=== PATIENT | male | born 1955 | race Hispanic/Latino ===

== ENCOUNTER 2017-12-21 13:10 | Inpatient (IN) | payer MEDICARE, MEDICAID ==
[2017-12-21 13:10] VITALS: BMI 28.1
--- NOTE | 2017-12-21 14:07 | ED PDOC ---
Arrival/HPI - General Chief Complaint: Cough, Cold, Congestion Time Seen by Provider: 12/21/17 13:28 Historian: Patient - History of Present Illness Narrative History of Present Illness (Text): 12/21/17 13:43 A 62 year old male, whose past medical history includes hypertension, PR, CHF and CVA, presents to the emergency department complaining of subjective fever, myalgias, and productive cough for 2 days. Patient reports also experiencing chest pain which only occurs when coughing. Patient has no other complaints. PMD: Dr. Hess 12/21/17 15:25 Time/Duration: < week (2 days) Symptom Onset: Sudden Symptom Course: Unchanged Past Medical History - Provider Review Nursing Documentation Reviewed: Yes - Infectious Disease Hx of Infectious Diseases: None - Cardiac Hx Cardiac Disorders: Yes Hx Congestive Heart Failure: Yes Hx Hypertension: Yes - Pulmonary Hx Respiratory Disorders: Yes (SMOKES CIGARETTES < PPD.STILL SNEAKS 1-2 .) Hx Pneumonia: Yes - Neurological HX Cerebrovascular Accident: Yes (2012) - HEENT Hx HEENT Disorder: No - Renal Hx Renal Disorder: No - Endocrine/Metabolic Hx Diabetes Mellitus Type 2: Yes - Hematological/Oncological Hx Blood Disorders: No - Integumentary Hx Dermatological Disorder: No (SCARRING TO RIGHT LEG.H/O OF BYPASS.) - Musculoskeletal/Rheumatological Hx Musculoskeletal Disorders: Yes Hx Falls: No Hx Unsteady Gait: Yes (CANE USED AT TIMES) Other/Comment: edema to lower extremIties - Gastrointestinal Hx Gastrointestinal Disorders: Yes (RECTAL BLEED) - Genitourinary/Gynecological Hx Genitourinary Disorders: No - Psychiatric Hx Psychophysiologic Disorder: No Hx Substance Use: No - Surgical History Other/Comment: DVT to right leg/BYpass surgery 2015 - Anesthesia Hx Anesthesia: Yes Hx Anesthesia Reactions: No Hx Malignant Hyperthermia: No Family/Social History - Physician Review Nursing Documentation Reviewed: Yes Family/Social History: No Known Family HX Smoking Status: Current Some Days Smoker Hx Alcohol Use: No Hx Substance Use: No Allergies/Home Meds Allergies/Adverse Reactions: Allergies benztropine mesylate [From Cogentin] Allergy (Verified 12/21/17 13:26) ANAPHYLAXIS esomeprazole magnesium [From Nexium] Allergy (Verified 12/21/17 13:26) RASH Penicillins Allergy (Verified 12/21/17 13:26) ANAPHYLAXIS Sulfa (Sulfonamide Antibiotics) Allergy (Verified 12/21/17 13:26) RASH Home Medications: Home Meds Medication Instructions Recorded Confirmed Atorvastatin [Lipitor] 10 mg PO DAILY 01/13/17 12/21/17 Amlodipine Besylate [Amlodipine 25 mg PO DAILY 12/21/17 12/21/17 Besilate] Furosemide [Lasix] 40 mg PO BID 12/21/17 12/21/17 Potassium Gluconate [Potassium] 0 mg PO DAILY 12/21/17 12/21/17 Review of Systems - Physician Review All systems were reviewed & negative as marked: Yes - Review of Systems Constitutional: Fevers (subjective) Respiratory: Cough (productive) Cardiovascular: Chest Pain (only occurs when coughing) Musculoskeletal: Myalgias Physical Exam Vital Signs Reviewed: Yes Vital Signs Temp Pulse Resp BP Pulse Ox 12/21/17 17:41 71 12 133/65 95 12/21/17 16:02 147/85 12/21/17 15:55 70 12 133/61 95 12/21/17 13:31 99.6 F 91 H 19 141/65 96 Temperature: Afebrile Blood Pressure: Normal Pulse: Regular Respiratory Rate: Normal Appearance: Positive for: Well-Appearing Pain Distress: None Mental Status: Positive for: Alert and Oriented X 3 - Systems Exam Head: Present: Atraumatic, Normocephalic Pupils: Present: PERRL Extroacular Muscles: Present: EOMI Conjunctiva: Present: Normal Mouth: Present: Moist Mucous Membranes Nose (Internal): Present: Rhinorrhea (clear) Neck: Present: Normal Range of Motion Respiratory/Chest: Present: Clear to Auscultation, Good Air Exchange. No: Respiratory Distress, Accessory Muscle Use Cardiovascular: Present: Regular Rate and Rhythm, Normal S1, S2. No: Murmurs Abdomen: Present: Normal Bowel Sounds. No: Tenderness, Distention, Peritoneal Signs Back: Present: Normal Inspection Upper Extremity: Present: Normal Inspection. No: Cyanosis, Edema Lower Extremity: Present: Normal Inspection. No: Edema Neurological: Present: GCS=15, CN II-XII Intact, Speech Normal Skin: Present: Warm, Dry, Normal Color. No: Rashes Psychiatric: Present: Alert, Oriented x 3, Normal Insight, Normal Concentration Medical Decision Making ED Course and Treatment: 12/21/17 13:45 Impression: 62 year old male with subjective fever, myalgias, productive cough associated with chest pain. Physical exam shows clear rhinorrhea and normal lung examination. Plan: -- Chest X-ray -- Labs -- Influenza A B test -- Aspirin -- Reassess and disposition Prior Visits: Notes and results from previous visits were reviewed. Patient was last seen in the emergency department on 01/13/2017 for chest pain. Patient was admitted. Progress Notes: 12/21/2017 14:28 Chest X-ray IMPRESSION: No active disease. Dictator: Sean Beasley MD 12/21/17 14:37 EKG showsx NSR at 91bpm with LBBB and LAD, unchanged from prior on 01/14/17. cxray negative for acute disease 12/21/17 14:57 Influenza b positive. Tamiflu started 12/21/17 15:25 Patient had normal echo last year. However, he reports shortness of breath when lying flat. When ambulating around the ED he reports persistent shortness of breath and is tachypneic to 22 and o2 sat to 94%. BNP elevated. lasix ordered. Will need tele observation for influenza with multiple co-morbidities incluiding chf, copd, and mental retardation, with tachypnea and shortness of breath - Lab Interpretations Lab Results: 12/21/17 14:20 12/21/17 14:20 Lab Results 12/21/17 14:20: Sodium 143, Potassium 3.5 L, Chloride 103, Carbon Dioxide 24, Anion Gap 19, BUN 24 H, Creatinine 1.5, Est GFR ( Amer) 58, Est GFR (Non- Af Amer) 48, Random Glucose 114 H, Calcium 9.5, Total Bilirubin 0.7, AST 30, ALT 28, Alkaline Phosphatase 47, Troponin I 0.12 D, NT-Pro-B Natriuret Pep 3070 H, Total Protein 7.7, Albumin 4.4, Globulin 3.3, Albumin/Globulin Ratio 1.4 12/21/17 14:20: WBC 3.9 L D, RBC 3.61, Hgb 10.7 L, Hct 33.6 L, MCV 93.1, MCH 29.6, MCHC 31.8, RDW 15.3 H, Plt Count 80 L, MPV 10.9, Gran % 69.8 H, Lymph % ( Auto) 17.5 L, Towner % (Auto) 12.7 H, Eos % (Auto) 0.0 L, Baso % (Auto) 0.0, Gran # 2.75, Lymph # (Auto) 0.7 L, Towner # (Auto) 0.5, Eos # (Auto) 0.0, Baso # (Auto ) 0.00 12/21/17 14:20: Influenza Typ A,B (EIA) Pos for influenza b H I have reviewed the lab results: Yes - RAD Interpretation Radiology Orders: 12/21/17 13:33 CHEST PORTABLE [RAD] Stat - Medication Orders Current Medication Orders: Aspirin (Ecotrin) 81 mg PO DAILY [place] Atorvastatin Calcium (Lipitor) 10 mg PO DIN [place] Enoxaparin Sodium (Lovenox) 90 mg SC Q24H [place] PRN Reason: Protocol Last Admin: 12/21/17 19:32 Dose: 90 mg Subcutaneous Administrations Document 12/21/17 19:32 JERICHO (Rec: 12/21/17 19:32 [email or web address]) Injection Site MAR Injection Site Left Abdomen Charges for Administration # of Subcutaneous Administrations 1 Furosemide (Lasix) 40 mg IV DAILY [place] Furosemide (Lasix) 40 mg IV ONCE ONE Stop: 12/21/17 21:01 Metoprolol Tartrate (Lopressor) 25 mg PO BID [place] Potassium Chloride (K-Dur 20 Meq Er Tab) 20 meq PO ONCE ONE Stop: 12/21/17 21:01 Potassium Chloride (K-Dur 20 Meq Er Tab) 20 meq PO DAILY [place] Discontinued Medications Aspirin (Aspirin Chewable) 324 mg PO STAT STA Stop: 12/21/17 13:47 Last Admin: 12/21/17 13:57 Dose: 324 mg Furosemide (Lasix) 40 mg IVP STAT STA Stop: 12/21/17 15:27 Last Admin: 12/21/17 16:02 Dose: 40 mg MAR Blood Pressure Document 12/21/17 16:02 RG (Rec: 12/21/17 16:14 [email or web address]) Blood Pressure Blood Pressure (100/60-150/90) 147/85 IVP Administration Document 12/21/17 16:02 RG (Rec: 12/21/17 16:14 [email or web address]) Charges for Administration # of IVP Administrations 1 Oseltamivir Phosphate (Tamiflu Cap) 75 mg PO STAT STA PRN Reason: Protocol Stop: 12/21/17 14:58 Last Admin: 12/21/17 15:14 Dose: 75 mg Potassium Chloride (K-Dur 20 Meq Er Tab) 40 meq PO STAT STA Stop: 12/21/17 18:08 Last Admin: 12/21/17 19:31 Dose: 40 meq - Scribe Statement The provider has reviewed the documentation as recorded by the Karen Garcia Provider Scribe Attestation: All medical record entries made by the Angeliqueibbaylee were at my direction and personally dictated by me. I have reviewed the chart and agree that the record accurately reflects my personal performance of the history, physical exam, medical decision making, and the department course for this patient. I have also personally directed, reviewed, and agree with the discharge instructions and disposition. Disposition/Present on Arrival - Present on Arrival Any Indicators Present on Arrival: No History of DVT/PE: No History of Uncontrolled Diabetes: No Urinary Catheter: No History of Decub. Ulcer: No History Surgical Site Infection Following: None - Disposition Have Diagnosis and Disposition been Completed?: Yes Diagnosis: Influenza B, Congestive heart failure (CHF) Disposition: HOSPITALIZED Disposition Time: 15:59 Patient Plan: Observation Patient Problems: Current Active Problems Problem Status Onset Influenza B Acute Condition: FAIR
--- NOTE | 2017-12-21 14:30 | RAD ---
HISTORY: cough COMPARISON: 01/16/2017 FINDINGS: LUNGS: No active pulmonary disease. PLEURA: No significant pleural effusion identified, no pneumothorax apparent. CARDIOVASCULAR: Normal. OSSEOUS STRUCTURES: No significant abnormalities. VISUALIZED UPPER ABDOMEN: Normal. OTHER FINDINGS: None. IMPRESSION: No active disease.
[2017-12-21 14:43] LABS: GRAN # 2.75 (1.4-6.5); GRAN % 69.8 % (50.0-68.0); HEMOGLOBIN 10.7 g/dL (14.0-18.0); LYMPH # 0.7 (1.2-3.4); LYMPH % 17.5 % (22.0-35.0); MEAN CELL VOLUME 93.1 fl (80.0-105.0); MEAN CORPUSCULAR HEMOGLOBIN 29.6 pg (25.0-35.0); MEAN CORPUSCULAR HGB CONC 31.8 g/dl (31.0-37.0); MEAN PLATELET VOLUME 10.9 fl (7.0-11.0); MONO # 0.5 (0.1-0.6); MONO % 12.7 % (1.0-6.0); RBC 3.61 10^6/uL (3.5-6.1); RED CELL DISTRIBUTION WIDTH 15.3 % (11.5-14.5); WHITE BLOOD COUNT 3.9 10^3/ul (4.5-11.0)
[2017-12-21 14:45] LABS: ALB/GLOB RATIO 1.4 (1.1-1.8); ALBUMIN 4.4 g/dL (3.0-4.8); CALCIUM 9.5 mg/dL (8.4-10.5)
[2017-12-21 14:56] LABS: TROPONIN I 0.12 ng/mL
--- NOTE | 2017-12-21 18:00 | CARD ---
APPROVED REPORT EKG Measurement Heart [id number] <Conclusion> Normal sinus rhythm, APCs Left axis deviation Left bundle branch block Abnormal ECG
[2017-12-21] MEDS ORDERED: Potassium Chloride 20 mEq ER Tab PO STA (18:07)
[2017-12-21] MEDS: Enoxaparin 100 mg Syringe SC SCH (19:32)
[2017-12-21] MEDS ORDERED: Potassium Chloride 20 mEq ER Tab PO ONE (21:00)
[2017-12-22 04:14] LABS: EOS % 0.7 % (1.5-5.0); GRAN # 1.14 (1.4-6.5); GRAN % 42.3 % (50.0-68.0); HEMOGLOBIN 11.3 g/dL (14.0-18.0); LYMPH # 1.1 (1.2-3.4); LYMPH % 39.6 % (22.0-35.0); MEAN CELL VOLUME 93.3 fl (80.0-105.0); MEAN CORPUSCULAR HGB CONC 31.1 g/dl (31.0-37.0); MEAN PLATELET VOLUME 10.7 fl (7.0-11.0); MONO # 0.5 (0.1-0.6); MONO % 17.4 % (1.0-6.0); RBC 3.89 10^6/uL (3.5-6.1); RED CELL DISTRIBUTION WIDTH 15.2 % (11.5-14.5)
[2017-12-22 04:35] LABS: WHITE BLOOD COUNT 2.7 10^3/ul (4.5-11.0)
[2017-12-22 05:06] LABS: ALB/GLOB RATIO 1.3 (1.1-1.8); ALBUMIN 4.4 g/dL (3.0-4.8); ALT/SGPT 25 U/L (7-56); AST/SGOT 30 U/L (17-59); BLOOD UREA NITROGEN 24 mg/dL (7-21); CALCIUM 9.8 mg/dL (8.4-10.5); GFR AFRICAN-AMERICAN > 60; GFR NON-AFRICAN AMERICAN 56; HDL CHOLESTEROL 34 mg/dL (29-60); MAGNESIUM 2.4 mg/dL (1.7-2.2)
--- NOTE | 2017-12-22 05:06 | CON ---
DATE: 12/21/2017 CONSULT SERVICE: Cardiology. CONSULTING PHYSICIAN: Ricardo Landrum MD REASON FOR CONSULTATION AND FOLLOWUP: Cardiac evaluation, admitted with cold congestion, cough, flu-like symptoms, and mild shortness of breath. BRIEF CLINICAL HISTORY: This is a 62-year-old male with past medical history significant for moderate aortic stenosis, moderate aortic regurgitation, [id number] tricuspid regurgitation, came in with complaint of cold, flu-like symptoms, congestion nasal, nasal tone of sounds, complaining of fever, myalgia, and productive cough for two days, and shortness of breath as well. Daughter called the primary care doctor, Dr. Hess, notified and then brought to the emergency room. The patient denies any chest pain, shortness of breath, any palpitations, but complaining of chest pain on coughing and mild shortness of breath on walking with nasal congestion, sneezing, and coughing. The patient's flu test for influenza type A and B is positive. PAST MEDICAL HISTORY: Past history is significant for peripheral arterial disease, history of cardiac catheterization in 2015, mild nonobstructive coronary artery disease, history of CVA with left-sided weakness, hypertension, hyperlipidemia, used to smoke. SOCIAL HISTORY: Used to smoke, but quit smoking. The patient is also somewhat mentally challenged. Previous cardiac workup as follows; the patient has most recent echocardiography done on 01/14/2017, that showed LVH, ejection fraction 50% to 55%, septal motion consistent with conduction abnormality, moderate aortic regurgitation, moderate supravalvular aortic stenosis, mild mitral regurgitation, [id number] tricuspid regurgitation, RV systolic pressure 39. The patient has bilateral carotid Duplex with 60% to 79% right ICA stenosis, 40% to 59% left ICA stenosis. History of cardiac catheterization done on 02/19/2016, that shows mild aortic stenosis, mild aortic insufficiency, mild left ventricular hypokinesis, ejection fraction 50%, noncritical coronary artery disease. CURRENT MEDICATIONS: The patient at home was taking Lasix 40, metoprolol 25, atorvastatin 10 mg, amlodipine mg. REVIEW OF SYSTEMS: As per HPI. PHYSICAL EXAMINATION: VITAL SIGNS: As follows; temperature is afebrile, heart rate 79, and blood pressure 133/65. HEENT: PERRLA. Extraocular muscles are intact. NECK: Supple. No carotid bruits or thyromegaly. CHEST: Clear to auscultation. HEART: S1 and S2 regular. ABDOMEN: Soft. EXTREMITIES: Clubbing and cyanosis negative. LABORATORY DATA: Blood workup as follows; WBC 3.9, hemoglobin 10.7, hematocrit 33.6, and platelet count 80. Chemistry shows sodium 143, potassium 3.5, chloride 103, carbon dioxide 24, anion gap of 19, BUN 24, creatinine 1.5. BNP 3070. Troponin 0.12. . EKG shows normal sinus, left bundle-branch block. Flu test positive. Chest x-ray showed mild congestion, and official reading of the chest x-ray had no active disease. Elevated BNP. Borderline troponin positive. ASSESSMENT: The patient has history of cardiac catheterization in 02/2016, nonobstructive coronary artery disease, hypertension, moderate aortic stenosis, moderate aortic regurgitation, tricuspid regurgitation, right ventricular systolic pressure of 30. RECOMMENDATIONS: We will start IV Lasix, continue aggressive treatment for flu as per ID, and we will continue Lasix with DVT prophylaxis. We will follow with you. Thank you, Dr. Causey for providing the opportunity in taking care of the patient, Roque Byers. We will follow with you. Ricardo Landrum MD
[2017-12-22 05:07] LABS: LDL CHOLESTEROL 65 mg/dL (0-129)
[2017-12-22 05:09] LABS: B-TYPE NATRIURETIC PEPTIDE 2120 pg/mL (0-450)
[2017-12-22] MEDS: Potassium Chloride 20 mEq ER Tab PO SCH (09:37)
[2017-12-22] MEDS: Enoxaparin 100 mg Syringe SC SCH (17:56)
--- NOTE | 2017-12-22 20:26 | PN ---
DATE: SUBJECTIVE: The patient denies any shortness of breath or any chest pain. He complains of cough. PHYSICAL EXAMINATION: VITAL SIGNS: Blood pressure 133/74, heart rate 93, temperature 98, respirations 17. HEENT: Normocephalic. CHEST: Bilateral rhonchi. HEART: S1 and S2, regular. ABDOMEN: Soft. EXTREMITIES: No edema. LABORATORY DATA: Today's hemoglobin and hematocrit 11.3 and 36.3, white count 2.7, platelet count 67,000. Today's SMA-7 is within normal limits except for BUN of 24, magnesium is 2.4, proBNP is 2120. EKG revealed sinus rhythm with left bundle-branch block, left axis deviation, heart rate is 91. Serology is positive for influenza B. ASSESSMENT: 1. Influenza B infection. 2. History of nonobstructive coronary artery disease. 3. Moderate aortic stenosis with moderate aortic insufficiency. 4. 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 RECOMMENDATIONS: Continue current aspirin 81 mg once a day, K-Dur 20 mEq once daily, Lasix 40 mg intravenously daily, Lipitor 10 mg once a day, Lopressor 25 mg twice a day, and Lovenox at 90 mg subcutaneously daily. The patient's most recent echocardiographic study was from January of last year which revealed low normal ejection fraction and mild pulmonary hypertension. The indication of either therapeutic or preventive subcutaneous Lovenox will be left out to the primary physician. Milton Salomon MD
--- NOTE | 2017-12-23 05:43 | HP ---
CHIEF COMPLAINT AND HISTORY OF PRESENT ILLNESS: This is a 62-year-old male who has come into the hospital with complaints of cough and congestion. He has a past medical history of hypertension. The patient says he has been having fevers. He has muscle aches. He has been having a cough for the past two days. He has been complaining of chest discomfort. He denies any nausea or vomiting. He has no headaches. No weakness in the arms or the legs. He is not able to give full history because of his underlying medical condition. ALLERGIES: COGENTIN, NEXIUM, PENICILLIN AND SULFA. SOCIAL HISTORY: He is mentally challenged. He lives with his sister. PAST MEDICAL HISTORY: CVA and dyslipidemia. PHYSICAL EXAMINATION: VITAL SIGNS: Temperature is 99, pulse of 76, blood pressure 123/57, respirations 18, O2 saturation 94%. GENERAL: The patient lying in bed, uncomfortable, and in no acute distress. HEENT: Atraumatic and normocephalic. Anicteric sclerae. Moist mucosa. [place] conjunctivae. No oral lesions. NECK: No JVD, anterior and posterior adenopathy, thyromegaly, or bruits. CARDIOVASCULAR: S1 and S2 regular. No murmur, rubs, or gallop. LUNGS: Clear to auscultation bilaterally. No wheezes, rales, or rhonchi. ABDOMEN: Bowel sounds are positive. Soft, nontender and nondistended. No hepatosplenomegaly. No rebound and no guarding EXTREMITIES: No cyanosis, clubbing, or edema. NEUROLOGIC: No facial asymmetry. Tongue is midline. No uvula deviation. Power is 5/5 upper extremity and lower extremity. Sensation intact in upper extremity and lower extremity. PSYCHIATRIC: He is awake, alert and oriented x2. No hallucinations. GENITOURINARY: No CVA tenderness. VASCULAR: 2+ pulses in the carotid pulses and pedal pulses. SKIN: No erythema or nodules SPINE: Shows normal curvature. LABORATORY DATA: White count of 3.9, hemoglobin 10.7, platelet count is 80. Chemistry shows a potassium of 3.5, troponin is 0.12, a repeat is 0.1. His serology shows influenza is positive for influenza B. Chest x-ray done shows no active disease. EKG shows sinus rhythm, left axis deviation. ASSESSMENT: 1. Viral syndrome secondary to flu. 2. Dyslipidemia. 3. Hypertension. 4. Aortic regurgitation. 5. Aortic stenosis. PLAN: The patient is feeling comfortable. He is going to be placed on Tamiflu. He is going to be admitted to the hospital. We will get Dr. Landrum to see the patient from Cardiology. The patient was given Lasix and placed on Lipitor for dyslipidemia . He is going to be on a heart-healthy diet. We will continue to follow closely. Jose Causey MD
[2017-12-23] MEDS: Potassium Chloride 20 mEq ER Tab PO SCH (10:11)
--- NOTE | 2017-12-23 13:55 | PN ---
DATE: 12/23/2017 SUBJECTIVE: The patient is not complaining of any chest pain or shortness of breath. He states he still has a cough and congestion. PHYSICAL EXAMINATION: VITAL SIGNS: Temperature is 98.2, pulse is 71, blood pressure 127/70, respirations 20. GENERAL: The patient is lying in bed, flat, comfortable. HEENT: No oral lesion. Anicteric sclerae. Moist mucosa. NECK: No JVD, adenopathy, or thyromegaly. CARDIOVASCULAR: S1 and S2, regular. No murmurs, rubs, or gallops. LUNGS: Clear to auscultation bilaterally. No wheeze, rales, or rhonchi. ABDOMEN: Bowel sounds are positive, soft, nontender and nondistended. EXTREMITIES: no cyanosis, clubbing or edema. LABORATORY DATA: White count of 2.7, hemoglobin of 7.3, creatinine is 1.3. ASSESSMENT: 1. Viral syndrome secondary to influenza. 2. Dyslipidemia. 3. Hypertension. 4. Aortic regurgitation. 5. Aortic stenosis. PLAN: The patient is on heart healthy diet. He is going to continue on Lovenox. The patient's troponin is 0.1. He is going to continue Lasix daily. He is on Lipitor for dyslipidemia. Patient is on aspirin and beta-blockers. He is on Tamiflu. I will discontinue his telemetry. Jose Causey MD
[2017-12-23] MEDS: Enoxaparin 100 mg Syringe SC SCH (17:22)
[2017-12-24] MEDS ORDERED: Influenza Vaccine 60 mcg/0.5 mL SYR (4YR UP) IM ONE (10:00)
[2017-12-24] MEDS ORDERED: Pneumococcal 23-Valent Vaccine IM ONE (10:00)
[2017-12-24] MEDS: Potassium Chloride 20 mEq ER Tab PO SCH (10:59)
--- NOTE | 2017-12-24 20:46 | PN ---
DATE: CONSULTING PHYSICIAN: Ricardo Landrum MD REASON FOR CONSULTATION AND FOLLOWUP: Cardiac evaluation, admitted with cold symptom, flu like, mild shortness of breath, moderate aortic stenosis. SUBJECTIVE: He denies any chest pain, shortness of breath, any palpitation. OBJECTIVE: GENERAL: Not in apparent distress. VITAL SIGNS: Temperature afebrile, heart rate , blood pressure 133/81. HEENT: PERRLA. Extraocular muscles intact. NECK: Supple. No carotid bruit or thyromegaly. CHEST: Clear to auscultation. HEART: S1, S2, regular. ABDOMEN: Soft. EXTREMITIES: Clubbing and cyanosis negative. LABORATORY DATA: Blood workup as follows, WBC 2.7, hemoglobin , hematocrit 36.3, platelet count 67. Chemistry shows sodium 140, potassium 3.0, chloride 104, carbon dioxide 25, anion gap of 18. BUN 24, creatinine 1.8. Troponin 0.01, negative. BNP elevated. IMPRESSION: No evidence of acute myocardial infarction. Positive for flu. On previous cardiac workup, patient had echo on 01/14/2017, 50% to 55% ejection fraction, moderate aortic regurgitation, moderate supravalvular aortic stenosis. Patient had cardiac catheterization on 02/19/2016, that shows mild aortic stenosis, mild aortic insufficiency with mild hypokinesis with ejection 50%, noncritical coronary artery disease. RECOMMENDATIONS: Continue low-dose beta-lopez. We will discontinue Lovenox because patient's . Continue beta-lopez. Continue gentle diuretics. We will follow with you. Possible discharge planning. Continue aspirin. Continue beta-lopez. We will repeat the blood workup in the morning. Thank you for providing us the opportunity in taking care of the patient, Roque Byers. Ricardo Landrum MD
--- NOTE | 2017-12-25 00:45 | PN ---
DATE: 12/24/2017 SUBJECTIVE: The patient has no complaints of any chest pain or shortness of breath. refusing heparin. PHYSICAL EXAMINATION: VITAL SIGNS: Temperature is 99, pulse of 80, blood pressure is 120/62, respirations 17. GENERAL: The patient is lying in bed, flat, comfortable. HEENT: No oral lesion. Anicteric sclerae. Moist mucosa. NECK: No JVD, adenopathy, or thyromegaly. CARDIOVASCULAR: S1 and S2, regular. No murmurs, rubs, or gallops. LUNGS: Clear to auscultation bilaterally. No wheeze, rales, or rhonchi. ABDOMEN: Bowel sounds are positive, soft, nontender and nondistended. EXTREMITIES: no cyanosis, clubbing or edema. LABORATORY DATA: White count of 2.7. ASSESSMENT: 1. Viral syndrome secondary to influenza. 2. Dyslipidemia. 3. Hypertension. 4. Aortic regurgitation. 5. Aortic stenosis. PLAN: The patient states he is feeling better. He has thrombocytopenia. He is on Tamiflu for his flu. He is on metoprolol. He will continue Lipitor for dyslipidemia. He is on Lasix. The patient is on aspirin daily. He has repeat blood work ordered for tomorrow. I spoke with Dr. Landrum regarding the case. The patient is currently comfortable. Jose Causey MD
[2017-12-25 07:57] LABS: BASO # 0.01 K/mm3 (0.0-2.0); BASO % 0.2 % (0.0-3.0); EOS # 0.1 (0.0-0.7); EOS % 2.1 % (1.5-5.0); GRAN # 1.71 (1.4-6.5); GRAN % 40.4 % (50.0-68.0); HEMOGLOBIN 10.9 g/dL (14.0-18.0); LYMPH # 2.2 (1.2-3.4); LYMPH % 51.2 % (22.0-35.0); MEAN CELL VOLUME 91.8 fl (80.0-105.0); MEAN CORPUSCULAR HEMOGLOBIN 28.8 pg (25.0-35.0); MEAN CORPUSCULAR HGB CONC 31.3 g/dl (31.0-37.0); MEAN PLATELET VOLUME 11.5 fl (7.0-11.0); MONO # 0.3 (0.1-0.6); MONO % 6.1 % (1.0-6.0); RBC 3.79 10^6/uL (3.5-6.1); RED CELL DISTRIBUTION WIDTH 14.8 % (11.5-14.5); WHITE BLOOD COUNT 4.2 10^3/ul (4.5-11.0)
[2017-12-25 08:10] LABS: ALB/GLOB RATIO 1.4 (1.1-1.8); ALBUMIN 4.4 g/dL (3.0-4.8); ALT/SGPT 29 U/L (7-56); AST/SGOT 28 U/L (17-59); BLOOD UREA NITROGEN 28 mg/dL (7-21); CALCIUM 9.7 mg/dL (8.4-10.5); GFR AFRICAN-AMERICAN > 60; GFR NON-AFRICAN AMERICAN 56; MAGNESIUM 2.3 mg/dL (1.7-2.2)
[2017-12-25 08:17] VITALS: BP 122/59; PULSE 61; RESP 18; TEMP 98.4; O2SAT 95
[2017-12-25] MEDS: Potassium Chloride 20 mEq ER Tab PO SCH (09:04)
[2017-12-25] MEDS ORDERED: Pneumococcal 23-Valent Vaccine IM ONE (09:47)
[2017-12-25] MEDS ORDERED: Influenza Vaccine 60 mcg/0.5 mL SYR (4YR UP) IM ONE (09:48)
--- NOTE | 2017-12-25 09:56 | PN ---
DATE: 12/23/2017 SUBJECTIVE: The patient denies any chest pain. No productive cough. PHYSICAL EXAMINATION: VITAL SIGNS: Blood pressure 133/69, heart rate is 75, temperature 98.2, respirations 20. HEENT: Normocephalic. CHEST: Clear. HEART: S1 and S2, regular. ABDOMEN: Soft. EXTREMITIES: No edema. NEUROLOGICAL: Left hemiparesis. ASSESSMENT: 1. Influenza B infection. 2. Moderate aortic stenosis and moderate aortic insufficiency. 3. History of cerebrovascular accident with hemiparesis. 4. Hypertension. RECOMMENDATIONS: Continue aspirin 81 mg once a day, K-Dur 20 mEq once a day, Lasix 20 mg intravenously once a day, Lipitor 10 mg once a day, Lopressor 25 mg twice a day, and Tamiflu 75 mg twice a day, may change Lovenox to prophylactic dose if there is no contraindication. Milton Salomon MD
--- NOTE | 2017-12-25 12:44 | PN ---
DATE: 12/25/2017 REASON FOR CONSULTATION AND FOLLOWUP: Cardiac evaluation, admitted with cold symptom like flu, shortness of breath, moderate aortic stenosis. SUBJECTIVE: Denies any chest pain, shortness of breath, or any palpitation. OBJECTIVE: GENERAL: Not in apparent distress. VITAL SIGNS: Temperature afebrile, heart rate 61, blood pressure 122/51. HEENT: PERRLA. Extraocular muscles intact. NECK: Supple. No carotid bruit or thyromegaly. CHEST: Clear to auscultation. HEART: S1 and S2, regular. ABDOMEN: Soft. EXTREMITIES: Clubbing and cyanosis negative. LABORATORY DATA: Blood workup as follows: WBC 4.2, hemoglobin 10.9, hematocrit 34.8, platelet count 83. Chemistry shows sodium 140, potassium 4, chloride 103, carbon dioxide 27, anion gap of 18, BUN 28, creatinine 1.3, calcium 9.7, phosphorous 3.3, magnesium 2.3. IMPRESSION: No evidence of acute myocardial infarction. Positive flu. On previous cardiac workup, patient had echocardiogram on 01/14/2017, ejection fraction 55%, moderate aortic regurgitation, moderate supravalvular aortic stenosis. Had a cardiac catheterization on 02/19/2016 that showed mild aortic stenosis, mild aortic insufficiency, mild hypokinesis with ejection fraction 50%, no critical disease. RECOMMENDATION: Continue low-dose beta-lopez, DVT prophylaxis. Continue gentle diuretics. Possible discharge home today. CVS status is stable. Thank you, Dr. Causey, for providing the opportunity in taking care of Roque Byers. Ricardo Landrum MD
--- NOTE | 2017-12-26 05:30 | DS ---
HISTORY OF PRESENT ILLNESS: This is a 62-year-old male, who was admitted to the hospital because of a viral syndrome secondary to influenza. He has improvement of his symptoms. He states his coughing has improved. He has no complaints of any chest pain or shortness of breath. No headache. No dizziness. PHYSICAL EXAMINATION: VITAL SIGNS: Temperature is 98.1, pulse is 72, blood pressure is 147/53, and respirations 20. GENERAL: The patient is lying in bed, flat, comfortable. HEENT: No oral lesion. Anicteric sclerae. Moist mucosa. NECK: No JVD, adenopathy, or thyromegaly. CARDIOVASCULAR: S1 and S2, regular. No murmurs, rubs, or gallops. LUNGS: Clear to auscultation bilaterally. No wheeze, rales, or rhonchi. ABDOMEN: Bowel sounds are positive, soft, nontender and nondistended. EXTREMITIES: no cyanosis, clubbing or edema. ASSESSMENT: 1. Viral syndrome secondary to influenza. 2. Dyslipidemia. 3. Hypertension. 4. Aortic regurgitation. 5. Aortic stenosis. PLAN: The patient is on aspirin daily. He is going to continue with his Tamiflu. He is on metoprolol. He is going to continue Lipitor for dyslipidemia. The patient was seen by Dr. Landrum. No further cardiac intervention is going to be needed. I will discharge the patient to home to follow with me in the office. CONDITION: Stable. ACTIVITY: Increase as tolerated. Jose Causey MD
== END 2017-12-25 11:37 | disposition home or self-care (01) | DRG 194 ==
LOC: ED 13:10 → ERH 16:00 → OBSVTOIN 12-22 10:00 → ERH 12-22 18:08 → 2RSO 12-22 18:45 → 5RNO 12-23 12:45
PROVIDERS: ADMIT Internal Medicine Nephrology; ATTEND Internal Medicine Nephrology
DX: J10.1 Influenza due to other identified influenza virus with other respiratory manifestations (principal); I69.354 Hemiplegia and hemiparesis following cerebral infarction affecting left non-dominant side; I27.20 Pulmonary hypertension, unspecified; D69.6 Thrombocytopenia, unspecified; I11.0 Hypertensive heart disease with heart failure; I50.9 Heart failure, unspecified; I08.3 Combined rheumatic disorders of mitral, aortic and tricuspid valves; I25.10 Atherosclerotic heart disease of native coronary artery without angina pectoris; I44.7 Left bundle-branch block, unspecified; E78.5 Hyperlipidemia, unspecified; Z88.0 Allergy status to penicillin; Z88.2 Allergy status to sulfonamides

== ENCOUNTER 2018-02-09 10:36 | Inpatient (IN) | payer MEDICARE, MEDICAID ==
[2018-02-09 10:51] VITALS: BMI 27.1
--- NOTE | 2018-02-09 10:53 | ED PDOC ---
Arrival/HPI - General Time Seen by Provider: 02/09/18 10:40 Historian: Patient, Family - History of Present Illness Narrative History of Present Illness (Text): 02/09/18 10:51 62 y/o male, pmh including htn/NE/CHF/CVA/DVT and PE (taking eliquis)/COPD (as per sister), allergic to PPI/penicillin, bib sister, c/o acute onset of shortness of breath started this morning. Pt. has difficulty breathing and limited HPI can be obtained. Pt. came to the ER with hypoxic around 70s with tachypnea, limited verbal communication. As per sister, the patient started to have acute onset of the shortness of breath this morning which he has difficulty breathing, asymptomatic yesterday, no night sweat, no dizziness, no chest pain, no palpitation, no recent traveling, no other medical complaints. Past Medical History - Provider Review Nursing Documentation Reviewed: Yes - Infectious Disease Hx of Infectious Diseases: None - Cardiac Hx Cardiac Disorders: Yes Hx Congestive Heart Failure: Yes Hx Hypertension: Yes - Pulmonary Hx Respiratory Disorders: Yes (SMOKES CIGARETTES < PPD.STILL SNEAKS 1-2 .) Hx Pneumonia: Yes - Neurological HX Cerebrovascular Accident: Yes (2012) - HEENT Hx HEENT Disorder: No - Renal Hx Renal Disorder: No - Endocrine/Metabolic Hx Diabetes Mellitus Type 2: Yes - Hematological/Oncological Hx Blood Disorders: No - Integumentary Hx Dermatological Disorder: No (SCARRING TO RIGHT LEG.H/O OF BYPASS.) - Musculoskeletal/Rheumatological Hx Musculoskeletal Disorders: Yes Hx Falls: No Hx Unsteady Gait: Yes (CANE USED AT TIMES) Other/Comment: edema to lower extremIties - Gastrointestinal Hx Gastrointestinal Disorders: Yes (RECTAL BLEED) - Genitourinary/Gynecological Hx Genitourinary Disorders: No - Psychiatric Hx Psychophysiologic Disorder: No Hx Substance Use: No - Surgical History Other/Comment: DVT to right leg/BYpass surgery 2014 - Anesthesia Hx Anesthesia: Yes Hx Anesthesia Reactions: No Hx Malignant Hyperthermia: No Family/Social History - Physician Review Nursing Documentation Reviewed: Yes Family/Social History: Unknown Family HX Smoking Status: Former Smoker Hx Alcohol Use: No Hx Substance Use: No Allergies/Home Meds Allergies/Adverse Reactions: Allergies benztropine mesylate [From Cogentin] Allergy (Verified 02/09/18 10:46) ANAPHYLAXIS esomeprazole magnesium [From Nexium] Allergy (Verified 02/09/18 10:46) RASH Penicillins Allergy (Verified 02/09/18 10:46) ANAPHYLAXIS Sulfa (Sulfonamide Antibiotics) Allergy (Verified 02/09/18 10:46) RASH Home Medications: Home Meds Medication Instructions Recorded Confirmed Atorvastatin [Lipitor] 10 mg PO DAILY 01/13/17 02/09/18 Furosemide [Lasix] 40 mg PO BID 12/21/17 02/09/18 Potassium Gluconate [Potassium] 0 mg PO DAILY 12/21/17 02/09/18 Review of Systems - Review of Systems Constitutional: absent: Fatigue, Fevers Eyes: absent: Vision Changes ENT: absent: Hearing Changes Respiratory: SOB. absent: Cough, Sputum, Wheezing Cardiovascular: absent: Chest Pain Gastrointestinal: absent: Abdominal Pain, Diarrhea, Nausea, Vomiting Musculoskeletal: absent: Arthralgias, Back Pain Skin: absent: Rash, Pruritis Neurological: absent: Headache, Speech Changes Hemo/Lymphatic: absent: Adenopathy Psychiatric: absent: Anxiety, Depression Physical Exam Vital Signs Reviewed: Yes Vital Signs Temp Pulse Resp BP Pulse Ox 02/09/18 15:20 73 14 158/83 H 100 02/09/18 14:01 80 02/09/18 12:18 94 H 02/09/18 12:16 94 H 02/09/18 12:10 86 14 145/76 100 02/09/18 11:29 97.7 F 107 H 14 139/94 H 100 02/09/18 11:16 155/88 H 02/09/18 10:45 35 H 79 L 02/09/18 10:43 97.7 F 107 H 35 H 155/88 H 79 L Temperature: Afebrile Blood Pressure: Hypertensive Pulse: Tachycardic Respiratory Rate: Tachypneic Appearance: Positive for: Ill-Appearing, Uncomfortable Pain Distress: None Mental Status: Positive for: Alert and Oriented X 3 - Systems Exam Head: Present: Atraumatic, Normocephalic Pupils: Present: PERRL Extroacular Muscles: Present: EOMI Conjunctiva: Present: Normal Mouth: Present: Moist Mucous Membranes Neck: Present: Normal Range of Motion Respiratory/Chest: Present: Respiratory Distress, Accessory Muscle Use, Decreased Breath Sounds, Rhonchi, Tachypneic. No: Rales, Retracting, Tender to Palpation Cardiovascular: Present: Regular Rate and Rhythm, Normal S1, S2, Other (+ bilateral lower extremities pedal edema). No: Murmurs Abdomen: Present: Normal Bowel Sounds. No: Tenderness, Distention, Peritoneal Signs Back: Present: Normal Inspection. No: CVA Tenderness, Midline Tenderness, Paraspinal Tenderness Upper Extremity: Present: Normal Inspection. No: Cyanosis, Edema Lower Extremity: Present: Normal Inspection. No: Edema Neurological: Present: GCS=15, CN II-XII Intact, Speech Normal, Motor Func Grossly Intact, Memory Normal Skin: Present: Warm, Dry, Normal Color. No: Rashes Psychiatric: Present: Alert, Oriented x 3, Normal Insight, Normal Concentration Medical Decision Making ED Course and Treatment: 02/09/18 10:58 -labs/cardiac enzyme/vbg/dimer -CXR -Bilateral lower extremities venuous doppler -CTA -bipap (RT Paged) -IV Lasix 80mg/aspirin 325mg/nitro SL/duoneb -environmental monitoring specialist -Oxygen 4L -MOTORIZED SQUAD LIEUTENANTNURIA Watkins immediately notified about these ordered -Pt. examined with Dr. Fallon on the bed side and agreed on the order/admission 02/09/18 11:17 -Chest xray noted to have consolidation, IV levaquin/blood culture ordered. -BIPAP 28/04/50 started with the duoneb, oxygen goes up to the 93% 02/09/18 11:35 -Pt. desaturated to 88% on the BIPAP, ICU and PMD Dr. Durham paged. 02/09/18 11:49 -Oxygen return back up to the 94% under bipap -I spoke to the ICU Dr. Ozuna, discussed about the case/vital signs/labs radiology studies, will come to evaluate the patient to see if ICU bed is needed. -I spoke to Dr. Thomas, discussed case/vital signs/labs radiology studies, agreed to admit with Dr. Landrum on the routine consult 02/09/18 12:13 -EKG: Sinus Tachycardia @ 105 BPM, LBBB noted, non specific ST and T wave changes noted on the V2-V5 -Chest xray: +cardiomegally with infiltrate noted -Labs show no significant acute findings other than mg 2.3, -Cardiac enzyme 0.05, needs trending -Lactic acid within normal limit -Blood gas: 7.46/HCO3 17.5, CO2 25 -UA show -IV Levaquin/solumedrol/blood cultures added -Potassium 40meq po ordered as the ICU Dr. Ozuna consult as the additional treatment due to the IV lasix given and relief the symptoms. -Dr. Ozuna, ICU attending, came to evaluate the patient, stated that no ICU admission and telemetry will be sufficient. -I discussed the case with Dr. Fallon, including/labs/radiology result/consults and admission, he agreed and will put in the admission order. 02/09/18 12:16 -Pt. urinated approx. 1000cc of urine in the ER with symptoms improved. . -Wheezing and crackles decreased bilaterally and significantly. Reassessment Condition: Improved, Improving,but remains with symptoms - Critical Care Critical Care Minutes: 45 minutes Critical Care Time: Unstable Narrative Critical Care (Text): 02/09/18 12:16 hypoxic/tachycardia with unstable vital signs, respiratory therapist/continuous nebulizer treatment with IV steroid, BIPAP, ICU consult, shortness of breath with wheezing noted all over the chest. - Lab Interpretations Microbiology Results: Microbiology Results 02/09/18 11:38 Blood-Venous Blood Culture - Preliminary NO GROWTH AFTER 24 HOURS 02/09/18 11:08 Blood-Venous Blood Culture - Preliminary NO GROWTH AFTER 24 HOURS Lab Results: 02/09/18 11:08 02/09/18 11:08 Lab Results 02/09/18 12:03: pCO2 25 L, pO2 200.0 H, HCO3 17.8 L, ABG pH 7.46 H, ABG Total CO2 18.6 L, ABG O2 Saturation 100.0 H, ABG Base Excess -4.3 L, ABG Potassium 2.4 L*, Sodium 144.0, Chloride 117.0 H, Glucose 113 H, Lactate 0.8, FiO2 50.0, Inspiratory BiPAP 16, Arterial Blood Potassium 2.4 L* 02/09/18 11:50: Influenza Typ A,B (EIA) Negative for flu a/b 02/09/18 11:08: pO2 57 H, VBG pH 7.40, VBG pCO2 40.0, VBG HCO3 24.8, VBG Total CO2 26.0, VBG O2 Sat (Calc) 92.4 H, VBG Base Excess 0.0, VBG Potassium 4.0, Sodium 137.0, Chloride 105.0, Glucose 136 H, Lactate 1.3, FiO2 21.0, Venous Blood Potassium 4.0 02/09/18 11:08: WBC 7.9 D, RBC 4.13, Hgb 12.3 L, Hct 37.4 L, MCV 90.6, MCH 29.8 , MCHC 32.9, RDW 15.5 H, Plt Count 123, MPV 11.4 H, Gran % 72.0 H, Lymph % (Auto ) 21.1 L, Rains % (Auto) 5.2, Eos % (Auto) 1.4 L, Baso % (Auto) 0.3, Gran # 5.72 , Lymph # (Auto) 1.7, Rains # (Auto) 0.4, Eos # (Auto) 0.1, Baso # (Auto) 0.02 02/09/18 11:08: Sodium 140, Chloride 103, Potassium 4.0, Carbon Dioxide 24, Anion Gap 18, BUN 24 H, Creatinine 1.1, Est GFR ( Amer) > 60, Est GFR ( Non-Af Amer) > 60, Random Glucose 135 H, Calcium 10.0, Magnesium 2.3 H, Total Bilirubin 0.8, AST 23, ALT 25, Alkaline Phosphatase 72, Lactate Dehydrogenase 956 H, Total Creatine Kinase 148, Troponin I 0.05 D, NT-Pro-B Natriuret Pep 1000 H, Total Protein 7.9, Albumin 4.8, Globulin 3.2, Albumin/Globulin Ratio 1.5 02/09/18 11:08: PT 13.3 H, INR 1.15 H, APTT 32.9 - RAD Interpretation Radiology Orders: 02/09/18 DUPLEX LOWER EXTRM VEIN BILAT [US] Stat 02/09/18 10:46 CHEST PORTABLE [RAD] Stat Chest xray: HISTORY: shortness of breath COMPARISON: 12/21/2017 FINDINGS: LUNGS: Diffuse interstitial and alveolar infiltrates consistent with CHF PLEURA: No significant pleural effusion identified, no pneumothorax apparent. CARDIOVASCULAR: Normal. OSSEOUS STRUCTURES: No significant abnormalities. VISUALIZED UPPER ABDOMEN: Normal. OTHER FINDINGS: None. IMPRESSION: Pulmonary edema Bilateral lower extremities venuous doppler: as per preliminary report, no acute DVT Agricultural Economics Teacher: Radiologist - EKG Interpretation EKG Interpretation (Text): 02/09/18 11:00 -EKG: Sinus Tachycardia @ 105 BPM, LBBB noted, non specific ST and T wave changes noted on the V2-V5 Interpreted by ED Physician: Yes Type: 12 lead EKG Comparison: Com.w/previous EKG - Medication Orders Current Medication Orders: Albuterol/Ipratropium (Duoneb 3 Mg/0.5 Mg (3 Ml) Ud) 3 ml IH [id number] PRN PRN Reason: Shortness of Breath Atorvastatin Calcium (Lipitor) 10 mg PO DIN [facility] Last Admin: 02/09/18 17:16 Dose: 10 mg Furosemide (Lasix) 40 mg IV BID [facility] Last Admin: 02/10/18 10:55 Dose: 40 mg eMAR Start Stop Document 02/10/18 10:55 CD (Rec: 02/10/18 10:55 [place] [id number]) Intravenous Solution Start Date 02/10/18 Start Time 10:55 MAR Blood Pressure Document 02/10/18 10:55 CD (Rec: 02/10/18 10:55 CD [place] [id number]) Blood Pressure Blood Pressure (100/60-150/90) 137/73 Lisinopril (Zestril) 2.5 mg PO DAILY [facility] Last Admin: 02/10/18 10:56 Dose: 2.5 mg MAR Pulse and Blood Pressure Document 02/10/18 10:56 CD (Rec: 02/10/18 10:56 CD [place] [id number]) Pulse Pulse Rate (60-90) 80 Blood Pressure Blood Pressure (100/60-150/90) 137/73 Metoprolol Tartrate (Lopressor) 25 mg PO BID [facility] Last Admin: 02/10/18 10:55 Dose: 25 mg MAR Pulse and Blood Pressure Document 02/10/18 10:55 CD (Rec: 02/10/18 10:55 CD [id number]) Pulse Pulse Rate (60-90) 80 Blood Pressure Blood Pressure (100/60-150/90) 137/73 Potassium Chloride (K-Dur 20 Meq Er Tab) 20 meq PO BRK [facility] Last Admin: 02/10/18 08:30 Dose: 20 meq Discontinued Medications Albuterol/Ipratropium (Duoneb 3 Mg/0.5 Mg (3 Ml) Ud) 3 ml IH Q15M [place] Stop: 02/09/18 11:31 Last Admin: 02/09/18 11:30 Dose: 3 ml Aspirin (Aspirin) 325 mg PO STAT STA Stop: 02/09/18 10:47 Last Admin: 02/09/18 11:04 Dose: 325 mg Furosemide (Lasix) 80 mg IVP STAT STA Stop: 02/09/18 11:04 Last Admin: 02/09/18 11:16 Dose: 80 mg MAR Blood Pressure Document 02/09/18 11:16 OCS (Rec: 02/09/18 11:16 OCS [id number]) Blood Pressure Blood Pressure (100/60-150/90) 155/88 IVP Administration Document 02/09/18 11:16 OCS (Rec: 02/09/18 11:16 OCS [id number]) Charges for Administration # of IVP Administrations 1 Furosemide (Lasix) 40 mg PO BID [facility] Last Admin: 02/09/18 17:16 Dose: 40 mg MAR Blood Pressure Document 02/09/18 17:16 RV (Rec: 02/09/18 17:16 RV [id number]) Blood Pressure Blood Pressure (100/60-150/90) 135/96 Levofloxacin/Dextrose (Levaquin 750mg) 750 mg IVPB STAT STA PRN Reason: Protocol Stop: 02/09/18 11:14 Last Admin: 02/09/18 12:01 Dose: 750 mg eMAR Start Stop Document 02/09/18 12:01 OCS (Rec: 02/09/18 12:02 OCS [id number]) Intravenous Solution Start Date 02/09/18 Start Time 12:01 Methylprednisolone (Solu-Medrol) 125 mg IVP STAT STA Stop: 02/09/18 11:52 Last Admin: 02/09/18 12:02 Dose: 125 mg IVP Administration Document 02/09/18 12:02 OCS (Rec: 02/09/18 12:02 OCS [id number]) Charges for Administration # of IVP Administrations 1 Nitroglycerin (Nitrostat Sl Tab) 0.3 mg SL STAT STA Stop: 02/09/18 10:47 Last Admin: 02/09/18 11:05 Dose: 0.3 mg Potassium Chloride (K-Dur 20 Meq Er Tab) 40 meq PO STAT STA Stop: 02/09/18 12:11 Last Admin: 02/09/18 12:34 Dose: 40 meq - PA / HEAT AND FROST INSULATOR HELPER / Resident Statement /DO has reviewed & agrees with the documentation as recorded. / has examined the patient and agrees with the treatment plan. Disposition/Present on Arrival - Present on Arrival Any Indicators Present on Arrival: No History of DVT/PE: Yes History of Uncontrolled Diabetes: No Urinary Catheter: No History of Decub. Ulcer: No History Surgical Site Infection Following: None - Disposition Have Diagnosis and Disposition been Completed?: Yes Diagnosis: Pneumonia, Hypoxic, Congestive heart failure (CHF) Disposition: HOSPITALIZED Disposition Time: 11:00 Patient Plan: Admission, Telemetry Patient Problems: Current Active Problems Problem Status Onset Congestive heart failure (CHF) Acute Pneumonia Acute Hypoxic Acute Condition: STABLE
[2018-02-09] MEDS: Albuterol-Ipratrop 3 mg / 0.5 (3 ml) UD IH SCH ×3 (11:05→11:30)
[2018-02-09] MEDS ORDERED: Azithromycin 500MG/NS 250ml 500 MG/250 ML BAG IVPB STA (11:10)
[2018-02-09] MEDS ORDERED: cefTRIAXone 1 gm 1 GM/100 ML BAG IVPB STA (11:10)
[2018-02-09] MEDS ORDERED: levoFLOXacin 750 mg in D5W 150 ML BAG IVPB STA (11:13)
[2018-02-09 11:20] LABS: BASO # 0.02 K/mm3 (0.0-2.0); BASO % 0.3 % (0.0-3.0); EOS # 0.1 (0.0-0.7); EOS % 1.4 % (1.5-5.0); GRAN # 5.72 (1.4-6.5); HEMOGLOBIN 12.3 g/dL (14.0-18.0); LYMPH # 1.7 (1.2-3.4); LYMPH % 21.1 % (22.0-35.0); MEAN CELL VOLUME 90.6 fl (80.0-105.0); MEAN CORPUSCULAR HEMOGLOBIN 29.8 pg (25.0-35.0); MEAN CORPUSCULAR HGB CONC 32.9 g/dl (31.0-37.0); MEAN PLATELET VOLUME 11.4 fl (7.0-11.0); MONO # 0.4 (0.1-0.6); MONO % 5.2 % (1.0-6.0); RBC 4.13 10^6/uL (3.5-6.1); RED CELL DISTRIBUTION WIDTH 15.5 % (11.5-14.5); WHITE BLOOD COUNT 7.9 10^3/ul (4.5-11.0)
[2018-02-09 11:21] LABS: VENOUS BLOOD GAS PO2 57 mm/Hg (30-55)
--- NOTE | 2018-02-09 11:26 | RAD ---
HISTORY: shortness of breath COMPARISON: 12/21/2017 FINDINGS: LUNGS: Diffuse interstitial and alveolar infiltrates consistent with CHF PLEURA: No significant pleural effusion identified, no pneumothorax apparent. CARDIOVASCULAR: Normal. OSSEOUS STRUCTURES: No significant abnormalities. VISUALIZED UPPER ABDOMEN: Normal. OTHER FINDINGS: None. IMPRESSION: Pulmonary edema
[2018-02-09 11:30] LABS: ALB/GLOB RATIO 1.5 (1.1-1.8); ALBUMIN 4.8 g/dL (3.0-4.8); ALT/SGPT 25 U/L (7-56); AST/SGOT 23 U/L (17-59); GFR AFRICAN-AMERICAN > 60; GFR NON-AFRICAN AMERICAN > 60
[2018-02-09 11:34] LABS: INR 1.15 (0.93-1.08); PARTIAL THROMBOPLASTIN TIME 32.9 Seconds (25.1-36.5); PROTHROMBIN TIME 13.3 SECONDS (9.4-12.5)
[2018-02-09 11:41] LABS: BLOOD UREA NITROGEN 24 mg/dL (7-21)
[2018-02-09 11:42] LABS: B-TYPE NATRIURETIC PEPTIDE 1000 pg/mL (0-450); TROPONIN I 0.05 ng/mL
[2018-02-09 12:06] LABS: ARTERIAL BLOOD GAS HCO3 17.8 mmol/L (21-28); ARTERIAL BLOOD GAS PCO2 25 mm/Hg (35-45); ARTERIAL BLOOD GAS PH 7.46 (7.35-7.45); ARTERIAL BLOOD GAS TCO2 18.6 mmol.L (22-28)
[2018-02-09] MEDS ORDERED: Potassium Chloride 20 mEq ER Tab PO STA (12:10)
--- NOTE | 2018-02-09 12:49 | CP.PCM.CON ---
History of Present Illness - History of Present Illness History of Present Illness: Critical Care Consult HPI Patient is 62yo male with PMHx of MR, Diastolic CHF, HTN, CA, CVA, DVT and PE, COPD presents with acute onset of SOB that began this morning. Pt's sister who provided most of the history, reports SOB began this morning, without any recent illness, fever, chills, cough, chest pain, palpitations, JUARES, dizziness. Upon arrival to the ER patient ntoed to be saturating 70% on room air, placed on BIPAP, CXR with bilateral alveolar infiltrates/opacities likely ocnsistent with volume overload. Given Lasix IV x 1, with UOP ~700cc, with improvement in SOB. PMhx as above PSHx as above Meds as per EMR Allergies PCN, PPI ROS as above FHx NC Review of Systems - Review of Systems Review of Systems: as per HPI Past Patient History - Infectious Disease Hx of Infectious Diseases: None - Past Social History Smoking Status: Former Smoker - CARDIAC Hx Cardiac Disorders: Yes Hx Congestive Heart Failure: Yes Hx Hypertension: Yes - PULMONARY Hx Respiratory Disorders: Yes (SMOKES CIGARETTES < PPD.STILL SNEAKS 1-2 .) Hx Pneumonia: Yes - NEUROLOGICAL HX Cerebrovascular Accident: Yes (2012) - HEENT Hx HEENT Problems: No - RENAL Hx Chronic Kidney Disease: No - ENDOCRINE/METABOLIC Hx Diabetes Mellitus Type 2: Yes - HEMATOLOGICAL/ONCOLOGICAL Hx Blood Disorders: No - INTEGUMENTARY Hx Dermatological Problems: No (SCARRING TO RIGHT LEG.H/O OF BYPASS.) - MUSCULOSKELETAL/RHEUMATOLOGICAL Hx Musculoskeletal Disorders: Yes Hx Falls: No Hx Unsteady Gait: Yes (CANE USED AT TIMES) Other/Comment: edema to lower extremIties - GASTROINTESTINAL Hx Gastrointestinal Disorders: Yes (RECTAL BLEED) - GENITOURINARY/GYNECOLOGICAL Hx Genitourinary Disorders: No - PSYCHIATRIC Hx Psychophysiologic Disorder: No Hx Substance Use: No - SURGICAL HISTORY Other/Comment: DVT to right leg/BYpass surgery 2014 - ANESTHESIA Hx Anesthesia: Yes Hx Anesthesia Reactions: No Hx Malignant Hyperthermia: No Meds Allergies/Adverse Reactions: Allergies Allergy/AdvReac Type Severity Reaction Status Date / Time benztropine mesylate Allergy ANAPHYLAXIS Verified 02/09/18 10:46 [From Cogentin] esomeprazole magnesium Allergy RASH Verified 02/09/18 10:46 [From Nexium] Penicillins Allergy ANAPHYLAXIS Verified 02/09/18 10:46 Sulfa (Sulfonamide Allergy RASH Verified 02/09/18 10:46 Antibiotics) Physical Exam - Constitutional Appears: Non-toxic, No Acute Distress - Eye Exam Eye Exam: Normal appearance - ENT Exam ENT Exam: Mucous Membranes Moist - Respiratory Exam Respiratory Exam: Rales, NORMAL BREATHING PATTERN - Cardiovascular Exam Cardiovascular Exam: REGULAR RHYTHM, +S1, +S2 - GI/Abdominal Exam GI & Abdominal Exam: Normal Bowel Sounds, Soft - Extremities Exam Additional comments: 2+ edema - Neurological Exam Neurological exam: Alert, Oriented x3 Results - Vital Signs Recent Vital Signs: Last Vital Signs Temp 97.7 F 02/09/18 11:29 Pulse 94 H 02/09/18 12:18 Resp 14 02/09/18 11:29 BP 139/94 H 02/09/18 11:29 Pulse Ox 100 02/09/18 11:29 - Labs Result Diagrams: 02/09/18 11:08 02/09/18 11:08 Labs: Laboratory Results - last 24 hr 02/09/18 02/09/18 02/09/18 11:08 11:08 11:08 WBC 7.9 D RBC 4.13 Hgb 12.3 L Hct 37.4 L MCV 90.6 MCH 29.8 MCHC 32.9 RDW 15.5 H Plt Count 123 MPV 11.4 H Gran % 72.0 H Lymph % (Auto) 21.1 L [place] % (Auto) 5.2 Eos % (Auto) 1.4 L Baso % (Auto) 0.3 Gran # 5.72 Lymph # (Auto) 1.7 [place] # (Auto) 0.4 Eos # (Auto) 0.1 Baso # (Auto) 0.02 PT 13.3 H INR 1.15 H APTT 32.9 pCO2 pO2 HCO3 ABG pH ABG Total CO2 ABG O2 Saturation ABG Base Excess ABG Potassium Glucose Lactate FiO2 Inspiratory BiPAP Sodium 140 Potassium 4.0 Chloride 103 Carbon Dioxide 24 Anion Gap 18 BUN 24 H Creatinine 1.1 Est GFR ( Amer) > 60 Est GFR (Non-Af Amer) > 60 Random Glucose 135 H Calcium 10.0 Magnesium 2.3 H Total Bilirubin 0.8 AST 23 ALT 25 Alkaline Phosphatase 72 Lactate Dehydrogenase 956 H Total Creatine Kinase 148 Troponin I 0.05 D NT-Pro-B Natriuret Pep 1000 H Total Protein 7.9 Albumin 4.8 Globulin 3.2 Albumin/Globulin Ratio 1.5 Arterial Blood Potassium 02/09/18 12:03 WBC RBC Hgb Hct MCV MCH MCHC RDW Plt Count MPV Gran % Lymph % (Auto) [place] % (Auto) Eos % (Auto) Baso % (Auto) Gran # Lymph # (Auto) [place] # (Auto) Eos # (Auto) Baso # (Auto) PT INR APTT pCO2 25 L pO2 200.0 H HCO3 17.8 L ABG pH 7.46 H ABG Total CO2 18.6 L ABG O2 Saturation 100.0 H ABG Base Excess -4.3 L ABG Potassium 2.4 L* Glucose 113 H Lactate 0.8 FiO2 50.0 Inspiratory BiPAP 16 Sodium 144.0 Potassium Chloride 117.0 H Carbon Dioxide Anion Gap BUN Creatinine Est GFR ( Amer) Est GFR (Non-Af Amer) Random Glucose Calcium Magnesium Total Bilirubin AST ALT Alkaline Phosphatase Lactate Dehydrogenase Total Creatine Kinase Troponin I NT-Pro-B Natriuret Pep Total Protein Albumin Globulin Albumin/Globulin Ratio Arterial Blood Potassium 2.4 L* - Imaging and Cardiology Chest x-ray Status: Image reviewed by me, Report reviewed by me Assessment & Plan - Assessment and Plan (Free Text) Assessment: 62yo male a.w SOB SOB Acute Diastolic CHF exacerbation HTN Hx of PE/DVT Hx of MR - currently afebrile, HD stable, comfortable, in NAD, on BIPAP 12/5/50%, sat 100 % - ABG done with chronic resp alkalosis, good oxygenation PaO2 200 on 50% BIPAP - CXR with bilateral opacities consistent likely with volume overload - given Lasix IV x 1 with adequate UOP Recommend: - cont with BIPAP, wean off as tolerated, , oxygenation acceptable - Lasix IV diuresis - I/Os, daily weight - Nebulizers PRN - panculture, UCx, BCx, Procal - BP control - Cont with Eliquis (hx of PE/DVT) - monitor electrolytes - GI ppx - DVT ppx - Monitor on telemetry
[2018-02-09] MEDS ORDERED: Albuterol-Ipratrop 3 mg / 0.5 (3 ml) UD IH PRN (16:36)
--- NOTE | 2018-02-09 20:21 | CARD ---
APPROVED REPORT EKG Measurement Heart [id number] <Conclusion> Sinus tachycardia with fusion complexes Left axis deviation Left bundle branch block Abnormal ECG
--- NOTE | 2018-02-10 02:08 | CON ---
DATE: 02/09/2018 LOCATION: The patient is in room 372, bed 2. REASON FOR CONSULTATION: Shortness of breath, congestive heart failure, hypertension, mild aortic stenosis, mild aortic regurgitation, ejection fraction of 50%, nonobstructive CAD. HISTORY OF PRESENT ILLNESS: Patient is a 62-year-old male admitted with a history that he has shortness of breath of one day duration. Denies chest pain or palpitation, shortness of breath is present at rest. Patient is a known case of hypertension, hyperlipidemia, CVA old with left-sided weakness, history of DVT and pulmonary embolism, right leg bypass. PREVIOUS CARDIAC WORKUP: Patient has had an echocardiogram on 01/14/2017, which showed normal size LV, ejection fraction of 50% to 55%, mild left ventricular hypertrophy, moderate aortic regurgitation, moderate supravalvular aortic stenosis, mild mitral regurgitation, mild pulmonic regurgitation, [id number] tricuspid regurgitation, RVSP 39 mmHg, suggestive of minimal pulmonary hypertension. Patient had cardiac catheterization on 02/19/2016, showed mild aortic stenosis, mild aortic regurgitation, LV ejection fraction of 50%, nonobstructive coronary artery disease. PERSONAL HISTORY: He used to smoke 1 pack a day, denies smoking . No history of drinking. ALLERGIES: PATIENT DENIES ANY ALLERGY. FAMILY HISTORY: Father had high blood pressure, mother COPD. MEDICATIONS: List of medications at home. Patient was supposed to be taking Lasix 40 b.i.d., Lipitor 10 daily, metoprolol tartarate 25 b.i.d., potassium dose not known. REVIEW OF SYSTEMS: All the systems reviewed. Positives mentioned in the history, others are negative. PHYSICAL EXAMINATION: VITAL SIGNS: Blood pressure 135/96, respirations 20, pulse of 95, temperature 98.2. HEENT: Head is normocephalic. Eyes: Pupils normal. Conjunctivae normal. Nose and throat normal. NECK: JVP low. Carotids equal. THORAX: AP diameter normal. LUNGS: Bilateral basilar rales. CARDIOVASCULAR: S1, S2. Systolic murmur. No rub. ABDOMEN: Protuberant. No organomegaly. EXTREMITIES: Patient has 1 to 2+ edema bilaterally. LABORATORY DATA: WBC 7.9, hemoglobin 12.3, hematocrit 37.4, platelets 123. Sodium 140, potassium 4.0, BUN 24, creatinine 1.1. NT-proB natriuretic peptide 1000. Troponin 0.05. AST and ALT normal. Magnesium 2.3, calcium 10. Random glucose 135. Chest x-ray consistent with pulmonary edema. EKG shows sinus tachycardia with fusion complexes, left axis deviation, left bundle-branch block. DIAGNOSES: 1. Acute pulmonary edema. 2. Moderate aortic regurgitation. 3. Mild left ventricular hypertrophy. 4. Mild mitral regurgitation. 5. Cmghj-mz-hwem tricuspid regurgitation. 6. Moderate supravalvular aortic stenosis. 7. Congestive heart failure probably related to his underlying hypertension and moderate valvular disease. 8. Cerebrovascular disease. 9. Peripheral arterial disease. 10. History of right leg bypass surgery. 11. 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 12. History of deep venous thrombosis and pulmonary embolism. 13. Hypertension. 14. Hyperlipidemia. 15..Obesity. 16. Ex-smoker. PLAN: We will give Lasix 40 IV b.i.d., patient on 40 p.o. b.i.d., we will change it to 40 IV b.i.d. Patient received Lasix 80 IV in the emergency room, DuoNeb and nebulizer therapy, atorvastatin 10 mg daily, metoprolol 25 b.i.d., methylprednisolone 125 mg stat was given. We will also add lisinopril 2.5 mg daily. We will monitor intake and output, electrolytes and BUN and we will follow. Ricardo Martinez MD : 02/09/2018 21:53:56
[2018-02-10] MEDS: Potassium Chloride 20 mEq ER Tab PO SCH (08:30)
--- NOTE | 2018-02-10 14:52 | PN ---
DATE: 02/10/2018 LOCATION: The patient is in room 372, bed 2. REASON FOR CONSULTATION AND FOLLOWUP: Shortness of breath, congestive heart failure, hypertension, mild aortic stenosis, mild aortic regurgitation, ejection fraction of 50%, nonobstructive CAD. SUBJECTIVE: The patient is lying comfortably in bed without chest pain. He states his shortness of breath has improved. The patient denies any palpitation. PHYSICAL EXAMINATION: VITAL SIGNS: Blood pressure 137/73, respirations 20, pulse 80, temperature 98.3. HEENT: Head is normocephalic. Eyes: Pupils normal. Conjunctivae normal. NECK: JVP low. Carotids equal. THORAX: AP diameter normal. LUNGS: Few basilar rales. CARDIOVASCULAR: S1 and S2. Systolic murmur. No rub. ABDOMEN: Protuberant. No organomegaly. EXTREMITIES: No clubbing. No cyanosis. LABORATORY DATA: WBC 7.9, hemoglobin 12.3, hematocrit 37.4, platelets 123. Sodium 140, potassium 4, BUN 24, creatinine 1.1. Calcium 10, magnesium 2.3. AST, ALT normal. LDH 956. Troponin 0.05. DIAGNOSES: 1. Acute pulmonary edema. 2. Moderate aortic regurgitation. 3. Mild left ventricular hypertrophy. 4. Mild mitral regurgitation. 5. Bwpmt-wy-seet tricuspid regurgitation. 6. Moderate supravalvular aortic stenosis. 7. Congestive heart failure, probably related to underlying hypertension and moderate valvular disease. 8. Old cerebrovascular accident with left-sided weakness. 9. Peripheral arterial disease. 10. History of bypass surgery on right leg. 11. History of deep venous thrombosis and pulmonary embolism. 12. Hypertension. 13. Hyperlipidemia. 14. Obesity. 15. Ex-smoker. MEDICATIONS: The patient is on Lasix 40 IV b.i.d., DuoNeb hand nebulizer therapy, atorvastatin 10 mg daily, metoprolol 25 b.i.d., methylprednisolone stat 1 dose 125 mg was given, and lisinopril 2.5 mg daily. PREVIOUS CARDIAC WORKUP: The patient had an echo on 01/14/2017, showed normal LV ejection fraction 50% to 55%, mild left ventricular hypokinesis, moderate aortic regurgitation, moderate supravalvular aortic stenosis, mild mitral regurgitation, mild pulmonic regurgitation, ceela-pz-qvfehczy tricuspid regurgitation, RVSP 39 mmHg suggestive of minimal pulmonary hypertension. The patient had cardiac catheterization on 02/19/2016, showed mild aortic stenosis, mild aortic regurgitation, LV ejection fraction of 50%, nonobstructive coronary artery disease. Ricardo Martinez MD [facility] # [id number]
--- NOTE | 2018-02-10 23:35 | US ---
HISTORY: Leg pain and swelling. Evaluate for DVT PHYSICIAN(S): Suleman Hess MD. TECHNIQUE: Duplex sonography and color-flow Doppler with graded compression were used to evaluate the deep venous systems of both lower extremities. FINDINGS: The visualized deep venous systems of both lower extremities are sonographically normal and compressible. Normal wave forms and augmentation are seen. There is no sonographic evidence for deep venous thrombosis in the visualized segments of both lower extremities. IMPRESSION: No sonographic evidence for deep venous thrombosis in the visualized segments of both lower extremities.
--- NOTE | 2018-02-11 05:18 | HP ---
DATE OF EXAM: CHIEF COMPLAINT AND HISTORY OF PRESENT ILLNESS: This is a 62-year-old male who has come into the hospital complaining of a shortness of breath. He has a past medical history of coronary artery disease, PE on Eliquis, COPD, hypertension. The patient states that he started having worsening shortness of breath, started yesterday morning. He came in for further evaluation. In the ER, the patient was hypoxic in the 70s. He is tachypneic. He does have difficulty with communicating at times. This morning he states he is feeling better. He has no complaints of any fevers or chills. No chest pain. No nausea. No vomiting. No dysuria or frequency. No weakness in the arms or the legs. REVIEW OF SYSTEMS: All other review of symptoms are within normal limits except what is mentioned. ALLERGIES: COGENTIN, NEXIUM, PENICILLIN AND SULFA. HOME MEDICATIONS: Lipitor, Lasix, potassium. PAST MEDICAL HISTORY: As above. 1. Flu. 2. Dyslipidemia. 3. Hypertension. 4. Aortic regurgitation. 5. Aortic stenosis. 6. He was a former smoker, smoke one pack per day. FAMILY HISTORY: Patient's father had high blood pressure. Patient's mother had COPD. SOCIAL HISTORY: He lives with his sister. PHYSICAL EXAMINATION: VITAL SIGNS: Temperature is 98, pulse of 82, blood pressure 140/69, respirations 18 and O2 saturation 98%. Height is 5 feet 11 inches. Weight is 203 pounds. BMI is 28.4. GENERAL: The patient lying in bed, uncomfortable, and in no acute distress. HEENT: Atraumatic and normocephalic. Anicteric sclerae. Moist mucosa. [place] conjunctivae. No oral lesions. NECK: No JVD, anterior and posterior adenopathy, thyromegaly, or bruits. CARDIOVASCULAR: S1 and S2 regular. No murmur, rubs, or gallop. LUNGS: Clear to auscultation bilaterally. No wheezes, rales, or rhonchi. ABDOMEN: Bowel sounds are positive. Soft, nontender and nondistended. No hepatosplenomegaly. No rebound and no guarding EXTREMITIES: No cyanosis, clubbing, or edema. NEUROLOGIC: No facial asymmetry. Tongue is midline. No uvula deviation. Power is 5/5 upper extremity and lower extremity. Sensation intact in upper extremity and lower extremity. PSYCHIATRIC: He is awake, alert and oriented x3. No anxiety or depression. He has normal affect. GENITOURINARY: No CVA tenderness. VASCULAR: 2+ pulses in the carotid pulses and pedal pulses. SKIN: No erythema or nodules SPINE: Shows normal curvature. LABORATORY DATA: Labs have been reviewed. White count is 7.9, hemoglobin 12.3. He has INR 1.1. Troponin is 0.05. Serology shows influenza is negative. DIAGNOSTIC DATA: EKG shows sinus tachycardia with fusion complexes, left axis deviation. Chest x-ray done shows pulmonary edema. ASSESSMENT: 1. Acute congestive heart failure secondary to systolic dysfunction. 2. Moderate aortic regurgitation. 3. Peripheral arterial disease with bypass. 4. Cerebrovascular accident history. 5. Hypertension. 6. Dyslipidemia. PLAN: The patient is admitted to the hospital with acute CHF. He has elevated BNP. He has a chest x-ray that shows pulmonary edema. He was short of breath. Patient is feeling better. He is on nebulizer treatments. He is receiving Lasix twice a day. The patient is on Lipitor for dyslipidemia. He is on metoprolol. He is on Zestril for . He had lower extremity Dopplers that were done. The patient is on a heart healthy diet. I did call the patient's sister to give an update. Patient refusing blood work. Jose Causey MD
[2018-02-11] MEDS: Potassium Chloride 20 mEq ER Tab PO SCH (08:33)
--- NOTE | 2018-02-11 16:20 | PN ---
DATE: 02/11/2018 LOCATION: Room 372, bed 2. REASON FOR CONSULTATION AND FOLLOWUP: Shortness of breath, congestive heart failure, hypertension, mild aortic stenosis, mild aortic regurgitation, ejection fraction of 50%, nonobstructive CAD. SUBJECTIVE: The patient was admitted with shortness of breath, now shortness of breath improving. Denies chest pain, shortness of breath or palpitations. PHYSICAL EXAMINATION: VITAL SIGNS: Blood pressure is 135/69, respirations 20, pulse 62, temperature 97.6. HEENT: Head is normocephalic. Eyes: Pupils normal. Conjunctivae normal. NECK: JVP low. Carotids equal. THORAX: AP diameter normal. LUNGS: The patient's rales have decreased. CARDIOVASCULAR: S1 and S2. Ejection systolic murmur, grade 3/6. No rub. ABDOMEN: Soft. No tenderness. No organomegaly. EXTREMITIES: No clubbing. No cyanosis. LABORATORY DATA: WBC 7.9, hemoglobin 12.3, hematocrit 37.4, platelets 123. Sodium 140, potassium 4, BUN 24, creatinine 1.1. BX-vde-B-type natriuretic peptide 1000. DIAGNOSES: Acute pulmonary edema, moderate aortic regurgitation, mild left ventricular hypertrophy, mild mitral regurgitation, pbwbs-jd-tvfe tricuspid regurgitation, moderate supravalvular aortic stenosis, congestive heart failure, probably related to underlying hypertension and moderate valvular disease, old cerebrovascular accident with left-sided weakness, peripheral arterial disease, history of bypass surgery on the right leg, history of deep venous thrombosis and pulmonary embolism, hypertension, hyperlipidemia, obesity, ex-smoker. PLAN: The patient is getting diuresis with Lasix 40 IV b.i.d., metoprolol 25 b.i.d., atorvastatin 10 daily, DuoNeb hand nebulizer therapy, methylprednisolone 1 dose was given at 125 mg. Patient is now on lisinopril 2.5 mg daily. We will increase his lisinopril to 5 mg daily and will repeat chest x-ray in the morning to see improvement of pulmonary edema. Patient had echo on 01/14/2017 showed ejection fraction 50% to 55%, moderate supravalvular aortic stenosis, mild mitral regurgitation, mild pulmonary regurgitation, moderate aortic regurgitation, RVSP 39 mmHg. Cardiac cath 02/19/2016 showed mild aortic stenosis, mild aortic regurgitation, LV ejection fraction 50%, nonobstructive coronary artery disease. We will repeat chest x-ray tomorrow morning. Ricardo Martinez MD
--- NOTE | 2018-02-11 20:07 | PN ---
DATE: SUBJECTIVE: The patient has no complaints of any chest pain. No shortness of breath. No headaches. OBJECTIVE: VITAL SIGNS: Temperature is 97.6, pulse of 58, blood pressure is 147/80, respirations 18. GENERAL: The patient is lying in bed, flat, comfortable. HEENT: No oral lesion. Anicteric sclerae. Moist mucosa. NECK: No JVD, adenopathy, or thyromegaly. CARDIOVASCULAR: S1 and S2, regular. No murmurs, rubs, or gallops. LUNGS: Clear to auscultation bilaterally. No wheeze, rales, or rhonchi. ABDOMEN: Bowel sounds are positive, soft, nontender and nondistended. EXTREMITIES: No cyanosis, clubbing, or edema. LABS: White count of 7.9, hemoglobin of 12.3. Creatinine is 1.1. ASSESSMENT: 1. Acute congestive heart failure secondary to systolic dysfunction. 2. Moderate aortic regurgitation. 3. Peripheral arterial disease with bypass. 4. Cerebrovascular accident history. 5. Hypertension. 6. Dyslipidemia. PLAN: The patient is on potassium replacement. He is going to be on Lasix daily. He is on Lipitor for dyslipidemia. He is on lisinopril. The patient has a chest x-ray that is going to be ordered tomorrow. He is currently feeling better. He has been refusing blood work. Jose Causey MD
[2018-02-12 05:59] VITALS: O2SAT 100
[2018-02-12] MEDS: Potassium Chloride 20 mEq ER Tab PO SCH (07:37)
[2018-02-12 10:56] LABS: BASO # 0.01 K/mm3 (0.0-2.0); BASO % 0.1 % (0.0-3.0); EOS # 0.2 (0.0-0.7); GRAN # 4.76 (1.4-6.5); GRAN % 63.9 % (50.0-68.0); HEMOGLOBIN 11.8 g/dL (14.0-18.0); LYMPH # 2.1 (1.2-3.4); LYMPH % 27.7 % (22.0-35.0); MEAN CELL VOLUME 92.4 fl (80.0-105.0); MEAN CORPUSCULAR HEMOGLOBIN 30.8 pg (25.0-35.0); MEAN CORPUSCULAR HGB CONC 33.3 g/dl (31.0-37.0); MEAN PLATELET VOLUME 10.5 fl (7.0-11.0); MONO # 0.5 (0.1-0.6); MONO % 6.3 % (1.0-6.0); RBC 3.83 10^6/uL (3.5-6.1); RED CELL DISTRIBUTION WIDTH 15.4 % (11.5-14.5); WHITE BLOOD COUNT 7.5 10^3/ul (4.5-11.0)
[2018-02-12 11:10] LABS: ALB/GLOB RATIO 1.3 (1.1-1.8); ALBUMIN 4.1 g/dL (3.0-4.8); ALT/SGPT 27 U/L (7-56); AST/SGOT 18 U/L (17-59); BLOOD UREA NITROGEN 34 mg/dL (7-21); CALCIUM 10.1 mg/dL (8.4-10.5); GFR AFRICAN-AMERICAN > 60; GFR NON-AFRICAN AMERICAN 52
[2018-02-12 11:21] LABS: B-TYPE NATRIURETIC PEPTIDE 376 pg/mL (0-450); TROPONIN I 0.03 ng/mL
--- NOTE | 2018-02-12 12:11 | RAD ---
HISTORY: CHF. Compare to see improvement of ZCHF. COMPARISON: 02/09/2018 TECHNIQUE: Chest PA and lateral FINDINGS: LUNGS: There is complete resolution of the previously seen CHF PLEURA: No significant pleural effusion identified. No pneumothorax apparent. CARDIOVASCULAR: Normal. OSSEOUS STRUCTURES: No significant abnormalities. VISUALIZED UPPER ABDOMEN: Normal. OTHER FINDINGS: None. IMPRESSION: Resolved CHF
[2018-02-12 12:23] VITALS: BP 145/71; RESP 20; TEMP 97.1
--- NOTE | 2018-02-12 14:18 | PN ---
DATE: 02/12/2018 LOCATION: The patient is in room 372, bed 2. REASON FOR CONSULTATION AND FOLLOWUP: Shortness of breath, congestive heart failure, hypertension, mild aortic stenosis, mild aortic regurgitation, ejection fraction of 50%, nonobstructive CAD. SUBJECTIVE: The patient admitted with shortness of breath, now shortness of breath has been improving. He denies any chest pain or palpitations. The patient is lying comfortably in bed. PHYSICAL EXAMINATION: VITAL SIGNS: Blood pressure 134/71, respirations 18, pulse 87, temperature 98.7. HEENT: Head is normocephalic. Eyes: Pupils normal. Conjunctivae normal. Nose and throat normal. NECK: JVP low. Carotids equal. THORAX: AP diameter normal. LUNGS: Rales have improved. CARDIOVASCULAR: S1 and S2. Ejection systolic murmur, grade 3/6. No rub. ABDOMEN: Soft. No organomegaly. Bowel sounds normal. EXTREMITIES: No clubbing, no cyanosis. LABORATORY DATA: Sodium 140, potassium 4, BUN 24, creatinine 1.1. AST and ALT normal. Magnesium 2.3. Random glucose 135. WBC 7.9, hemoglobin 12.3, hematocrit 37.4, platelets 123. DIAGNOSES: 1. Acute pulmonary edema. 2. Moderate aortic regurgitation. 3. Mild left ventricular hypertrophy. 4. Mild mitral regurgitation. 5. Ksvqf-zu-tfat tricuspid regurgitation. 6. Moderate supravalvular aortic stenosis. 7. Congestive heart failure, probably related to underlying hypertension and moderate valvular disease. 8. Old cerebrovascular accident with left-sided weakness. 9. Peripheral arterial disease. 10. History of bypass surgery on the right leg. 11. History of deep venous thrombosis and pulmonary embolism. 12 Hypertension. 13 Hyperlipidemia. 14 Obesity. 15 Ex-smoker. PLAN: Continue diuresis. The patient is going to have a chest x-ray today to follow up improvement. The patient is on metoprolol 25 b.i.d., Lasix 40 IV b.i.d., atorvastatin 10 daily, DuoNeb hand nebulizer therapy, lisinopril increased to 5 mg daily. The patient's echocardiogram on 01/14/2017 showed ejection fraction 50% to 55%,moderate supravalvular aortic stenosis, mild mitral regurgitation, mild pulmonary regurgitation, moderate aortic regurgitation, RVSP 39 mmHg. Cardiac catheterization on 02/19/2016 showed mild aortic stenosis, mild aortic regurgitation, LV ejection fraction of 50%, nonobstructive coronary artery disease. Chest x-ray will be repeated today to see the improvement of pulmonary edema. We will follow with you. Ricardo Martinez MD
[2018-02-12 14:52] VITALS: PULSE 56
--- NOTE | 2018-02-13 05:36 | DS ---
HISTORY OF PRESENT ILLNESS: This is a 62-year-old male who is coming into the hospital because of a shortness of breath. He was found to have acute heart failure secondary to systolic dysfunction. Patient was started on IV diuretic therapy, had improvement of his symptoms. He is feeling well. His rales have improved. He has a repeat chest x-ray that is going to be done, that was ordered by Dr. Martinez. Patient has no complaints of any headaches or dizziness. No nausea, no vomiting. PHYSICAL EXAMINATION: VITAL SIGNS: Temperature is 98.7, pulse of 87, blood pressure 134/71, respirations 18. GENERAL: The patient is lying in bed, flat, comfortable. HEENT: No oral lesion. Anicteric sclerae. Moist mucosa. NECK: No JVD, adenopathy, or thyromegaly. CARDIOVASCULAR: S1 and S2, regular. No murmurs, rubs, or gallops. LUNGS: Clear to auscultation bilaterally. No wheeze, rales, or rhonchi. ABDOMEN: Bowel sounds are positive, soft, nontender, and nondistended. EXTREMITIES: No cyanosis, clubbing, or edema. ASSESSMENT: 1. Acute congestive heart failure secondary to systolic dysfunction. 2. Moderate aortic regurgitation. 3. Peripheral arterial disease with bypass. 4. Cerebrovascular accident history. 5. Hypertension. 6. Dyslipidemia. PLAN: The patient is currently comfortable. Patient's last EF was 50%. Patient had a cardiac cath in 02/2016 that showed non-obstructive coronary disease. Patient on Lasix daily. He is on Lipitor for dyslipidemia. He is on Zestril for hypertension. Patient was seen by Dr. Landrum and Dr. Martinez. CONDITION: Stable. ACTIVITIES: Increase as tolerated. Jose Causey MD
== END 2018-02-12 14:55 | disposition home or self-care (01) | DRG 292 ==
LOC: ED 10:36 → ERH 12:11 → 3RSO 16:04
PROVIDERS: ADMIT Internal Medicine Nephrology; ATTEND Internal Medicine Nephrology
PROC: 5A09357 Assistance with Respiratory Ventilation, Less than 24 Consecutive Hours, Continuous Positive Airway Pressure (ICD-10-PCS; principal; 2018-02-09)
DX: I11.0 Hypertensive heart disease with heart failure (principal); I69.354 Hemiplegia and hemiparesis following cerebral infarction affecting left non-dominant side; E87.3 Alkalosis; I50.21 Acute systolic (congestive) heart failure; E78.5 Hyperlipidemia, unspecified; I25.10 Atherosclerotic heart disease of native coronary artery without angina pectoris; I08.3 Combined rheumatic disorders of mitral, aortic and tricuspid valves; R09.02 Hypoxemia; I73.9 Peripheral vascular disease, unspecified; E66.9 Obesity, unspecified; J44.9 Chronic obstructive pulmonary disease, unspecified; Z86.711 Personal history of pulmonary embolism; Z86.718 Personal history of other venous thrombosis and embolism; Z88.0 Allergy status to penicillin

== ENCOUNTER 2018-05-26 10:31 | Inpatient (IN) | payer MEDICARE, MEDICAID ==
[2018-05-26 10:33] VITALS: BMI 30.7
[2018-05-26 10:56] LABS: BASO # 0.01 K/mm3 (0.0-2.0); BASO % 0.2 % (0.0-3.0); EOS # 0.1 (0.0-0.7); EOS % 1.8 % (1.5-5.0); GRAN # 3.12 (1.4-6.5); GRAN % 72.1 % (50.0-68.0); HEMOGLOBIN 9.8 g/dL (14.0-18.0); LYMPH # 0.8 (1.2-3.4); LYMPH % 18.5 % (22.0-35.0); MEAN CELL VOLUME 93.9 fl (80.0-105.0); MEAN CORPUSCULAR HEMOGLOBIN 29.8 pg (25.0-35.0); MEAN CORPUSCULAR HGB CONC 31.7 g/dl (31.0-37.0); MEAN PLATELET VOLUME 10.8 fl (7.0-11.0); MONO # 0.3 (0.1-0.6); MONO % 7.4 % (1.0-6.0); RBC 3.29 10^6/uL (3.5-6.1); RED CELL DISTRIBUTION WIDTH 15.8 % (11.5-14.5); WHITE BLOOD COUNT 4.3 10^3/ul (4.5-11.0)
--- NOTE | 2018-05-26 11:01 | ED PDOC ---
Arrival/HPI - General Chief Complaint: Shortness Of Breath Time Seen by Provider: 05/26/18 10:44 Historian: Patient - History of Present Illness Narrative History of Present Illness (Text): 05/26/18 10:57 Patient is a 62 year old male with a past medical history of CHF, pneumonia, and DVT on eliquis, presents to the Emergency department complaining of productive cough and shortness of breath since last night. Patients states he is "running a fever" since last night and reports bilateral leg swelling since 2 days. Patient denies chest pain, hemoptysis, pleuritic discomfort or any other complaints. Time/Duration: Other (last night) Symptom Onset: Gradual Symptom Course: Unchanged Past Medical History - Provider Review Nursing Documentation Reviewed: Yes - Infectious Disease Hx of Infectious Diseases: None - Cardiac Hx Congestive Heart Failure: Yes Hx Hypertension: Yes Hx Peripheral Vascular Disease: Yes - Pulmonary Hx Chronic Obstructive Pulmonary Disease (COPD): Yes - Neurological HX Cerebrovascular Accident: Yes (2012) - HEENT Hx HEENT Disorder: No - Renal Hx Renal Disorder: No - Endocrine/Metabolic Hx Diabetes Mellitus Type 2: Yes - Hematological/Oncological Hx Blood Disorders: No - Integumentary Hx Dermatological Disorder: No (SCARRING TO RIGHT LEG.H/O OF BYPASS.) - Musculoskeletal/Rheumatological Hx Musculoskeletal Disorders: Yes Hx Falls: No Hx Unsteady Gait: Yes (CANE USED AT TIMES) Other/Comment: edema to lower extremIties - Gastrointestinal Hx Gastrointestinal Disorders: Yes (RECTAL BLEED) - Genitourinary/Gynecological Hx Genitourinary Disorders: No - Psychiatric Hx Psychophysiologic Disorder: No Hx Substance Use: No - Surgical History Other/Comment: DVT to right leg/BYpass surgery 2014 - Anesthesia Hx Anesthesia: Yes Hx Anesthesia Reactions: No Hx Malignant Hyperthermia: No Family/Social History - Physician Review Nursing Documentation Reviewed: Yes Family/Social History: No Known Family HX Smoking Status: Former Smoker Hx Alcohol Use: No Hx Substance Use: No Allergies/Home Meds Allergies/Adverse Reactions: Allergies benztropine mesylate [From Cogentin] Allergy (Verified 02/09/18 10:46) ANAPHYLAXIS esomeprazole magnesium [From Nexium] Allergy (Verified 02/09/18 10:46) RASH Penicillins Allergy (Verified 02/09/18 10:46) ANAPHYLAXIS Sulfa (Sulfonamide Antibiotics) Allergy (Verified 02/09/18 10:46) RASH Home Medications: Home Meds Medication Instructions Recorded Confirmed Atorvastatin [Lipitor] 10 mg PO DAILY 01/13/17 05/27/18 Furosemide [Lasix] 40 mg PO BID 12/21/17 05/27/18 Potassium Gluconate [Potassium] 0 mg PO DAILY 12/21/17 05/26/18 Apixaban [Eliquis] 2.5 mg PO DAILY 03/16/18 05/27/18 Lisinopril [Zestril] 5 mg PO DAILY 03/16/18 05/27/18 Review of Systems - Review of Systems Constitutional: Fatigue. absent: Fevers Eyes: absent: Vision Changes ENT: absent: Hearing Changes Respiratory: SOB. absent: Cough, Sputum Cardiovascular: Edema, LOPEZ, Orthopnea. absent: Chest Pain, Calf Pain Gastrointestinal: absent: Abdominal Pain Genitourinary Male: absent: Dysuria Musculoskeletal: absent: Back Pain Skin: absent: Rash Neurological: absent: Headache, Speech Changes Endocrine: absent: Polyuria Psychiatric: absent: Depression Physical Exam - Physical Exam Narrative Physical Exam (Text): 05/26/18 11:02 Head: Atraumatic. Normocephalic. Eyes: PERRL. EOMI. Conjunctivae are not pale. ENT: Mucous membranes are moist and intact. Oropharynx is clear and symmetric. Neck: Supple. Full ROM. No JVD. Cardiovascular: Regular rate. Regular rhythm. Systolic murmur. Pulmonary/Chest: No respiratory distress. Mild rales at bases. No accessory muscle usage. Abdominal: Soft and non-distended. There is no tenderness. No rebound, guarding, or rigidity. Back: Nontender, Extremities: Bilateral lower extremity edema. No cyanosis. No clubbing. Full range of motion in all extremities. No calf tenderness. Skin: Skin is warm and dry. Neurological: Alert, awake. Motor and sensory exam intact. Rectal: no gross bleeding. Psychiatric: Good eye contact. Normal interaction, affect, and behavior. 05/28/18 09:11 Vital Signs Reviewed: Yes Vital Signs Temp Pulse Resp BP Pulse Ox 05/26/18 14:25 91 H 18 149/61 98 05/26/18 12:44 78 18 150/73 100 05/26/18 11:35 145/64 05/26/18 10:47 22 95 05/26/18 10:32 98.4 F 75 22 153/71 H 93 L Temperature: Afebrile Pain Distress: Mild Mental Status: Positive for: Alert and Oriented X 3 Medical Decision Making ED Course and Treatment: Patient with prior hx of dvt on anticoagulation, pnuemonia, presents to ED with dyspnea. BNP elevated. Mild rales noted. NO respiratory distress noted although patient symptomatic with exertion. Exam consistent with component of chf. There has been leg edema noted bilaterally over past few days. 05/26/18 11:50 Chest X-Ray reviewed by radiologist, shows no active disease. Patient treated with lasix. At this time, afebrile, no obvious pneumonia noted. Will admit for CHF, cardiology consultation. Family updated with treatment plan. - Lab Interpretations Lab Results: 05/26/18 10:50 05/26/18 10:50 Lab Results 05/26/18 12:34: Urine Color Light yellow, Urine Appearance Clear, Urine pH 6.5, Ur Specific [place] 1.010, Urine Protein Negative, Urine Glucose (UA) Negative, Urine Ketones Negative, Urine Blood Negative, Urine Nitrate Negative, Urine Bilirubin Negative, Urine Urobilinogen 0.2, Ur Leukocyte Esterase Negative 05/26/18 11:21: POC Glucose (mg/dL) 95 05/26/18 11:10: pO2 44, VBG pH 7.27 L, VBG pCO2 51.0, VBG HCO3 23.4, VBG Total CO2 25.0, VBG O2 Sat (Calc) 81.5 H, VBG Base Excess -4.0 L, VBG Potassium 4.7, Glucose 109, Lactate 0.9, FiO2 21.0, Sodium 140.0, Chloride 112.0 H, Venous Blood Potassium 4.7 05/26/18 11:00: Influenza Typ A,B (EIA) Negative for flu a/b 05/26/18 10:50: Sodium 144, Potassium 4.7, Chloride 109 H, Carbon Dioxide 22, Anion Gap 17, BUN 15, Creatinine 1.2, Est GFR ( Amer) > 60, Est GFR (Non- Af Amer) > 60, Random Glucose 108, Calcium 9.0, Total Bilirubin 0.7, AST 15 L, ALT 29, Alkaline Phosphatase 47, Lactate Dehydrogenase 723 H, Total Creatine Kinase 78, Troponin I 0.06 D, NT-Pro-B Natriuret Pep 2200 H, Total Protein 7.3 , Albumin 4.4, Globulin 2.9, Albumin/Globulin Ratio 1.5 05/26/18 10:50: PT 13.4 H, INR 1.16 H, APTT 30.2 05/26/18 10:50: WBC 4.3 L D, RBC 3.29 L, Hgb 9.8 L D, Hct 30.9 L, MCV 93.9, MCH 29.8, MCHC 31.7, RDW 15.8 H, Plt Count 86 L, MPV 10.8, Gran % 72.1 H, Lymph % ( Auto) 18.5 L, [place] % (Auto) 7.4 H, Eos % (Auto) 1.8, Baso % (Auto) 0.2, Gran # 3.12, Lymph # (Auto) 0.8 L, [place] # (Auto) 0.3, Eos # (Auto) 0.1, Baso # (Auto) 0.01 - RAD Interpretation Radiology Orders: 05/26/18 10:47 CHEST PORTABLE [RAD] Stat - Medication Orders Current Medication Orders: Albuterol/Ipratropium (Duoneb 3 Mg/0.5 Mg (3 Ml) Ud) 3 ml IH Q2H PRN PRN Reason: Shortness of Breath Albuterol/Ipratropium (Duoneb 3 Mg/0.5 Mg (3 Ml) Ud) 3 ml IH [id number] [facility] Last Admin: 05/28/18 07:53 Dose: Not Given Non-Admin Reason: Patient Refused Apixaban (Eliquis) 2.5 mg PO DAILY [facility] PRN Reason: Protocol Last Admin: 05/27/18 10:49 Dose: 2.5 mg Atorvastatin Calcium (Lipitor) 10 mg PO DAILY [facility] Last Admin: 05/27/18 10:49 Dose: 10 mg Furosemide (Lasix) 40 mg PO DAILY [facility] Last Admin: 05/27/18 17:11 Dose: Metoprolol Tartrate (Lopressor) 25 mg PO BID [facility] Last Admin: 05/27/18 17:10 Dose: 25 mg MAR Pulse and Blood Pressure Document 05/27/18 17:10 PHANT (Rec: 05/27/18 17:10 PHANT [id number]) Pulse Pulse Rate (60-90) 72 Blood Pressure Blood Pressure (100/60-150/90) 130/76 Oxycodone/Acetaminophen (Percocet 5/325 Mg Tab) 1 tab PO Q6H PRN PRN Reason: Pain, moderate (4-7) Stop: 05/29/18 17:12 Potassium Chloride (K-Dur 20 Meq Er Tab) 20 meq PO DAILY [facility] Last Admin: 05/27/18 10:49 Dose: 20 meq Discontinued Medications Atorvastatin Calcium (Lipitor) 10 mg PO DAILY [facility] Furosemide (Lasix) 80 mg IVP ONCE ONE Stop: 05/26/18 11:20 Last Admin: 05/26/18 11:35 Dose: 80 mg MAR Blood Pressure Document 05/26/18 11:35 GMD (Rec: 05/26/18 11:36 GMD [id number]) Blood Pressure Blood Pressure (100/60-150/90) 145/64 IVP Administration Document 05/26/18 11:35 GMD (Rec: 05/26/18 11:36 GMD [id number]) Charges for Administration # of IVP Administrations 1 Furosemide (Lasix) 40 mg IVP BID [facility] Last Admin: 05/27/18 10:48 Dose: 40 mg MAR Blood Pressure Document 05/27/18 10:48 PHANT (Rec: 05/27/18 10:49 PHANT [id number]) Blood Pressure Blood Pressure (100/60-150/90) 99/56 IVP Administration Document 05/27/18 10:48 PHANT (Rec: 05/27/18 10:49 PHANT [id number]) Charges for Administration # of IVP Administrations 1 Pneumococcal Polyvalent Vaccine (Pneumovax 23 Vaccine) 0.5 ml IM .ONCE ONE Stop: 05/26/18 21:17 - Scribe Statement The provider has reviewed the documentation as recorded by the Karen Chan training under [facility] All medical record entries made by the Angeliqueibbaylee were at my direction and personally dictated by me. I have reviewed the chart and agree that the record accurately reflects my personal performance of the history, physical exam, medical decision making, and the department course for this patient. I have also personally directed, reviewed, and agree with the discharge instructions and disposition. Disposition/Present on Arrival - Present on Arrival Any Indicators Present on Arrival: Yes History of DVT/PE: Yes History of Uncontrolled Diabetes: No Urinary Catheter: No History of Decub. Ulcer: No History Surgical Site Infection Following: None - Disposition Have Diagnosis and Disposition been Completed?: Yes Diagnosis: Congestive heart failure (CHF), Dyspnea, Anemia Disposition: HOSPITALIZED Disposition Time: 12:45 Patient Plan: Admission, Telemetry Patient Problems: Current Active Problems Problem Status Onset Anemia Acute Congestive heart failure (CHF) Acute Dyspnea Acute Condition: FAIR
[2018-05-26 11:05] LABS: ALB/GLOB RATIO 1.5 (1.1-1.8); ALBUMIN 4.4 g/dL (3.0-4.8); ALT/SGPT 29 U/L (7-56); AST/SGOT 15 U/L (17-59); BLOOD UREA NITROGEN 15 mg/dL (7-21); GFR AFRICAN-AMERICAN > 60; GFR NON-AFRICAN AMERICAN > 60
[2018-05-26 11:07] LABS: INR 1.16 (0.93-1.08); PARTIAL THROMBOPLASTIN TIME 30.2 Seconds (25.1-36.5); PROTHROMBIN TIME 13.4 SECONDS (9.4-12.5)
[2018-05-26 11:17] LABS: B-TYPE NATRIURETIC PEPTIDE 2200 pg/mL (0-450); TROPONIN I 0.06 ng/mL
[2018-05-26 11:20] LABS: VENOUS BLOOD GAS PO2 44 mm/Hg (30-55); VENOUS BLOOD PH 7.27 (7.32-7.43)
--- NOTE | 2018-05-26 11:22 | RAD ---
Date of service: 05/26/2018 HISTORY: sob COMPARISON: No prior. FINDINGS: LUNGS: No active pulmonary disease. PLEURA: No significant pleural effusion identified, no pneumothorax apparent. CARDIOVASCULAR: Normal. OSSEOUS STRUCTURES: No significant abnormalities. VISUALIZED UPPER ABDOMEN: Normal. OTHER FINDINGS: None. IMPRESSION: No active disease.
[2018-05-26 12:37] LABS: PH,URINE 6.5 (4.7-8.0); URINE BILIRUBIN NEGATIVE (NEGATIVE); URINE BLOOD NEGATIVE (NEGATIVE); URINE GLUCOSE (UA) NEGATIVE (NEGATIVE); URINE LEUKOCYTE ESTERASE NEGATIVE Leu/uL (NEGATIVE); URINE PROTEIN NEGATIVE mg/dL (<30 mg/dL); URINE UROBILINOGEN 0.2 E.U./dL (<1 E.U./dL)
[2018-05-26 12:49] LABS: URINE APPEARANCE CLEAR (CLEAR); URINE COLOR LIGHT YELLOW (YELLOW)
[2018-05-26] MEDS ORDERED: Albuterol-Ipratrop 3 mg / 0.5 (3 ml) UD IH PRN (15:06)
[2018-05-26] MEDS ORDERED: POTASSIUM GLUCONATE PO SCH (15:15)
[2018-05-26] MEDS ORDERED: Oxycodone/Acetaminophen 5/325 mg Tab PO PRN (17:11)
[2018-05-26] MEDS: Albuterol-Ipratrop 3 mg / 0.5 (3 ml) UD IH SCH (19:46)
--- NOTE | 2018-05-26 20:53 | CARD ---
APPROVED REPORT Date of service: 05/26/2018 EKG Measurement Heart [id number] <Conclusion> Sinus rhythm with fusion complexes Left bundle branch block Abnormal ECG
[2018-05-26] MEDS ORDERED: Pneumococcal 23-Valent Vaccine IM ONE (21:16)
[2018-05-27] MEDS: Albuterol-Ipratrop 3 mg / 0.5 (3 ml) UD IH SCH ×4 (01:32→19:40)
--- NOTE | 2018-05-27 02:18 | HP ---
HISTORY OF PRESENT ILLNESS: The patient is 62 years old, patient of Dr. Causey, came to emergency room because of increasing shortness of breath, cough, congestion. Denies any fever or chills. No history of nausea or vomiting. No diarrhea. No hemoptysis. No hematemesis. No abdominal pain. No weakness. No dizziness. PAST MEDICAL HISTORY: He has past medical history significant for; 1. Coronary artery disease. 2. History of pulmonary embolism on Eliquis. 3. COPD. 4. Hypertension. 5. Hyperlipidemia. 6. History of aortic regurgitation. 7. Aortic stenosis. ALLERGIES: ALLERGIC TO; 1. COGENTIN. 2. NEXIUM. 3. PENICILLIN. 4. SULFA. MEDICATIONS: At home, he is on; 1. Potassium 10 mEq daily. 2. Metoprolol 25 twice a day. 3. Lisinopril 5 mg daily. 4. Lasix 40 mg twice a day. 5. Lipitor 10 mg daily. 6. Eliquis 2.5 daily. REVIEW OF SYSTEMS: Significant for cough, congestion and shortness of breath. SOCIAL HISTORY: He does lives with his family. He denies smoking or drinking. He used to be a heavy smoker in the past. PHYSICAL EXAMINATION: GENERAL: He is awake, alert, oriented, communicative. VITAL SIGNS: He is afebrile, pulse 75, respirations 22, blood pressure 149/61. LUNGS: Bilateral diffusely decreased breath sounds few expiratory rhonchi. HEART: S1 and S2 audible. ABDOMEN: Soft, nontender. No rebound. No guarding. NEUROLOGIC: The patient is awake, alert, oriented, communicative. LABORATORY EXAM: WBC is 4.3, hemoglobin 9.8, hematocrit 30.9, platelets of 86. PT 13.4, INR 1.16. Chemistry: Sodium 144, potassium 4.7, chloride 109, CO2 of 22, BUN 15, creatinine 1.2. Blood sugar of 98. LDH is 723. BNP is 2200. ASSESSMENT: 1. Chronic obstructive pulmonary disease exacerbation. 2. Congestive heart failure exacerbation. 3. Hypertension. 4. Hyperlipidemia. 5. History of pulmonary embolism. PLAN: Patient will be admitted in telemetry. We will start IV diuretics. Continue him on nebulizer treatment. Resume his medication. Follow up his electrolytes. Follow up patient in a.m. Jorge Reveles MD
[2018-05-27 07:25] LABS: BASO # 0.01 K/mm3 (0.0-2.0); BASO % 0.2 % (0.0-3.0); EOS # 0.1 (0.0-0.7); EOS % 2.1 % (1.5-5.0); GRAN # 2.88 (1.4-6.5); HEMOGLOBIN 11.1 g/dL (14.0-18.0); LYMPH # 1.4 (1.2-3.4); LYMPH % 28.1 % (22.0-35.0); MEAN CELL VOLUME 92.6 fl (80.0-105.0); MEAN CORPUSCULAR HEMOGLOBIN 29.4 pg (25.0-35.0); MEAN CORPUSCULAR HGB CONC 31.8 g/dl (31.0-37.0); MEAN PLATELET VOLUME 10.7 fl (7.0-11.0); MONO # 0.5 (0.1-0.6); MONO % 9.6 % (1.0-6.0); RBC 3.77 10^6/uL (3.5-6.1); RED CELL DISTRIBUTION WIDTH 15.8 % (11.5-14.5); WHITE BLOOD COUNT 4.8 10^3/ul (4.5-11.0)
[2018-05-27 08:03] LABS: ALB/GLOB RATIO 1.4 (1.1-1.8); ALBUMIN 4.5 g/dL (3.0-4.8); CALCIUM 9.2 mg/dL (8.4-10.5)
[2018-05-27] MEDS: Potassium Chloride 20 mEq ER Tab PO SCH (10:49)
--- NOTE | 2018-05-27 13:15 | CON ---
DATE: 05/27/2018 CARDIOLOGY CONSULTATION Cardiology consultation (to Dr. Landrum). HISTORY: The patient is a 62-year-old male, who presents with dyspnea. The patient's past medical history is notable for a stress test that was performed in March of 2018, which revealed no ischemic changes with an ejection fraction of 60%. The patient's past medical history includes DVTs in which he has been treated with anticoagulation. He presented with cough, questionable fever as well as shortness of breath, which is all resolved. His lower extremities show swelling in the past 2 days. SOCIAL HISTORY: The patient does not smoke. REVIEW OF SYSTEMS: Fourteen-point review of systems was reviewed this morning. No cardiac symptoms are noted. PHYSICAL EXAMINATION: VITAL SIGNS: Blood pressure is 99/56, heart rate is in the 90s. NECK: Negative JVD. LUNGS: Without rales. HEART: Reveals S1, S2. EXTREMITIES: Resolution of edema. LABORATORY DATA: Hemoglobin is 11.1. Troponins are 0.06. BUN and creatinine are unremarkable. Hemoglobin is 11.1. IMPRESSION: 1. Acute diastolic congestive heart failure. 2. Dietary indiscretion. 3. History of deep venous thromboses. 4. Anemia. PLAN: Given these findings, we will change Lasix to p.o. Lasix. We will continue the Eliquis. Suleman Jeong MD
--- NOTE | 2018-05-27 19:45 | PN ---
DATE: 05/27/2018 HISTORY OF PRESENT ILLNESS: Mr. Byers is a 62-year-old male admitted to the hospital because of shortness of breath, found to be in CHF. He has history of DVT and pulmonary embolism, on Eliquis. On admission, he had anemia, hemoglobin of 9 g/dL, history of aortic regurgitation. Shortness of breath has improved during hospitalization. No chest pain. He is still short of breath during ambulation. On walking few steps, he is short of breath. Denies any chest pain. Evaluated by Dr. Jeong, medical management suggested. REVIEW OF SYSTEMS: As per HPI. Rest of 12-point review of systems reviewed negative. PAST MEDICAL HISTORY: Coronary artery disease, history of pulmonary embolism, hypertension, hyperlipidemia, aortic regurgitation, and aortic stenosis. ALLERGIES: COGENTIN, NEXIUM, PENICILLIN, AND SULFA MEDICATIONS. HOME MEDICATIONS: Potassium 10 mEq daily, metoprolol 25 daily, lisinopril 5 mg daily, Lasix 40 mg twice daily, Lipitor 10 daily, and Eliquis 2.5 mg daily. PERSONAL HISTORY: Nonsmoker. No history of alcohol abuse. heavy smoker. SOCIAL HISTORY: Lives at home with his son. FAMILY HISTORY: Noncontributory. PHYSICAL EXAMINATION: GENERAL: Alert, oriented x3. No focal sensory motor deficit. VITAL SIGNS: Respiratory rate 20 per minute, heart rate is 70 per minute, blood pressure 140/60. HEENT: No pallor. NECK: No lymphadenopathy. CHEST: Air entry present and equal bilaterally. No added sound. CARDIOVASCULAR: S1, S2 normal. No murmur. No gallop. ABDOMEN: Soft and nontender. No hepatosplenomegaly. EXTREMITIES: No edema. LABORATORY DATA: White count 4.3, hemoglobin 9.8, hematocrit 30.9, platelet 86,000. INR 1.1. Sodium 144, potassium 4.7, creatinine 1.2. LDH 723. BNP 2200. ASSESSMENT: 1. Chronic obstructive pulmonary disease exacerbation. 2. Congestive heart failure. 3. Hypertension. 4. History of pulmonary embolism. 5. Anemia, leukopenia. PLAN: He was evaluated by Cardiology. Discussed with Dr. Jeong, medical management suggested, aggressive diuresis. He is still short of breath on walking few steps. We will continue to manage aggressively congestive cardiac failure. Anticoagulation with Eliquis 2.5 mg p.o. daily for history of pulmonary embolism and DVT. Lipitor 10 mg daily, Lasix 40 mg daily, beta-lopez 25 mg b.i.d., potassium 20 mEq daily, DuoNeb every 6 hours p.r.n. Labs ordered for tomorrow. Hemoglobin improved to 11 g/dL, might be related to diuresis. He had leukopenia during admission. Urine culture showed gram-positive cocci. ID consultation of Dr. Francis requested. Daiana Lindquist MD
[2018-05-28] MEDS: Albuterol-Ipratrop 3 mg / 0.5 (3 ml) UD IH SCH ×6 (01:14→19:44)
[2018-05-28] MEDS: Potassium Chloride 20 mEq ER Tab PO SCH (09:12)
--- NOTE | 2018-05-28 10:13 | CP.PCM.PN ---
<Garret Salas - Last Filed: 05/28/18 10:23> Subjective - Date & Time of Evaluation Date of Evaluation: 05/28/18 Time of Evaluation: 10:08 - Subjective Subjective: Medicine progress note for Dr. Causey's service - Christi Salas PGY3 Patient seen and examined at bedside this morning. No acute overnight events or new complaints reported. Reports sleeping and eating well without issue. Denies chest pain, palpitations, SOB. Pending physical therapy repeat evaluation due to prior desaturation on ambulation. Objective - Vital Signs/Intake and Output Vital Signs (last 24 hours): Temp Pulse Resp BP Pulse Ox 98.2 F 76 20 140/72 96 05/28/18 06:00 05/28/18 09:13 05/28/18 06:00 05/28/18 09:13 05/28/18 06:00 Intake and Output: 05/28/18 05/28/18 06:59 18:59 Intake Total 240 Output Total 550 Balance -310 - Medications Medications: Current Medications Albuterol/Ipratropium (Duoneb 3 Mg/0.5 Mg (3 Ml) Ud) 3 ml IH Q2H PRN PRN Reason: Shortness of Breath Albuterol/Ipratropium (Duoneb 3 Mg/0.5 Mg (3 Ml) Ud) 3 ml IH [id number] [facility] Last Admin: 05/28/18 09:34 Dose: 3 ml Apixaban (Eliquis) 2.5 mg PO DAILY [facility] PRN Reason: Protocol Last Admin: 05/28/18 09:11 Dose: 2.5 mg Atorvastatin Calcium (Lipitor) 10 mg PO DAILY [facility] Last Admin: 05/28/18 09:12 Dose: 10 mg Furosemide (Lasix) 40 mg PO DAILY [facility] Last Admin: 05/28/18 09:12 Dose: 40 mg Metoprolol Tartrate (Lopressor) 25 mg PO BID [facility] Last Admin: 05/28/18 09:13 Dose: 25 mg Oxycodone/Acetaminophen (Percocet 5/325 Mg Tab) 1 tab PO Q6H PRN PRN Reason: Pain, moderate (4-7) Stop: 05/29/18 17:12 Potassium Chloride (K-Dur 20 Meq Er Tab) 20 meq PO DAILY [facility] Last Admin: 05/28/18 09:12 Dose: 20 meq - Labs Labs: 05/27/18 06:30 05/27/18 06:45 PT 13.4 SECONDS (9.4-12.5) H 05/26/18 10:50 INR 1.16 (0.93-1.08) H 05/26/18 10:50 APTT 30.2 Seconds (25.1-36.5) 05/26/18 10:50 - Constitutional Appears: No Acute Distress - Head Exam Head Exam: ATRAUMATIC, NORMAL INSPECTION, NORMOCEPHALIC - Eye Exam Eye Exam: EOMI Pupil Exam: PERRL - ENT Exam ENT Exam: Mucous Membranes Moist - Neck Exam Neck Exam: Normal Inspection - Respiratory Exam Respiratory Exam: Clear to Ausculation Bilateral. absent: Rales, Rhonchi, Wheezes - Cardiovascular Exam Cardiovascular Exam: RRR, +S1, +S2. absent: Gallop, Rubs - GI/Abdominal Exam GI & Abdominal Exam: Soft. absent: Distended, Firm, Guarding, Rigid, Tenderness , Rebound - Extremities Exam Extremities Exam: Normal Inspection - Neurological Exam Neurological Exam: Alert, Awake, Oriented x3 - Psychiatric Exam Psychiatric exam: Normal Affect, Normal Mood - Skin Skin Exam: Dry, Intact, Normal Color, Warm Assessment and Plan - Assessment and Plan (Free Text) Plan: 62yo male with history of CAD, DVT, HTN, HLD, aortic regurgitation, diastolic CHF presents with c/o shortness of breath associated with cough/congestion. 1. Acute diastolic congestive heart failure exacerbation, resolving 2. Hypertension 3. Hyperlipidemia 4. Hx of DVT on eliquis 5. Aortic regurgitation 6. Aortic stenosis 7. Hx of CAD -Patient was given [place] [facility] [place] since been transitioned to oral lasix 40mg PO daily -He was seen and evaluated by cardiology - recommendations appreciated -He is on lipitor for hyperlipidemia, metoprolol for CAD/CHF, lasix for CHF, eliquis for hx of DVT and lisinopril for hypertension -He is pending repeat physical therapy evaluation -Urine culture growing gram positive cocci however prior urinalysis was negative ; repeat urine culture pending; ID is following Patient seen and case discussed/reviewed with attending, Dr. Causey <Jose Causey - Last Filed: 07/16/18 20:02> Objective - Vital Signs/Intake and Output Vital Signs (last 24 hours): Temp Pulse Resp BP Pulse Ox 98 F 76 20 122/65 96 05/28/18 17:09 05/28/18 17:53 05/28/18 17:09 05/28/18 17:53 05/28/18 17:09 Intake and Output: 05/28/18 05/28/18 06:59 18:59 Intake Total 1140 Output Total 1300 Balance -160 - Medications Medications: Current Medications Albuterol/Ipratropium (Duoneb 3 Mg/0.5 Mg (3 Ml) Ud) 3 ml IH Q2H PRN PRN Reason: Shortness of Breath Albuterol/Ipratropium (Duoneb 3 Mg/0.5 Mg (3 Ml) Ud) 3 ml IH [id number] [facility] Last Admin: 05/28/18 14:11 Dose: 3 ml Apixaban (Eliquis) 2.5 mg PO DAILY [facility] PRN Reason: Protocol Last Admin: 05/28/18 09:11 Dose: 2.5 mg Atorvastatin Calcium (Lipitor) 10 mg PO DAILY [facility] Last Admin: 05/28/18 09:12 Dose: 10 mg Furosemide (Lasix) 40 mg PO DAILY [facility] Last Admin: 05/28/18 09:12 Dose: 40 mg Lisinopril (Zestril) 5 mg PO DAILY [facility] Metoprolol Tartrate (Lopressor) 25 mg PO BID [facility] Last Admin: 05/28/18 17:53 Dose: 25 mg Oxycodone/Acetaminophen (Percocet 5/325 Mg Tab) 1 tab PO Q6H PRN PRN Reason: Pain, moderate (4-7) Stop: 05/29/18 17:12 Potassium Chloride (K-Dur 20 Meq Er Tab) 20 meq PO DAILY [facility] Last Admin: 05/28/18 09:12 Dose: 20 meq - Labs Labs: 05/27/18 06:30 05/27/18 06:45 PT 13.4 SECONDS (9.4-12.5) H 05/26/18 10:50 INR 1.16 (0.93-1.08) H 05/26/18 10:50 APTT 30.2 Seconds (25.1-36.5) 05/26/18 10:50 Assessment and Plan - Assessment and Plan (Free Text) Plan: Pt seen and examined. I have reviewed the note of the medical education coordinator and agree with it. I have discussed the assessment and plan with the resident. I have reviewed the patient's labs and medications. Pt with acute CHF. Will get PT evaluation. He is on Lasix for the CHF. SOB has improved. Spoke about PT. UCx is positive.
--- NOTE | 2018-05-28 14:45 | CP.PCM.CON ---
History of Present Illness - History of Present Illness History of Present Illness: 60 year old male with PMH of learning disability, chronic CHF, history of pneumonia, CVA with left sided residual weakness, history of DVT, chronic foot ulcers, history of lower extremity bypass surgery came in to [facility] complaining of productive cough associated with some shortness of breath and bilateral lower extremity swelling. The patient felt he had a fever but did not measure his temperature - he did not have chills. He denies headache or dizziness, no chest pain, no sore throat, no rhinorrhea, no abdominal pain, no diarrhea, no dysuria , no increased urinary frequency, no urinary hesitancy. He is currently being treated for acute CHF exacerbation and is feeling better. Urine cx were done in the ED, and it is showing gram positive cocci. Infectious diseases consult is requested to further evaluate and manage. 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" - RENAL Hx Chronic Kidney Disease: No - ENDOCRINE/METABOLIC Hx Diabetes Mellitus Type 2: Yes - HEMATOLOGICAL/ONCOLOGICAL Hx Blood Disorders: No - INTEGUMENTARY Hx Dermatological Problems: No (SCARRING TO RIGHT LEG.H/O OF BYPASS.) Other/Comment: multiple healed wound scars r ankle and foot left ankle and foot , small wound to top of left foot red and dry, dry toenails both feet, ble light brown skin discolorations, old fading bruises b/l knees from falls, left great toe has 12 toenail surrounded by dry red skin, r great toe has 1/2 nail small dry brown wound, dry skin to toes - MUSCULOSKELETAL/RHEUMATOLOGICAL Hx Musculoskeletal Disorders: Yes Hx Back Pain: Yes Hx Falls: Yes Hx Unsteady Gait: Yes (CANE USED AT TIMES) Other/Comment: edema to lower extremIties, ble weakness "no feeling" both legs, right hip pain chronic - GASTROINTESTINAL Hx Gastrointestinal Disorders: Yes (RECTAL BLEED, obese) - GENITOURINARY/GYNECOLOGICAL Hx Genitourinary Disorders: No - PSYCHIATRIC Hx Psychophysiologic Disorder: No Hx Substance Use: No - SURGICAL HISTORY Hx Surgeries: Yes Other/Comment: DVT to right leg/BYpass surgery 2015 - ANESTHESIA Hx Anesthesia: Yes Hx Anesthesia Reactions: No Hx Malignant Hyperthermia: No Meds Home Medications: Home Medication List Medication Instructions Recorded Confirmed Type Furosemide [Lasix] 40 mg PO BID 14 Days tablet 05/27/18 Rx Potassium Chloride [K-Dur 20] 20 meq PO BID 14 Days tab 05/27/18 Rx Allergies/Adverse Reactions: Allergies Allergy/AdvReac Type Severity Reaction Status Date / Time benztropine mesylate Allergy ANAPHYLAXIS Verified 02/09/18 10:46 [From Cogentin] esomeprazole magnesium Allergy RASH Verified 02/09/18 10:46 [From Nexium] Penicillins Allergy ANAPHYLAXIS Verified 02/09/18 10:46 Sulfa (Sulfonamide Allergy RASH Verified 02/09/18 10:46 Antibiotics) - Medications Medications: Current Medications Albuterol/Ipratropium (Duoneb 3 Mg/0.5 Mg (3 Ml) Ud) 3 ml IH Q2H PRN PRN Reason: Shortness of Breath Albuterol/Ipratropium (Duoneb 3 Mg/0.5 Mg (3 Ml) Ud) 3 ml IH [id number] [facility] Last Admin: 05/28/18 01:14 Dose: Not Given Apixaban (Eliquis) 2.5 mg PO DAILY [facility] PRN Reason: Protocol Last Admin: 05/27/18 10:49 Dose: 2.5 mg Atorvastatin Calcium (Lipitor) 10 mg PO DAILY [facility] Last Admin: 05/27/18 10:49 Dose: 10 mg Furosemide (Lasix) 40 mg PO DAILY [facility] Last Admin: 05/27/18 17:11 Dose: Not Given Metoprolol Tartrate (Lopressor) 25 mg PO BID [facility] Last Admin: 05/27/18 17:10 Dose: 25 mg Oxycodone/Acetaminophen (Percocet 5/325 Mg Tab) 1 tab PO Q6H PRN PRN Reason: Pain, moderate (4-7) Stop: 05/29/18 17:12 Potassium Chloride (K-Dur 20 Meq Er Tab) 20 meq PO DAILY [facility] Last Admin: 05/27/18 10:49 Dose: 20 meq Physical Exam - Constitutional Appears: Non-toxic, Chronically Ill - Head Exam Head Exam: NORMAL INSPECTION - Neck Exam Neck exam: Negative for: Meningismus - Respiratory Exam Respiratory Exam: Decreased Breath Sounds - Cardiovascular Exam Cardiovascular Exam: +S1, +S2 - GI/Abdominal Exam GI & Abdominal Exam: Soft. absent: Tenderness - Back Exam Back exam: absent: CVA tenderness (L), CVA tenderness (R) Results - Vital Signs Recent Vital Signs: Last Vital Signs Temp 98.1 F 05/28/18 00:01 Pulse 73 05/28/18 05:36 Resp 18 05/28/18 00:01 BP 116/56 L 05/28/18 00:01 Pulse Ox 97 05/28/18 00:01 - Labs Result Diagrams: 05/27/18 06:30 05/27/18 06:45 Labs: Laboratory Results - last 24 hr 05/27/18 05/27/18 06:30 06:45 WBC 4.8 RBC 3.77 Hgb 11.1 L Hct 34.9 L MCV 92.6 MCH 29.4 MCHC 31.8 RDW 15.8 H Plt Count 94 L MPV 10.7 Gran % 60.0 Lymph % (Auto) 28.1 [place] % (Auto) 9.6 H Eos % (Auto) 2.1 Baso % (Auto) 0.2 Gran # 2.88 Lymph # (Auto) 1.4 [place] # (Auto) 0.5 Eos # (Auto) 0.1 Baso # (Auto) 0.01 Sodium 146 Potassium 4.1 Chloride 106 Carbon Dioxide 26 Anion Gap 19 BUN 19 Creatinine 1.5 Est GFR ( Amer) 58 Est GFR (Non-Af Amer) 48 Random Glucose 112 H Calcium 9.2 Total Bilirubin 1.1 AST 22 ALT 26 Alkaline Phosphatase 51 Total Protein 7.7 Albumin 4.5 Globulin 3.2 Albumin/Globulin Ratio 1.4 Assessment & Plan - Assessment and Plan (Free Text) Plan: Assessment consider asymptomatic bacteriuria acute on chronic CHF causing dyspnea earning disability chronic CHF history of pneumonia CVA with left sided residual weakness history of DVT chronic foot ulcers history of lower extremity bypass surgery Plan Patient has no urinary symptoms, urinalysis does not show pyuria, examination is benign - will monitor the patient off antibiotics, repeat urine cx Cardiology managing acute CHF no note of fevers on this admission and CXR is negative will monitor clinically
[2018-05-29] MEDS: Albuterol-Ipratrop 3 mg / 0.5 (3 ml) UD IH SCH ×2 (01:39→08:12)
[2018-05-29 02:54] VITALS: RESP 18; O2SAT 94
--- NOTE | 2018-05-29 05:49 | PN ---
DATE: 05/28/2018 REASON FOR THE CONSULTATION AND FOLLOWUP: Cardiac evaluation and admitted with shortness of breath, rule out CHF. Patient denies any chest pain, denies any shortness of breath, denies any palpitations now. Lying flat in bed not in apparent distress. PHYSICAL EXAMINATION: VITAL SIGNS: Temperature afebrile, heart rate 73, blood pressure 133/63. HEENT: PERRLA. Extraocular muscles intact. NECK: Supple. No carotid bruit or thyromegaly. CHEST: Clear to auscultation. HEART: S1 and S2 regular. ABDOMEN: Soft. EXTREMITIES: Clubbing and cyanosis negative. LABORATORY DATA: Blood workup as follows: WBC 4.3, hemoglobin , hematocrit 34.9, platelet count 94. Chemistry shows sodium 140, potassium 4, chloride 106, carbon dioxide 26, anion gap of 90, BUN 19, creatinine 1.5. IMPRESSION: A 62-year-old male with a past medical history significant for moderate aortic stenosis, moderate aortic regurgitation, mild mitral regurgitation, came with complain of shortness of breath, elevated BNP was secondary to diastolic dysfunction. Past history showed echo 01/14/2017, LV ejection fraction 50%. Moderate supravalvular aortic stenosis, moderate aortic regurgitation, mild mitral regurgitation, mild tricuspid regurgitation. RV systolic pressure 39. Bilateral carotid, patient shows right ICA 69%, left ICA 49% stenosis, history of cardiac catheterization 02/19/2016 that shows mild aortic stenosis and mild aortic insufficiency, mild left ventricular hypokinesis, ejection fraction of 50%, noncritical coronary artery disease. The patient's repeated stress test 03/15/2018 that showed ejection fraction of 60%, no ischemia. The patient did echo admission 01/14/2017, moderate valvular aortic stenosis, mild mitral regurgitation and moderate aortic regurgitation. RECOMMENDATION: Continue gentle diet as moderate renal function, discontinue telemetry, no evidence of acute NC, history of cardiac catheterization and recently , normal. Creatinine clearance, decreased acute kidney injury, repeat the blood workup in the morning. Lasix changed to p.o. to prevent deterioration, history of DVT, PE, continue Eliquis. Repeat the lab in the morning. Thank you Dr. Causey, for providing us the opportunity in taking care of the patient, Roque. Ricardo Landrum MD [facility] # [id number]
[2018-05-29 06:16] VITALS: TEMP 98.7
[2018-05-29 06:58] LABS: BASO # 0.01 K/mm3 (0.0-2.0); BASO % 0.2 % (0.0-3.0); EOS # 0.1 (0.0-0.7); EOS % 2.7 % (1.5-5.0); GRAN # 2.49 (1.4-6.5); GRAN % 51.3 % (50.0-68.0); LYMPH # 1.8 (1.2-3.4); LYMPH % 37.4 % (22.0-35.0); MEAN CELL VOLUME 90.2 fl (80.0-105.0); MEAN CORPUSCULAR HGB CONC 32.2 g/dl (31.0-37.0); MEAN PLATELET VOLUME 10.8 fl (7.0-11.0); MONO # 0.4 (0.1-0.6); MONO % 8.4 % (1.0-6.0); RBC 3.79 10^6/uL (3.5-6.1); RED CELL DISTRIBUTION WIDTH 15.3 % (11.5-14.5); WHITE BLOOD COUNT 4.9 10^3/ul (4.5-11.0)
[2018-05-29 07:27] LABS: ALB/GLOB RATIO 1.5 (1.1-1.8); ALT/SGPT 18 U/L (7-56); AST/SGOT 20 U/L (17-59); BLOOD UREA NITROGEN 28 mg/dL (7-21); CALCIUM 9.4 mg/dL (8.4-10.5); GFR AFRICAN-AMERICAN > 60; GFR NON-AFRICAN AMERICAN 56
[2018-05-29] MEDS: Potassium Chloride 20 mEq ER Tab PO SCH (09:17)
--- NOTE | 2018-05-29 09:18 | CP.PCM.DIS ---
<Garret Salas - Last Filed: 05/29/18 18:21> Provider - Provider Date of Admission: 05/26/18 13:01 Attending physician: Jose Causey MD Consults: ID - Mar[facility] Cardiology - [place] Time Spent in preparation of Discharge (in minutes): 35 Hospital Course - Lab Results Lab Results: Micro Results 05/26/18 13:13 Urine Urine Culture - Final Gram Positive Cocci Most Recent Lab Values WBC 4.9 10^3/ul (4.5-11.0) 05/29/18 06:30 RBC 3.79 10^6/uL (3.5-6.1) 05/29/18 06:30 Hgb 11.0 g/dL (14.0-18.0) L 05/29/18 06:30 Hct 34.2 % (42.0-52.0) L 05/29/18 06:30 MCV 90.2 fl (80.0-105.0) 05/29/18 06:30 MCH 29.0 pg (25.0-35.0) 05/29/18 06:30 MCHC 32.2 g/dl (31.0-37.0) 05/29/18 06:30 RDW 15.3 % (11.5-14.5) H 05/29/18 06:30 Plt Count 105 10^3/uL (120.0-450.0) L 05/29/18 06:30 MPV 10.8 fl (7.0-11.0) 05/29/18 06:30 Gran % 51.3 % (50.0-68.0) 05/29/18 06:30 Lymph % (Auto) 37.4 % (22.0-35.0) H 05/29/18 06:30 [place] % (Auto) 8.4 % (1.0-6.0) H 05/29/18 06:30 Eos % (Auto) 2.7 % (1.5-5.0) 05/29/18 06:30 Baso % (Auto) 0.2 % (0.0-3.0) 05/29/18 06:30 Gran # 2.49 (1.4-6.5) 05/29/18 06:30 Lymph # (Auto) 1.8 (1.2-3.4) 05/29/18 06:30 [place] # (Auto) 0.4 (0.1-0.6) 05/29/18 06:30 Eos # (Auto) 0.1 (0.0-0.7) 05/29/18 06:30 Baso # (Auto) 0.01 K/mm3 (0.0-2.0) 05/29/18 06:30 PT 13.4 SECONDS (9.4-12.5) H 05/26/18 10:50 INR 1.16 (0.93-1.08) H 05/26/18 10:50 APTT 30.2 Seconds (25.1-36.5) 05/26/18 10:50 pO2 44 mm/Hg (30-55) 05/26/18 11:10 VBG pH 7.27 (7.32-7.43) L 05/26/18 11:10 VBG pCO2 51.0 (40-60) 05/26/18 11:10 VBG HCO3 23.4 mmol/l (21-28) 05/26/18 11:10 VBG Total CO2 25.0 mmol.L (22-28) 05/26/18 11:10 VBG O2 Sat (Calc) 81.5 % (40-65) H 05/26/18 11:10 VBG Base Excess -4.0 mmol/L (0.0-2.0) L 05/26/18 11:10 VBG Potassium 4.7 mmol/L (3.6-5.2) 05/26/18 11:10 Sodium 140.0 mmol/L (132-148) 05/26/18 11:10 Chloride 112.0 mmol/L (98-107) H 05/26/18 11:10 Glucose 109 mg/dl (75-110) 05/26/18 11:10 Lactate 0.9 mmol/L (0.7-2.1) 05/26/18 11:10 FiO2 21.0 % 05/26/18 11:10 Sodium 141 mmol/L (132-148) 05/29/18 06:30 Potassium 4.3 mmol/L (3.6-5.0) 05/29/18 06:30 Chloride 104 mmol/L (98-107) 05/29/18 06:30 Carbon Dioxide 24 mmol/L (21-33) 05/29/18 06:30 Anion Gap 18 (10-20) 05/29/18 06:30 BUN 28 mg/dL (7-21) H 05/29/18 06:30 Creatinine 1.3 mg/dl (0.8-1.5) 05/29/18 06:30 Est GFR ( Amer) > 60 05/29/18 06:30 Est GFR (Non-Af Amer) 56 05/29/18 06:30 POC Glucose (mg/dL) 95 mg/dL (65-110) 05/26/18 11:21 Random Glucose 102 mg/dL (70-110) 05/29/18 06:30 Calcium 9.4 mg/dL (8.4-10.5) 05/29/18 06:30 Phosphorus 4.2 mg/dL (2.5-4.5) 05/29/18 06:30 Magnesium 2.2 mg/dL (1.7-2.2) 05/29/18 06:30 Total Bilirubin 0.6 mg/dL (0.2-1.3) 05/29/18 06:30 AST 20 U/L (17-59) 05/29/18 06:30 ALT 18 U/L (7-56) 05/29/18 06:30 Alkaline Phosphatase 46 U/L (38-126) 05/29/18 06:30 Lactate Dehydrogenase 723 U/L (333-699) H 05/26/18 10:50 Total Creatine Kinase 78 U/L (35-230) 05/26/18 10:50 Troponin I 0.06 ng/mL D 05/26/18 10:50 NT-Pro-B Natriuret Pep 2200 pg/mL (0-450) H 05/26/18 10:50 Total Protein 6.6 g/dL (5.8-8.3) 05/29/18 06:30 Albumin 4.0 g/dL (3.0-4.8) 05/29/18 06:30 Globulin 2.6 gm/dL 05/29/18 06:30 Albumin/Globulin Ratio 1.5 (1.1-1.8) 05/29/18 06:30 Venous Blood Potassium 4.7 mmol/L (3.6-5.2) 05/26/18 11:10 Urine Color Light yellow (YELLOW) 05/26/18 12:34 Urine Appearance Clear (CLEAR) 05/26/18 12:34 Urine pH 6.5 (4.7-8.0) 05/26/18 12:34 Ur Specific [place] 1.010 (1.005-1.035) 05/26/18 12:34 Urine Protein Negative mg/dL (<30 mg/dL) 05/26/18 12:34 Urine Glucose (UA) Negative mg/dL (NEGATIVE) 05/26/18 12:34 Urine Ketones Negative mg/dL (NEGATIVE) 05/26/18 12:34 Urine Blood Negative (NEGATIVE) 05/26/18 12:34 Urine Nitrate Negative (NEGATIVE) 05/26/18 12:34 Urine Bilirubin Negative (NEGATIVE) 05/26/18 12:34 Urine Urobilinogen 0.2 E.U./dL (<1 E.U./dL) 05/26/18 12:34 Ur Leukocyte Esterase Negative Millie/uL (NEGATIVE) 05/26/18 12:34 Influenza Typ A,B (EIA) Negative for flu a/b (NEGATIVE) 05/26/18 11:00 Blood Type A POSITIVE 05/26/18 13:10 Blood Type Confirm A POSITIVE 05/26/18 15:00 Antibody Screen Negative 05/26/18 13:10 BBK History Checked No verified bt 05/26/18 13:10 - Hospital Course Hospital Course: Patient is a 62year old male with a past medical history of diastolic congestive heart failure, DVT on eliquis that [facility] to [facility] with complaints of shortness of breath, cough and subjective fever. He also complained of bilateral leg swelling. A CXR revealed no active disease. EKG showed sinus rhythm with fusion complexes and left bundle branch block that was unchanged from prior EKG's. Blood cultures were negative and urinalysis was negative. Rapid flu was negative. He was seen by cardiology and started on IV lasix for acute exacerbation of diastolic congestive heart failure. He was reported improvement of his symptoms over the course of his admission and was transitioned to PO lasix. 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 Discharge Exam - Head Exam Head Exam: ATRAUMATIC, NORMAL INSPECTION, NORMOCEPHALIC - Eye Exam Eye Exam: EOMI Pupil Exam: PERRL - Respiratory Exam Respiratory Exam: Clear to PA & Lateral. absent: Rales, Rhonchi, Wheezes - Cardiovascular Exam Cardiovascular Exam: RRR, +S1, +S2. absent: Gallop, JVD, Rubs - GI/Abdominal Exam GI & Abdominal Exam: Normal Bowel Sounds, Soft. absent: Distended, Guarding, Rebound, Rigid, Tenderness - Neurological Exam Neurological exam: Alert, CN II-XII Intact, Oriented x3 - Psychiatric Exam Psychiatric exam: Normal Affect, Normal Mood - Skin Skin Exam: Dry, Intact, Normal Color, Warm Discharge Plan - Discharge Medications Prescriptions: Furosemide [Lasix] 40 mg PO BID 14 Days tablet Potassium Chloride [K-Dur 20] 20 meq PO BID 14 Days tab - Follow Up Plan Condition: FAIR Disposition: HOME/ ROUTINE Instructions: Heart Healthy Diet, Diabetes Diet , Low Salt Diet, Heart Failure (DC) Additional Instructions: 1. Follow up with your primary doctor within 1 week of discharge. 2. Follow up with your turntable operator within 1 week of discharge. 3. Continue to take your medications as directed. 4. Refrain from a high sodium/salt diet. 5. Return to the emergency room should your condition worsen. <Jose Causey - Last Filed: 05/29/18 21:48> Provider - Provider Date of Admission: 05/26/18 13:01 Attending physician: Jose Causey MD Hospital Course - Lab Results Lab Results: Micro Results 05/28/18 12:23 Urine,Clean Catch Urine Culture - Final >100,000 CFU/ML. MULTIPLE SPECIES. SUGGEST REPEAT SPECIMEN. 05/26/18 13:13 Urine Urine Culture - Final Gram Positive Cocci Most Recent Lab Values WBC 4.9 10^3/ul (4.5-11.0) 05/29/18 06:30 RBC 3.79 10^6/uL (3.5-6.1) 05/29/18 06:30 Hgb 11.0 g/dL (14.0-18.0) L 05/29/18 06:30 Hct 34.2 % (42.0-52.0) L 05/29/18 06:30 MCV 90.2 fl (80.0-105.0) 05/29/18 06:30 MCH 29.0 pg (25.0-35.0) 05/29/18 06:30 MCHC 32.2 g/dl (31.0-37.0) 05/29/18 06:30 RDW 15.3 % (11.5-14.5) H 05/29/18 06:30 Plt Count 105 10^3/uL (120.0-450.0) L 05/29/18 06:30 MPV 10.8 fl (7.0-11.0) 05/29/18 06:30 Gran % 51.3 % (50.0-68.0) 05/29/18 06:30 Lymph % (Auto) 37.4 % (22.0-35.0) H 05/29/18 06:30 [place] % (Auto) 8.4 % (1.0-6.0) H 05/29/18 06:30 Eos % (Auto) 2.7 % (1.5-5.0) 05/29/18 06:30 Baso % (Auto) 0.2 % (0.0-3.0) 05/29/18 06:30 Gran # 2.49 (1.4-6.5) 05/29/18 06:30 Lymph # (Auto) 1.8 (1.2-3.4) 05/29/18 06:30 [place] # (Auto) 0.4 (0.1-0.6) 05/29/18 06:30 Eos # (Auto) 0.1 (0.0-0.7) 05/29/18 06:30 Baso # (Auto) 0.01 K/mm3 (0.0-2.0) 05/29/18 06:30 PT 13.4 SECONDS (9.4-12.5) H 05/26/18 10:50 INR 1.16 (0.93-1.08) H 05/26/18 10:50 APTT 30.2 Seconds (25.1-36.5) 05/26/18 10:50 pO2 44 mm/Hg (30-55) 05/26/18 11:10 VBG pH 7.27 (7.32-7.43) L 05/26/18 11:10 VBG pCO2 51.0 (40-60) 05/26/18 11:10 VBG HCO3 23.4 mmol/l (21-28) 05/26/18 11:10 VBG Total CO2 25.0 mmol.L (22-28) 05/26/18 11:10 VBG O2 Sat (Calc) 81.5 % (40-65) H 05/26/18 11:10 VBG Base Excess -4.0 mmol/L (0.0-2.0) L 05/26/18 11:10 VBG Potassium 4.7 mmol/L (3.6-5.2) 05/26/18 11:10 Sodium 140.0 mmol/L (132-148) 05/26/18 11:10 Chloride 112.0 mmol/L (98-107) H 05/26/18 11:10 Glucose 109 mg/dl (75-110) 05/26/18 11:10 Lactate 0.9 mmol/L (0.7-2.1) 05/26/18 11:10 FiO2 21.0 % 05/26/18 11:10 Sodium 141 mmol/L (132-148) 05/29/18 06:30 Potassium 4.3 mmol/L (3.6-5.0) 05/29/18 06:30 Chloride 104 mmol/L (98-107) 05/29/18 06:30 Carbon Dioxide 24 mmol/L (21-33) 05/29/18 06:30 Anion Gap 18 (10-20) 05/29/18 06:30 BUN 28 mg/dL (7-21) H 05/29/18 06:30 Creatinine 1.3 mg/dl (0.8-1.5) 05/29/18 06:30 Est GFR ( Amer) > 60 05/29/18 06:30 Est GFR (Non-Af Amer) 56 05/29/18 06:30 POC Glucose (mg/dL) 95 mg/dL (65-110) 05/26/18 11:21 Random Glucose 102 mg/dL (70-110) 05/29/18 06:30 Calcium 9.4 mg/dL (8.4-10.5) 05/29/18 06:30 Phosphorus 4.2 mg/dL (2.5-4.5) 05/29/18 06:30 Magnesium 2.2 mg/dL (1.7-2.2) 05/29/18 06:30 Total Bilirubin 0.6 mg/dL (0.2-1.3) 05/29/18 06:30 AST 20 U/L (17-59) 05/29/18 06:30 ALT 18 U/L (7-56) 05/29/18 06:30 Alkaline Phosphatase 46 U/L (38-126) 05/29/18 06:30 Lactate Dehydrogenase 723 U/L (333-699) H 05/26/18 10:50 Total Creatine Kinase 78 U/L (35-230) 05/26/18 10:50 Troponin I 0.06 ng/mL D 05/26/18 10:50 NT-Pro-B Natriuret Pep 2200 pg/mL (0-450) H 05/26/18 10:50 Total Protein 6.6 g/dL (5.8-8.3) 05/29/18 06:30 Albumin 4.0 g/dL (3.0-4.8) 05/29/18 06:30 Globulin 2.6 gm/dL 05/29/18 06:30 Albumin/Globulin Ratio 1.5 (1.1-1.8) 05/29/18 06:30 Venous Blood Potassium 4.7 mmol/L (3.6-5.2) 05/26/18 11:10 Urine Color Light yellow (YELLOW) 05/26/18 12:34 Urine Appearance Clear (CLEAR) 05/26/18 12:34 Urine pH 6.5 (4.7-8.0) 05/26/18 12:34 Ur Specific [place] 1.010 (1.005-1.035) 05/26/18 12:34 Urine Protein Negative mg/dL (<30 mg/dL) 05/26/18 12:34 Urine Glucose (UA) Negative mg/dL (NEGATIVE) 05/26/18 12:34 Urine Ketones Negative mg/dL (NEGATIVE) 05/26/18 12:34 Urine Blood Negative (NEGATIVE) 05/26/18 12:34 Urine Nitrate Negative (NEGATIVE) 05/26/18 12:34 Urine Bilirubin Negative (NEGATIVE) 05/26/18 12:34 Urine Urobilinogen 0.2 E.U./dL (<1 E.U./dL) 05/26/18 12:34 Ur Leukocyte Esterase Negative Millie/uL (NEGATIVE) 05/26/18 12:34 Influenza Typ A,B (EIA) Negative for flu a/b (NEGATIVE) 05/26/18 11:00 Blood Type A POSITIVE 05/26/18 13:10 Blood Type Confirm A POSITIVE 05/26/18 15:00 Antibody Screen Negative 05/26/18 13:10 BBK History Checked No verified bt 05/26/18 13:10 - Hospital Course Hospital Course: Pt seen and examined. I have reviewed the note of the medical care administrator and agree with it. I have discussed the assessment and plan with the resident. I have reviewed the patient's labs and medications. Pt is breathing better. I spoke to Stephanie, the pt's sister. He has lasix and will continue. Low Na diet was enforced. CXR shows no active disease.
[2018-05-29 09:20] VITALS: BP 116/57; PULSE 81
--- NOTE | 2018-05-29 14:07 | PN ---
DATE: 05/29/2018 REASON FOR THE CONSULTATION AND FOLLOWUP: Cardiac evaluation. Admitted with shortness of breath. Rule out CHF. SUBJECTIVE: The patient denies any chest pain, shortness of breath, or any palpitation. OBJECTIVE: GENERAL: Not in any apparent distress. VITAL SIGNS: Temperature afebrile, heart rate 81, and blood pressure 116/57. HEENT: PERRLA. Extraocular muscles intact. NECK: Supple. No carotid bruit. No thyromegaly. CHEST: Clear to auscultation. HEART: S1 and S2 regular. ABDOMEN: Soft. EXTREMITIES: Clubbing and cyanosis negative. LABORATORY DATA: Blood workup as follows: WBC 4.9, hemoglobin 11, hematocrit 34.2, and platelet count 105. Chemistry shows sodium 141, potassium 4, chloride 104, carbon dioxide 24, anion gap of 18. BUN 28, creatinine 1.3. IMPRESSION: A 62-year-old male with a past medical history significant for moderate aortic stenosis, moderate mitral regurgitation, mild mitral regurgitation. Came with the complaint of shortness of breath, elevated BNP secondary to diastolic dysfunction. The patient had history of moderate aortic stenosis by echo dated 01/14/2017. Bilateral carotid shows right internal carotid artery 69%, left internal carotid artery 49% stenosis. History of cardiac catheterization on 02/19/2016, that shows mild aortic stenosis and mild insufficiency. Left ventricular hypokinesis with ejection fraction 50%. No critical coronary artery disease. The patient's repeat stress test on 03/15/2018, ejection fraction 60%. No ischemia dated 03/15/2018. The patient had echo, last one on 01/14/2017, moderate valvular stenosis, mild mitral regurgitation, moderate aortic regurgitation. RECOMMENDATIONS: Continue gentle diuretics. Monitor renal function closely. Creatinine clearance 50 mL. Avoid nephrotoxic medication. Continue atorvastatin. Continue Eliquis at renally adjusted dose. History of DVT/PE, on Eliquis. Monitor renal function. We will discontinue telemetry. Thank you, Dr. Reveles/Dr. Causey for providing us the opportunity in taking care of the patient, Roque Byers. Ricardo Landrum MD
--- NOTE | 2018-05-30 08:31 | PN ---
DATE: 05/29/2018 SUBJECTIVE: The patient was seen in bed . PHYSICAL EXAMINATION: VITAL SIGNS: Temperature is 98, blood pressure is 130/70, respiratory rate of 18. HEENT: Unremarkable. NECK: Supple. LUNGS: Have decreased breath sounds. HEART: Normal S1 and S2. ABDOMEN: Soft. LABORATORY DATA: Reveals a white count of 4.9, hemoglobin 11. Chemistries reveal a BUN of 28, creatinine of 1.3. Urinalysis is noted. is negative. Microbiology reveals urine has Gram positive cocci. ASSESSMENT AND PLAN: A 62-year-old male who was seen earlier today in [facility], bed 2, with asymptomatic bacteriuria. Patient chronic congestive heat failure, cerebrovascular accident. Currently, off of antibiotics. The patient is at risk for developing nosocomial infections. Paras Francis MD
== END 2018-05-29 11:12 | disposition home or self-care (01) | DRG 292 ==
LOC: ED 10:31 → ERH 13:01 → 2RSO 16:15
PROVIDERS: ADMIT Internal Medicine Nephrology; ATTEND Internal Medicine Nephrology
PROC: 3E0F7GC Introduction of Other Therapeutic Substance into Respiratory Tract, Via Natural or Artificial Opening (ICD-10-PCS; principal; 2018-05-26)
DX: I11.0 Hypertensive heart disease with heart failure (principal); J44.1 Chronic obstructive pulmonary disease with (acute) exacerbation; I69.354 Hemiplegia and hemiparesis following cerebral infarction affecting left non-dominant side; I50.33 Acute on chronic diastolic (congestive) heart failure; I44.7 Left bundle-branch block, unspecified; I25.10 Atherosclerotic heart disease of native coronary artery without angina pectoris; E78.5 Hyperlipidemia, unspecified; D64.9 Anemia, unspecified; E11.621 Type 2 diabetes mellitus with foot ulcer; L97.509 Non-pressure chronic ulcer of other part of unspecified foot with unspecified severity; I08.3 Combined rheumatic disorders of mitral, aortic and tricuspid valves; F17.200 Nicotine dependence, unspecified, uncomplicated; F81.9 Developmental disorder of scholastic skills, unspecified; Z86.711 Personal history of pulmonary embolism; Z87.01 Personal history of pneumonia (recurrent); Z86.718 Personal history of other venous thrombosis and embolism

== ENCOUNTER 2018-06-21 09:41 | Day surgery (SDC) | payer MEDICARE, MEDICAID ==
[2018-06-21] MEDS ORDERED: Naloxone 0.4 mg/ml Inj (Adult) ONE (11:42)
[2018-06-21] MEDS ORDERED: Midazolam 2 MG/2 ML VIAL ONE (11:42)
[2018-06-21] MEDS ORDERED: Flumazenil 0.1 mg/ml Inj (5ml) IVP ONE (11:42)
[2018-06-21] MEDS ORDERED: Midazolam 2 MG/2 ML VIAL IV ONE ×2 (11:59→12:02)
[2018-06-21] MEDS ORDERED: Sodium Chloride 0.9% 1,000 ML IV SCH (12:30)
[2018-06-21 12:53] VITALS: O2SAT 98
[2018-06-21 13:26] VITALS: BMI 30.7
[2018-06-21 13:29] VITALS: TEMP 97.6
[2018-06-21 13:45] VITALS: BP 141/74; PULSE 61; RESP 18
--- NOTE | 2018-06-21 19:16 | CARD ---
APPROVED REPORT Date of service: 06/21/2018 EXAM: Transesophageal echocardiogram with color flow Doppler. INDICATION Aortic Valve Disease 2D DIMENSIONS LVOT Diameter1.9 (1.8-2.4cm) Aortic Valve AoV Peak Spnqgfzg339.0cm/sAoV VTI93.7cmAO Peak GR.45mmHg LVOT Peak Vcwpxbft792.0cm/sLVOT VTI28.60cmAO Mean GR.28mmHg ISH (VMAX)0.81ar7QOF (VTI)0.87cm2 Mitral Valve E/A ratio0.0 TDI E/Lateral E'0.0E/Medial E'0.0 Reason For Test : To assess PROCEDURE After obtaining informed consent, patient underwent transesophageal echo in the Echo Lab. Type of Sedation : Conscious Sedation Sedation was administered by Dr. rogers. Sedation was achieved with Versed and , Fentanyl 2 mg and 50 mcg intravenously. Echo enhancement indication: R/O Septal defect. Echo enhancement agent administered: Agitated Saline The EDMUNDO was performed without complications. Throughout the procedure, the blood pressure, pulse oximetry, cardiac rhythm, and rate were monitored. The patient tolerated the procedure without adverse effects. Recovery from conscious sedation was uneventful and vital signs were stable. LEFT VENTRICLE The left ventricle is normal size. There is mild to moderate concentric left ventricular hypertrophy. The left ventricular function is normal.EF-65% There is normal LV segmental wall motion. The left ventricular diastolic function is normal. No left ventricle thrombus noted on this study. There is no ventricular septal defect visualized. There is no left ventricular aneurysm. There is no mass noted in the left ventricle. RIGHT VENTRICLE The right ventricle is normal size. There is normal right ventricular wall thickness. The right ventricular systolic function is normal. ATRIA The left atrium is mildly dilated. The right atrium is mildly dilated. The interatrial septum is intact with no evidence for an atrial septal defect. AORTIC VALVE The aortic valve is severely calcified with Decreased excursion. Possibly Bicuspid aortic Valve There is mild to moderate aortic regurgitation. There is moderate valvular aortic stenosis. ISH 0.9 cm2 with a peak gradient 44 mm of Hg. There is no aortic valvular vegetation. MITRAL VALVE The mitral valve leaflets are thickened. There is no evidence of mitral valve prolapse. There is no mitral valve stenosis. Mitral regurgitation is moderate, Multiple jets. TRICUSPID VALVE The tricuspid valve leaflets display thickening. There is mild tricuspid regurgitation. There is no tricuspid valve prolapse or vegetation. There is no tricuspid valve stenosis. PULMONIC VALVE The pulmonary valve is normal in structure. There is trace to mild pulmonic valvular regurgitation. There is no pulmonic valvular stenosis. GREAT VESSELS The aortic root is normal in size. The ascending aorta is normal in size. The pulmonary artery is normal. The IVC is normal in size and collapses >50% with inspiration. PERICARDIAL EFFUSION Trivial Pericardial effusion. There is no pleural effusion. <Conclusion> The left ventricular function is normal.EF-65%, Normal RV. The aortic valve is severely calcified with Decreased excursion. Possibly Bicuspid aortic Valve There is moderate valvular aortic stenosis. ISH 0.9 cm2 with a peak gradient 44 mm of Hg. There is no evidence of mitral valve prolapse. There is mild tricuspid regurgitation. There is no pleural effusion. Intact intra atrial septum by color flow and bubble study. Velocity in MINERVA <0.4 m/s.
== END 2018-06-21 14:14 | disposition home or self-care (01) ==
LOC: SDSVAS 09:41
PROVIDERS: ATTEND Internal Medicine Cardiovascular Disease
DX: I08.2 Rheumatic disorders of both aortic and tricuspid valves (principal); I10 Essential (primary) hypertension; I25.10 Atherosclerotic heart disease of native coronary artery without angina pectoris
CPT/HCPCS: 93312; J2250; J3010; J7030

== ENCOUNTER 2018-09-06 11:15 | Emergency (ER) | payer MEDICARE, MEDICAID ==
[2018-09-06 11:16] VITALS: BMI 30.7
[2018-09-06 11:30] VITALS: RESP 18; O2SAT 98
[2018-09-06] MEDS ORDERED: Sodium Chloride 0.9% 1,000 ML IV STA (11:40)
--- NOTE | 2018-09-06 11:52 | ED PDOC ---
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 Per the patient's family, patient visited a friend in the hospital 3 days ago who was recently diagnosed with C-diff colitis. He admits to a change in soap and was given Benadryl yesterday with minimal alleviation in symptoms. He denies any medication changes, but was taking antibiotics 6 days ago. The patient was unable to see his PCP today and was brought by his sister to the ED for further evaluation. Patient denies any fever, chills, itchy throat, chest pain, shortness of breath, nausea, vomiting, diarrhea, urinary symptoms, back pain, neck pain, headache, dizziness, or any other complaints. PMD: Dr. 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" - Renal Hx Renal Disorder: No - Endocrine/Metabolic Hx Diabetes Mellitus Type 2: Yes - Hematological/Oncological Hx Blood Transfusions: No - Integumentary Other/Comment: multiple healed wound scars r ankle and foot left ankle and foot, small wound to top of left foot red and dry, dry toenails both feet, ble light brown skin discolorations, old fading bruises b/l knees from falls, left great toe has 12 toenail surrounded by dry red skin, r great toe has 1/2 nail small dry brown wound, dry skin to toes - Musculoskeletal/Rheumatological Hx Musculoskeletal Disorders: Yes - Gastrointestinal Hx Gastrointestinal Disorders: Yes (RECTAL BLEED, obese) - Genitourinary/Gynecological Hx Genitourinary Disorders: No - Psychiatric Hx Emotional Abuse: No Hx Physical Abuse: No Hx Substance Use: No - Surgical History Other/Comment: DVT to right leg/BYpass surgery 2015 - Anesthesia Hx Anesthesia Reactions: No Hx Malignant Hyperthermia: No - Suicidal Assessment Feels Threatened In Home Enviroment: No Family/Social History - Physician Review Nursing Documentation Reviewed: Yes Family/Social History: No Known Family HX Smoking Status: Former Smoker Hx Alcohol Use: No Hx Substance Use: No Allergies/Home Meds Allergies/Adverse Reactions: Allergies benztropine mesylate [From Cogentin] Allergy (Severe, Verified 09/06/18 11:24) ANAPHYLAXIS esomeprazole magnesium [From Nexium] Allergy (Severe, Verified 09/06/18 11:24) RASH Penicillins Allergy (Severe, Verified 09/06/18 11:24) ANAPHYLAXIS Sulfa (Sulfonamide Antibiotics) Allergy (Severe, Verified 09/06/18 11:24) RASH Home Medications: Home Meds Medication Instructions Recorded Confirmed RX: Atorvastatin [Lipitor] 10 mg PO DAILY 01/13/17 06/21/18 RX: Apixaban [Eliquis] 2.5 mg PO DAILY 03/16/18 06/21/18 RX: Lisinopril [Zestril] 5 mg PO DAILY 03/16/18 06/21/18 Review of Systems - Physician Review All systems were reviewed & negative as marked: Yes - Review of Systems Constitutional: absent: Fevers, Other (Chills) Respiratory: absent: SOB Cardiovascular: absent: Chest Pain Gastrointestinal: absent: Diarrhea, Nausea, Vomiting Genitourinary Male: absent: Dysuria, Frequency, Hematuria Musculoskeletal: absent: Back Pain, Neck Pain Skin: Rash Neurological: absent: Headache, Dizziness Physical Exam Vital Signs Reviewed: Yes Vital Signs Temp Pulse Resp BP Pulse Ox 09/06/18 11:16 98.3 F 68 18 126/60 98 Temperature: Afebrile Blood Pressure: Normal Pulse: Regular Respiratory Rate: Normal Appearance: Positive for: Well-Appearing, Non-Toxic, Comfortable Pain Distress: None Mental Status: Positive for: Alert and Oriented X 3 - Systems Exam Head: Present: Atraumatic, Normocephalic Pupils: Present: PERRL Extroacular Muscles: Present: EOMI Conjunctiva: Present: Normal Mouth: Present: Moist Mucous Membranes Neck: Present: Normal Range of Motion Respiratory/Chest: Present: Clear to Auscultation, Good Air Exchange. No: Respiratory Distress, Accessory Muscle Use, Wheezes, Decreased Breath Sounds, Re tracting Cardiovascular: Present: Regular Rate and Rhythm, Normal S1, S2. No: Murmurs Abdomen: No: Tenderness, Distention, Peritoneal Signs Back: Present: Normal Inspection Upper Extremity: Present: Normal Inspection. No: Cyanosis, Edema Lower Extremity: Present: Normal Inspection. No: Edema Neurological: Present: GCS=15, CN II-XII Intact, Speech Normal Skin: Present: Warm, Dry, Rashes (blanching urticarial rash noted to the upper and lowerr extremities) Psychiatric: Present: Alert, Oriented x 3, Normal Insight, Normal Concentration Medical Decision Making ED Course and Treatment: 09/06/18 11:42 Impression: 63 year old male presents complaining of sudden body rash that began 2 days ago. Differential Diagnosis included but are not limited to: Contact dermatitis Allergic reaction drug hypersensitive reaction Plan: --Benadryl --Pepcid --Solu-medrol --IV Fluids --Reassess and disposition Prior Visits: Notes and results from previous visits were reviewed. Progress Notes: 09/06/18 13:50 Patient reevaluated with improvement in the quality of his rash and symptoms. He is encouraged to monitor his symptoms and continue supportive therapy at home. Scripts provided as well as return protocol given. Patient is stable for discharge. - Medication Orders Current Medication Orders: Sodium Chloride (Sodium Chloride 0.9%) 1,000 mls @ 999 mls/hr IV .Q1H1M STA Stop: 09/06/18 12:40 Discontinued Medications Diphenhydramine HCl (Benadryl) 50 mg PO STAT STA Stop: 09/06/18 11:41 Famotidine (Pepcid) 20 mg IVP STAT STA Stop: 09/06/18 11:41 Methylprednisolone (Solu-Medrol) 125 mg IVP STAT STA Stop: 09/06/18 11:41 - Scribe Statement The provider has reviewed the documentation as recorded by the Angeliqueibbaylee Hernandez Provider Scribe Attestation: All medical record entries made by the Scribe were at my direction and personally dictated by me. I have reviewed the chart and agree that the record accurately reflects my personal performance of the history, physical exam, medical decision making, and the department course for this patient. I have also personally directed, reviewed, and agree with the discharge instructions and disposition. Disposition/Present on Arrival - Present on Arrival Any Indicators Present on Arrival: Yes History of DVT/PE: Yes History of Uncontrolled Diabetes: No Urinary Catheter: No History of Decub. Ulcer: No History Surgical Site Infection Following: None - Disposition Have Diagnosis and Disposition been Completed?: Yes Diagnosis: Allergic reaction Disposition: HOME/ ROUTINE Disposition Time: 13:50 Patient Plan: Discharge Condition: IMPROVED Discharge Instructions (ExitCare): Drug Allergy Additional Instructions: All medical record entries made by the Scribe were at my direction and personally dictated by me. I have reviewed the chart and agree that the record accurately reflects my personal performance of the history, physical exam, medical decision making, and the department course for this patient. I have also personally directed, reviewed, and agree with the discharge instructions and disposition. Please follow up with your PCP Take Benadryl, Pepcid and Medrol Dose pack as prescribed Please STOP any current antibiotics you may be taking until after you have been cleared by your PCP. Prescriptions: DiphenhydrAMINE [Benadryl] 50 mg PO Q6H 2 Days #12 cap Famotidine [Pepcid] 40 mg PO Q6H #12 tablet Methylprednisolone [Medrol Dose Pack (21 tabs)] 4 mg PO DAILY #21 mg Referrals: Bel Maldonado MD [Medical Doctor] - Follow up with primary [facility] at [facility] [place] [Outside] - Follow up with primary Brijesh Mooney DO [Doctor Osteopathy] - Follow up with primary Forms: [employer] (Azerbaijani)
[2018-09-06 17:01] VITALS: BP 126/71; PULSE 87; TEMP 98.2
== END 2018-09-06 14:21 | disposition home or self-care (01) ==
LOC: ED 11:15
DX: T78.49XA Other allergy, initial encounter (principal); X58.XXXA Exposure to other specified factors, initial encounter
CPT/HCPCS: 96374; 96375; 99284; J2930; J7030

== ENCOUNTER 2018-10-16 10:50 | Inpatient (IN) | payer MEDICARE, MEDICAID ==
[2018-10-16 11:15] VITALS: BMI 29.2
--- NOTE | 2018-10-16 11:31 | ED PDOC ---
Arrival/HPI - General Chief Complaint: Shortness Of Breath Time Seen by Provider: 10/16/18 11:14 Historian: Patient, Family (sister) - History of Present Illness Narrative History of Present Illness (Text): 10/16/18 11:28 63 year old male, whose past medical history pneumonia, MR, diastolic CHF, hypertension, COPD, [place], CVA, DVT/PE, presents to the emergency department accompanied by his sister, complaining of shortness of breath for the past 24 hrs. Sister reports associated chills and sore throat for the past few days. Sister brought him in for further evaluation due to his history of CHF and pneumonia. She denies fevers, headache, dizziness, chest pain, trauma or falls, dark or bloody stool, abdominal pain, nausea, vomiting, diarrhea, back pain, neck pain, or any other complaint. PMD: Dr. 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" - Renal Hx Renal Disorder: No - Endocrine/Metabolic Hx Diabetes Mellitus Type 2: Yes - Hematological/Oncological Hx Blood Transfusions: No - Integumentary Other/Comment: multiple healed wound scars r ankle and foot left ankle and foot, small wound to top of left foot red and dry, dry toenails both feet, ble light brown skin discolorations, old fading bruises b/l knees from falls, left great toe has 12 toenail surrounded by dry red skin, r great toe has 1/2 nail small dry brown wound, dry skin to toes - Musculoskeletal/Rheumatological Hx Musculoskeletal Disorders: Yes - Gastrointestinal Hx Gastrointestinal Disorders: Yes (RECTAL BLEED, obese) - Genitourinary/Gynecological Hx Genitourinary Disorders: No - Psychiatric Hx Emotional Abuse: No Hx Physical Abuse: No Hx Substance Use: No - Surgical History Other/Comment: DVT to right leg/BYpass surgery 2015 - Anesthesia Hx Anesthesia Reactions: No Hx Malignant Hyperthermia: No - Suicidal Assessment Feels Threatened In Home Enviroment: No Family/Social History - Physician Review Nursing Documentation Reviewed: Yes Family/Social History: No Known Family HX Smoking Status: Former Smoker Hx Alcohol Use: No Hx Substance Use: No Allergies/Home Meds Allergies/Adverse Reactions: Allergies benztropine mesylate [From Cogentin] Allergy (Severe, Verified 10/16/18 11:24) ANAPHYLAXIS esomeprazole magnesium [From Nexium] Allergy (Severe, Verified 10/16/18 11:24) RASH Penicillins Allergy (Severe, Verified 10/16/18 11:24) ANAPHYLAXIS Sulfa (Sulfonamide Antibiotics) Allergy (Severe, Verified 10/16/18 11:24) RASH Home Medications: Home Meds Medication Instructions Recorded Confirmed Atorvastatin [Lipitor] 10 mg PO DAILY 01/13/17 06/21/18 Apixaban [Eliquis] 2.5 mg PO DAILY 03/16/18 06/21/18 Lisinopril [Zestril] 5 mg PO DAILY 03/16/18 06/21/18 Review of Systems - Physician Review All systems were reviewed & negative as marked: Yes - Review of Systems Constitutional: Other (chills). absent: Fevers ENT: Sore Throat Respiratory: SOB Cardiovascular: absent: Chest Pain Gastrointestinal: absent: Diarrhea, Nausea, Vomiting Genitourinary Male: absent: Dysuria, Frequency, Hematuria Musculoskeletal: absent: Back Pain, Neck Pain Skin: absent: Rash Neurological: absent: Headache, Dizziness Endocrine: absent: Diaphoresis Psychiatric: absent: Anxiety, Depression Physical Exam Vital Signs Reviewed: Yes Vital Signs Temp Pulse Resp BP Pulse Ox 10/16/18 11:15 97.9 F 75 17 137/70 98 Temperature: Afebrile Blood Pressure: Normal Pulse: Regular Respiratory Rate: Normal Appearance: Positive for: Well-Appearing, Non-Toxic, Comfortable Pain Distress: None Mental Status: Positive for: Alert and Oriented X 3 - Systems Exam Head: Present: Atraumatic, Normocephalic Pupils: Present: PERRL Extroacular Muscles: Present: EOMI Conjunctiva: Present: Normal. No: Injected Ears: Present: Normal, NORMAL TM Mouth: Present: Moist Mucous Membranes Pharnyx: Present: Normal. No: ERYTHEMA, EXUDATE Nose (External): Present: Atraumatic Nose (Internal): Present: Rhinorrhea. No: Purulent Mucous, Septal Hematoma Neck: Present: Normal Range of Motion. No: Meningeal Signs Respiratory/Chest: Present: Clear to Auscultation, Good Air Exchange. No: Respiratory Distress, Accessory Muscle Use Cardiovascular: Present: Regular Rate and Rhythm, Normal S1, S2. No: Murmurs Abdomen: No: Tenderness, Distention, Peritoneal Signs Back: Present: Normal Inspection. No: CVA Tenderness Upper Extremity: Present: Normal Inspection. No: Cyanosis, Edema Lower Extremity: Present: Normal Inspection. No: Edema Neurological: Present: GCS=15, CN II-XII Intact, Speech Normal Skin: Present: Warm, Dry, Normal Color. No: Rashes Psychiatric: Present: Alert, Oriented x 3, Normal Insight, Normal Concentration Medical Decision Making ED Course and Treatment: 10/16/18 11:29 Impression: 63 year old male who presents to the emergency department complaining of shortness of breath. No orthopnea or PND, however pt notes dry cough as well as nasal congestion and desat this AM. No pleuritic chest pain. No recent surgery. No hx of DVT or PE. Likely PNA vs CHF. Plan: -- EKG -- Labs -- Chest X-ray -- Blood Culture -- Rapid Flu A/B -- Rapid Strep -- Reassess and disposition Prior Visits: Notes and results from previous visits were reviewed. Progress Notes: EKG reviewed, shows: NSR at 71 bpm LBBB (was present previously) no significant change from previous EKG. 10/16/18 14:[address] Villalobos who request patient to be admitted into Dr. Lindquist's service. Chest X-ray reviewed, shows: Impression: No active diseases 10/16/18 14:[address] Lindquist 10/16/18 15:[address] Lindquist 10/16/18 15:22 RITCHIE pending trop, BNP 3rd page to Dr. Lindquist 10/16/18 16:12 appreciate consult w/ Dr. Lindquist: to admit to her service for follow on trops, RITCHIE. to place basic bridge orders. Pt in NAD and agreeable to plan. - Lab Interpretations I have reviewed the lab results: Yes - EKG Interpretation Interpreted by ED Physician: Yes Type: 12 lead EKG - Scribe Statement The provider has reviewed the documentation as recorded by the Scribe Janeth Flores Provider Scribe Attestation: All medical record entries made by the Scribe were at my direction and personally dictated by me. I have reviewed the chart and agree that the record accurately reflects my personal performance of the history, physical exam, medical decision making, and the department course for this patient. I have also personally directed, reviewed, and agree with the discharge instructions and disposition. Disposition/Present on Arrival - Present on Arrival Any Indicators Present on Arrival: No History of DVT/PE: Yes History of Uncontrolled Diabetes: No Urinary Catheter: No History of Decub. Ulcer: No History Surgical Site Infection Following: None - Disposition Have Diagnosis and Disposition been Completed?: Yes Diagnosis: RITCHIE (acute kidney injury), Shortness of breath Disposition Time: 16:25 Patient Problems: Current Active Problems Problem Status Onset RITCHIE (acute kidney injury) Acute Shortness of breath Acute Condition: GOOD Referrals: Jose Causey MD [Primary Care Provider] - Follow up with primary Forms: [employer] (Slovak)
[2018-10-16 12:34] LABS: RBC 3.07 10^6/uL (3.5-6.1); WHITE BLOOD COUNT 6.5 10^3/uL (4.5-11.0)
[2018-10-16 12:35] LABS: GRAN % 69.8 % (50.0-68.0); HEMOGLOBIN 9.3 g/dL (14.0-18.0); LYMPH % 16.8 % (22.0-35.0); MEAN CELL VOLUME 99.3 fl (80.0-105.0); MEAN CORPUSCULAR HEMOGLOBIN 30.3 pg (25.0-35.0); MEAN CORPUSCULAR HGB CONC 30.5 g/dl (31.0-37.0); MEAN PLATELET VOLUME 11.2 fl (7.0-11.0); RED CELL DISTRIBUTION WIDTH 14.9 % (11.5-14.5)
[2018-10-16 12:36] LABS: BASO # 0.01 K/mm3 (0.0-2.0); BASO % 0.2 % (0.0-3.0); EOS # 0.2 (0.0-0.7); EOS % 3.2 % (1.5-5.0); GRAN # 4.56 (1.4-6.5); LYMPH # 1.1 (1.2-3.4); MONO # 0.7 (0.1-0.6)
[2018-10-16 13:11] LABS: INFLUENZA A B NEGATIVE FOR FLU A/B (NEGATIVE)
--- NOTE | 2018-10-16 13:11 | RAD ---
Date of service: 10/16/2018 HISTORY: sob COMPARISON: 05/26/2018 TECHNIQUE: Chest PA and lateral FINDINGS: LUNGS: No active pulmonary disease. PLEURA: No significant pleural effusion identified. No pneumothorax apparent. CARDIOVASCULAR: Mild aortic calcification and tortuosity Normal cardiac size. No pulmonary vascular congestion. OSSEOUS STRUCTURES: No significant abnormalities. VISUALIZED UPPER ABDOMEN: Normal. OTHER FINDINGS: None. IMPRESSION: No active disease.
[2018-10-16 14:53] LABS: ALB/GLOB RATIO 1.5 (1.1-1.8); ALBUMIN 4.5 g/dL (3.0-4.8); CALCIUM 9.5 mg/dL (8.4-10.5)
[2018-10-16 16:03] LABS: TROPONIN I 0.01 ng/mL
--- NOTE | 2018-10-16 18:45 | CARD ---
APPROVED REPORT Date of service: 10/16/2018 EKG Measurement Heart [id number] <Conclusion> Poor data quality, interpretation may be adversely affected Sinus rhythm with 1st degree AV block Left axis deviation Left bundle branch block Abnormal ECG
[2018-10-16 20:54] LABS: URINE APPEARANCE CLEAR (CLEAR); URINE BILIRUBIN NEGATIVE (NEGATIVE); URINE BLOOD TRACE-INTACT (NEGATIVE); URINE COLOR LIGHT YELLOW (YELLOW); URINE GLUCOSE (UA) NEGATIVE (NEGATIVE); URINE LEUKOCYTE ESTERASE NEGATIVE Leu/uL (NEGATIVE); URINE PROTEIN NEGATIVE mg/dL (<30 mg/dL); URINE UROBILINOGEN 0.2 E.U./dL (<1 E.U./dL)
[2018-10-16 21:04] LABS: URINE BACTERIA NEG (NEG); URINE RBC 0 - 2 /hpf (0-2); URINE WBC NEGATIVE /hpf (0-6)
--- NOTE | 2018-10-16 23:23 | CP.PCM.HP ---
History of Present Illness - History of Present Illness History of Present Illness: 63 year old admitted with increase shortness of breath , chills for past 2 days. No h/o fever. 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 H/O CHF. Chronic leg cellulitis. C/O increase pain and leg swelling bilaterally. H/O CA, COPD. Present on Admission - Present on Admission Any Indicators Present on Admission: Yes History of DVT/PE: Yes Review of Systems - Constitutional Constitutional: As Per HPI - EENT Eyes: As Per HPI Ears: absent: As Per HPI, Decreased Hearing, Ear Discharge, Ear Pain, Tinnitus, Abnormal Hearing, Disequilibrium, Dizziness, Other Nose/Mouth/Throat: absent: As Per HPI, Epistaxis, Nasal Congestion, Nasal Discharge, Nasal Obstruction, Nasal Trauma, Nose Pain, Post Nasal Drip, Sinus Pain, Sinus Pressure, Bleeding Gums, Change in Voice, Dental Pain, Dry Mouth, Dysphagia, Halitosis, Hoarsness, Lip Swelling, Mouth Lesions, Mouth Pain, Odynophagia, Sore Throat, Throat Swelling, Tongue Swelling, Facial Pain, Neck Pain, Neck Mass, Other - Cardiovascular Cardiovascular: As Per HPI - Respiratory Respiratory: As Per HPI - Gastrointestinal Gastrointestinal: absent: As Per HPI, Abdominal Pain, Belching, Bloating, Change in Bowel Habits, Change in Stool Character, Coffee Ground Emesis, Constipation, Cramping, Diarrhea, Dyspepsia, Dysphagia, Early Satiety, Excessive Flatus, Fecal Incontinence, Heartburn, Hematemesis, Hematochezia, Loose Stools, Melena, Nausea, Odynophagia, Temesmus, Vomiting, Other - Genitourinary Genitourinary: absent: As Per HPI, Change in Urinary Stream, Difficulty Urinating, Dysuria, Flank Pain, Hematuria, Pyuria, Nocturia, Urinary Incontinence, Urinary Frequency, Urinary Hesitance, Urinary Urgency, Voiding Freq/Small Amts, Freq UTI, Hx Renal/Bladder Calculi, Hx /Renal Surgery, Bladder Distension, Other - Musculoskeletal Musculoskeletal: As Per HPI - Integumentary Integumentary: absent: As Per HPI, Acne, Alopecia, Bleeding Lesions, Change in Hair, Change in Nails, Change in Pigmentation, Changing Lesions, Dry Skin, Erythema, Furuncle, Hirsutism, Lesions, New Lesions, Non-Healing Lesions, Photosensitivity, Pruritus, Rash, Skin Pain, Skin Ulcer, Sores, Striae, Swelling, Unusual Bruising, Wounds, Jaundice, Other - Neurological Neurological: absent: As Per HPI, Abnormal Gait, Abnormal Hearing, Abnormal Movements, Abnormal Speech, Behavioral Changes, Burning Sensations, Confusion, Convulsions, Disequilibrium, Dizziness, Numbness, Focal Weakness, Frequent Falls, Headaches, Lack of Coordination, Loss of Vision, Memory Loss, Paresthesias, Radicular Pain, Restless Legs, Sensory Deficit, Syncope, Tingling, Tremor, Vertigo, Weakness, Other Visual Disturbances, Other - Endocrine Endocrine: absent: As Per HPI, Change in Body Appearance, Change in Libido, Cold Intolorance, Deepening of Voice, Excessive Sweating, Fatigue, Flushing, Heat Intolorance, Increase in Ring/Shoe/Hat Size, Palpitations, Polydipsia, Polyphagia, Polyuria, Other - Hematologic/Lymphatic Hematologic: As Per HPI Past Patient History - Infectious Disease Hx of Infectious Diseases: None - Past Social History Smoking Status: Former Smoker - CARDIAC Hx Congestive Heart Failure: Yes Hx Pacemaker: No - PULMONARY Hx Chronic Obstructive Pulmonary Disease (COPD): Yes Hx Pneumonia: Yes (4x's) - NEUROLOGICAL Hx Paralysis: No - HEENT Hx HEENT Problems: Yes Other/Comment: speech impediment, 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" - RENAL Hx Chronic Kidney Disease: No - ENDOCRINE/METABOLIC Hx Diabetes Mellitus Type 2: Yes - HEMATOLOGICAL/ONCOLOGICAL Hx Blood Transfusions: No - INTEGUMENTARY Other/Comment: multiple healed wound scars r ankle and foot left ankle and foot, small wound to top of left foot red and dry, dry toenails both feet, ble light brown skin discolorations, old fading bruises b/l knees from falls, left great toe has 12 toenail surrounded by dry red skin, r great toe has 1/2 nail small dry brown wound, dry skin to toes - MUSCULOSKELETAL/RHEUMATOLOGICAL Hx Musculoskeletal Disorders: Yes - GASTROINTESTINAL Hx Gastrointestinal Disorders: Yes (RECTAL BLEED, obese) - GENITOURINARY/GYNECOLOGICAL Hx Genitourinary Disorders: No - PSYCHIATRIC Hx Emotional Abuse: No Hx Physical Abuse: No Hx Substance Use: No - SURGICAL HISTORY Other/Comment: DVT to right leg/BYpass surgery 2015 - ANESTHESIA Hx Anesthesia Reactions: No Hx Malignant Hyperthermia: No Meds Allergies/Adverse Reactions: Allergies Allergy/AdvReac Type Severity Reaction Status Date / Time benztropine mesylate Allergy Severe ANAPHYLAXIS Verified 10/16/18 11:24 [From Cogentin] esomeprazole magnesium Allergy Severe RASH Verified 10/16/18 11:24 [From Nexium] Penicillins Allergy Severe ANAPHYLAXIS Verified 10/16/18 11:24 Sulfa (Sulfonamide Allergy Severe RASH Verified 10/16/18 11:24 Antibiotics) Physical Exam - Constitutional Appears: Non-toxic - Head Exam Head Exam: ATRAUMATIC, NORMAL INSPECTION, NORMOCEPHALIC - Eye Exam Eye Exam: Normal appearance - ENT Exam ENT Exam: Mucous Membranes Moist, Normal Exam - Neck Exam Neck exam: Positive for: Normal Inspection - Respiratory Exam Respiratory Exam: Clear to Auscultation Bilateral, NORMAL BREATHING PATTERN - Cardiovascular Exam Cardiovascular Exam: REGULAR RHYTHM, +S1, +S2 - GI/Abdominal Exam GI & Abdominal Exam: Normal Bowel Sounds, Soft - Extremities Exam Extremities exam: Positive for: pedal edema - Back Exam Back exam: NORMAL INSPECTION - Neurological Exam Neurological exam: Alert, CN II-XII Intact, Oriented x3 - Skin Skin Exam: Normal Color, Pallor Results - Vital Signs Recent Vital Signs: Last Vital Signs Temp 98 F 10/16/18 20:28 Pulse 70 10/16/18 20:28 Resp 18 10/16/18 20:28 BP 108/61 10/16/18 20:28 Pulse Ox 96 10/16/18 20:28 - Labs Result Diagrams: 10/16/18 12:00 10/16/18 12:00 Labs: Laboratory Results - last 24 hr 10/16/18 10/16/18 10/16/18 12:00 12:00 12:00 WBC 6.5 RBC 3.07 L Hgb 9.3 L Hct 30.5 L MCV 99.3 D MCH 30.3 MCHC 30.5 L RDW 14.9 H Plt Count 79 L MPV 11.2 H Gran % 69.8 H Lymph % (Auto) 16.8 L [place] % (Auto) 10.0 H Eos % (Auto) 3.2 Baso % (Auto) 0.2 Gran # 4.56 Lymph # (Auto) 1.1 L [place] # (Auto) 0.7 H Eos # (Auto) 0.2 Baso # (Auto) 0.01 Sodium 142 Potassium 4.2 Chloride 107 Carbon Dioxide 24 Anion Gap 15 BUN 42 H Creatinine 2.0 H Est GFR ( Amer) 41 Est GFR (Non-Af Amer) 34 Random Glucose 114 H Calcium 9.5 Magnesium 2.5 H Total Bilirubin 0.5 AST 17 ALT 27 Alkaline Phosphatase 53 Troponin I 0.01 D NT-Pro-B Natriuret Pep 866 H Total Protein 7.6 Albumin 4.5 Globulin 3.1 Albumin/Globulin Ratio 1.5 TSH 3rd Generation 2.94 Urine Color Urine Appearance Urine pH Ur Specific [place] Urine Protein Urine Glucose (UA) Urine Ketones Urine Blood Urine Nitrate Urine Bilirubin Urine Urobilinogen Ur Leukocyte Esterase Urine RBC Urine WBC Ur Epithelial Cells Urine Bacteria Influenza Typ A,B (EIA) Grp A Beta Strep Ag 10/16/18 10/16/18 12:15 20:37 WBC RBC Hgb Hct MCV MCH MCHC RDW Plt Count MPV Gran % Lymph % (Auto) [place] % (Auto) Eos % (Auto) Baso % (Auto) Gran # Lymph # (Auto) [place] # (Auto) Eos # (Auto) Baso # (Auto) Sodium Potassium Chloride Carbon Dioxide Anion Gap BUN Creatinine Est GFR ( Amer) Est GFR (Non-Af Amer) Random Glucose Calcium Magnesium Total Bilirubin AST ALT Alkaline Phosphatase Troponin I NT-Pro-B Natriuret Pep Total Protein Albumin Globulin Albumin/Globulin Ratio TSH 3rd Generation Urine Color Light yellow Urine Appearance Clear Urine pH 6.0 Ur Specific [place] 1.010 Urine Protein Negative Urine Glucose (UA) Negative Urine Ketones Negative Urine Blood Trace-intact H Urine Nitrate Negative Urine Bilirubin Negative Urine Urobilinogen 0.2 Ur Leukocyte Esterase Negative Urine RBC 0 - 2 Urine WBC Negative Ur Epithelial Cells None Urine Bacteria Neg Influenza Typ A,B (EIA) Negative for flu a/b Grp A Beta Strep Ag Negative Assessment & Plan - Assessment and Plan (Free Text) Assessment: 1. Chills 2. COPD exacerbation 3. h/o DVT/PE 4. CHF 5. B/L leg cellulitis 6. Anemia 7. Thrombocytopenia 8. CKD III Plan : admit tele monitoring. Chills, no fever. ID consult Dr. Vazquez requested. H/O DVT/PE. eliquis 2.5 mg PO BID to continue. B/L leg cellulitis , IV antibiotics as per ID anemia- work up with am labs. iron, B12, folate, might be related to CKD. Thrombocytopenia - will monitor plt count. IV lasix 40 mg BID, will monitor electrolytes. Sukumar guadalupe QID. - Date & Time Date: 10/16/18 Time: 18:00
[2018-10-16] MEDS: Aztreonam 1 Gm in NS 100mL 100 ML IVPB SCH (23:28)
[2018-10-16] MEDS: Linezolid 600 mg in D5W 300 ml 600 MG/300 ML BAG IVPB SCH (23:30)
[2018-10-17] MEDS: Aztreonam 1 Gm in NS 100mL 100 ML IVPB SCH ×3 (08:13→22:00)
[2018-10-17] MEDS ORDERED: Levalbuterol 0.63 MG/3 ML Inhal Soln UD IH PRN (08:46)
[2018-10-17] MEDS: Linezolid 600 mg in D5W 300 ml 600 MG/300 ML BAG IVPB SCH ×2 (09:36→21:51)
[2018-10-17] MEDS: Potassium Chloride 20 mEq ER Tab PO SCH ×2 (09:36→18:34)
[2018-10-17] MEDS ORDERED: Azithromycin 250 MG in Sodium Chloride 0.9% 250 ML IVPB SCH (10:00)
--- NOTE | 2018-10-17 15:28 | CP.PCM.CON ---
History of Present Illness - History of Present Illness History of Present Illness: 63 year old male with PMH of learning disability, chronic CHF, history of pneumonia, CVA with left sided residual weakness, history of DVT, chronic foot ulcers, history of lower extremity bypass surgery came in to [facility] because of shortness of breath as well as reported chills and sore throat for the past 2-3 days. The patient is not complaining of chest pain, no headache or dizziness, no abdominal pain, no diarrhea, no dysuria. Infectious Diseases consult is requested to further evaluate and manage. 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" - RENAL Hx Chronic Kidney Disease: No - ENDOCRINE/METABOLIC Hx Diabetes Mellitus Type 2: Yes - HEMATOLOGICAL/ONCOLOGICAL Hx Blood Transfusions: No - INTEGUMENTARY Other/Comment: multiple healed wound scars r ankle and foot left ankle and foot, small wound to top of left foot red and dry, dry toenails both feet, ble light brown skin discolorations, old fading bruises b/l knees from falls, left great toe has 12 toenail surrounded by dry red skin, r great toe has 1/2 nail small dry brown wound, dry skin to toes - MUSCULOSKELETAL/RHEUMATOLOGICAL Hx Musculoskeletal Disorders: Yes - GASTROINTESTINAL Hx Gastrointestinal Disorders: Yes (RECTAL BLEED, obese) - GENITOURINARY/GYNECOLOGICAL Hx Genitourinary Disorders: No - PSYCHIATRIC Hx Emotional Abuse: No Hx Physical Abuse: No Hx Substance Use: No - SURGICAL HISTORY Other/Comment: DVT to right leg/BYpass surgery 2015 - ANESTHESIA Hx Anesthesia Reactions: No Hx Malignant Hyperthermia: No Meds Allergies/Adverse Reactions: Allergies Allergy/AdvReac Type Severity Reaction Status Date / Time benztropine mesylate Allergy Severe ANAPHYLAXIS Verified 10/16/18 11:24 [From Cogentin] esomeprazole magnesium Allergy Severe RASH Verified 10/16/18 11:24 [From Nexium] Penicillins Allergy Severe ANAPHYLAXIS Verified 10/16/18 11:24 Sulfa (Sulfonamide Allergy Severe RASH Verified 10/16/18 11:24 Antibiotics) - Medications Medications: Current Medications Apixaban (Eliquis) 2.5 mg PO DAILY [facility]; Protocol Atorvastatin Calcium (Lipitor) 10 mg PO DAILY [facility] Doxycycline Hyclate (Doryx) 100 mg PO Q12 [place]; Protocol Stop: 10/25/18 22:01 Last Admin: 10/16/18 23:27 Dose: 100 mg Furosemide (Lasix) 40 mg PO BID [place] Aztreonam (Azactam 1 Gm) 100 mls @ 100 mls/hr IVPB Q8 [place]; Protocol Stop: 10/24/18 22:01 Last Admin: 10/17/18 08:13 Dose: 100 mls/hr Linezolid (Zyvox 600mg/300ml D5w) 600 mg in 300 mls @ 200 mls/hr IVPB Q12 [place]; Protocol Stop: 10/25/18 22:01 Last Admin: 10/16/18 23:30 Dose: 200 mls/hr Lisinopril (Zestril) 5 mg PO DAILY [facility] Metoprolol Tartrate (Lopressor) 25 mg PO BID [facility] Potassium Chloride (K-Dur 20 Meq Er Tab) 20 meq PO BID [facility] Physical Exam - Constitutional Appears: Chronically Ill - Head Exam Head Exam: NORMAL INSPECTION - ENT Exam ENT Exam: Mucous Membranes Moist - Neck Exam Neck exam: Negative for: Meningismus - Respiratory Exam Respiratory Exam: Decreased Breath Sounds - Cardiovascular Exam Cardiovascular Exam: +S1, +S2 - GI/Abdominal Exam GI & Abdominal Exam: Soft. absent: Tenderness Results - Vital Signs Recent Vital Signs: Last Vital Signs Temp 98.2 F 10/17/18 06:00 Pulse 71 10/17/18 06:00 Resp 18 10/17/18 06:00 BP 118/63 10/17/18 06:00 Pulse Ox 95 10/17/18 06:00 - Labs Result Diagrams: 10/16/18 12:00 10/16/18 12:00 Labs: Laboratory Results - last 24 hr 10/16/18 10/16/18 10/16/18 12:00 12:00 12:00 WBC 6.5 RBC 3.07 L Hgb 9.3 L Hct 30.5 L MCV 99.3 D MCH 30.3 MCHC 30.5 L RDW 14.9 H Plt Count 79 L MPV 11.2 H Gran % 69.8 H Lymph % (Auto) 16.8 L [place] % (Auto) 10.0 H Eos % (Auto) 3.2 Baso % (Auto) 0.2 Gran # 4.56 Lymph # (Auto) 1.1 L [place] # (Auto) 0.7 H Eos # (Auto) 0.2 Baso # (Auto) 0.01 Sodium 142 Potassium 4.2 Chloride 107 Carbon Dioxide 24 Anion Gap 15 BUN 42 H Creatinine 2.0 H Est GFR ( Amer) 41 Est GFR (Non-Af Amer) 34 Random Glucose 114 H Calcium 9.5 Magnesium 2.5 H Total Bilirubin 0.5 AST 17 ALT 27 Alkaline Phosphatase 53 Troponin I 0.01 D NT-Pro-B Natriuret Pep 866 H Total Protein 7.6 Albumin 4.5 Globulin 3.1 Albumin/Globulin Ratio 1.5 TSH 3rd Generation 2.94 Urine Color Urine Appearance Urine pH Ur Specific [place] Urine Protein Urine Glucose (UA) Urine Ketones Urine Blood Urine Nitrate Urine Bilirubin Urine Urobilinogen Ur Leukocyte Esterase Urine RBC Urine WBC Ur Epithelial Cells Urine Bacteria Influenza Typ A,B (EIA) Grp A Beta Strep Ag 10/16/18 10/16/18 12:15 20:37 WBC RBC Hgb Hct MCV MCH MCHC RDW Plt Count MPV Gran % Lymph % (Auto) [place] % (Auto) Eos % (Auto) Baso % (Auto) Gran # Lymph # (Auto) [place] # (Auto) Eos # (Auto) Baso # (Auto) Sodium Potassium Chloride Carbon Dioxide Anion Gap BUN Creatinine Est GFR ( Amer) Est GFR (Non-Af Amer) Random Glucose Calcium Magnesium Total Bilirubin AST ALT Alkaline Phosphatase Troponin I NT-Pro-B Natriuret Pep Total Protein Albumin Globulin Albumin/Globulin Ratio TSH 3rd Generation Urine Color Light yellow Urine Appearance Clear Urine pH 6.0 Ur Specific [place] 1.010 Urine Protein Negative Urine Glucose (UA) Negative Urine Ketones Negative Urine Blood Trace-intact H Urine Nitrate Negative Urine Bilirubin Negative Urine Urobilinogen 0.2 Ur Leukocyte Esterase Negative Urine RBC 0 - 2 Urine WBC Negative Ur Epithelial Cells None Urine Bacteria Neg Influenza Typ A,B (EIA) Negative for flu a/b Grp A Beta Strep Ag Negative Assessment & Plan - Assessment and Plan (Free Text) Plan: Assessment consider lower respiratory tract infection / bronchitis R/O pneumonia R/O Influenza history of asymptomatic bacteriuria acute on chronic CHF causing dyspnea earning disability chronic CHF history of pneumonia CVA with left sided residual weakness history of DVT chronic foot ulcers history of lower extremity bypass surgery Plan started Zyvox, Azactam and Doxycycline pending blood cx, urine Legionella Ag, PCT; reviewed CXR - will need to repeat CXR tomorrow will also start Tamiflu even though rapid flu test is negative will monitor clinically
--- NOTE | 2018-10-17 15:32 | CP.PCM.CON ---
<SmitaVic malik - Last Filed: 10/17/18 15:11> History of Present Illness - History of Present Illness History of Present Illness: Podiatry consult notes for attending Dr. Lopez; 63 y/o male patient with PMH of HTN, dyslipidemia, CHF, PVD with history of bypass surgery, CVA with residual left-sided weakness, and cognitive impairment was seen and evaluated at bedside with attending, Dr. Lopez for bilateral stable foot wounds at dorsal aspect. Patient is poor historian and most of his i nformations got through his medical chart. Patient states that he is admitted to the hospital because he has lung infection. He states that his feet has this wounds covered with scab since long time. He states that his feet has been improved. Patient denies any pain in his feet. He denies any other pedal complaint at this time. He denies any recent N/V or D. PMH: HTN, dyslipidemia, CHF, PVD with history of bypass surgery, CVA with residual left-sided weakness, and cognitive impairment PSH: Peripheral vascular Bypass surgery Allergies: Benztropine mesylate, Esomeprazole magnesium, Penicillins, Sulpha. Social Hx: Former smoker, No EtOH or illicit drug use. 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" - RENAL Hx Chronic Kidney Disease: No - ENDOCRINE/METABOLIC Hx Diabetes Mellitus Type 2: Yes - HEMATOLOGICAL/ONCOLOGICAL Hx Blood Transfusions: No - INTEGUMENTARY Other/Comment: multiple healed wound scars r ankle and foot left ankle and foot, small wound to top of left foot red and dry, dry toenails both feet, ble light brown skin discolorations, old fading bruises b/l knees from falls, left great toe has 12 toenail surrounded by dry red skin, r great toe has 1/2 nail small dry brown wound, dry skin to toes - MUSCULOSKELETAL/RHEUMATOLOGICAL Hx Musculoskeletal Disorders: Yes - GASTROINTESTINAL Hx Gastrointestinal Disorders: Yes (RECTAL BLEED, obese) - GENITOURINARY/GYNECOLOGICAL Hx Genitourinary Disorders: No - PSYCHIATRIC Hx Emotional Abuse: No Hx Physical Abuse: No Hx Substance Use: No - SURGICAL HISTORY Other/Comment: DVT to right leg/BYpass surgery 2015 - ANESTHESIA Hx Anesthesia Reactions: No Hx Malignant Hyperthermia: No Meds Allergies/Adverse Reactions: Allergies Allergy/AdvReac Type Severity Reaction Status Date / Time benztropine mesylate Allergy Severe ANAPHYLAXIS Verified 10/16/18 11:24 [From Cogentin] esomeprazole magnesium Allergy Severe RASH Verified 10/16/18 11:24 [From Nexium] Penicillins Allergy Severe ANAPHYLAXIS Verified 10/16/18 11:24 Sulfa (Sulfonamide Allergy Severe RASH Verified 10/16/18 11:24 Antibiotics) - Medications Medications: Current Medications Acetaminophen (Tylenol 325mg Tab) 650 mg PO Q4H PRN PRN Reason: Headache Last Admin: 10/17/18 14:53 Dose: 650 mg Apixaban (Eliquis) 2.5 mg PO DAILY [facility]; Protocol Last Admin: 10/17/18 09:36 Dose: 2.5 mg Atorvastatin Calcium (Lipitor) 10 mg PO DAILY [facility] Last Admin: 10/17/18 09:36 Dose: 10 mg Doxycycline Hyclate (Doryx) 100 mg PO Q12 [facility]; Protocol Stop: 10/25/18 22:01 Last Admin: 10/17/18 09:36 Dose: 100 mg Furosemide (Lasix) 40 mg PO BID [facility] Last Admin: 10/17/18 09:36 Dose: 40 mg Aztreonam (Azactam 1 Gm) 100 mls @ 100 mls/hr IVPB Q8 [facility]; Protocol Stop: 10/24/18 22:01 Last Admin: 10/17/18 14:54 Dose: 100 mls/hr Linezolid (Zyvox 600mg/300ml D5w) 600 mg in 300 mls @ 200 mls/hr IVPB Q12 [facility]; Protocol Stop: 10/25/18 22:01 Last Admin: 10/17/18 09:36 Dose: 200 mls/hr Levalbuterol HCl (Xopenex) 0.63 mg IH [id number] PRN PRN Reason: Shortness of Breath Lisinopril (Zestril) 5 mg PO DAILY [facility] Last Admin: 10/17/18 09:35 Dose: 5 mg Metoprolol Tartrate (Lopressor) 25 mg PO BID [facility] Last Admin: 10/17/18 09:36 Dose: 25 mg Potassium Chloride (K-Dur 20 Meq Er Tab) 20 meq PO BID [facility] Last Admin: 10/17/18 09:36 Dose: 20 meq Physical Exam - Constitutional Appears: Well, Non-toxic, No Acute Distress - Head Exam Head Exam: ATRAUMATIC, NORMOCEPHALIC - Extremities Exam Additional comments: Bilateral lower extremity examination: Vascular: DP/PT pulses are non-palpable to the Right; DP pulse is faintly palpable to the Left with normal PT pulse; capillary refill is almost 4 secs to all digits; Temp gradient warm to cool b/l from proximal to distal. Neurological: Gross and protective sensations are intact Dermatological:B/L scab covered small wounds noted at the dorsal aspect of the foot; No malodor, no erythema, no clinicals signs of infection noted at this time MSK: restricted ankle ROM noted bilaterally. Mild pain on palpating the periwound area on the right side. - Neurological Exam Neurological exam: Alert, Oriented x3 Results - Vital Signs Recent Vital Signs: Last Vital Signs Temp 99.4 F 10/17/18 11:59 Pulse 75 10/17/18 11:59 Resp 18 10/17/18 11:59 BP 127/59 L 10/17/18 11:59 Pulse Ox 95 10/17/18 06:00 - Labs Result Diagrams: 10/16/18 12:00 10/16/18 12:00 Labs: Laboratory Results - last 24 hr 10/16/18 10/16/18 10/16/18 12:00 15:00 20:25 Potassium 4.2 Troponin I 0.01 D NT-Pro-B Natriuret Pep 866 H Procalcitonin 0.17 L Urine Color Urine Appearance Urine pH Ur Specific [place] Urine Protein Urine Glucose (UA) Urine Ketones Urine Blood Urine Nitrate Urine Bilirubin Urine Urobilinogen Ur Leukocyte Esterase Urine RBC Urine WBC Ur Epithelial Cells Urine Bacteria Ur L.pneumophila Ag Negative 10/16/18 20:37 Potassium Troponin I NT-Pro-B Natriuret Pep Procalcitonin Urine Color Light yellow Urine Appearance Clear Urine pH 6.0 Ur Specific [place] 1.010 Urine Protein Negative Urine Glucose (UA) Negative Urine Ketones Negative Urine Blood Trace-intact H Urine Nitrate Negative Urine Bilirubin Negative Urine Urobilinogen 0.2 Ur Leukocyte Esterase Negative Urine RBC 0 - 2 Urine WBC Negative Ur Epithelial Cells None Urine Bacteria Neg Ur L.pneumophila Ag Assessment & Plan - Assessment and Plan (Free Text) Assessment: 63 y/o male patient seen and evaluated at the bedside for bilateral stable foot wounds Plan: Patient was seen and evaluated at bedside with attending, Dr. Lopez Plan discussed in details with attending Dr. Lopez Medipore and maxorb applied to the dorsum of the foot b/l. MRA of the LE (09/27/2018): Occluded distal 1/3 of the R SFA. Patient has poor vascular condition of his LE B/L R>L. No plan for surgical intervention at this time. We will continue to follow up the patient while in house - Date & Time Date: 10/17/18 Time: 15:33 <Keena Lopez - Last Filed: 10/19/18 15:02> Meds - Medications Medications: Current Medications Acetaminophen (Tylenol 325mg Tab) 650 mg PO Q4H PRN PRN Reason: Headache Last Admin: 10/17/18 14:53 Dose: 650 mg Apixaban (Eliquis) 2.5 mg PO DAILY [facility]; Protocol Last Admin: 10/19/18 11:00 Dose: 2.5 mg Atorvastatin Calcium (Lipitor) 10 mg PO DAILY [facility] Last Admin: 10/19/18 11:00 Dose: 10 mg Doxycycline Hyclate (Doryx) 100 mg PO Q12 [facility]; Protocol Stop: 10/25/18 22:01 Last Admin: 10/19/18 11:00 Dose: 100 mg Furosemide (Lasix) 40 mg PO BID [facility] Last Admin: 10/19/18 11:00 Dose: 40 mg Aztreonam (Azactam 1 Gm) 100 mls @ 100 mls/hr IVPB Q8 [facility]; Protocol Stop: 10/24/18 22:01 Last Admin: 10/19/18 05:52 Dose: 100 mls/hr Linezolid (Zyvox 600mg/300ml D5w) 600 mg in 300 mls @ 200 mls/hr IVPB Q12 [facility]; Protocol Stop: 10/25/18 22:01 Last Admin: 10/19/18 11:00 Dose: 200 mls/hr Levalbuterol HCl (Xopenex) 0.63 mg IH [id number] PRN PRN Reason: Shortness of Breath Lisinopril (Zestril) 5 mg PO DAILY [facility] Last Admin: 10/19/18 11:00 Dose: 5 mg Metoprolol Tartrate (Lopressor) 25 mg PO BID [facility] Last Admin: 10/19/18 11:00 Dose: 25 mg Oseltamivir Phosphate (Tamiflu Susp) 30 mg PO BID [facility]; Protocol Last Admin: 10/19/18 11:00 Dose: Not Given Potassium Chloride (K-Dur 20 Meq Er Tab) 20 meq PO BID [facility] Last Admin: 10/19/18 11:00 Dose: 20 meq Results - Vital Signs Recent Vital Signs: Last Vital Signs Temp 97.7 F 10/19/18 14:00 Pulse 70 10/19/18 14:00 Resp 20 10/19/18 14:00 BP 105/50 L 10/19/18 14:00 Pulse Ox 100 10/19/18 14:00 - Labs Result Diagrams: 10/18/18 08:35 10/18/18 08:35 Attending/Attestation - Attestation I have personally seen and examined this patient.: Yes I have fully participated in the care of the patient.: Yes I have reviewed all pertinent clinical information: Yes Notes (Text): 10/19/18 15:02 pt with occluded by-ass RLE; wounds on feet bilateral; LLE with adequate circulation; no plans to revise the by-pass at this time; will continue local care
[2018-10-17 15:48] LABS: BASO # 0.01 K/mm3 (0.0-2.0); BASO % 0.2 % (0.0-3.0); EOS # 0.2 (0.0-0.7); EOS % 3.4 % (1.5-5.0); GRAN # 3.14 (1.4-6.5); GRAN % 63.2 % (50.0-68.0); HEMOGLOBIN 8.9 g/dL (14.0-18.0); LYMPH # 1.2 (1.2-3.4); LYMPH % 24.5 % (22.0-35.0); MEAN CORPUSCULAR HEMOGLOBIN 29.6 pg (25.0-35.0); MEAN CORPUSCULAR HGB CONC 30.8 g/dl (31.0-37.0); MEAN PLATELET VOLUME 10.4 fl (7.0-11.0); MONO # 0.4 (0.1-0.6); MONO % 8.7 % (1.0-6.0); RBC 3.01 10^6/uL (3.5-6.1); RED CELL DISTRIBUTION WIDTH 14.5 % (11.5-14.5)
[2018-10-17 16:01] LABS: IRON 68 ug/dL (45-180)
[2018-10-17 16:06] LABS: CALCIUM 9.4 mg/dL (8.4-10.5)
[2018-10-17 16:10] LABS: % IRON SATURATION 24 % (20-55); TOTAL IRON BINDING CAPACITY 284 ug/dL (261-462)
[2018-10-17] MEDS: Oseltamivir 6 MG/ML PO SCH (18:35)
[2018-10-17 22:21] LABS: FOLATE 7.9 ng/mL
[2018-10-18] MEDS: Aztreonam 1 Gm in NS 100mL 100 ML IVPB SCH ×3 (06:43→21:55)
[2018-10-18 09:03] LABS: HEMOGLOBIN 9.8 g/dL (14.0-18.0); MEAN CELL VOLUME 94.6 fl (80.0-105.0); MEAN CORPUSCULAR HEMOGLOBIN 29.6 pg (25.0-35.0); MEAN CORPUSCULAR HGB CONC 31.3 g/dl (31.0-37.0); MEAN PLATELET VOLUME 10.5 fl (7.0-11.0); RBC 3.31 10^6/uL (3.5-6.1); RED CELL DISTRIBUTION WIDTH 14.2 % (11.5-14.5); WHITE BLOOD COUNT 4.4 10^3/uL (4.5-11.0)
[2018-10-18 09:17] LABS: ALB/GLOB RATIO 1.3 (1.1-1.8); ALBUMIN 4.4 g/dL (3.0-4.8); CALCIUM 9.8 mg/dL (8.4-10.5)
[2018-10-18] MEDS: Potassium Chloride 20 mEq ER Tab PO SCH ×2 (09:29→17:54)
[2018-10-18] MEDS: Linezolid 600 mg in D5W 300 ml 600 MG/300 ML BAG IVPB SCH ×2 (09:34→21:56)
[2018-10-18] MEDS: Oseltamivir 6 MG/ML PO SCH ×2 (09:37→17:56)
--- NOTE | 2018-10-18 11:51 | RAD ---
Date of service: 10/18/2018 HISTORY: assess infiltrates COMPARISON: 10/16/2018 TECHNIQUE: Chest PA and lateral FINDINGS: LUNGS: Prominent interstitial markings left greater than right. This could represent an interstitial pneumonia or interstitial edema PLEURA: No significant pleural effusion identified. No pneumothorax apparent. CARDIOVASCULAR: No aortic atherosclerotic calcification present. Normal cardiac size. No pulmonary vascular congestion. OSSEOUS STRUCTURES: No significant abnormalities. VISUALIZED UPPER ABDOMEN: Normal. OTHER FINDINGS: None. IMPRESSION: Prominent interstitial markings left greater than right. This could represent an interstitial pneumonia or interstitial edema
--- NOTE | 2018-10-18 15:39 | CP.PCM.PN ---
<Vic Ordoñez - Last Filed: 10/18/18 15:37> Subjective - Date & Time of Evaluation Date of Evaluation: 10/18/18 Time of Evaluation: 15:37 - Subjective Subjective: Podiatry consult notes for attending Dr. Lopez; 63 y/o male patientwas seen and evaluated at bedside for bilateral stable foot wounds at dorsal aspect. Patient is poor historian and most of his informations got through his medical chart. Patient denies any pain in his feet. He denies any other pedal complaint at this time. He denies any recent N/V or D. Objective - Vital Signs/Intake and Output Vital Signs (last 24 hours): Temp Pulse Resp BP Pulse Ox 98.1 F 69 20 109/62 96 10/18/18 14:00 10/18/18 14:00 10/18/18 14:00 10/18/18 14:00 10/18/18 14:00 Intake and Output: 10/18/18 10/18/18 06:59 18:59 Intake Total 900 Output Total 1800 Balance -900 - Medications Medications: Current Medications Acetaminophen (Tylenol 325mg Tab) 650 mg PO Q4H PRN PRN Reason: Headache Last Admin: 10/17/18 14:53 Dose: 650 mg Apixaban (Eliquis) 2.5 mg PO DAILY [facility]; Protocol Last Admin: 10/18/18 09:30 Dose: 2.5 mg Atorvastatin Calcium (Lipitor) 10 mg PO DAILY [facility] Last Admin: 10/18/18 09:30 Dose: 10 mg Doxycycline Hyclate (Doryx) 100 mg PO Q12 [facility]; Protocol Stop: 10/25/18 22:01 Last Admin: 10/18/18 09:31 Dose: 100 mg Furosemide (Lasix) 40 mg PO BID [facility] Last Admin: 10/18/18 09:29 Dose: 40 mg Aztreonam (Azactam 1 Gm) 100 mls @ 100 mls/hr IVPB Q8 [facility]; Protocol Stop: 10/24/18 22:01 Last Admin: 10/18/18 14:46 Dose: 100 mls/hr Linezolid (Zyvox 600mg/300ml D5w) 600 mg in 300 mls @ 200 mls/hr IVPB Q12 [facility]; Protocol Stop: 10/25/18 22:01 Last Admin: 10/18/18 09:34 Dose: 200 mls/hr Levalbuterol HCl (Xopenex) 0.63 mg IH [id number] PRN PRN Reason: Shortness of Breath Lisinopril (Zestril) 5 mg PO DAILY [facility] Last Admin: 10/18/18 09:29 Dose: 5 mg Metoprolol Tartrate (Lopressor) 25 mg PO BID [facility] Last Admin: 10/18/18 09:31 Dose: 25 mg Oseltamivir Phosphate (Tamiflu Susp) 30 mg PO BID [facility]; Protocol Last Admin: 10/18/18 09:37 Dose: 30 mg Potassium Chloride (K-Dur 20 Meq Er Tab) 20 meq PO BID [facility] Last Admin: 10/18/18 09:29 Dose: 20 meq - Labs Labs: 10/18/18 08:35 10/18/18 08:35 - Constitutional Appears: Well, Non-toxic, No Acute Distress - Head Exam Head Exam: ATRAUMATIC, NORMOCEPHALIC - Extremities Exam Additional comments: Bilateral lower extremity examination: Vascular: DP/PT pulses are non-palpable to the Right; DP pulse is faintly palpable to the Left with normal PT pulse; capillary refill is almost 4 secs to all digits; Temp gradient warm to cool b/l from proximal to distal. Neurological: Gross and protective sensations are intact Dermatological:B/L scab covered small wounds noted at the dorsal aspect of the foot; No malodor, no erythema, no clinicals signs of infection noted at this time MSK: restricted ankle ROM noted bilaterally. Mild pain on palpating the periwound area on the right side. - Neurological Exam Neurological Exam: Alert, Awake Assessment and Plan - Assessment and Plan (Free Text) Assessment: 63 y/o male patient seen and evaluated at the bedside for bilateral stable foot wounds Plan: Patient was seen and evaluated at bedside with attending, Dr. Lopez Plan discussed in details with attending Dr. Jessica Valdovinos and maxorb applied to the dorsum of the foot b/l. MRA of the LE (09/27/2018): Occluded distal 1/3 of the R SFA. Patient has poor vascular condition of his LE B/L R>L. No plan for surgical intervention at this time. We will continue to follow up the patient while in house <Keena Lopez - Last Filed: 10/19/18 14:35> Objective - Vital Signs/Intake and Output Vital Signs (last 24 hours): Temp Pulse Resp BP Pulse Ox 98 F 64 20 118/73 97 10/19/18 06:00 10/19/18 06:00 10/19/18 06:00 10/19/18 11:00 10/19/18 06:00 - Medications Medications: Current Medications Acetaminophen (Tylenol 325mg Tab) 650 mg PO Q4H PRN PRN Reason: Headache Last Admin: 10/17/18 14:53 Dose: 650 mg Apixaban (Eliquis) 2.5 mg PO DAILY [facility]; Protocol Last Admin: 10/19/18 11:00 Dose: 2.5 mg Atorvastatin Calcium (Lipitor) 10 mg PO DAILY [facility] Last Admin: 10/19/18 11:00 Dose: 10 mg Doxycycline Hyclate (Doryx) 100 mg PO Q12 [facility]; Protocol Stop: 10/25/18 22:01 Last Admin: 10/19/18 11:00 Dose: 100 mg Furosemide (Lasix) 40 mg PO BID [facility] Last Admin: 10/19/18 11:00 Dose: 40 mg Aztreonam (Azactam 1 Gm) 100 mls @ 100 mls/hr IVPB Q8 [facility]; Protocol Stop: 10/24/18 22:01 Last Admin: 10/19/18 05:52 Dose: 100 mls/hr Linezolid (Zyvox 600mg/300ml D5w) 600 mg in 300 mls @ 200 mls/hr IVPB Q12 [facility]; Protocol Stop: 10/25/18 22:01 Last Admin: 10/19/18 11:00 Dose: 200 mls/hr Levalbuterol HCl (Xopenex) 0.63 mg IH [id number] PRN PRN Reason: Shortness of Breath Lisinopril (Zestril) 5 mg PO DAILY [facility] Last Admin: 10/19/18 11:00 Dose: 5 mg Metoprolol Tartrate (Lopressor) 25 mg PO BID [facility] Last Admin: 10/19/18 11:00 Dose: 25 mg Oseltamivir Phosphate (Tamiflu Susp) 30 mg PO BID [facility]; Protocol Last Admin: 10/19/18 11:00 Dose: Not Given Potassium Chloride (K-Dur 20 Meq Er Tab) 20 meq PO BID [facility] Last Admin: 10/19/18 11:00 Dose: 20 meq - Labs Labs: 10/18/18 08:35 10/18/18 08:35 Attending/Attestation - Attestation I have personally seen and examined this patient.: Yes I have fully participated in the care of the patient.: Yes I have reviewed all pertinent clinical information, including history, physical exam and plan: Yes Notes (Text): 10/19/18 14:32 pt has an occluded by-pass on the RLE; he has previously had a revision of the original by-pass over [address] Frank; this revision has no closed and pt with severe PVD and after discussion with Dr Hess he asked if we could try and heal the wounds otherwise he would try and find a vascular surgeon who would consider redoing a by-pass for the 3rd time on the RLE; thus we have been doing local care
--- NOTE | 2018-10-18 19:42 | PN ---
DATE: 10/18/2018 SUBJECTIVE: The patient is in bed, in no acute distress and nontoxic. The patient was seen earlier today. PHYSICAL EXAMINATION VITAL SIGNS: Temperature is 98, blood pressure is 109/60, respiratory rate of 20 and heart rate of 80. HEENT: Unremarkable. NECK: Supple. LUNGS: Decreased breath sounds. HEART: Normal S1, S2. ABDOMEN: Soft, nontender. LABORATORY DATA: Reveals a white count of 4.4, hemoglobin of 9. Chemistries reveal a BUN of 29, creatinine of 1.8. Procalcitonin is 0.17. Urinalysis is noted. Blood cultures, no growth. MRSA is negative. ASSESSMENT AND PLAN: This is a 63-year-old male, who was seen earlier today with chronic congestive heat failure, history of pneumonia, cerebrovascular accident, left-sided weakness, deep venous thrombosis, chronic foot ulcers, history of lower extremity bypass surgery, the patient with lower respiratory tract infection, and bronchitis. The patient did not have any fevers, did have a heart rate of 91 yesterday on the , and respiratory rate 20. Methicillin-resistant Staphylococcus aureus screen negative. Blood cultures negative. Throat cultures, no isolation. Currently on aztreonam, doxycycline, and linezolid. We will check on a final culture results and the patient did have a chest x-ray today and it did show markings left greater than right. Paras Francis MD
--- NOTE | 2018-10-19 01:20 | CP.PCM.PN ---
Subjective - Date & Time of Evaluation Date of Evaluation: 10/18/18 Time of Evaluation: 18:00 - Subjective Subjective: No fever, chills. Blood cultures negative. FLU negative. CXR showed increased interstitial markings. Objective - Vital Signs/Intake and Output Vital Signs (last 24 hours): Temp Pulse Resp BP Pulse Ox 97.8 F 60 18 111/57 L 96 10/18/18 22:14 10/18/18 22:14 10/18/18 22:14 10/18/18 22:14 10/18/18 22:14 - Medications Medications: Current Medications Acetaminophen (Tylenol 325mg Tab) 650 mg PO Q4H PRN PRN Reason: Headache Last Admin: 10/17/18 14:53 Dose: 650 mg Apixaban (Eliquis) 2.5 mg PO DAILY [facility]; Protocol Last Admin: 10/18/18 09:30 Dose: 2.5 mg Atorvastatin Calcium (Lipitor) 10 mg PO DAILY [facility] Last Admin: 10/18/18 09:30 Dose: 10 mg Doxycycline Hyclate (Doryx) 100 mg PO Q12 [facility]; Protocol Stop: 10/25/18 22:01 Last Admin: 10/18/18 21:56 Dose: 100 mg Furosemide (Lasix) 40 mg PO BID [facility] Last Admin: 10/18/18 17:54 Dose: 40 mg Aztreonam (Azactam 1 Gm) 100 mls @ 100 mls/hr IVPB Q8 [facility]; Protocol Stop: 10/24/18 22:01 Last Admin: 10/18/18 21:55 Dose: 100 mls/hr Linezolid (Zyvox 600mg/300ml D5w) 600 mg in 300 mls @ 200 mls/hr IVPB Q12 [facility]; Protocol Stop: 10/25/18 22:01 Last Admin: 10/18/18 21:56 Dose: 200 mls/hr Levalbuterol HCl (Xopenex) 0.63 mg IH [id number] PRN PRN Reason: Shortness of Breath Lisinopril (Zestril) 5 mg PO DAILY [facility] Last Admin: 10/18/18 09:29 Dose: 5 mg Metoprolol Tartrate (Lopressor) 25 mg PO BID [facility] Last Admin: 10/18/18 17:54 Dose: 25 mg Oseltamivir Phosphate (Tamiflu Susp) 30 mg PO BID [facility]; Protocol Last Admin: 10/18/18 17:56 Dose: Not Given Potassium Chloride (K-Dur 20 Meq Er Tab) 20 meq PO BID [facility] Last Admin: 10/18/18 17:54 Dose: 20 meq - Labs Labs: 10/18/18 08:35 10/18/18 08:35 - Constitutional Appears: Well, Non-toxic - Head Exam Head Exam: ATRAUMATIC, NORMAL INSPECTION, NORMOCEPHALIC - Eye Exam Eye Exam: Normal appearance - ENT Exam ENT Exam: Mucous Membranes Moist, Normal Exam - Neck Exam Neck Exam: Full ROM, Normal Inspection - Respiratory Exam Respiratory Exam: Clear to Ausculation Bilateral, NORMAL BREATHING PATTERN - Cardiovascular Exam Cardiovascular Exam: REGULAR RHYTHM, +S1, +S2 - GI/Abdominal Exam GI & Abdominal Exam: Soft, Normal Bowel Sounds - Extremities Exam Extremities Exam: Normal Inspection - Back Exam Back Exam: NORMAL INSPECTION - Neurological Exam Neurological Exam: Alert, Awake, Normal Gait, Oriented x3 - Psychiatric Exam Psychiatric exam: Normal Affect - Skin Skin Exam: Normal Color, Warm Assessment and Plan - Assessment and Plan (Free Text) Assessment: Assessment: 1. Chills 2. COPD exacerbation 3. h/o DVT/PE 4. CHF 5. B/L leg cellulitis 6. Anemia 7. Thrombocytopenia 8. CKD III Plan : CXR left increased interstitial markings. On aztreonam, Zyvox. Flu negative. final blood cultures pending. H/O DVT/PE. eliquis 2.5 mg PO BID to continue. B/L leg cellulitis , improved. anemia- normal iron studies. related to CKD III. He will CELIA to maintain normal hemoglobin. Thrombocytopenia - will monitor plt count. . Discussed the status with the sister telephonically.
[2018-10-19] MEDS: Aztreonam 1 Gm in NS 100mL 100 ML IVPB SCH ×2 (05:52→15:36)
[2018-10-19 07:46] VITALS: RESP 20
[2018-10-19] MEDS: Potassium Chloride 20 mEq ER Tab PO SCH ×2 (11:00→18:06)
[2018-10-19] MEDS: Oseltamivir 6 MG/ML PO SCH ×2 (11:00→18:08)
[2018-10-19] MEDS: Linezolid 600 mg in D5W 300 ml 600 MG/300 ML BAG IVPB SCH (11:00)
--- NOTE | 2018-10-19 14:17 | CP.PCM.PN ---
Subjective - Date & Time of Evaluation Date of Evaluation: 10/19/18 Time of Evaluation: 09:35 - Subjective Subjective: Comfortable, breathing better, cough is better, no fevers. Objective - Vital Signs/Intake and Output Vital Signs (last 24 hours): Temp Pulse Resp BP Pulse Ox 98 F 64 20 118/73 97 10/19/18 06:00 10/19/18 06:00 10/19/18 06:00 10/19/18 11:00 10/19/18 06:00 - Medications Medications: Current Medications Acetaminophen (Tylenol 325mg Tab) 650 mg PO Q4H PRN PRN Reason: Headache Last Admin: 10/17/18 14:53 Dose: 650 mg Apixaban (Eliquis) 2.5 mg PO DAILY [facility]; Protocol Last Admin: 10/19/18 11:00 Dose: 2.5 mg Atorvastatin Calcium (Lipitor) 10 mg PO DAILY [facility] Last Admin: 10/19/18 11:00 Dose: 10 mg Doxycycline Hyclate (Doryx) 100 mg PO Q12 [facility]; Protocol Stop: 10/25/18 22:01 Last Admin: 10/19/18 11:00 Dose: 100 mg Furosemide (Lasix) 40 mg PO BID [facility] Last Admin: 10/19/18 11:00 Dose: 40 mg Aztreonam (Azactam 1 Gm) 100 mls @ 100 mls/hr IVPB Q8 [facility]; Protocol Stop: 10/24/18 22:01 Last Admin: 10/19/18 05:52 Dose: 100 mls/hr Linezolid (Zyvox 600mg/300ml D5w) 600 mg in 300 mls @ 200 mls/hr IVPB Q12 [facility]; Protocol Stop: 10/25/18 22:01 Last Admin: 10/19/18 11:00 Dose: 200 mls/hr Levalbuterol HCl (Xopenex) 0.63 mg IH [id number] PRN PRN Reason: Shortness of Breath Lisinopril (Zestril) 5 mg PO DAILY [facility] Last Admin: 10/19/18 11:00 Dose: 5 mg Metoprolol Tartrate (Lopressor) 25 mg PO BID [facility] Last Admin: 10/19/18 11:00 Dose: 25 mg Oseltamivir Phosphate (Tamiflu Susp) 30 mg PO BID [facility]; Protocol Last Admin: 10/19/18 11:00 Dose: Not Given Potassium Chloride (K-Dur 20 Meq Er Tab) 20 meq PO BID [facility] Last Admin: 10/19/18 11:00 Dose: 20 meq - Labs Labs: 10/18/18 08:35 10/18/18 08:35 - Constitutional Appears: Non-toxic, No Acute Distress, Chronically Ill - Head Exam Head Exam: NORMAL INSPECTION - Respiratory Exam Respiratory Exam: Decreased Breath Sounds - Cardiovascular Exam Cardiovascular Exam: +S1, +S2 - GI/Abdominal Exam GI & Abdominal Exam: Soft. absent: Tenderness Assessment and Plan - Assessment and Plan (Free Text) Plan: Assessment consider lower respiratory tract infection / bronchitis R/O pneumonia R/O Influenza history of asymptomatic bacteriuria acute on chronic CHF causing dyspnea earning disability chronic CHF history of pneumonia CVA with left sided residual weakness history of DVT chronic foot ulcers history of lower extremity bypass surgery Plan started Zyvox, Azactam and Doxycycline day 3 for 4-7 days - cultures have been n egative; complete 5 days of Tamiflu even though rapid flu test is negative (day 3 today) discussed with Dr. Lindquist
[2018-10-19 14:51] VITALS: BP 105/50; PULSE 70; TEMP 97.7; O2SAT 100
--- NOTE | 2018-10-20 00:23 | DS ---
DISCHARGE DIAGNOSES: 1. Fever. 2. Left-sided interstitial pneumonia. 3. Bilateral leg cellulitis. 4. Anemia of chronic kidney disease. 5. Thrombocytopenia. 6. Chronic kidney disease. HOSPITAL COURSE: The patient was admitted with shortness of breath, found to have interstitial pneumonia on the left side. Flu serology is negative. Blood cultures were negative. He was treated with IV antibiotic, aztreonam, Zyvox, and Tamiflu. General condition improved. He is being transferred to Transitional Care Unit for gait improvement and completion of IV antibiotics. PHYSICAL EXAMINATION ON DISCHARGE: GENERAL: Comfortable in bed in no acute distress. VITAL SIGNS: Temperature is 98.7 and heart rate 80 per minute. NECK: No lymphadenopathy. CHEST: Air entry present and equal bilaterally. No added sounds. CARDIOVASCULAR: S1 and S2 normal. No murmur. No gallop. ABDOMEN: Soft and nontender. No hepatosplenomegaly. EXTREMITIES: Bilateral cellulitis improved. CONDITION ON DISCHARGE: Stable. DISPOSITION: Discharge to Transitional Care Unit. Discussed with the staff nurse on Transitional Care Unit. Discussed with the patient's daughter. Time spent in preparing discharge, coordinating care 60 minutes. Daiana Lindquist MD
[2018-10-20] MEDS ORDERED: Oseltamivir 6 MG/ML PO SCH (10:00)
--- NOTE | 2018-10-20 14:43 | HP ---
DATE OF EXAM: 10/20/2018 HISTORY OF PRESENT ILLNESS: Mr. Byers was admitted to the hospital with chills and fevers. Flu was ruled out. He has interstitial pneumonia on the left side treated with IV antibiotics, Azactam, Zyvox, and Tamiflu. Flu serologies were negative. Tamiflu was discontinued. REVIEW OF SYSTEMS: As per HPI. Rest of 12-point review of systems reviewed negative. Participating in physical therapy. PHYSICAL EXAMINATION GENERAL: Comfortable in bed, in no acute distress. VITAL SIGNS: Temperature 98.7, heart rate 80 per minute, blood pressure 120/90. HEENT: Pallor positive. NECK: No lymphadenopathy. CHEST: Air entry present and equal bilaterally. No added sound. CARDIOVASCULAR: S1 and S2 normal. No murmur. No gallop. ABDOMEN: Soft and nontender. No hepatosplenomegaly. EXTREMITIES: No edema. Bilateral lower extremity cellulitis improved. CENTRAL NERVOUS SYSTEM: Alert and oriented x3. No focal sensory or motor deficit. SPINE: Nontender. ALLERGIES: NEXIUM, PENICILLIN, SULFA AND COGENTIN. ASSESSMENT: 1. Interstitial pneumonia left side. 2. Chronic anemia related to chronic renal insufficiency. 3. Chronic renal insufficiency. 4. Chronic cellulitis bilateral lower extremities, improved. PLAN: Admit to TCU. Continue Tylenol 650 every 4 hours as needed, Eliquis 2.5 mg orally daily, Lipitor 10 mg daily, Azactam IV, to continue doxycycline 100 mg p.o. every 12 hours, Lasix 40 mg p.o. b.i.d., Xopenex as needed, Zyvox IV, lisinopril 5 mg daily, metoprolol 25 mg p.o. b.i.d., Tamiflu to discontinue and potassium supplement 20 mEq p.o. b.i.d. Daiana Lindquist MD MTDD
== END 2018-10-19 20:04 | DRG 197 ==
LOC: ED 10:50 → ERH 16:13 → 2RSO 22:15 → 5RSO 10-18 10:10
PROVIDERS: ADMIT Internal Medicine Medical Oncology; ATTEND Internal Medicine Medical Oncology
DX: J84.9 Interstitial pulmonary disease, unspecified (principal); I13.0 Hypertensive heart and chronic kidney disease with heart failure and stage 1 through stage 4 chronic kidney disease, or unspecified chronic kidney disease; I50.32 Chronic diastolic (congestive) heart failure; J44.1 Chronic obstructive pulmonary disease with (acute) exacerbation; N17.9 Acute kidney failure, unspecified; L03.115 Cellulitis of right lower limb; L03.116 Cellulitis of left lower limb; I69.354 Hemiplegia and hemiparesis following cerebral infarction affecting left non-dominant side; E11.22 Type 2 diabetes mellitus with diabetic chronic kidney disease; N18.3 Chronic kidney disease, stage 3 (moderate); E11.621 Type 2 diabetes mellitus with foot ulcer; L97.509 Non-pressure chronic ulcer of other part of unspecified foot with unspecified severity; D63.1 Anemia in chronic kidney disease; D69.6 Thrombocytopenia, unspecified; E11.51 Type 2 diabetes mellitus with diabetic peripheral angiopathy without gangrene; E78.5 Hyperlipidemia, unspecified; I25.2 Old myocardial infarction; Z86.718 Personal history of other venous thrombosis and embolism; Z86.711 Personal history of pulmonary embolism; Z87.01 Personal history of pneumonia (recurrent); Z87.891 Personal history of nicotine dependence; Z79.01 Long term (current) use of anticoagulants; Z88.0 Allergy status to penicillin; Z88.2 Allergy status to sulfonamides

== ENCOUNTER 2018-10-19 20:07 | Inpatient (IN) | payer OTHER, MEDICAID ==
[2018-10-19] MEDS ORDERED: Levalbuterol 0.63 MG/3 ML Inhal Soln UD IH PRN (21:36)
[2018-10-19] MEDS ORDERED: Linezolid 600 mg in D5W 300 ml 600 MG/300 ML BAG IVPB SCH (22:00)
[2018-10-19] MEDS: Aztreonam 1 Gm in NS 100mL 100 ML IVPB SCH (22:30)
[2018-10-20 03:35] VITALS: BMI 25.9
[2018-10-20] MEDS: Aztreonam 1 Gm in NS 100mL 100 ML IVPB SCH ×3 (05:46→21:46)
[2018-10-20] MEDS ORDERED: Potassium Chloride 20 mEq ER Tab PO SCH (10:00)
[2018-10-20 10:19] VITALS: RESP 18; O2SAT 98
--- NOTE | 2018-10-20 10:23 | CP.PCM.CON ---
<Radha Newman - Last Filed: 10/20/18 10:21> History of Present Illness - History of Present Illness History of Present Illness: Podiatry consult notes for attending Dr. Lopez/Dr. Verde 63 y/o male patient was seen and evaluated at bedside for bilateral stable foot wounds at dorsal aspect. Patient is poor historian Patient denies any pain in his feet. He denies any other pedal complaint at this time. He denies any recent N/V or D. 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" - RENAL Hx Chronic Kidney Disease: No - ENDOCRINE/METABOLIC Hx Diabetes Mellitus Type 2: Yes - HEMATOLOGICAL/ONCOLOGICAL Hx Blood Transfusions: No - INTEGUMENTARY Other/Comment: multiple healed wound scars r ankle and foot left ankle and foot, small wound to top of left foot red and dry, dry toenails both feet, ble light brown skin discolorations, old fading bruises b/l knees from falls, left great toe has 12 toenail surrounded by dry red skin, r great toe has 1/2 nail small dry brown wound, dry skin to toes - MUSCULOSKELETAL/RHEUMATOLOGICAL Hx Falls: Yes - GASTROINTESTINAL Hx Gastrointestinal Disorders: Yes (rectal bleed) - GENITOURINARY/GYNECOLOGICAL Hx Genitourinary Disorders: No Hx Reproductive Disorders: No - PSYCHIATRIC Hx Emotional Abuse: No Hx Physical Abuse: No Hx Substance Use: No - SURGICAL HISTORY Other/Comment: DVT to right leg/BYpass surgery 2015 - ANESTHESIA Hx Anesthesia Reactions: No Hx Malignant Hyperthermia: No Meds Allergies/Adverse Reactions: Allergies Allergy/AdvReac Type Severity Reaction Status Date / Time benztropine mesylate Allergy Severe ANAPHYLAXIS Verified 10/16/18 11:24 [From Cogentin] esomeprazole magnesium Allergy Severe RASH Verified 10/16/18 11:24 [From Nexium] Penicillins Allergy Severe ANAPHYLAXIS Verified 10/16/18 11:24 Sulfa (Sulfonamide Allergy Severe RASH Verified 10/16/18 11:24 Antibiotics) - Medications Medications: Current Medications Acetaminophen (Tylenol 325mg Tab) 650 mg PO Q4H PRN; Protocol PRN Reason: Headache Apixaban (Eliquis) 2.5 mg PO DAILY [place]; Protocol Atorvastatin Calcium (Lipitor) 10 mg PO DAILY [place]; Protocol Doxycycline Hyclate (Doryx) 100 mg PO Q12 [place]; Protocol Stop: 10/25/18 22:01 Last Admin: 10/19/18 22:31 Dose: 100 mg Furosemide (Lasix) 40 mg PO BID [place]; Protocol Aztreonam (Azactam 1 Gm) 100 mls @ 100 mls/hr IVPB Q8 [place]; Protocol Stop: 10/24/18 22:01 Last Admin: 10/20/18 05:46 Dose: 100 mls/hr Linezolid (Zyvox 600mg/300ml D5w) 600 mg in 300 mls @ 200 mls/hr IVPB 0600,1800 [place]; Protocol Stop: 10/26/18 18:01 Levalbuterol HCl (Xopenex) 0.63 mg IH [id number] PRN; Protocol PRN Reason: Shortness of Breath Lisinopril (Zestril) 5 mg PO DAILY [place]; Protocol Metoprolol Tartrate (Lopressor) 25 mg PO BID [place]; Protocol Oseltamivir Phosphate (Tamiflu Susp) 30 mg PO BID [place]; Protocol Stop: 10/21/18 18:01 Potassium Chloride (K-Dur 20 Meq Er Tab) 20 meq PO BID [place]; Protocol Physical Exam - Constitutional Appears: Well, Non-toxic, No Acute Distress - Extremities Exam Additional comments: Bilateral lower extremity examination: Vascular: DP/PT pulses are non-palpable to the Right; DP pulse is faintly palpable to the Left with normal PT pulse; capillary refill is almost 4 secs to all digits; Temp gradient warm to cool b/l from proximal to distal. Neurological: Gross and protective sensations are intact Dermatological:B/L scab covered small wounds noted at the dorsal aspect of the foot; No malodor, no erythema, no clinicals signs of infection noted at this time MSK: restricted ankle ROM noted bilaterally. Mild pain on palpating the periwound area on the right side. - Neurological Exam Neurological exam: Alert, Oriented x3 Results - Vital Signs Recent Vital Signs: Last Vital Signs Temp 97.6 F 10/20/18 10:00 Pulse 76 10/20/18 10:00 Resp 18 10/20/18 10:00 BP 124/61 10/20/18 10:00 Pulse Ox 98 10/20/18 10:00 Assessment & Plan - Assessment and Plan (Free Text) Assessment: 63 y/o male patient seen and evaluated at the bedside for bilateral stable foot wounds Plan: Patient was seen and evaluated with attending, Dr. Mehreen Valdovinos and maxorb applied to the dorsum of the foot b/l. MRA of the LE (09/27/2018): Occluded distal 1/3 of the R SFA. Patient has poor vascular condition of his LE B/L R>L. No plan for surgical intervention at this time. We will continue to follow up the patient while in house - Date & Time Date: 10/20/18 Time: 10:23 <Sudeep Verde - Last Filed: 10/22/18 10:21> Results - Vital Signs Recent Vital Signs: Last Vital Signs Temp 97.8 F 10/21/18 10:00 Pulse 82 10/21/18 10:00 Resp 18 10/21/18 10:00 BP 125/64 10/21/18 10:06 Pulse Ox 98 10/20/18 10:00 Attending/Attestation - Attestation I have personally seen and examined this patient.: Yes I have fully participated in the care of the patient.: Yes I have reviewed all pertinent clinical information: Yes
[2018-10-20] MEDS: Oseltamivir 6 MG/ML PO SCH ×2 (11:12→18:08)
--- NOTE | 2018-10-20 16:55 | CON ---
DATE OF CONSULTATION: 10/20/2018 CHIEF COMPLAINT: Weakness for several days. HISTORY OF PRESENT ILLNESS: This is a 63-year-old male seen earlier today in Room 327, Bed 2, who has learning disability, history of pneumonia, cerebrovascular accident with left-sided weakness, history of DVT, congestive heart failure, chronic foot ulcer, and lower extremity bypass, was admitted because of shortness of breath to the acute care, but did not have any chest pain. Shortness breath was 2-3 day's of duration. No chest pain. He did have chills. No fevers and no nausea or vomiting. PAST MEDICAL HISTORY: Significant for cerebrovascular accident, left-sided weakness, chronic obstructive lung disease, congestive heart failure, DVT, chronic foot ulcer, and learning disability. PAST SURGICAL HISTORY: Reveals the right leg bypass surgery in 2014. ALLERGIES: THE PATIENT HAS ALLERGY TO BENZTROPINE AND PENICILLIN AND SULFA. REVIEW OF SYSTEMS: A 14-point review of systems is performed. No headaches or blurred vision. No neck pain. No dysuria or frequency. PHYSICAL EXAMINATION: GENERAL: The patient is in bed in no acute distress, answering questions, comfortable. VITAL SIGNS: Temperature of 97, blood pressure is 120/60, respiratory rate of 18, heart rate of 76. HEENT: Unremarkable. NECK: Supple. LUNGS: Have decreased breath sounds. HEART: Normal S1, S2. ABDOMEN: Soft, nontender. No organomegaly. No rebound or guarding. LABORATORY EXAMINATION: Reveals a white count of 4.4, hemoglobin of 9, platelets of 110. Chemistries are noted. Creatinine is 1.8. Procalcitonin is 0.17. Urinalysis is noted. The patient had a negative influenza. Negative urine for Legionella antigen. Group A strep antigen is negative. Microbiology reveals the urine culture is negative, blood cultures are negative, nasal MRSA is negative, and throat culture is negative. X-ray reveals the patient had a chest x-ray on the 10/18/2018, interstitial markings, left greater than the right. ASSESSMENT AND PLAN: A 63-year-old male with cerebrovascular accident with left-sided weakness, history of pneumonia, chronic obstructive lung disease, congestive heart failure, deep vein thrombosis, chronic foot ulcer, and hearing disability. The patient was admitted with a lower respiratory tract infection and bronchitis and transferred to Transitional Care with lower respiratory tract infection and bronchitis with a history of bacteriuria, [id number] congestive heart failure, learning disability, history of pneumonia, cerebrovascular accident, who has allergy to penicillin and sulfa. He was treated with Zyvox, Azactam and doxycycline day #4 today and complete 5 days of Tamiflu, today is day #4 of that. Since the microbiology reveals the MRSA screen is negative and blood cultures are negative, we will discontinue the Zyvox since there are negative blood cultures and on doxycycline and aztreonam day #4 would complete 4-7 days. We will follow with you. Paras Francis MD
[2018-10-20] MEDS: Potassium Chloride 20 mEq ER Tab PO SCH (17:51)
[2018-10-20] MEDS ORDERED: Linezolid 600 mg in D5W 300 ml 600 MG/300 ML BAG IVPB SCH (18:00)
[2018-10-21] MEDS: Aztreonam 1 Gm in NS 100mL 100 ML IVPB SCH (05:48)
[2018-10-21] MEDS: Potassium Chloride 20 mEq ER Tab PO SCH (08:10)
[2018-10-21 10:09] VITALS: BP 125/64
[2018-10-21 10:35] VITALS: PULSE 82; TEMP 97.8
--- NOTE | 2018-10-21 11:16 | CP.PCM.PN ---
<[facility] - Last Filed: 10/21/18 11:15> Subjective - Date & Time of Evaluation Date of Evaluation: 10/21/18 Time of Evaluation: 11:15 - Subjective Subjective: Podiatry consult notes for attending Dr. Lopez/Dr. Verde 63 y/o male patient was seen and evaluated at bedside for bilateral stable foot wounds at dorsal aspect.He denies any other pedal complaint at this time. He denies any recent N/V or D. Objective - Vital Signs/Intake and Output Vital Signs (last 24 hours): Temp Pulse Resp BP Pulse Ox 97.8 F 82 18 125/64 98 10/21/18 10:00 10/21/18 10:00 10/21/18 10:00 10/21/18 10:06 10/20/18 10:00 - Medications Medications: Current Medications Acetaminophen (Tylenol 325mg Tab) 650 mg PO Q4H PRN; Protocol PRN Reason: Headache Last Admin: 10/20/18 21:51 Dose: 650 mg Apixaban (Eliquis) 2.5 mg PO DAILY [place]; Protocol Last Admin: 10/21/18 10:05 Dose: 2.5 mg Atorvastatin Calcium (Lipitor) 10 mg PO DAILY [place]; Protocol Last Admin: 10/21/18 10:05 Dose: 10 mg Doxycycline Hyclate (Doryx) 100 mg PO Q12 [place]; Protocol Stop: 10/25/18 22:01 Last Admin: 10/21/18 10:05 Dose: 100 mg Furosemide (Lasix) 40 mg PO BID [place]; Protocol Last Admin: 10/21/18 10:05 Dose: 40 mg Aztreonam (Azactam 1 Gm) 100 mls @ 100 mls/hr IVPB Q8 [place]; Protocol Stop: 10/24/18 22:01 Last Admin: 10/21/18 05:48 Dose: 100 mls/hr Levalbuterol HCl (Xopenex) 0.63 mg IH [id number] PRN; Protocol PRN Reason: Shortness of Breath Lisinopril (Zestril) 5 mg PO DAILY [place]; Protocol Last Admin: 10/21/18 10:06 Dose: 5 mg Metoprolol Tartrate (Lopressor) 25 mg PO BID [place]; Protocol Last Admin: 10/21/18 10:05 Dose: 25 mg Potassium Chloride (K-Dur 20 Meq Er Tab) 20 meq PO 0800,1800 [place]; Protocol Last Admin: 10/21/18 08:10 Dose: 20 meq - Constitutional Appears: Well, Non-toxic, No Acute Distress - Extremities Exam Additional comments: Dressing is clean, dry and intact, no strike through - Neurological Exam Neurological Exam: Alert, Awake, Oriented x3 - Psychiatric Exam Psychiatric exam: Normal Affect, Normal Mood Assessment and Plan - Assessment and Plan (Free Text) Assessment: 63 y/o male patient seen and evaluated at the bedside for bilateral stable foot wounds Plan: Patient was seen and evaluated Discussed plan with attending, Dr. Verde Dressing is clean, dry and intact. MRA of the LE (09/27/2018): Occluded distal 1/3 of the R SFA. Patient has poor vascular condition of his LE B/L R>L. No plan for surgical intervention at this time. We will continue to follow up the patient while in house <Sudeep Verde - Last Filed: 10/22/18 10:18> Objective - Vital Signs/Intake and Output Vital Signs (last 24 hours): Temp Pulse Resp BP Pulse Ox 97.8 F 82 18 125/64 98 10/21/18 10:00 10/21/18 10:00 10/21/18 10:00 10/21/18 10:06 10/20/18 10:00 Attending/Attestation - Attestation I have personally seen and examined this patient.: Yes I have fully participated in the care of the patient.: Yes I have reviewed all pertinent clinical information, including history, physical exam and plan: Yes
--- NOTE | 2018-10-21 11:35 | CP.PCM.PN ---
Subjective - Date & Time of Evaluation Date of Evaluation: 10/21/18 Time of Evaluation: 11:30 - Subjective Subjective: HISTORY OF PRESENT ILLNESS: Mr. Byers was admitted to the hospital with chills and fevers. Flu was ruled out. He has interstitial pneumonia on the left side treated with IV antibiotics, Azactam, Zyvox, and Tamiflu. Flu serologies were negative. Tamiflu was discontinued. REVIEW OF SYSTEMS: As per HPI. Rest of 12-point review of systems reviewed negative. Participating in physical therapy. PHYSICAL EXAMINATION GENERAL: Comfortable in bed, in no acute distress. VITAL SIGNS: reviewed. HEENT: Pallor positive. NECK: No lymphadenopathy. CHEST: Air entry present and equal bilaterally. No added sound. CARDIOVASCULAR: S1 and S2 normal. No murmur. No gallop. ABDOMEN: Soft and nontender. No hepatosplenomegaly. EXTREMITIES: No edema. Bilateral lower extremity cellulitis improved. CENTRAL NERVOUS SYSTEM: Alert and oriented x3. No focal sensory or motor deficit. SPINE: Nontender. ALLERGIES: NEXIUM, PENICILLIN, SULFA AND COGENTIN. ASSESSMENT: 1. Interstitial pneumonia left side. 2. Chronic anemia related to chronic renal insufficiency. 3. Chronic renal insufficiency. 4. Chronic cellulitis bilateral lower extremities, improved. PLAN: Continue Tylenol 650 every 4 hours as needed, Eliquis 2.5 mg orally daily, Lipitor 10 mg daily, Azactam IV, to continue doxycycline 100 mg p.o. every 12 hours, Lasix 40 mg p.o. b.i.d., Xopenex as needed, Zyvox IV, lisinopril 5 mg daily, metoprolol 25 mg p.o. b.i.d., Tamiflu to discontinue and potassium supplement 20 mEq p.o. b.i.d. Continue PT. Daiana Lindquist MD Objective - Vital Signs/Intake and Output Vital Signs (last 24 hours): Temp Pulse Resp BP Pulse Ox 97.8 F 82 18 125/64 98 10/21/18 10:00 10/21/18 10:00 10/21/18 10:00 10/21/18 10:06 10/20/18 10:00 - Medications Medications: Current Medications Acetaminophen (Tylenol 325mg Tab) 650 mg PO Q4H PRN; Protocol PRN Reason: Headache Last Admin: 10/20/18 21:51 Dose: 650 mg Apixaban (Eliquis) 2.5 mg PO DAILY [place]; Protocol Last Admin: 10/21/18 10:05 Dose: 2.5 mg Atorvastatin Calcium (Lipitor) 10 mg PO DAILY [place]; Protocol Last Admin: 10/21/18 10:05 Dose: 10 mg Doxycycline Hyclate (Doryx) 100 mg PO Q12 [place]; Protocol Stop: 10/25/18 22:01 Last Admin: 10/21/18 10:05 Dose: 100 mg Furosemide (Lasix) 40 mg PO BID [place]; Protocol Last Admin: 10/21/18 10:05 Dose: 40 mg Aztreonam (Azactam 1 Gm) 100 mls @ 100 mls/hr IVPB Q8 [place]; Protocol Stop: 10/24/18 22:01 Last Admin: 10/21/18 05:48 Dose: 100 mls/hr Levalbuterol HCl (Xopenex) 0.63 mg IH [id number] PRN; Protocol PRN Reason: Shortness of Breath Lisinopril (Zestril) 5 mg PO DAILY [place]; Protocol Last Admin: 10/21/18 10:06 Dose: 5 mg Metoprolol Tartrate (Lopressor) 25 mg PO BID [place]; Protocol Last Admin: 10/21/18 10:05 Dose: 25 mg Potassium Chloride (K-Dur 20 Meq Er Tab) 20 meq PO 0800,1800 [place]; Protocol Last Admin: 10/21/18 08:10 Dose: 20 meq
[2018-10-21] MEDS: Oseltamivir 6 MG/ML PO SCH (11:36)
--- NOTE | 2018-10-21 13:39 | PN ---
DATE: 10/21/2018 SUBJECTIVE: The patient is in bed in no acute distress, nontoxic, seen earlier today in [facility]. PHYSICAL EXAMINATION: VITAL SIGNS: Temperature is 98, blood pressure is 120/70, respiratory rate is 16. HEENT: Unremarkable. NECK: Supple. LUNGS: Have decreased breath sounds. HEART: Normal S1, S2. ABDOMEN: Soft, nontender. LABORATORY EXAMINATION: Noted and review of orders reveals the patient to be on p.o. doxycycline and IV aztreonam. ASSESSMENT AND PLAN: This is a 63-year-old male who was seen earlier in [facility] and with a learning disability, history of pneumonia, cerebrovascular accident, left-sided weakness, history of deep venous thrombosis, congestive heart failure, chronic foot ulcer, lower extremity bypass who was admitted to the acute care and who with a history of pneumonia, cerebrovascular accident. ALLERGIC TO PENICILLIN AND SULFA, was treated with Zyvox, aztreonam and now with aztreonam and doxycycline day #5. The patient had completed 5 days of Tamiflu and today is day #5 of antibiotics, would complete 4 to 7 days of antibiotics. Review of orders reveals the patient to be on aztreonam and doxycycline. Paras Francis MD
== END 2018-10-21 13:34 | disposition home or self-care (01) | DRG 197 ==
LOC: TRCU 20:07
PROVIDERS: ADMIT Internal Medicine Medical Oncology; ATTEND Internal Medicine Medical Oncology
PROC: F07Z9ZZ Gait Training/Functional Ambulation Treatment (ICD-10-PCS; principal; 2018-10-20)
PROC: F08Z4ZZ Home Management Treatment (ICD-10-PCS; 2018-10-20)
DX: J84.9 Interstitial pulmonary disease, unspecified (principal); L03.116 Cellulitis of left lower limb; L03.115 Cellulitis of right lower limb; I69.354 Hemiplegia and hemiparesis following cerebral infarction affecting left non-dominant side; I13.0 Hypertensive heart and chronic kidney disease with heart failure and stage 1 through stage 4 chronic kidney disease, or unspecified chronic kidney disease; J44.9 Chronic obstructive pulmonary disease, unspecified; D63.1 Anemia in chronic kidney disease; E11.22 Type 2 diabetes mellitus with diabetic chronic kidney disease; N18.9 Chronic kidney disease, unspecified; I50.9 Heart failure, unspecified; F81.9 Developmental disorder of scholastic skills, unspecified; Z86.718 Personal history of other venous thrombosis and embolism; Z87.891 Personal history of nicotine dependence; Z88.2 Allergy status to sulfonamides; Z88.0 Allergy status to penicillin

== ENCOUNTER 2018-12-20 15:19 | Inpatient (IN) | payer MEDICARE, MEDICAID ==
--- NOTE | 2018-12-20 17:04 | ED PDOC ---
Arrival/HPI - General Chief Complaint: Abnormal Skin Integrity Time Seen by Provider: 12/20/18 15:59 Historian: Patient - History of Present Illness Narrative History of Present Illness (Text): 12/20/18 17:01 63 year old male, whose past medical history pneumonia, MR, diastolic CHF, hypertension, COPD, AR, CVA, DVT/PE, presents to the emergency department for evaluation of non-healing ulcer of the dorsum of the left foot. Patient was seen by net wpf developer today and was sent to the ED to be admitted for non-healing wound unresponsive to oral antibiotics. Patient denies any cardiopulmonary symptoms. Patient reports pain to the left lateral foot underlying the ulcer. He denies fevers, chills, headache, dizziness, chest pain, shortness of breath, dyspnea on exertion, cough, abdominal pain, nausea, vomiting, diarrhea, back pain, neck pain, or any other complaint. PMD: Dr. 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" - Renal Hx Renal Disorder: No - Endocrine/Metabolic Hx Diabetes Mellitus Type 2: Yes - Hematological/Oncological Hx Blood Transfusions: No - Integumentary Other/Comment: multiple healed wound scars r ankle and foot left ankle and foot, small wound to top of left foot red and dry, dry toenails both feet, ble light brown skin discolorations, old fading bruises b/l knees from falls, left great toe has 12 toenail surrounded by dry red skin, r great toe has 1/2 nail small dry brown wound, dry skin to toes - Musculoskeletal/Rheumatological Hx Falls: Yes - Gastrointestinal Hx Gastrointestinal Disorders: Yes (rectal bleed) - Genitourinary/Gynecological Hx Genitourinary Disorders: No Hx Reproductive Disorders: No - Psychiatric Hx Emotional Abuse: No Hx Physical Abuse: No Hx Substance Use: No - Surgical History Other/Comment: DVT to right leg/BYpass surgery 2015 - Anesthesia Hx Anesthesia: Yes Hx Anesthesia Reactions: No Hx Malignant Hyperthermia: No - Suicidal Assessment Feels Threatened In Home Enviroment: No Family/Social History - Physician Review Nursing Documentation Reviewed: Yes Family/Social History: No Known Family HX Smoking Status: Former Smoker Hx Alcohol Use: No Hx Substance Use: No Allergies/Home Meds Allergies/Adverse Reactions: Allergies benztropine mesylate [From Cogentin] Allergy (Severe, Verified 10/16/18 11:24) ANAPHYLAXIS esomeprazole magnesium [From Nexium] Allergy (Severe, Verified 10/16/18 11:24) RASH Penicillins Allergy (Severe, Verified 10/16/18 11:24) ANAPHYLAXIS Sulfa (Sulfonamide Antibiotics) Allergy (Severe, Verified 10/16/18 11:24) RASH Home Medications: Home Meds Medication Instructions Recorded Confirmed Atorvastatin [Lipitor] 10 mg PO DAILY 01/13/17 10/16/18 Apixaban [Eliquis] 2.5 mg PO DAILY 03/16/18 10/16/18 Lisinopril [Zestril] 5 mg PO DAILY 03/16/18 10/16/18 Review of Systems - Physician Review All systems were reviewed & negative as marked: Yes - Review of Systems Constitutional: absent: Fevers Respiratory: absent: SOB, Cough Cardiovascular: absent: Chest Pain Gastrointestinal: absent: Abdominal Pain, Diarrhea, Nausea, Vomiting Musculoskeletal: absent: Back Pain, Neck Pain Skin: Ulcer (to the left foot ). absent: Rash Neurological: absent: Headache, Dizziness Endocrine: absent: Diaphoresis Physical Exam - Physical Exam Narrative Physical Exam (Text): 12/20/18 17:08 Gen: VS reviewed, alert, well developed, well nourished, nontoxic, mild distress. ENT: normal pharynx. Eye: EOMI, PERRL. Neck: no JVD, supple, no adenopathy. CV: regular rate, regular rhythm, no rubs, no murmur, no gallops, S1, S2, pulses equal and strong. Pulm: no distress, clear to auscultation, no wheeze, no rhonchi, breath sounds equal, no rales. Abd: soft, nontender, no guarding, no rebound, no rigidity, normal bowel sounds. Ext: no edema. Approximately 2cm ulcer on the left lateral foot with surrounding cellulitic skin changes, mild tenderness to palpation, positive warmth to touch, neurovascularly intact. Skin: good color, no rash, no cyanosis. Psych: responds appropriately to questions, normal affect. Neuro: oriented x 3, CN2-12 intact grossly, motor intact, sensation intact. Vital Signs Reviewed: Yes Vital Signs Temp Pulse Resp BP Pulse Ox 12/20/18 15:20 98.1 F 60 18 131/55 L 100 Temperature: Afebrile Blood Pressure: Hypotensive Pulse: Regular Respiratory Rate: Normal Appearance: Positive for: Well-Appearing, Non-Toxic, Comfortable Pain Distress: None Mental Status: Positive for: Alert and Oriented X 3 Medical Decision Making ED Course and Treatment: 12/20/18 17:03 Impression: 63 year old male who presents to the emergency department complaining of ulcer to the left foot. Plan: -- VBG -- EKG -- Labs -- Vancomycin inj -- Blood Culture -- Left foot X-ray -- left Tibia Fibula X-ray -- Left lower extremity ultra sound -- Reassess and disposition Prior Visits: Notes and results from previous visits were reviewed. Progress Notes: 12/20/18 17:03 Patient seen for non-healing ulcer to the lateral foot. There is warmth to touch and tenderness to palpation. Will get duplex Us to rule out DVt left leg, xray of the left foot to rule out sub q air, admit for IV abx. 12/20/18 18:[address] reynoso, patient to be admitted for iv abx for failed outpt tx cellulitis of the foot. - Lab Interpretations I have reviewed the lab results: Yes - RAD Interpretation Narrative RAD Interpretations (Text): 12/20/18 18:15 US left lower ext venous duplex: prelim US report negative for DVT as per US tech 12/20/18 18:39 XR foot and tib/fib: no overt sub q air 12/20/18 19:16 Ultrasound of left lower extremity reviewed by radiologist, shows: IMPRESSION: 1. No sonographic evidence for deep venous thrombosis in the visualized segments of the left lower extremity. Manager Strategy & Account: Radiologist - EKG Interpretation Interpreted by ED Physician: Yes Type: 12 lead EKG - Scribe Statement The provider has reviewed the documentation as recorded by the Karen Flores Provider Scribe Attestation: All medical record entries made by the Scribe were at my direction and personally dictated by me. I have reviewed the chart and agree that the record accurately reflects my personal performance of the history, physical exam, [facility] decision making, and the department course for this patient. I have also personally directed, reviewed, and agree with the discharge instructions and disposition. Disposition/Present on Arrival - Present on Arrival Any Indicators Present on Arrival: No History of DVT/PE: No History of Uncontrolled Diabetes: No Urinary Catheter: No History of Decub. Ulcer: No History Surgical Site Infection Following: None - Disposition Have Diagnosis and Disposition been Completed?: Yes Diagnosis: Cellulitis of foot Disposition: HOSPITALIZED Disposition Time: 18:39 Patient Plan: Admission Patient Problems: Current Active Problems Problem Status Onset Cellulitis of foot Acute Condition: STABLE
[2018-12-20] MEDS ORDERED: Vancomycin 500 mg Inj IVPB STA (17:06)
[2018-12-20] MEDS ORDERED: Vancomycin 1.5 GM in Sodium Chloride 0.9% 500 ML IVPB ONE (17:15)
--- NOTE | 2018-12-20 17:28 | CP.PCM.CON ---
<Kimberley Wang - Last Filed: 12/21/18 07:42> History of Present Illness - History of Present Illness History of Present Illness: Podiatry consult note for Dr. Vedre 63 y/o male patient with PMHx of HTN, dyslipidemia, CHF, PVD with history of bypass surgery, CVA with residual left-sided weakness, and cognitive impairment was seen and evaluated at bedside with attending, Dr. Verde for left foot wound. Patient was sent to the ER for IV Abx as patient has failed outpatient treatment at this time. Patient is poor historian, accompanied by his sister. He denies any other pedal complaint at this time. He denies any recent N/V or D. 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" - RENAL Hx Chronic Kidney Disease: No - ENDOCRINE/METABOLIC Hx Diabetes Mellitus Type 2: Yes - HEMATOLOGICAL/ONCOLOGICAL Hx Blood Transfusions: No - INTEGUMENTARY Other/Comment: multiple healed wound scars r ankle and foot left ankle and foot, small wound to top of left foot red and dry, dry toenails both feet, ble light brown skin discolorations, old fading bruises b/l knees from falls, left great toe has 12 toenail surrounded by dry red skin, r great toe has 1/2 nail small dry brown wound, dry skin to toes - MUSCULOSKELETAL/RHEUMATOLOGICAL Hx Falls: Yes - GASTROINTESTINAL Hx Gastrointestinal Disorders: Yes (rectal bleed) - GENITOURINARY/GYNECOLOGICAL Hx Genitourinary Disorders: No Hx Reproductive Disorders: No - PSYCHIATRIC Hx Emotional Abuse: No Hx Physical Abuse: No Hx Substance Use: No - SURGICAL HISTORY Other/Comment: DVT to right leg/BYpass surgery 2015 - ANESTHESIA Hx Anesthesia: Yes Hx Anesthesia Reactions: No Hx Malignant Hyperthermia: No Meds Allergies/Adverse Reactions: Allergies Allergy/AdvReac Type Severity Reaction Status Date / Time benztropine mesylate Allergy Severe ANAPHYLAXIS Verified 12/04/18 11:24 [From Cogentin] esomeprazole magnesium Allergy Severe RASH Verified 10/16/18 11:24 [From Nexium] Penicillins Allergy Severe ANAPHYLAXIS Verified 10/16/18 11:24 Sulfa (Sulfonamide Allergy Severe RASH Verified 10/16/18 11:24 Antibiotics) - Medications Medications: Current Medications Vancomycin HCl 1.5 gm/ Sodium (Chloride) 500 mls @ 167 mls/hr IVPB ONCE ONE Stop: 12/20/18 20:14 Physical Exam - Constitutional Appears: Well, Non-toxic, No Acute Distress - Head Exam Head Exam: ATRAUMATIC, NORMOCEPHALIC - Extremities Exam Additional comments: Bilateral lower extremity examination: VASC: DP/PT pulses non-palpable bilaterally; capillary refill is almost 4 secs to all digits; Temp gradient warm to cool b/l from proximal to distal. NEURO: Gross and protective sensations are intact DERM: superficial wound noted to the dorso-lateral aspect of the left foot, 100% granular, no malodor, minimal zachary-erythema, minimal drainage, no probe to bone, no tunneling, no tracking MSK: restricted ankle ROM noted bilaterally. Mild pain on palpating the periwound area - Neurological Exam Neurological exam: Alert, Oriented x3 - Psychiatric Exam Psychiatric exam: Normal Affect, Normal Mood Results - Vital Signs Recent Vital Signs: Last Vital Signs Temp 98.1 F 12/20/18 15:20 Pulse 60 12/20/18 15:20 Resp 18 12/20/18 15:20 BP 131/55 L 12/20/18 15:20 Pulse Ox 100 12/20/18 15:20 - Labs Result Diagrams: 12/20/18 18:11 12/20/18 18:11 Assessment & Plan - Assessment and Plan (Free Text) Assessment: 63 y/o male patient seen and evaluated at the bedside in the ED for left foot wound, admitted for IV Abx Plan: Patient was seen and evaluated at bedside with attending, Dr. Verde Plan discussed in details with attending Chart, labs and vitals reviewed Wound cleansed with saline, and dressed with betadine, DSD Bactroban ordered for application to the wound Wound culture obtained Infectious disease consult placed, recommendations appreciated No plan for surgical intervention at this time. Will continue to follow patient while in house - Date & Time Date: 12/21/18 Time: 07:54 <Sudeep Verde - Last Filed: 12/21/18 14:38> Meds - Medications Medications: Current Medications Acetaminophen (Tylenol 325mg Tab) 650 mg PO Q4H PRN PRN Reason: Headache Apixaban (Eliquis) 2.5 mg PO BID COUNTS INCLUDE 234 BEDS AT THE [facility]; Protocol Last Admin: 12/21/18 10:05 Dose: 2.5 mg Atorvastatin Calcium (Lipitor) 10 mg PO HS COUNTS INCLUDE 234 BEDS AT THE [facility] Last Admin: 12/20/18 22:06 Dose: 10 mg Furosemide (Lasix) 40 mg PO BID COUNTS INCLUDE 234 BEDS AT THE [facility] Last Admin: 12/21/18 10:06 Dose: Not Given Vancomycin HCl (Vancomycin 1gm) 1 gm in 250 mls @ 167 mls/hr IVPB DAILY COUNTS INCLUDE 234 BEDS AT THE [facility]; Protocol Lisinopril (Zestril) 5 mg PO DAILY COUNTS INCLUDE 234 BEDS AT THE [facility] Metoprolol Tartrate (Lopressor) 25 mg PO BID COUNTS INCLUDE 234 BEDS AT THE [facility] Last Admin: 12/21/18 11:03 Dose: Not Given Mupirocin (Bactroban Ointment) 0 gm TOP BID COUNTS INCLUDE 234 BEDS AT THE [facility] Last Admin: 12/20/18 18:22 Dose: Not Given Results - Vital Signs Recent Vital Signs: Last Vital Signs Temp 97.8 F 12/21/18 06:00 Pulse 61 12/21/18 06:00 Resp 18 12/21/18 06:00 BP 107/48 L 12/21/18 11:03 Pulse Ox 96 12/21/18 06:00 - Labs Result Diagrams: 12/20/18 18:11 12/20/18 18:11 Labs: Laboratory Results - last 24 hr 12/20/18 12/20/18 12/20/18 17:40 18:11 18:11 WBC 5.1 RBC 3.55 Hgb 10.3 L Hct 33.1 L MCV 93.2 MCH 29.0 MCHC 31.1 RDW 14.8 H Plt Count 100 L MPV 11.2 H Neut % (Auto) 67.5 Lymph % (Auto) 24.0 [place] % (Auto) 6.3 H Eos % (Auto) 2.0 Baso % (Auto) 0.2 Lymph # (Auto) 1.2 [place] # (Auto) 0.3 Eos # (Auto) 0.1 Baso # (Auto) 0.01 Absolute Neuts (auto) 3.44 pO2 33 VBG pH 7.35 VBG pCO2 40.0 VBG HCO3 22.1 VBG Total CO2 23.3 VBG O2 Sat (Calc) 73.0 H VBG Base Excess -3.3 L VBG Potassium 4.7 Sodium 139.0 141 Chloride 111.0 H 108 H Glucose 107 Lactate 0.5 L FiO2 21.0 Potassium 4.6 Carbon Dioxide 22 Anion Gap 16 BUN 52 H Creatinine 1.9 H Est GFR ( Amer) 44 Est GFR (Non-Af Amer) 36 POC Glucose (mg/dL) Random Glucose 104 Calcium 9.7 Total Bilirubin 0.6 AST 20 ALT 7 Alkaline Phosphatase 58 Total Protein 7.8 Albumin 4.6 Globulin 3.1 Albumin/Globulin Ratio 1.5 Venous Blood Potassium 4.7 12/21/18 11:10 WBC RBC Hgb Hct MCV MCH MCHC RDW Plt Count MPV Neut % (Auto) Lymph % (Auto) [place] % (Auto) Eos % (Auto) Baso % (Auto) Lymph # (Auto) [place] # (Auto) Eos # (Auto) Baso # (Auto) Absolute Neuts (auto) pO2 VBG pH VBG pCO2 VBG HCO3 VBG Total CO2 VBG O2 Sat (Calc) VBG Base Excess VBG Potassium Sodium Chloride Glucose Lactate FiO2 Potassium Carbon Dioxide Anion Gap BUN Creatinine Est GFR ( Amer) Est GFR (Non-Af Amer) POC Glucose (mg/dL) 100 Random Glucose Calcium Total Bilirubin AST ALT Alkaline Phosphatase Total Protein Albumin Globulin Albumin/Globulin Ratio Venous Blood Potassium Attending/Attestation - Attestation I have personally seen and examined this patient.: Yes I have fully participated in the care of the patient.: Yes I have reviewed all pertinent clinical information: Yes
[2018-12-20 17:45] LABS: VENOUS BLOOD GAS BASE EXCESS -3.3 mmol/L (0.0-2.0); VENOUS BLOOD GAS PO2 33 mm/Hg (30-55); VENOUS BLOOD PH 7.35 (7.32-7.43)
[2018-12-20 18:20] LABS: BASO # 0.01 K/mm3 (0.0-2.0); BASO % 0.2 % (0.0-3.0); EOS # 0.1 (0.0-0.7); HEMOGLOBIN 10.3 g/dL (14.0-18.0); LYMPH # 1.2 (1.2-3.4); MEAN CELL VOLUME 93.2 fl (80.0-105.0); MEAN CORPUSCULAR HGB CONC 31.1 g/dl (31.0-37.0); MEAN PLATELET VOLUME 11.2 fl (7.0-11.0); MONO # 0.3 (0.1-0.6); MONO % 6.3 % (1.0-6.0); RBC 3.55 10^6/uL (3.5-6.1); RED CELL DISTRIBUTION WIDTH 14.8 % (11.5-14.5); WHITE BLOOD COUNT 5.1 10^3/uL (4.5-11.0)
[2018-12-20] MEDS: Mupirocin 2% Ointment 15 GM TUBE TOP SCH (18:22)
[2018-12-20 18:31] LABS: ALB/GLOB RATIO 1.5 (1.1-1.8); ALBUMIN 4.6 g/dL (3.0-4.8); CALCIUM 9.7 mg/dL (8.4-10.5)
--- NOTE | 2018-12-20 19:12 | US ---
PROCEDURE: Left lower extremity venous US HISTORY: Leg pain and swelling. Evaluate for DVT. PHYSICIAN(S): Suleman Hess MD. TECHNIQUE: Duplex sonography and color-flow Doppler with graded compression were used to evaluate the deep venous system of the left lower extremity. FINDINGS: The visualized deep venous system of the left lower extremity is sonographically normal and compressible. Normal wave forms and augmentation are seen. There is no sonographic evidence for deep venous thrombosis in the visualized segments of the left lower extremity. IMPRESSION: 1. No sonographic evidence for deep venous thrombosis in the visualized segments of the left lower extremity.
[2018-12-21 01:58] VITALS: BMI 29.2
--- NOTE | 2018-12-21 11:08 | RAD ---
Date of service: 12/20/2018 PROCEDURE: Left Foot Radiographs. HISTORY: pain, sub q air? COMPARISON: None. FINDINGS: BONES: Normal. No fracture. JOINTS: Normal. SOFT TISSUES: Normal. OTHER FINDINGS: None. IMPRESSION: Normal left foot radiographs.
--- NOTE | 2018-12-21 11:08 | RAD ---
Date of service: 12/20/2018 PROCEDURE: Radiographs of the left tibia and fibula. HISTORY: pain, sub q air? COMPARISON: None available. TECHNIQUE: Frontal and lateral views obtained. FINDINGS: BONES: No fracture or destructive lesion. JOINT SPACES: Unremarkable. OTHER FINDINGS: None. IMPRESSION: Unremarkable radiographs of the left tibia and fibula.
--- NOTE | 2018-12-21 12:03 | CP.PCM.HP ---
<Olena Jones - Last Filed: 12/21/18 17:52> History of Present Illness - History of Present Illness History of Present Illness: Please note patient is a poor historian 63yo male PMHx MR, PVD, CHF, COPD, HTN, NM, CVA, and DVT/PE presented to the hospital after failure of outpatient antibiotics for LLE foot ulcer. Patient sees podiatry outpatient for chronic wounds. He recently developed a new left foot ulcer, which did not respond to antibiotics and was recommended to come to [facility] [place] [facility]. Patient admits to pain in b/l feet intermittently. Denies fever, chills, headache, dizziness, chest pain, shortness of breath, cough, abd pain, nausea, vomiting, diarrhea, constipation, numbness, tingling, dysuria, weakness. PMHx: MR, PVD, CHF, COPD, HTN, NM, CVA, and DVT/PE PSurgHx: PVD bypass surgery Meds: as per chart ALL: Benztropine mesylate, Esomeprazole magnesium, Penicillins, Sulfa SocHx: Former smoker, No alcohol or illicit drug use FamHx: noncontributory Present on Admission - Present on Admission Any Indicators Present on Admission: Yes History of DVT/PE: Yes Review of Systems - Review of Systems All systems: reviewed and no additional remarkable complaints except Review of Systems: as per HPI Past Patient History - Infectious Disease Hx of Infectious Diseases: None - Past Social History Smoking Status: Former Smoker - CARDIAC Hx Cardiac Disorders: Yes Hx Hypertension: Yes - PULMONARY Hx Chronic Obstructive Pulmonary Disease (COPD): Yes - NEUROLOGICAL HX Cerebrovascular Accident: Yes - HEENT Hx HEENT Problems: Yes Other/Comment: speech impediment, 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" - RENAL Hx Chronic Kidney Disease: No - ENDOCRINE/METABOLIC Hx Diabetes Mellitus Type 2: Yes - HEMATOLOGICAL/ONCOLOGICAL Hx Blood Transfusions: No - INTEGUMENTARY Other/Comment: multiple healed wound scars r ankle and foot left ankle and foot, small wound to top of left foot red and dry, dry toenails both feet, ble light brown skin discolorations, old fading bruises b/l knees from falls, left great toe has 12 toenail surrounded by dry red skin, r great toe has 1/2 nail small dry brown wound, dry skin to toes - MUSCULOSKELETAL/RHEUMATOLOGICAL Hx Falls: Yes - GASTROINTESTINAL Hx Gastrointestinal Disorders: Yes (rectal bleed) - GENITOURINARY/GYNECOLOGICAL Hx Genitourinary Disorders: No Hx Reproductive Disorders: No - PSYCHIATRIC Hx Emotional Abuse: No Hx Physical Abuse: No Hx Substance Use: No - SURGICAL HISTORY Other/Comment: DVT to right leg/BYpass surgery 2015 - ANESTHESIA Hx Anesthesia: Yes Hx Anesthesia Reactions: No Hx Malignant Hyperthermia: No Meds Allergies/Adverse Reactions: Allergies Allergy/AdvReac Type Severity Reaction Status Date / Time benztropine mesylate Allergy Severe ANAPHYLAXIS Verified 10/16/18 11:24 [From Cogentin] esomeprazole magnesium Allergy Severe RASH Verified 10/16/18 11:24 [From Nexium] Penicillins Allergy Severe ANAPHYLAXIS Verified 10/16/18 11:24 Sulfa (Sulfonamide Allergy Severe RASH Verified 10/16/18 11:24 Antibiotics) Physical Exam - Constitutional Appears: Non-toxic, No Acute Distress - Head Exam Head Exam: ATRAUMATIC, NORMAL INSPECTION, NORMOCEPHALIC - Eye Exam Eye Exam: EOMI, Normal appearance. absent: Conjunctival injection, Scleral icterus - ENT Exam ENT Exam: Mucous Membranes Moist - Neck Exam Neck exam: Positive for: Full Rom, Normal Inspection - Respiratory Exam Respiratory Exam: Decreased Breath Sounds, NORMAL BREATHING PATTERN. absent: Accessory Muscle Use, Rales, Wheezes, Respiratory Distress - Cardiovascular Exam Cardiovascular Exam: RRR, +S1, +S2 - GI/Abdominal Exam GI & Abdominal Exam: Normal Bowel Sounds, Soft. absent: Firm, Guarding, Rigid, Tenderness - Extremities Exam Extremities exam: Positive for: normal capillary refill. Negative for: pedal edema Additional comments: L foot wrapped by podiatry R circumferential healing open wound noted on lateral aspect of foot - Neurological Exam Neurological exam: Alert, CN II-XII Intact, Oriented x3 - Psychiatric Exam Psychiatric exam: Normal Affect, Normal Mood - Skin Skin Exam: Dry, Normal Color, Warm Results - Vital Signs Recent Vital Signs: Last Vital Signs Temp 97.8 F 12/21/18 06:00 Pulse 61 12/21/18 06:00 Resp 18 12/21/18 06:00 BP 107/48 L 12/21/18 11:03 Pulse Ox 96 12/21/18 06:00 - Labs Result Diagrams: 12/20/18 18:11 12/20/18 18:11 Labs: Laboratory Results - last 24 hr 12/20/18 12/20/18 12/20/18 17:40 18:11 18:11 WBC 5.1 RBC 3.55 Hgb 10.3 L Hct 33.1 L MCV 93.2 MCH 29.0 MCHC 31.1 RDW 14.8 H Plt Count 100 L MPV 11.2 H Neut % (Auto) 67.5 Lymph % (Auto) 24.0 [place] % (Auto) 6.3 H Eos % (Auto) 2.0 Baso % (Auto) 0.2 Lymph # (Auto) 1.2 [place] # (Auto) 0.3 Eos # (Auto) 0.1 Baso # (Auto) 0.01 Absolute Neuts (auto) 3.44 pO2 33 VBG pH 7.35 VBG pCO2 40.0 VBG HCO3 22.1 VBG Total CO2 23.3 VBG O2 Sat (Calc) 73.0 H VBG Base Excess -3.3 L VBG Potassium 4.7 Sodium 139.0 141 Chloride 111.0 H 108 H Glucose 107 Lactate 0.5 L FiO2 21.0 Potassium 4.6 Carbon Dioxide 22 Anion Gap 16 BUN 52 H Creatinine 1.9 H Est GFR ( Amer) 44 Est GFR (Non-Af Amer) 36 POC Glucose (mg/dL) Random Glucose 104 Calcium 9.7 Total Bilirubin 0.6 AST 20 ALT 7 Alkaline Phosphatase 58 Total Protein 7.8 Albumin 4.6 Globulin 3.1 Albumin/Globulin Ratio 1.5 Venous Blood Potassium 4.7 12/21/18 11:10 WBC RBC Hgb Hct MCV MCH MCHC RDW Plt Count MPV Neut % (Auto) Lymph % (Auto) [place] % (Auto) Eos % (Auto) Baso % (Auto) Lymph # (Auto) [place] # (Auto) Eos # (Auto) Baso # (Auto) Absolute Neuts (auto) pO2 VBG pH VBG pCO2 VBG HCO3 VBG Total CO2 VBG O2 Sat (Calc) VBG Base Excess VBG Potassium Sodium Chloride Glucose Lactate FiO2 Potassium Carbon Dioxide Anion Gap BUN Creatinine Est GFR ( Amer) Est GFR (Non-Af Amer) POC Glucose (mg/dL) 100 Random Glucose Calcium Total Bilirubin AST ALT Alkaline Phosphatase Total Protein Albumin Globulin Albumin/Globulin Ratio Venous Blood Potassium Assessment & Plan - Assessment and Plan (Free Text) Assessment: -Left foot ulcer -RITCHIE on CKD -PVD -CHF -COPD -HTN -CVA -DVT/PE -Cognitive impairment Plan: Patient admitted to med/surg for further management. ID and Podiatry consulted. Will continue Vancomycin and f/u sepsis workup. f/u MRI and DMITRY. Left Tib/fib x- rays reviewed and LE duplex unremarkable. Wound cleansed with saline, and dressed with bactroban, DSD. As per podiatry no plans for surgical intervention at this time. Continue renally dosed elqiuis for DVT/PE and Lipitor. Continue home lasix, lisinopril, and lopressor for hx of CHF and HTN. Continue topical bactroban. If patient becomes agitated/confused recommend redirection. Will continue to manage closely. Discussed with Dr. Marium Jones PGY3 <Jose Causey S - Last Filed: 12/24/18 20:59> Results - Vital Signs Recent Vital Signs: Last Vital Signs Temp 97.6 F 12/24/18 15:21 Pulse 58 L 12/24/18 17:51 Resp 18 12/24/18 15:21 BP 118/55 L 12/24/18 17:51 Pulse Ox 98 12/24/18 15:21 - Labs Result Diagrams: 12/24/18 06:30 12/24/18 06:30 Labs: Laboratory Results - last 24 hr 12/24/18 12/24/18 06:30 06:30 WBC 4.9 RBC 3.89 Hgb 11.2 L Hct 36.1 L MCV 92.8 MCH 28.8 MCHC 31.0 RDW 14.4 Plt Count 94 L MPV 11.4 H Sodium 141 Potassium 4.6 Chloride 108 H Carbon Dioxide 27 Anion Gap 10 BUN 34 H Creatinine 1.4 Est GFR ( Amer) > 60 Est GFR (Non-Af Amer) 52 Random Glucose 99 Calcium 9.6 Total Bilirubin 0.4 AST 20 ALT 10 Alkaline Phosphatase 54 Total Protein 7.3 Albumin 4.2 Globulin 3.1 Albumin/Globulin Ratio 1.4 Assessment & Plan - Assessment and Plan (Free Text) Plan: Pt seen and examined by me. This is a late entry. I have reviewed the note of the curator medical museum and I agree with it. I have discussed the assessment and plan with the resident. I have reviewed the medications and the last labs.Pt with L foot ulcer and is on IV Abx. MRI ordered to r/o Osteo. Pt is on Eliquis for DVT. On Lipitor for dyslipidemia.
--- NOTE | 2018-12-21 13:24 | CP.PCM.PN ---
<Kimberley Wang - Last Filed: 12/21/18 13:24> Subjective - Date & Time of Evaluation Date of Evaluation: 12/21/18 Time of Evaluation: 13:21 - Subjective Subjective: Podiatry consult note for Dr. Verde 63 y/o male patient was seen and evaluated at bedside with attending, Dr. Verde for left foot wound. Patient was sent to the ER for IV Abx as patient has failed outpatient treatment at this time. Patient is poor historian. He denies any other pedal complaint at this time. He denies any recent N/V or D. Objective - Vital Signs/Intake and Output Vital Signs (last 24 hours): Temp Pulse Resp BP Pulse Ox 97.8 F 61 18 107/48 L 96 12/21/18 06:00 12/21/18 06:00 12/21/18 06:00 12/21/18 11:03 12/21/18 06:00 Intake and Output: 12/21/18 12/21/18 06:59 18:59 Intake Total 250 Balance 250 - Medications Medications: Current Medications Acetaminophen (Tylenol 325mg Tab) 650 mg PO Q4H PRN PRN Reason: Headache Apixaban (Eliquis) 2.5 mg PO BID [facility]; Protocol Last Admin: 12/21/18 10:05 Dose: 2.5 mg Atorvastatin Calcium (Lipitor) 10 mg PO HS [facility] Last Admin: 12/20/18 22:06 Dose: 10 mg Furosemide (Lasix) 40 mg PO BID [facility] Last Admin: 12/21/18 10:06 Dose: Not Given Lisinopril (Zestril) 5 mg PO DAILY [facility] Metoprolol Tartrate (Lopressor) 25 mg PO BID [facility] Last Admin: 12/21/18 11:03 Dose: Not Given Mupirocin (Bactroban Ointment) 0 gm TOP BID [facility] Last Admin: 12/20/18 18:22 Dose: Not Given - Labs Labs: 12/20/18 18:11 12/20/18 18:11 - Constitutional Appears: Well, Non-toxic, No Acute Distress - Head Exam Head Exam: ATRAUMATIC, NORMOCEPHALIC - Extremities Exam Additional comments: Bilateral lower extremity examination: VASC: DP/PT pulses non-palpable bilaterally; capillary refill is almost 4 secs to all digits; Temp gradient warm to cool b/l from proximal to distal. NEURO: Gross and protective sensations are intact DERM: superficial wound noted to the dorso-lateral aspect of the left foot, 100% granular, no malodor, minimal zachary-erythema, minimal drainage, no probe to bone, no tunneling, no tracking; small superficial wound noted to the lateral aspect of the right leg, 100% granular, no malodor, minimal zachary-erythema, minimal drainage, no probe to bone, no tunneling, no tracking MSK: restricted ankle ROM noted bilaterally. Mild pain on palpating the periwound area - Neurological Exam Neurological Exam: Alert, Awake, Oriented x3 - Psychiatric Exam Psychiatric exam: Normal Affect, Normal Mood Assessment and Plan - Assessment and Plan (Free Text) Assessment: 63 y/o male patient seen and evaluated at the bedside in the ED for left foot wound, admitted for IV Abx Plan: Patient was seen and evaluated at bedside with attending, Dr. Verde Plan discussed in details with attending Chart, labs and vitals reviewed Left foot X-ray: normal radiographs Wound cleansed with saline, and dressed with bactroban, DSD Wound culture obtained Infectious disease consult placed, recommendations appreciated No plan for surgical intervention at this time Will continue to follow patient while in house <Sudeep Verde - Last Filed: 12/21/18 14:36> Objective - Vital Signs/Intake and Output Vital Signs (last 24 hours): Temp Pulse Resp BP Pulse Ox 97.8 F 61 18 107/48 L 96 12/21/18 06:00 12/21/18 06:00 12/21/18 06:00 12/21/18 11:03 12/21/18 06:00 Intake and Output: 12/21/18 12/21/18 06:59 18:59 Intake Total 250 Balance 250 - Medications Medications: Current Medications Acetaminophen (Tylenol 325mg Tab) 650 mg PO Q4H PRN PRN Reason: Headache Apixaban (Eliquis) 2.5 mg PO BID [facility]; Protocol Last Admin: 12/21/18 10:05 Dose: 2.5 mg Atorvastatin Calcium (Lipitor) 10 mg PO HS [facility] Last Admin: 12/20/18 22:06 Dose: 10 mg Furosemide (Lasix) 40 mg PO BID [facility] Last Admin: 12/21/18 10:06 Dose: Not Given Vancomycin HCl (Vancomycin 1gm) 1 gm in 250 mls @ 167 mls/hr IVPB DAILY [facility]; Protocol Lisinopril (Zestril) 5 mg PO DAILY [facility] Metoprolol Tartrate (Lopressor) 25 mg PO BID [facility] Last Admin: 12/21/18 11:03 Dose: Not Given Mupirocin (Bactroban Ointment) 0 gm TOP BID [facility] Last Admin: 12/20/18 18:22 Dose: Not Given - Labs Labs: 12/20/18 18:11 12/20/18 18:11 Attending/Attestation - Attestation I have personally seen and examined this patient.: Yes I have fully participated in the care of the patient.: Yes I have reviewed all pertinent clinical information, including history, physical exam and plan: Yes
--- NOTE | 2018-12-21 13:54 | CP.PCM.CON ---
<Calin Chandler - Last Filed: 12/21/18 13:55> History of Present Illness - History of Present Illness History of Present Illness: ID Consult Note 63 year old male with past medical history of MR, PVD, CHF, COPD, HTN, LA, CVA, and DVT/PE presented to the hospital after failure of outpatient antibiotics for left lower extremity foot ulcer. Patient is a poor historian. Patient sees podiatry outpatient for chronic wounds. He recently developed a new left foot ulcer, which did not respond to antibiotics. Patient unsure of which antibiotic. Patient recommended to come to the hospital for IV antibiotics. Patient admits to pain in b/l feet intermittently. Denies chest pain, shortness of breath, nausea, vomiting, diarrhea, fever, chills, numbness, tingling, dysuria, weakness. Medical Hx: As above Surgical Hx: PVD bypass surgery Allergies: Benztropine mesylate, Esomeprazole magnesium, Penicillins, Sulfa Social Hx: Former smoker, No alcohol or illicit drug use Medications: Reviewed, as per MAR Review of Systems - Review of Systems Review of Systems: 12 point ROS as per HPI, otherwise negative Past Patient History - Infectious Disease Hx of Infectious Diseases: None - Past Social History Smoking Status: Former Smoker - CARDIAC Hx Cardiac Disorders: Yes Hx Hypertension: Yes - PULMONARY Hx Chronic Obstructive Pulmonary Disease (COPD): Yes - NEUROLOGICAL HX Cerebrovascular Accident: Yes - HEENT Hx HEENT Problems: Yes Other/Comment: speech impediment, 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" - RENAL Hx Chronic Kidney Disease: No - ENDOCRINE/METABOLIC Hx Diabetes Mellitus Type 2: Yes - HEMATOLOGICAL/ONCOLOGICAL Hx Blood Transfusions: No - INTEGUMENTARY Other/Comment: multiple healed wound scars r ankle and foot left ankle and foot, small wound to top of left foot red and dry, dry toenails both feet, ble light brown skin discolorations, old fading bruises b/l knees from falls, left great toe has 12 toenail surrounded by dry red skin, r great toe has 1/2 nail small dry brown wound, dry skin to toes - MUSCULOSKELETAL/RHEUMATOLOGICAL Hx Falls: Yes - GASTROINTESTINAL Hx Gastrointestinal Disorders: Yes (rectal bleed) - GENITOURINARY/GYNECOLOGICAL Hx Genitourinary Disorders: No Hx Reproductive Disorders: No - PSYCHIATRIC Hx Emotional Abuse: No Hx Physical Abuse: No Hx Substance Use: No - SURGICAL HISTORY Other/Comment: DVT to right leg/BYpass surgery 2015 - ANESTHESIA Hx Anesthesia: Yes Hx Anesthesia Reactions: No Hx Malignant Hyperthermia: No Meds Allergies/Adverse Reactions: Allergies Allergy/AdvReac Type Severity Reaction Status Date / Time benztropine mesylate Allergy Severe ANAPHYLAXIS Verified 10/16/18 11:24 [From Cogentin] esomeprazole magnesium Allergy Severe RASH Verified 10/16/18 11:24 [From Nexium] Penicillins Allergy Severe ANAPHYLAXIS Verified 10/16/18 11:24 Sulfa (Sulfonamide Allergy Severe RASH Verified 10/16/18 11:24 Antibiotics) - Medications Medications: Current Medications Acetaminophen (Tylenol 325mg Tab) 650 mg PO Q4H PRN PRN Reason: Headache Apixaban (Eliquis) 2.5 mg PO BID [facility]; Protocol Last Admin: 12/21/18 10:05 Dose: 2.5 mg Atorvastatin Calcium (Lipitor) 10 mg PO [facility] Last Admin: 12/20/18 22:06 Dose: 10 mg Furosemide (Lasix) 40 mg PO BID [facility] Last Admin: 12/21/18 10:06 Dose: Not Given Lisinopril (Zestril) 5 mg PO DAILY [facility] Metoprolol Tartrate (Lopressor) 25 mg PO BID [facility] Last Admin: 12/21/18 11:03 Dose: Not Given Mupirocin (Bactroban Ointment) 0 gm TOP BID [facility] Last Admin: 12/20/18 18:22 Dose: Not Given Physical Exam - Constitutional Appears: Non-toxic, No Acute Distress - Head Exam Head Exam: ATRAUMATIC, NORMAL INSPECTION, NORMOCEPHALIC - ENT Exam ENT Exam: Mucous Membranes Moist - Respiratory Exam Respiratory Exam: Decreased Breath Sounds, NORMAL BREATHING PATTERN - Cardiovascular Exam Cardiovascular Exam: RRR, +S1, +S2 - GI/Abdominal Exam GI & Abdominal Exam: Normal Bowel Sounds, Soft. absent: Tenderness - Extremities Exam Extremities exam: Negative for: pedal edema Additional comments: Left foot bandaged. No erythema, no edema. - Neurological Exam Neurological exam: Alert, Oriented x3 - Psychiatric Exam Psychiatric exam: Normal Affect, Normal Mood - Skin Skin Exam: Intact, Normal Color, Warm Results - Vital Signs Recent Vital Signs: Last Vital Signs Temp 97.8 F 12/21/18 06:00 Pulse 61 12/21/18 06:00 Resp 18 12/21/18 06:00 BP 107/48 L 12/21/18 11:03 Pulse Ox 96 12/21/18 06:00 - Labs Result Diagrams: 12/20/18 18:11 12/20/18 18:11 Labs: Laboratory Results - last 24 hr 12/20/18 12/20/18 12/20/18 17:40 18:11 18:11 WBC 5.1 RBC 3.55 Hgb 10.3 L Hct 33.1 L MCV 93.2 MCH 29.0 MCHC 31.1 RDW 14.8 H Plt Count 100 L MPV 11.2 H Neut % (Auto) 67.5 Lymph % (Auto) 24.0 [place] % (Auto) 6.3 H Eos % (Auto) 2.0 Baso % (Auto) 0.2 Lymph # (Auto) 1.2 [place] # (Auto) 0.3 Eos # (Auto) 0.1 Baso # (Auto) 0.01 Absolute Neuts (auto) 3.44 pO2 33 VBG pH 7.35 VBG pCO2 40.0 VBG HCO3 22.1 VBG Total CO2 23.3 VBG O2 Sat (Calc) 73.0 H VBG Base Excess -3.3 L VBG Potassium 4.7 Sodium 139.0 141 Chloride 111.0 H 108 H Glucose 107 Lactate 0.5 L FiO2 21.0 Potassium 4.6 Carbon Dioxide 22 Anion Gap 16 BUN 52 H Creatinine 1.9 H Est GFR ( Amer) 44 Est GFR (Non-Af Amer) 36 POC Glucose (mg/dL) Random Glucose 104 Calcium 9.7 Total Bilirubin 0.6 AST 20 ALT 7 Alkaline Phosphatase 58 Total Protein 7.8 Albumin 4.6 Globulin 3.1 Albumin/Globulin Ratio 1.5 Venous Blood Potassium 4.7 12/21/18 11:10 WBC RBC Hgb Hct MCV MCH MCHC RDW Plt Count MPV Neut % (Auto) Lymph % (Auto) [place] % (Auto) Eos % (Auto) Baso % (Auto) Lymph # (Auto) [place] # (Auto) Eos # (Auto) Baso # (Auto) Absolute Neuts (auto) pO2 VBG pH VBG pCO2 VBG HCO3 VBG Total CO2 VBG O2 Sat (Calc) VBG Base Excess VBG Potassium Sodium Chloride Glucose Lactate FiO2 Potassium Carbon Dioxide Anion Gap BUN Creatinine Est GFR ( Amer) Est GFR (Non-Af Amer) POC Glucose (mg/dL) 100 Random Glucose Calcium Total Bilirubin AST ALT Alkaline Phosphatase Total Protein Albumin Globulin Albumin/Globulin Ratio Venous Blood Potassium Assessment & Plan - Assessment and Plan (Free Text) Plan: Left foot ulcer, R/O osteomyelitis Hx of HTN Hx of HLD Hx of PVD Hx of CHF Hx of CVA Hx of cognitive impairment Plan Continue Vancomycin Will follow up wound and blood cultures DMITRY's ordered MRI ordered Foot and tibia/fibula x-rays reviewed Duplex US negative for DVT Continue to monitor closely Ramesh, PGY-3 <Clovis Daniel S - Last Filed: 12/21/18 16:29> Meds - Medications Medications: Current Medications Acetaminophen (Tylenol 325mg Tab) 650 mg PO Q4H PRN PRN Reason: Headache Apixaban (Eliquis) 2.5 mg PO BID [facility]; Protocol Last Admin: 12/21/18 10:05 Dose: 2.5 mg Atorvastatin Calcium (Lipitor) 10 mg PO HS [facility] Last Admin: 12/20/18 22:06 Dose: 10 mg Furosemide (Lasix) 40 mg PO BID [facility] Last Admin: 12/21/18 10:06 Dose: Not Given Vancomycin HCl (Vancomycin 1gm) 1 gm in 250 mls @ 167 mls/hr IVPB DAILY [facility]; Protocol Lisinopril (Zestril) 5 mg PO DAILY [facility] Last Admin: 12/21/18 10:20 Dose: 5 mg Metoprolol Tartrate (Lopressor) 25 mg PO BID [facility] Last Admin: 12/21/18 11:03 Dose: Not Given Mupirocin (Bactroban Ointment) 0 gm TOP BID [facility] Last Admin: 12/20/18 18:22 Dose: Not Given Results - Vital Signs Recent Vital Signs: Last Vital Signs Temp 97.8 F 12/21/18 06:00 Pulse 61 12/21/18 06:00 Resp 18 12/21/18 06:00 BP 107/48 L 12/21/18 11:03 Pulse Ox 96 12/21/18 06:00 - Labs Result Diagrams: 12/20/18 18:11 12/20/18 18:11 Labs: Laboratory Results - last 24 hr 12/20/18 12/20/18 12/20/18 17:40 18:11 18:11 WBC 5.1 RBC 3.55 Hgb 10.3 L Hct 33.1 L MCV 93.2 MCH 29.0 MCHC 31.1 RDW 14.8 H Plt Count 100 L MPV 11.2 H Neut % (Auto) 67.5 Lymph % (Auto) 24.0 [place] % (Auto) 6.3 H Eos % (Auto) 2.0 Baso % (Auto) 0.2 Lymph # (Auto) 1.2 [place] # (Auto) 0.3 Eos # (Auto) 0.1 Baso # (Auto) 0.01 Absolute Neuts (auto) 3.44 pO2 33 VBG pH 7.35 VBG pCO2 40.0 VBG HCO3 22.1 VBG Total CO2 23.3 VBG O2 Sat (Calc) 73.0 H VBG Base Excess -3.3 L VBG Potassium 4.7 Sodium 139.0 141 Chloride 111.0 H 108 H Glucose 107 Lactate 0.5 L FiO2 21.0 Potassium 4.6 Carbon Dioxide 22 Anion Gap 16 BUN 52 H Creatinine 1.9 H Est GFR ( Amer) 44 Est GFR (Non-Af Amer) 36 POC Glucose (mg/dL) Random Glucose 104 Calcium 9.7 Total Bilirubin 0.6 AST 20 ALT 7 Alkaline Phosphatase 58 Total Protein 7.8 Albumin 4.6 Globulin 3.1 Albumin/Globulin Ratio 1.5 Venous Blood Potassium 4.7 12/21/18 11:10 WBC RBC Hgb Hct MCV MCH MCHC RDW Plt Count MPV Neut % (Auto) Lymph % (Auto) [place] % (Auto) Eos % (Auto) Baso % (Auto) Lymph # (Auto) [place] # (Auto) Eos # (Auto) Baso # (Auto) Absolute Neuts (auto) pO2 VBG pH VBG pCO2 VBG HCO3 VBG Total CO2 VBG O2 Sat (Calc) VBG Base Excess VBG Potassium Sodium Chloride Glucose Lactate FiO2 Potassium Carbon Dioxide Anion Gap BUN Creatinine Est GFR ( Amer) Est GFR (Non-Af Amer) POC Glucose (mg/dL) 100 Random Glucose Calcium Total Bilirubin AST ALT Alkaline Phosphatase Total Protein Albumin Globulin Albumin/Globulin Ratio Venous Blood Potassium Assessment & Plan - Assessment and Plan (Free Text) Plan: Infectious diseases Attending Physician Attestation Patient seen and examined, discussed with director medical surgical. I have reviewed the patient's history of present illness, past medical, social, personal and family histories, pertinent physical exam findings, course so far in this hospital admission, pertinent laboratory and imaging results. I agree with the above findings, assessment and plan. In addition, started Vancomycin IV for patient with left foot ulcer, infected need to rule out osteomyelitis. Follow up wound cx, blood c, MRI of the foot. Discussed with Podiatry. Will also await DMITRY's.
--- NOTE | 2018-12-21 15:44 | MRI ---
Date of service: 12/21/2018 PROCEDURE: MRI of the left foot without contrast HISTORY: r/o osteo COMPARISON: TECHNIQUE: MRI of the left foot was performed in multiple planes using multiple pulse sequences. FINDINGS: There is no bone marrow edema to suggest osteomyelitis or fracture. There is no significant soft tissue swelling or subcutaneous edema. The plantar fascia is normal in thickness. There is no focal collection. IMPRESSION: No evidence of osteomyelitis
--- NOTE | 2018-12-21 17:39 | CARD ---
APPROVED REPORT Date of service: 12/20/2018 EKG Measurement Heart [id number] <Conclusion> Sinus rhythm with 1st degree AV block with fusion complexes Left bundle branch block Abnormal ECG
[2018-12-21] MEDS: Mupirocin 2% Ointment 15 GM TUBE TOP SCH (18:20)
[2018-12-22] MEDS ORDERED: Vancomycin 1gm in NS 250ml 1 GM/250 ML BAG IVPB SCH (10:00)
--- NOTE | 2018-12-22 11:39 | CP.PCM.PN ---
<Kimberley Wang - Last Filed: 12/22/18 11:37> Subjective - Date & Time of Evaluation Date of Evaluation: 12/22/18 Time of Evaluation: 11:37 - Subjective Subjective: Podiatry consult note for Dr. Verde 63 y/o male patient was seen and evaluated at bedside with attending, Dr. Verde for left foot wound. Patient was sent to the ER for IV Abx as patient has failed outpatient treatment at this time. Patient states he feels much better today, He denies any other pedal complaint at this time. He denies any recent N/V or D. Objective - Vital Signs/Intake and Output Vital Signs (last 24 hours): Temp Pulse Resp BP Pulse Ox 97.8 F 63 20 112/56 L 98 12/22/18 06:00 12/22/18 10:02 12/22/18 06:00 12/22/18 10:02 12/22/18 06:00 Intake and Output: 12/22/18 12/22/18 06:59 18:59 Intake Total 660 Output Total 400 Balance 260 - Medications Medications: Current Medications Acetaminophen (Tylenol 325mg Tab) 650 mg PO Q4H PRN PRN Reason: Headache Last Admin: 12/21/18 17:38 Dose: 650 mg Apixaban (Eliquis) 2.5 mg PO BID [facility]; Protocol Last Admin: 12/22/18 10:01 Dose: 2.5 mg Atorvastatin Calcium (Lipitor) 10 mg PO HS [facility] Last Admin: 12/21/18 21:44 Dose: 10 mg Furosemide (Lasix) 40 mg PO BID [facility] Last Admin: 12/22/18 10:01 Dose: Not Given Vancomycin HCl (Vancomycin 1gm) 1 gm in 250 mls @ 167 mls/hr IVPB DAILY [facility]; Protocol Last Admin: 12/22/18 10:02 Dose: 167 mls/hr Lisinopril (Zestril) 5 mg PO DAILY [facility] Last Admin: 12/22/18 10:02 Dose: Not Given Metoprolol Tartrate (Lopressor) 25 mg PO BID [facility] Last Admin: 12/22/18 10:02 Dose: Not Given Mupirocin (Bactroban Ointment) 0 gm TOP BID [facility] Last Admin: 12/21/18 18:20 Dose: Not Given - Labs Labs: 12/20/18 18:11 12/20/18 18:11 - Constitutional Appears: Well, Non-toxic, No Acute Distress - Head Exam Head Exam: ATRAUMATIC, NORMOCEPHALIC - Extremities Exam Additional comments: Bilateral lower extremity examination: VASC: DP/PT pulses non-palpable bilaterally; capillary refill is almost 4 secs to all digits; Temp gradient warm to cool b/l from proximal to distal. NEURO: Gross and protective sensations are intact DERM: superficial wound noted to the dorso-lateral aspect of the left foot, 100% granular, no malodor, minimal zachary-erythema, minimal drainage, no probe to bone, no tunneling, no tracking; small superficial wound noted to the lateral aspect of the right leg, 100% granular, no malodor, minimal zachary-erythema, minimal drainage, no probe to bone, no tunneling, no tracking MSK: restricted ankle ROM noted bilaterally. Mild pain on palpating the periwound area - Neurological Exam Neurological Exam: Alert, Awake, Oriented x3 - Psychiatric Exam Psychiatric exam: Normal Affect, Normal Mood Assessment and Plan - Assessment and Plan (Free Text) Assessment: 63 y/o male patient seen and evaluated at the bedside in the ED for left foot wound, admitted for IV Abx Plan: Patient was seen and evaluated at bedside with attending, Dr. Verde Plan discussed in details with attending Chart, labs and vitals reviewed Left foot X-ray: normal radiographs Wound cleansed with saline, and dressed with xeroform, bactroban, DSD Wound culture obtained Infectious disease consult placed, recommendations appreciated Vascular Consult place, recommendations appreciated No plan for surgical intervention at this time Will continue to follow patient while in house <Sudeep Verde - Last Filed: 12/24/18 09:28> Objective - Vital Signs/Intake and Output Vital Signs (last 24 hours): Temp Pulse Resp BP Pulse Ox 97.7 F 60 18 124/76 98 12/24/18 06:00 12/24/18 06:00 12/24/18 06:00 12/24/18 06:00 12/24/18 06:00 Intake and Output: 12/24/18 12/24/18 06:59 18:59 Intake Total 540 Output Total 1100 Balance -560 - Medications Medications: Current Medications Acetaminophen (Tylenol 325mg Tab) 650 mg PO Q4H PRN PRN Reason: Headache Last Admin: 12/21/18 17:38 Dose: 650 mg Apixaban (Eliquis) 2.5 mg PO BID [facility]; Protocol Last Admin: 12/23/18 17:32 Dose: 2.5 mg Atorvastatin Calcium (Lipitor) 10 mg PO HS [facility] Last Admin: 12/23/18 22:00 Dose: Not Given Furosemide (Lasix) 40 mg PO BID [facility] Last Admin: 12/23/18 17:33 Dose: 40 mg Daptomycin 570 mg/ Sodium (Chloride) 100 mls @ 100 mls/hr IV Q24H [facility] Stop: 12/31/18 19:16 Last Admin: 12/23/18 18:27 Dose: 100 mls/hr Lisinopril (Zestril) 5 mg PO DAILY [facility] Last Admin: 12/23/18 10:39 Dose: 5 mg Metoprolol Tartrate (Lopressor) 25 mg PO BID [facility] Last Admin: 12/23/18 17:48 Dose: Not Given Mupirocin (Bactroban Ointment) 0 gm TOP BID [facility] Last Admin: 12/23/18 17:48 Dose: Not Given - Labs Labs: 12/24/18 06:30 12/24/18 06:30 Attending/Attestation - Attestation I have personally seen and examined this patient.: Yes I have fully participated in the care of the patient.: Yes I have reviewed all pertinent clinical information, including history, physical exam and plan: Yes
[2018-12-22] MEDS: Mupirocin 2% Ointment 15 GM TUBE TOP SCH ×3 (14:00→21:21)
[2018-12-22] MEDS ORDERED: DAPTOmycin 500 mg Inj (Cubicin) IV SCH (19:15)
--- NOTE | 2018-12-23 00:11 | PN ---
DATE: 12/22/2018 SUBJECTIVE: The patient is in bed, in no acute distress, nontoxic. PHYSICAL EXAMINATION: VITAL SIGNS: Temperature is 97, blood pressure is 115/70, respiratory rate 20. HEENT: Unremarkable. NECK: Supple. LUNGS: Decreased breath sounds. HEART: Normal S1, S2. ABDOMEN: Soft, nontender. LABORATORY DATA: White count of 5.1, hemoglobin of 10, platelets of 100. Chemistries reveals a BUN of 52, creatinine of 1.9. Microbiology reveals Staph aureus from the left foot. Review of orders reveals the patient to be on IV vancomycin. The sensitivity of the vancomycin is pending. ASSESSMENT AND PLAN: A 63-year-old male with peripheral vascular disease, congestive heart failure, chronic obstructive lung disease, hypertension, myocardial infarction, cerebrovascular accident with left foot ulcer, wants to rule out underlying osteomyelitis, on vancomycin. MRI, there is no evidence of osteomyelitis. Concerned about the vancomycin and renal insufficiency. We will switch to daptomycin at 6 mg/kg and discontinue the vancomycin. We will check on the sensitivity of Staph which is pending and will make further recommendations. We will also check on the creatine phosphokinase. Paras Francis MD
--- NOTE | 2018-12-23 00:23 | PN ---
DATE: 12/22/2018 SUBJECTIVE: The patient has no complaints. No headaches. No dizziness. No nausea. PHYSICAL EXAMINATION: VITAL SIGNS: Temperature is 97.9, pulse of 81, blood pressure is 120/68, respirations 20. GENERAL: The patient is lying in bed, flat, comfortable. HEENT: No oral lesion. Anicteric sclerae. Moist mucosa. NECK: No JVD, adenopathy, or thyromegaly. CARDIOVASCULAR: S1 and S2, regular. No murmurs, rubs, or gallops. LUNGS: Clear to auscultation bilaterally. No wheeze, rales, or rhonchi. ABDOMEN: Bowel sounds are positive, soft, nontender and nondistended. EXTREMITIES: no cyanosis, clubbing or edema. LABS: White count of 5.1, hemoglobin 10.3, creatinine is 1.9. ASSESSMENT: 1. Left foot cellulitis. 2. Acute kidney injury. 3. Peripheral arterial disease. 4. Chronic obstructive pulmonary disease. 5. Congestive heart failure secondary to systolic dysfunction. 6. Systolic dysfunction, stable. 7. Hypertension. 8. Deep venous thrombosis/pulmonary embolism. 9. PENICILLIN ALLERGY. PLAN: The patient is currently receiving IV antibiotics daptomycin. The patient has a penicillin allergy. The patient is on apixaban for anticoagulation. He is on atorvastatin for dyslipidemia. He is going to continue with Lopressor. He is on Zestril for his hypertension. The patient is on a heart-healthy diet. We will continue with current treatment. The patient is being seen by Podiatry. I appreciate their input. I did review the note from Podiatry today. Jose Causey MD
[2018-12-23] MEDS: Mupirocin 2% Ointment 15 GM TUBE TOP SCH ×2 (12:15→17:48)
--- NOTE | 2018-12-23 12:52 | CP.PCM.PN ---
<Rose Wangrocio - Last Filed: 12/23/18 12:51> Subjective - Date & Time of Evaluation Date of Evaluation: 12/23/18 Time of Evaluation: 12:51 - Subjective Subjective: Podiatry consult note for Dr. Verde 63 y/o male patient was seen and evaluated at bedside for left foot wound. Patient was sent to the ER for IV Abx as patient has failed outpatient treatment at this time. Patient states he feels much better today, He denies any other pedal complaint at this time. He denies any recent N/V or D. Objective - Vital Signs/Intake and Output Vital Signs (last 24 hours): Temp Pulse Resp BP Pulse Ox 97.4 F L 56 L 20 130/68 100 12/23/18 06:00 12/23/18 10:50 12/23/18 06:00 12/23/18 10:50 12/23/18 06:00 Intake and Output: 12/23/18 12/23/18 06:59 18:59 Intake Total 540 Output Total 400 Balance 140 - Medications Medications: Current Medications Acetaminophen (Tylenol 325mg Tab) 650 mg PO Q4H PRN PRN Reason: Headache Last Admin: 12/21/18 17:38 Dose: 650 mg Apixaban (Eliquis) 2.5 mg PO BID [facility]; Protocol Last Admin: 12/23/18 10:38 Dose: 2.5 mg Atorvastatin Calcium (Lipitor) 10 mg PO HS [facility] Last Admin: 12/22/18 21:47 Dose: 10 mg Furosemide (Lasix) 40 mg PO BID [facility] Last Admin: 12/23/18 10:38 Dose: 40 mg Daptomycin 570 mg/ Sodium (Chloride) 100 mls @ 100 mls/hr IV Q24H [facility] Stop: 12/31/18 19:16 Last Admin: 12/22/18 21:47 Dose: 100 mls/hr Lisinopril (Zestril) 5 mg PO DAILY [facility] Last Admin: 12/23/18 10:39 Dose: 5 mg Metoprolol Tartrate (Lopressor) 25 mg PO BID [facility] Last Admin: 12/23/18 10:54 Dose: Not Given Mupirocin (Bactroban Ointment) 0 gm TOP BID [facility] Last Admin: 12/23/18 12:15 Dose: Not Given - Labs Labs: 12/20/18 18:11 12/20/18 18:11 - Constitutional Appears: Well, Non-toxic, No Acute Distress - Head Exam Head Exam: ATRAUMATIC, NORMOCEPHALIC - Extremities Exam Additional comments: Bilateral lower extremity examination: VASC: DP/PT pulses non-palpable bilaterally; capillary refill is almost 4 secs to all digits; Temp gradient warm to cool b/l from proximal to distal. NEURO: Gross and protective sensations are intact DERM: superficial wound noted to the dorso-lateral aspect of the left foot, 100% granular, no malodor, minimal zachary-erythema, minimal drainage, no probe to bone, no tunneling, no tracking; small superficial wound noted to the lateral aspect of the right leg, 100% granular, no malodor, minimal zachary-erythema, minimal drainage, no probe to bone, no tunneling, no tracking MSK: restricted ankle ROM noted bilaterally. Mild pain on palpating the periwound area - Neurological Exam Neurological Exam: Alert, Awake, Oriented x3 - Psychiatric Exam Psychiatric exam: Normal Affect, Normal Mood Assessment and Plan - Assessment and Plan (Free Text) Assessment: 63 y/o male patient seen and evaluated at the bedside for left foot wound, admitted for IV Abx Plan: Patient was seen and evaluated at bedside Plan discussed in details with attending Chart, labs and vitals reviewed Left foot X-ray: normal radiographs Wound cleansed with saline, and dressed with xeroform, bactroban, DSD Wound cultur: MRSA Infectious disease consult placed, recommendations appreciated Vascular Consult place, recommendations appreciated No plan for surgical intervention at this time Will continue to follow patient while in house <Sudeep Verde - Last Filed: 12/24/18 09:25> Objective - Vital Signs/Intake and Output Vital Signs (last 24 hours): Temp Pulse Resp BP Pulse Ox 97.7 F 60 18 124/76 98 12/24/18 06:00 12/24/18 06:00 12/24/18 06:00 12/24/18 06:00 12/24/18 06:00 Intake and Output: 12/24/18 12/24/18 06:59 18:59 Intake Total 540 Output Total 1100 Balance -560 - Medications Medications: Current Medications Acetaminophen (Tylenol 325mg Tab) 650 mg PO Q4H PRN PRN Reason: Headache Last Admin: 12/21/18 17:38 Dose: 650 mg Apixaban (Eliquis) 2.5 mg PO BID [facility]; Protocol Last Admin: 12/23/18 17:32 Dose: 2.5 mg Atorvastatin Calcium (Lipitor) 10 mg PO HS [facility] Last Admin: 12/23/18 22:00 Dose: Not Given Furosemide (Lasix) 40 mg PO BID [facility] Last Admin: 12/23/18 17:33 Dose: 40 mg Daptomycin 570 mg/ Sodium (Chloride) 100 mls @ 100 mls/hr IV Q24H [facility] Stop: 12/31/18 19:16 Last Admin: 12/23/18 18:27 Dose: 100 mls/hr Lisinopril (Zestril) 5 mg PO DAILY [facility] Last Admin: 12/23/18 10:39 Dose: 5 mg Metoprolol Tartrate (Lopressor) 25 mg PO BID [facility] Last Admin: 12/23/18 17:48 Dose: Not Given Mupirocin (Bactroban Ointment) 0 gm TOP BID [facility] Last Admin: 12/23/18 17:48 Dose: Not Given - Labs Labs: 12/24/18 06:30 12/24/18 06:30 Attending/Attestation - Attestation I have personally seen and examined this patient.: Yes I have fully participated in the care of the patient.: Yes I have reviewed all pertinent clinical information, including history, physical exam and plan: Yes
--- NOTE | 2018-12-23 13:10 | PN ---
DATE: 12/23/2018 SUBJECTIVE: The patient has no complaints of any chest pain or shortness of breath. No headaches or dizziness. PHYSICAL EXAMINATION VITAL SIGNS: Temperature is 97.4, pulse is 56, blood pressure is 130/68, respirations 20. GENERAL: The patient is lying in bed, flat, comfortable. HEENT: No oral lesion. Anicteric sclerae. Moist mucosa. NECK: No JVD, adenopathy, or thyromegaly. CARDIOVASCULAR: S1 and S2, regular. No murmurs, rubs, or gallops. LUNGS: Clear to auscultation bilaterally. No wheeze, rales, or rhonchi. ABDOMEN: Bowel sounds are positive, soft, nontender and nondistended. EXTREMITIES: No cyanosis, clubbing or edema. LABORATORY DATA: White count of 5.1, hemoglobin 10.3, creatinine is 1.9. ASSESSMENT: 1. Left foot cellulitis. 2. Acute kidney injury. 3. Peripheral arterial disease. 4. Chronic obstructive pulmonary disease. 5. Congestive heart failure secondary to systolic dysfunction chronic. 6. Hypertension. 7. Deep venous thrombosis/pulmonary embolism on anticoagulation. 8. PENICILLIN ALLERGY. PLAN: The patient is currently on daptomycin for antibiotics. He is going to continue with Lipitor for dyslipidemia. He is on Lasix daily. The patient is receiving lisinopril for his hypertension. He has foot MRI that was ordered, it shows no evidence of osteomyelitis. The patient has lower extremity Doppler that has been negative as well. Jose Causey MD
[2018-12-23 15:30] VITALS: O2SAT 98
--- NOTE | 2018-12-23 17:30 | CP.PCM.PN ---
Subjective - Date & Time of Evaluation Date of Evaluation: 12/23/18 Time of Evaluation: 10:55 - Subjective Subjective: Comfortable, no fevers, no increased pain in the left foot. Objective - Vital Signs/Intake and Output Vital Signs (last 24 hours): Temp Pulse Resp BP Pulse Ox 97.4 F L 56 L 20 130/68 100 12/23/18 06:00 12/23/18 06:00 12/23/18 06:00 12/23/18 06:00 12/23/18 06:00 Intake and Output: 12/23/18 12/23/18 06:59 18:59 Intake Total 540 Output Total 400 Balance 140 - Medications Medications: Current Medications Acetaminophen (Tylenol 325mg Tab) 650 mg PO Q4H PRN PRN Reason: Headache Last Admin: 12/21/18 17:38 Dose: 650 mg Apixaban (Eliquis) 2.5 mg PO BID [facility]; Protocol Last Admin: 12/22/18 18:10 Dose: 2.5 mg Atorvastatin Calcium (Lipitor) 10 mg PO HS [facility] Last Admin: 12/22/18 21:47 Dose: 10 mg Furosemide (Lasix) 40 mg PO BID [facility] Last Admin: 12/22/18 18:10 Dose: 40 mg Daptomycin 570 mg/ Sodium (Chloride) 100 mls @ 100 mls/hr IV Q24H [facility] Stop: 12/31/18 19:16 Last Admin: 12/22/18 21:47 Dose: 100 mls/hr Lisinopril (Zestril) 5 mg PO DAILY [facility] Last Admin: 12/22/18 10:02 Dose: Not Given Metoprolol Tartrate (Lopressor) 25 mg PO BID [facility] Last Admin: 12/22/18 19:44 Dose: 25 mg Mupirocin (Bactroban Ointment) 0 gm TOP BID [facility] Last Admin: 12/22/18 21:21 Dose: Not Given - Labs Labs: 12/20/18 18:11 12/20/18 18:11 - Constitutional Appears: Chronically Ill - Head Exam Head Exam: NORMAL INSPECTION - Respiratory Exam Respiratory Exam: Decreased Breath Sounds - Cardiovascular Exam Cardiovascular Exam: +S1, +S2 - GI/Abdominal Exam GI & Abdominal Exam: Soft. absent: Tenderness Assessment and Plan - Assessment and Plan (Free Text) Plan: Assessment left foot skin and skins structure infection with MRSA with foot ulcer, no evidence of osteomyelitis of MRI history of lower respiratory tract infection / bronchitis R/O pneumonia R/O Influenza history of asymptomatic bacteriuria acute on chronic CHF causing dyspnea earning disability chronic CHF history of pneumonia CVA with left sided residual weakness history of DVT chronic foot ulcers history of lower extremity bypass surgery Plan continue Daptomycin day 2 of 7-10 days follow up further plans of Podiatry
[2018-12-23 20:51] VITALS: RESP 18
[2018-12-24 07:18] LABS: HEMOGLOBIN 11.2 g/dL (14.0-18.0); MEAN CELL VOLUME 92.8 fl (80.0-105.0); MEAN CORPUSCULAR HEMOGLOBIN 28.8 pg (25.0-35.0); MEAN PLATELET VOLUME 11.4 fl (7.0-11.0); RBC 3.89 10^6/uL (3.5-6.1); RED CELL DISTRIBUTION WIDTH 14.4 % (11.5-14.5); WHITE BLOOD COUNT 4.9 10^3/uL (4.5-11.0)
[2018-12-24 07:54] LABS: ALB/GLOB RATIO 1.4 (1.1-1.8); ALBUMIN 4.2 g/dL (3.0-4.8); ALT/SGPT 10 U/L (7-56); AST/SGOT 20 U/L (17-59); BLOOD UREA NITROGEN 34 mg/dL (7-21); CALCIUM 9.6 mg/dL (8.4-10.5); GFR NON-AFRICAN AMERICAN 52
--- NOTE | 2018-12-24 13:41 | CP.PCM.PN ---
<Jose L Henriquez - Last Filed: 12/24/18 13:38> Subjective - Date & Time of Evaluation Date of Evaluation: 12/24/18 Time of Evaluation: 13:38 - Subjective Subjective: PGY-[address] Causey No acute events noted overnight. Patient did not offer any complaints -denied being in pain. AAOx3. Objective - Vital Signs/Intake and Output Vital Signs (last 24 hours): Temp Pulse Resp BP Pulse Ox 97.7 F 60 18 124/76 98 12/24/18 06:00 12/24/18 10:24 12/24/18 06:00 12/24/18 10:24 12/24/18 06:00 Intake and Output: 12/24/18 12/24/18 06:59 18:59 Intake Total 540 360 Output Total 1100 350 Balance -560 10 - Medications Medications: Current Medications Acetaminophen (Tylenol 325mg Tab) 650 mg PO Q4H PRN PRN Reason: Headache Last Admin: 12/21/18 17:38 Dose: 650 mg Apixaban (Eliquis) 2.5 mg PO BID [facility]; Protocol Last Admin: 12/24/18 10:24 Dose: 2.5 mg Atorvastatin Calcium (Lipitor) 40 mg PO HS [place] Furosemide (Lasix) 40 mg PO BID [facility] Last Admin: 12/24/18 10:24 Dose: 40 mg Daptomycin 570 mg/ Sodium (Chloride) 100 mls @ 100 mls/hr IV Q24H [facility] Stop: 12/31/18 19:16 Last Admin: 12/23/18 18:27 Dose: 100 mls/hr Lisinopril (Zestril) 5 mg PO DAILY [facility] Last Admin: 12/24/18 10:24 Dose: 5 mg Metoprolol Tartrate (Lopressor) 25 mg PO BID [facility] Last Admin: 12/24/18 10:24 Dose: 25 mg Mupirocin (Bactroban Ointment) 0 gm TOP BID [facility] Last Admin: 12/23/18 17:48 Dose: Not Given - Labs Labs: 12/24/18 06:30 12/24/18 06:30 - Additional Findings Additional findings: - Constitutional Appears: Non-toxic, No Acute Distress - Head Exam Head Exam: ATRAUMATIC, NORMAL INSPECTION, NORMOCEPHALIC - Eye Exam Eye Exam: EOMI, Normal appearance. absent: Conjunctival injection, Scleral icterus - ENT Exam ENT Exam: Mucous Membranes Moist - Neck Exam Neck exam: Positive for: Full Rom, Normal Inspection - Respiratory Exam Respiratory Exam: Decreased Breath Sounds, NORMAL BREATHING PATTERN. absent: Accessory Muscle Use, Rales, Wheezes, Respiratory Distress - Cardiovascular Exam Cardiovascular Exam: RRR, +S1, +S2 - GI/Abdominal Exam GI & Abdominal Exam: Normal Bowel Sounds, Soft. absent: Firm, Guarding, Rigid, Tenderness - Extremities Exam Extremities exam: Positive for: normal capillary refill. Negative for: pedal edema Additional comments: L foot wrapped by podiatry R circumferential healing open wound noted on lateral aspect of foot - Neurological Exam Neurological exam: Alert, CN II-XII Intact, Oriented x3 - Psychiatric Exam Psychiatric exam: Normal Affect, Normal Mood - Skin Skin Exam: Dry, Normal Color, Warm Assessment and Plan - Assessment and Plan (Free Text) Plan: -Left foot ulcer -RITCHIE on CKD -PVD -CHF -COPD -HTN -CVA -DVT/PE -Cognitive impairment Plan: Patient admitted to med/surg for further management. ID and Podiatry consulted - no surgical intervention planned at this time from podiatry. Will continue daptomycin and mupirocin - daptomycin (started 12/22/18) to be given for total of 7-10 days but will consider switching to po zyvoxx. MRI and DMITRY - MRI does not show any evidence of osteomyelitis. Left Tib/fib x-rays reviewed and LE duplex unremarkable. Wound cleansed with saline, and dressed with bactroban, DSD. As per podiatry no plans for surgical intervention at this time. Continue elqiuis for DVT/PE (we have resumed normal dose as kidney function has improved) and Lipitor (dose increased to 40mg po qd). Continue home lasix, lisinopril, and lopressor for hx of CHF and HTN. Continue topical bactroban. If patient becomes agitated/confused recommend redirection. Will continue to manage closely. Dispo: waiting for PT evaluation Discussed with Dr. Causey <Jose Causey - Last Filed: 12/24/18 17:17> Objective - Vital Signs/Intake and Output Vital Signs (last 24 hours): Temp Pulse Resp BP Pulse Ox 97.6 F 58 L 18 118/55 L 98 12/24/18 15:21 12/24/18 15:21 12/24/18 15:21 12/24/18 15:21 12/24/18 15:21 Intake and Output: 12/24/18 12/24/18 06:59 18:59 Intake Total 540 360 Output Total 1100 350 Balance -560 10 - Medications Medications: Current Medications Acetaminophen (Tylenol 325mg Tab) 650 mg PO Q4H PRN PRN Reason: Headache Last Admin: 12/21/18 17:38 Dose: 650 mg Apixaban (Eliquis) 2.5 mg PO BID [facility]; Protocol Last Admin: 12/24/18 10:24 Dose: 2.5 mg Atorvastatin Calcium (Lipitor) 40 mg PO HS [facility] Furosemide (Lasix) 40 mg PO BID [facility] Last Admin: 12/24/18 10:24 Dose: 40 mg Daptomycin 570 mg/ Sodium (Chloride) 100 mls @ 100 mls/hr IV Q24H [facility] Stop: 12/31/18 19:16 Last Admin: 12/23/18 18:27 Dose: 100 mls/hr Lisinopril (Zestril) 5 mg PO DAILY [facility] Last Admin: 12/24/18 10:24 Dose: 5 mg Metoprolol Tartrate (Lopressor) 25 mg PO BID [facility] Last Admin: 12/24/18 10:24 Dose: 25 mg Mupirocin (Bactroban Ointment) 0 gm TOP BID [facility] Last Admin: 12/24/18 14:36 Dose: Not Given - Labs Labs: 12/24/18 06:30 12/24/18 06:30 Assessment and Plan - Assessment and Plan (Free Text) Plan: Pt seen and examined by me. I have reviewed the note of the emergency medical technician/driver and I agree with it. I have discussed the assessment and plan with the resident. I have reviewed the medications and the last labs. Pt with L foot ulcer secondary to MRSA. He can be switched to Zyvox. He man need TCU with PT and Abx treatement. MRI does not show osteo. He has PAD and will be placed on a higher dose of Lipitor. He is on Eliuis for his DVT history. He has COPD that is stable and does not require further treatment.
--- NOTE | 2018-12-24 14:17 | CP.PCM.PN ---
Subjective - Date & Time of Evaluation Date of Evaluation: 12/24/18 Time of Evaluation: 12:10 - Subjective Subjective: No fevers, not in distress, no increased pain in the left foot. Objective - Vital Signs/Intake and Output Vital Signs (last 24 hours): Temp Pulse Resp BP Pulse Ox 98.0 F 57 L 16 101/55 L 98 12/23/18 14:00 12/23/18 14:00 12/23/18 14:00 12/23/18 14:00 12/23/18 14:00 Intake and Output: 12/23/18 12/23/18 06:59 18:59 Intake Total 540 Output Total 400 Balance 140 - Medications Medications: Current Medications Acetaminophen (Tylenol 325mg Tab) 650 mg PO Q4H PRN PRN Reason: Headache Last Admin: 12/21/18 17:38 Dose: 650 mg Apixaban (Eliquis) 2.5 mg PO BID [facility]; Protocol Last Admin: 12/23/18 10:38 Dose: 2.5 mg Atorvastatin Calcium (Lipitor) 10 mg PO HS [facility] Last Admin: 12/22/18 21:47 Dose: 10 mg Furosemide (Lasix) 40 mg PO BID [facility] Last Admin: 12/23/18 10:38 Dose: 40 mg Daptomycin 570 mg/ Sodium (Chloride) 100 mls @ 100 mls/hr IV Q24H [facility] Stop: 12/31/18 19:16 Last Admin: 12/22/18 21:47 Dose: 100 mls/hr Lisinopril (Zestril) 5 mg PO DAILY [facility] Last Admin: 12/23/18 10:39 Dose: 5 mg Metoprolol Tartrate (Lopressor) 25 mg PO BID [facility] Last Admin: 12/23/18 10:54 Dose: Not Given Mupirocin (Bactroban Ointment) 0 gm TOP BID [facility] Last Admin: 12/23/18 12:15 Dose: Not Given - Labs Labs: 12/20/18 18:11 12/20/18 18:11 - Constitutional Appears: Chronically Ill - Head Exam Head Exam: NORMAL INSPECTION - Respiratory Exam Respiratory Exam: Decreased Breath Sounds - Cardiovascular Exam Cardiovascular Exam: +S1, +S2 - GI/Abdominal Exam GI & Abdominal Exam: Soft. absent: Tenderness Assessment and Plan - Assessment and Plan (Free Text) Plan: Assessment left foot skin and skins structure infection with MRSA with foot ulcer, no evidence of osteomyelitis of MRI history of lower respiratory tract infection / bronchitis R/O pneumonia R/O Influenza history of asymptomatic bacteriuria acute on chronic CHF causing dyspnea earning disability chronic CHF history of pneumonia CVA with left sided residual weakness history of DVT chronic foot ulcers history of lower extremity bypass surgery Plan on Daptomycin day 3 of 7-10 days can change to PO Zyvox for 5-7 days when ready to be discharged - discussed with Dr. Thomas - also discussed that patient needs to follow up with Podiatry as an outpatient
[2018-12-24] MEDS: Mupirocin 2% Ointment 15 GM TUBE TOP SCH ×2 (14:36→18:02)
--- NOTE | 2018-12-24 16:22 | CP.PCM.PN ---
<FelipeiKmberley padron - Last Filed: 12/24/18 16:19> Subjective - Date & Time of Evaluation Date of Evaluation: 12/24/18 Time of Evaluation: 16:19 - Subjective Subjective: Podiatry consult note for Dr. Verde 63 y/o male patient was seen and evaluated at bedside for left foot wound. Patient states he feels much better today, He denies any other pedal complaint at this time. He denies any recent N/V or D. Objective - Vital Signs/Intake and Output Vital Signs (last 24 hours): Temp Pulse Resp BP Pulse Ox 97.6 F 58 L 18 118/55 L 98 12/24/18 15:21 12/24/18 15:21 12/24/18 15:21 12/24/18 15:21 12/24/18 15:21 Intake and Output: 12/24/18 12/24/18 06:59 18:59 Intake Total 540 360 Output Total 1100 350 Balance -560 10 - Medications Medications: Current Medications Acetaminophen (Tylenol 325mg Tab) 650 mg PO Q4H PRN PRN Reason: Headache Last Admin: 12/21/18 17:38 Dose: 650 mg Apixaban (Eliquis) 2.5 mg PO BID [facility]; Protocol Last Admin: 12/24/18 10:24 Dose: 2.5 mg Atorvastatin Calcium (Lipitor) 40 mg PO HS [facility] Furosemide (Lasix) 40 mg PO BID [facility] Last Admin: 12/24/18 10:24 Dose: 40 mg Daptomycin 570 mg/ Sodium (Chloride) 100 mls @ 100 mls/hr IV Q24H [facility] Stop: 12/31/18 19:16 Last Admin: 12/23/18 18:27 Dose: 100 mls/hr Lisinopril (Zestril) 5 mg PO DAILY [facility] Last Admin: 12/24/18 10:24 Dose: 5 mg Metoprolol Tartrate (Lopressor) 25 mg PO BID [facility] Last Admin: 12/24/18 10:24 Dose: 25 mg Mupirocin (Bactroban Ointment) 0 gm TOP BID [facility] Last Admin: 12/24/18 14:36 Dose: Not Given - Labs Labs: 12/24/18 06:30 12/24/18 06:30 - Constitutional Appears: Well, Non-toxic, No Acute Distress - Head Exam Head Exam: ATRAUMATIC, NORMOCEPHALIC - Extremities Exam Additional comments: Bilateral lower extremity examination: VASC: DP/PT pulses non-palpable bilaterally; capillary refill is almost 4 secs to all digits; Temp gradient warm to cool b/l from proximal to distal. NEURO: Gross and protective sensations are intact DERM: wound noted to the dorso-lateral aspect of the left foot, 100% granular, no malodor, minimal zachary-erythema, minimal drainage, no probe to bone, no tunneling, no tracking; small wound noted to the lateral aspect of the right leg, 100% granular, no malodor, minimal zachary-erythema, minimal drainage, no probe to bone, no tunneling, no tracking MSK: restricted ankle ROM noted bilaterally. Mild pain on palpating the periwound area - Neurological Exam Neurological Exam: Alert, Awake, Oriented x3 - Psychiatric Exam Psychiatric exam: Normal Affect, Normal Mood Assessment and Plan - Assessment and Plan (Free Text) Assessment: 63 y/o male patient seen and evaluated at the bedside for left foot wound, admitted for IV Abx Plan: Patient was seen and evaluated at bedside Plan discussed in details with attending Chart, labs and vitals reviewed Left foot X-ray: normal radiographs Wound cleansed with saline, and dressed with xeroform, bactroban, DSD Wound cultur: MRSA Infectious disease consult placed, recommendations appreciated Vascular Consult place, recommendations appreciated No plan for surgical intervention at this time Will continue to follow patient while in house <Sudeep Verde - Last Filed: 12/24/18 16:24> Objective - Vital Signs/Intake and Output Vital Signs (last 24 hours): Temp Pulse Resp BP Pulse Ox 97.6 F 58 L 18 118/55 L 98 12/24/18 15:21 12/24/18 15:21 12/24/18 15:21 12/24/18 15:21 12/24/18 15:21 Intake and Output: 12/24/18 12/24/18 06:59 18:59 Intake Total 540 360 Output Total 1100 350 Balance -560 10 - Medications Medications: Current Medications Acetaminophen (Tylenol 325mg Tab) 650 mg PO Q4H PRN PRN Reason: Headache Last Admin: 12/21/18 17:38 Dose: 650 mg Apixaban (Eliquis) 2.5 mg PO BID [facility]; Protocol Last Admin: 12/24/18 10:24 Dose: 2.5 mg Atorvastatin Calcium (Lipitor) 40 mg PO HS [facility] Furosemide (Lasix) 40 mg PO BID [facility] Last Admin: 12/24/18 10:24 Dose: 40 mg Daptomycin 570 mg/ Sodium (Chloride) 100 mls @ 100 mls/hr IV Q24H [facility] Stop: 12/31/18 19:16 Last Admin: 12/23/18 18:27 Dose: 100 mls/hr Lisinopril (Zestril) 5 mg PO DAILY [facility] Last Admin: 12/24/18 10:24 Dose: 5 mg Metoprolol Tartrate (Lopressor) 25 mg PO BID [facility] Last Admin: 12/24/18 10:24 Dose: 25 mg Mupirocin (Bactroban Ointment) 0 gm TOP BID [facility] Last Admin: 12/24/18 14:36 Dose: Not Given - Labs Labs: 12/24/18 06:30 12/24/18 06:30 Attending/Attestation - Attestation I have personally seen and examined this patient.: Yes I have fully participated in the care of the patient.: Yes I have reviewed all pertinent clinical information, including history, physical exam and plan: Yes
--- NOTE | 2018-12-24 18:55 | US ---
PROCEDURE: Lower extremity DMITRY exam HISTORY: Peripheral vascular disease with pain and ulceration. PHYSICIAN(S): Suleman Hess MD. FINDINGS: The right resting ABIs severely abnormal, 0.54. The left resting DMITRY is normal, 0.99 The brachial systolic pressures are symmetric. The high thigh pressures and waveforms are relatively normal. There is a 71 mm gradient across the right knee. The right ankle and metatarsal waveforms are severely blunted. Findings are consistent with distal right SFA, popliteal, and/or tibial disease. The pressures and waveforms are relatively normal to the ankle on the left IMPRESSION: 1. Severely abnormal right DMITRY at rest. 2. Distal right SFA, popliteal, and/or trifurcation disease. 3. If clinically indicated, further evaluation with a MRA with gadolinium runoff, CTA, or conventional arteriogram can be considered
--- NOTE | 2018-12-24 21:41 | CON ---
DATE: 12/24/2018 TIME: 8:25 p.m. CHIEF COMPLAINT/HISTORY OF PRESENT ILLNESS: I know Mr. Byers from multiple office visits. I have been following him for stasis changes and peripheral vascular disease. His history is significant for a failed femoral-popliteal bypass in the distant past. PAD workup with MRA was performed in 09/2018 which revealed distal right SFA and popliteal occlusion with possible tibial disease. Imaging was suboptimal. His DMITRY exams over the past 3 years have been rather stable. His right DMITRY has always been around 0.5. His left DMITRY and PVR exams are essentially normal. On this admission, Mr. Byers is having issues with his left foot. There is a left foot ulcer which has failed outpatient management. He is currently receiving wound care and IV antibiotics. Given his normal DMITRY exam on the left, I would continue with conservative management and wound care along with antibiotics on the left. His right foot is not bothering him at the current time. We have been trying to avoid a repeat bypass operation on the right for obvious reasons. Suleman Hess MD MTDOrin
[2018-12-25 08:16] VITALS: BP 120/61; TEMP 98
[2018-12-25] MEDS ORDERED: Linezolid 600 mg in D5W 300 ml 600 MG/300 ML BAG IVPB SCH ×2 (10:45→22:00)
[2018-12-25 10:49] VITALS: PULSE 80
--- NOTE | 2018-12-25 11:12 | CP.PCM.PN ---
<FelipeKimberley padron - Last Filed: 12/25/18 11:09> Subjective - Date & Time of Evaluation Date of Evaluation: 12/25/18 Time of Evaluation: 11:09 - Subjective Subjective: Podiatry consult note for Dr. Verde 63 y/o male patient was seen and evaluated at bedside for left foot wound. Patient states he feels much better today, He denies any other pedal complaint at this time. He denies any recent N/V or D. Objective - Vital Signs/Intake and Output Vital Signs (last 24 hours): Temp Pulse Resp BP Pulse Ox 98 F 80 18 120/61 98 12/25/18 08:15 12/25/18 10:45 12/25/18 08:15 12/25/18 10:45 12/25/18 08:15 - Medications Medications: Current Medications Acetaminophen (Tylenol 325mg Tab) 650 mg PO Q4H PRN PRN Reason: Headache Last Admin: 12/21/18 17:38 Dose: 650 mg Apixaban (Eliquis) 5 mg PO BID [facility]; Protocol Last Admin: 12/25/18 10:38 Dose: 5 mg Atorvastatin Calcium (Lipitor) 40 mg PO HS [facility] Last Admin: 12/24/18 21:20 Dose: 40 mg Furosemide (Lasix) 40 mg PO BID [facility] Last Admin: 12/25/18 10:43 Dose: 40 mg Linezolid (Zyvox 600mg/300ml D5w) 600 mg in 300 mls @ 200 mls/hr IVPB Q12 [facility]; Protocol Stop: 12/31/18 22:01 Lisinopril (Zestril) 5 mg PO DAILY [place] Last Admin: 12/25/18 10:45 Dose: 5 mg Metoprolol Tartrate (Lopressor) 25 mg PO BID [facility] Last Admin: 12/25/18 10:44 Dose: 25 mg Mupirocin (Bactroban Ointment) 0 gm TOP BID [facility] Last Admin: 12/24/18 18:02 Dose: Not Given - Labs Labs: 12/24/18 06:30 12/24/18 06:30 - Constitutional Appears: Well, Non-toxic, No Acute Distress - Head Exam Head Exam: ATRAUMATIC, NORMOCEPHALIC - Extremities Exam Additional comments: Bilateral lower extremity examination: VASC: DP/PT pulses non-palpable bilaterally; capillary refill is almost 4 secs to all digits; Temp gradient warm to cool b/l from proximal to distal. NEURO: Gross and protective sensations are intact DERM: wound noted to the dorso-lateral aspect of the left foot, 100% granular, no malodor, minimal zachary-erythema, minimal drainage, no probe to bone, no tunneling, no tracking; small wound noted to the lateral aspect of the right leg, 100% granular, no malodor, minimal zachary-erythema, minimal drainage, no probe to bone, no tunneling, no tracking MSK: restricted ankle ROM noted bilaterally. Mild pain on palpating the periwound area - Neurological Exam Neurological Exam: Alert, Awake, Oriented x3 - Psychiatric Exam Psychiatric exam: Normal Affect, Normal Mood Assessment and Plan - Assessment and Plan (Free Text) Assessment: 63 y/o male patient seen and evaluated at the bedside for left foot wound, admitted for IV Abx Plan: Patient was seen and evaluated at bedside Plan discussed in details with attending Chart, labs and vitals reviewed Left foot X-ray: normal radiographs Wound cleansed with saline, and dressed with xeroform, bactroban, DSD Wound cultur: MRSA Infectious disease consult placed, recommendations appreciated Vascular Consult, Dr. Hess- continue current conservative management with IV Abx for left, repeat bypass not advised at this time No plan for surgical intervention at this time Will continue to follow patient while in house <Sudeep Verde - Last Filed: 12/26/18 10:17> Objective - Vital Signs/Intake and Output Vital Signs (last 24 hours): Temp Pulse Resp BP Pulse Ox 98 F 80 18 120/61 98 12/25/18 08:15 12/25/18 10:45 12/25/18 08:15 12/25/18 10:45 12/25/18 08:15 - Labs Labs: 12/24/18 06:30 12/24/18 06:30 Attending/Attestation - Attestation I have personally seen and examined this patient.: Yes I have fully participated in the care of the patient.: Yes I have reviewed all pertinent clinical information, including history, physical exam and plan: Yes
--- NOTE | 2018-12-25 12:10 | CP.PCM.DIS ---
<Jose L Henriquez Elizabeth - Last Filed: 12/25/18 12:04> Provider - Provider Date of Admission: 12/20/18 18:55 Attending physician: Jose Causey MD Primary care physician: Jose Causey MD Consults: 12/20/18 17:14 Podiatry Consult Stat Comment: Consulting Provider: Sudeep Verde Consulting Physician: Sudeep Verde Reason for Consult: cellulitis, PKTY 12/20/18 17:28 Infectious Disease Consult Stat Comment: Consulting Provider: Paras Francis Consulting Physician: Paras Francis Reason for Consult: IV Abx left foot wound 12/20/18 21:20 Consult [Physician Consult] Routine Comment: Consulting Provider: Paras Francis Consulting Physician: Paras Francis Reason for Consult: cellulitis 12/21/18 13:25 Physician Consult Routine Comment: Consulting Provider: Suleman Hess Consulting Physician: Suleman Hess Reason for Consult: left foot on-healing wound, evaluate DMITRY/PVR 12/24/18 11:31 TCU [Evaluation for TRCU] Routine Comment: Physician Instructions: Reason For Exam: rehab Time Spent in preparation of Discharge (in minutes): 41 Diagnosis - Discharge Diagnosis (1) Cellulitis of foot Status: Acute Priority: High (2) RITCHIE (acute kidney injury) Status: Resolved Priority: High Hospital Course - Lab Results Lab Results: Micro Results 12/20/18 18:20 Blood-Venous Blood Culture - Preliminary NO GROWTH AFTER 4 DAYS 12/20/18 18:11 Blood-Venous Blood Culture - Preliminary NO GROWTH AFTER 4 DAYS 12/20/18 18:15 Foot - Left Gram Stain - Final 12/20/18 18:15 Foot - Left Wound Culture - Final Methicillin Resistant S Aureus 12/21/18 11:45 Foot - Left Gram Stain - Final 12/21/18 11:45 Foot - Left Wound Culture - Final Methicillin Resistant S Aureus Most Recent Lab Values WBC 4.9 10^3/uL (4.5-11.0) 12/24/18 06:30 RBC 3.89 10^6/uL (3.5-6.1) 12/24/18 06:30 Hgb 11.2 g/dL (14.0-18.0) L 12/24/18 06:30 Hct 36.1 % (42.0-52.0) L 12/24/18 06:30 MCV 92.8 fl (80.0-105.0) 12/24/18 06:30 MCH 28.8 pg (25.0-35.0) 12/24/18 06:30 MCHC 31.0 g/dl (31.0-37.0) 12/24/18 06:30 RDW 14.4 % (11.5-14.5) 12/24/18 06:30 Plt Count 94 10^3/uL (120.0-450.0) L 12/24/18 06:30 MPV 11.4 fl (7.0-11.0) H 12/24/18 06:30 Neut % (Auto) 67.5 % (50.0-68.0) 12/20/18 18:11 Lymph % (Auto) 24.0 % (22.0-35.0) 12/20/18 18:11 Levy % (Auto) 6.3 % (1.0-6.0) H 12/20/18 18:11 Eos % (Auto) 2.0 % (1.5-5.0) 12/20/18 18:11 Baso % (Auto) 0.2 % (0.0-3.0) 12/20/18 18:11 Lymph # (Auto) 1.2 (1.2-3.4) 12/20/18 18:11 Levy # (Auto) 0.3 (0.1-0.6) 12/20/18 18:11 Eos # (Auto) 0.1 (0.0-0.7) 12/20/18 18:11 Baso # (Auto) 0.01 K/mm3 (0.0-2.0) 12/20/18 18:11 Absolute Neuts (auto) 3.44 (1.4-6.5) 12/20/18 18:11 pO2 33 mm/Hg (30-55) 12/20/18 17:40 VBG pH 7.35 (7.32-7.43) 12/20/18 17:40 VBG pCO2 40.0 (40-60) 12/20/18 17:40 VBG HCO3 22.1 mmol/l (21-28) 12/20/18 17:40 VBG Total CO2 23.3 mmol.L (22-28) 12/20/18 17:40 VBG O2 Sat (Calc) 73.0 % (40-65) H 12/20/18 17:40 VBG Base Excess -3.3 mmol/L (0.0-2.0) L 12/20/18 17:40 VBG Potassium 4.7 mmol/L (3.6-5.2) 12/20/18 17:40 Sodium 139.0 mmol/L (132-148) 12/20/18 17:40 Chloride 111.0 mmol/L (98-107) H 12/20/18 17:40 Glucose 107 mg/dl (75-110) 12/20/18 17:40 Lactate 0.5 mmol/L (0.7-2.1) L 12/20/18 17:40 FiO2 21.0 % 12/20/18 17:40 Sodium 141 mmol/L (132-148) 12/24/18 06:30 Potassium 4.6 mmol/L (3.6-5.0) 12/24/18 06:30 Chloride 108 mmol/L (98-107) H 12/24/18 06:30 Carbon Dioxide 27 mmol/L (21-33) 12/24/18 06:30 Anion Gap 10 (10-20) 12/24/18 06:30 BUN 34 mg/dL (7-21) H 12/24/18 06:30 Creatinine 1.4 mg/dl (0.8-1.5) 12/24/18 06:30 Est GFR ( Amer) > 60 12/24/18 06:30 Est GFR (Non-Af Amer) 52 12/24/18 06:30 POC Glucose (mg/dL) 100 mg/dL (65-110) 12/21/18 11:10 Random Glucose 99 mg/dL (70-110) 12/24/18 06:30 Calcium 9.6 mg/dL (8.4-10.5) 12/24/18 06:30 Total Bilirubin 0.4 mg/dL (0.2-1.3) 12/24/18 06:30 AST 20 U/L (17-59) 12/24/18 06:30 ALT 10 U/L (7-56) 12/24/18 06:30 Alkaline Phosphatase 54 U/L (38-126) 12/24/18 06:30 Total Protein 7.3 g/dL (5.8-8.3) 12/24/18 06:30 Albumin 4.2 g/dL (3.0-4.8) 12/24/18 06:30 Globulin 3.1 gm/dL 12/24/18 06:30 Albumin/Globulin Ratio 1.4 (1.1-1.8) 12/24/18 06:30 Venous Blood Potassium 4.7 mmol/L (3.6-5.2) 12/20/18 17:40 - Hospital Course Hospital Course: Please note patient is a poor historian 63yo male PMHx MR, PVD, CHF, COPD, HTN, IA, CVA, and DVT/PE presented to the hospital after failure of outpatient antibiotics for LLE foot ulcer. Patient sees podiatry outpatient for chronic wounds. He recently developed a new left foot ulcer, which did not respond to antibiotics and was recommended to come [place] [facility] [place]. Patient admits to pain in b/l feet intermittently. Denies fever, chills, headache, dizziness, chest pain, shortness of breath, cough, abd pain, nausea, vomiting, diarrhea, constipation, numbness, tingling, dysuria, weakness. PMHx: MR, PVD, CHF, COPD, HTN, IA, CVA, and DVT/PE PSurgHx: PVD bypass surgery Meds: as per chart ALL: Benztropine mesylate, Esomeprazole magnesium, Penicillins, Sulfa SocHx: Former smoker, No alcohol or illicit drug use FamHx: noncontributory HOSPITAL COURSE: Patient was treated for her left foot ulcer/cellulitis with daptomycin - this was eventually switched over to zyvox iv and patient was transferred to TCU for rehab. Podiatry and ID were consulted on this case. Podiatry treated the patient's chronic foot wounds - they deemed no surgical intervention was necessary. Interventional radiology, Dr Suleman Hess, also was consulted who stated patient had a normal DMITRY on the left - he recommended continuation of conservative management with wound care and abx. His home medications including lopressor, zestril, lasix, lipitor and eliquis were continued to treat his chronic medical conditions. His lipitor dose was increased to 40mg po hs. Discharge Exam - Head Exam Head Exam: ATRAUMATIC, NORMOCEPHALIC - Additional Findings Additional findings: - Constitutional Appears: Non-toxic, No Acute Distress - Head Exam Head Exam: ATRAUMATIC, NORMAL INSPECTION, NORMOCEPHALIC - Eye Exam Eye Exam: EOMI, Normal appearance. absent: Conjunctival injection, Scleral icterus - ENT Exam ENT Exam: Mucous Membranes Moist - Neck Exam Neck exam: Positive for: Full Rom, Normal Inspection - Respiratory Exam Respiratory Exam: Decreased Breath Sounds, NORMAL BREATHING PATTERN. absent: Accessory Muscle Use, Rales, Wheezes, Respiratory Distress - Cardiovascular Exam Cardiovascular Exam: RRR, +S1, +S2 - GI/Abdominal Exam GI & Abdominal Exam: Normal Bowel Sounds, Soft. absent: Firm, Guarding, Rigid, Tenderness - Extremities Exam Extremities exam: Positive for: normal capillary refill. Negative for: pedal edema Additional comments: L foot wrapped by podiatry - Neurological Exam Neurological exam: Alert, CN II-XII Intact, Oriented x3 - Psychiatric Exam Psychiatric exam: Anxious - Skin Skin Exam: Dry, Normal Color, Warm Discharge Plan - Discharge Medications Prescriptions: Linezolid 600 mg in NS 300 ml [Zyvox 600mg/300ml NS] 600 mg IVPB Q12H 6 Days bag - Follow Up Plan Condition: STABLE Disposition: REHAB FACILITY/REHAB UNIT Instructions: Heart Failure, Adult (DC), Shortness of Breath (Dyspnea) (DC), Cellulitis (Skin Infection), Adult (DC) Additional Instructions: Please discharge patient to TCU and continue all current active medications. Referrals: Jose Causey MD [Primary Care Provider] - <Jose Causey - Last Filed: 12/25/18 14:03> Provider - Provider Date of Admission: 12/20/18 18:55 Attending physician: Jose Causey MD Primary care physician: Jose Causey MD Consults: 12/20/18 17:14 Podiatry Consult Stat Comment: Consulting Provider: Sudeep Verde Consulting Physician: Sudeep Verde Reason for Consult: cellulitis, PKTY 12/20/18 17:28 Infectious Disease Consult Stat Comment: Consulting Provider: Paras Francis Consulting Physician: Paras Francis Reason for Consult: IV Abx left foot wound 12/20/18 21:20 Consult [Physician Consult] Routine Comment: Consulting Provider: Paras Francis Consulting Physician: Paras Francis Reason for Consult: cellulitis 12/21/18 13:25 Physician Consult Routine Comment: Consulting Provider: Suleman Hess Consulting Physician: Suleman Hess Reason for Consult: left foot on-healing wound, evaluate DMITRY/PVR 12/24/18 11:31 TCU [Evaluation for TRCU] Routine Comment: Physician Instructions: Reason For Exam: rehab Hospital Course - Lab Results Lab Results: Micro Results 12/20/18 18:20 Blood-Venous Blood Culture - Preliminary NO GROWTH AFTER 4 DAYS 12/20/18 18:11 Blood-Venous Blood Culture - Preliminary NO GROWTH AFTER 4 DAYS 12/20/18 18:15 Foot - Left Gram Stain - Final 12/20/18 18:15 Foot - Left Wound Culture - Final Methicillin Resistant S Aureus 12/21/18 11:45 Foot - Left Gram Stain - Final 12/21/18 11:45 Foot - Left Wound Culture - Final Methicillin Resistant S Aureus Most Recent Lab Values WBC 4.9 10^3/uL (4.5-11.0) 12/24/18 06:30 RBC 3.89 10^6/uL (3.5-6.1) 12/24/18 06:30 Hgb 11.2 g/dL (14.0-18.0) L 12/24/18 06:30 Hct 36.1 % (42.0-52.0) L 12/24/18 06:30 MCV 92.8 fl (80.0-105.0) 12/24/18 06:30 MCH 28.8 pg (25.0-35.0) 12/24/18 06:30 MCHC 31.0 g/dl (31.0-37.0) 12/24/18 06:30 RDW 14.4 % (11.5-14.5) 12/24/18 06:30 Plt Count 94 10^3/uL (120.0-450.0) L 12/24/18 06:30 MPV 11.4 fl (7.0-11.0) H 12/24/18 06:30 Neut % (Auto) 67.5 % (50.0-68.0) 12/20/18 18:11 Lymph % (Auto) 24.0 % (22.0-35.0) 12/20/18 18:11 Levy % (Auto) 6.3 % (1.0-6.0) H 12/20/18 18:11 Eos % (Auto) 2.0 % (1.5-5.0) 12/20/18 18:11 Baso % (Auto) 0.2 % (0.0-3.0) 12/20/18 18:11 Lymph # (Auto) 1.2 (1.2-3.4) 12/20/18 18:11 Levy # (Auto) 0.3 (0.1-0.6) 12/20/18 18:11 Eos # (Auto) 0.1 (0.0-0.7) 12/20/18 18:11 Baso # (Auto) 0.01 K/mm3 (0.0-2.0) 12/20/18 18:11 Absolute Neuts (auto) 3.44 (1.4-6.5) 12/20/18 18:11 pO2 33 mm/Hg (30-55) 12/20/18 17:40 VBG pH 7.35 (7.32-7.43) 12/20/18 17:40 VBG pCO2 40.0 (40-60) 12/20/18 17:40 VBG HCO3 22.1 mmol/l (21-28) 12/20/18 17:40 VBG Total CO2 23.3 mmol.L (22-28) 12/20/18 17:40 VBG O2 Sat (Calc) 73.0 % (40-65) H 12/20/18 17:40 VBG Base Excess -3.3 mmol/L (0.0-2.0) L 12/20/18 17:40 VBG Potassium 4.7 mmol/L (3.6-5.2) 12/20/18 17:40 Sodium 139.0 mmol/L (132-148) 12/20/18 17:40 Chloride 111.0 mmol/L (98-107) H 12/20/18 17:40 Glucose 107 mg/dl (75-110) 12/20/18 17:40 Lactate 0.5 mmol/L (0.7-2.1) L 12/20/18 17:40 FiO2 21.0 % 12/20/18 17:40 Sodium 141 mmol/L (132-148) 12/24/18 06:30 Potassium 4.6 mmol/L (3.6-5.0) 12/24/18 06:30 Chloride 108 mmol/L (98-107) H 12/24/18 06:30 Carbon Dioxide 27 mmol/L (21-33) 12/24/18 06:30 Anion Gap 10 (10-20) 12/24/18 06:30 BUN 34 mg/dL (7-21) H 12/24/18 06:30 Creatinine 1.4 mg/dl (0.8-1.5) 12/24/18 06:30 Est GFR ( Amer) > 60 12/24/18 06:30 Est GFR (Non-Af Amer) 52 12/24/18 06:30 POC Glucose (mg/dL) 100 mg/dL (65-110) 12/21/18 11:10 Random Glucose 99 mg/dL (70-110) 12/24/18 06:30 Calcium 9.6 mg/dL (8.4-10.5) 12/24/18 06:30 Total Bilirubin 0.4 mg/dL (0.2-1.3) 12/24/18 06:30 AST 20 U/L (17-59) 12/24/18 06:30 ALT 10 U/L (7-56) 12/24/18 06:30 Alkaline Phosphatase 54 U/L (38-126) 12/24/18 06:30 Total Protein 7.3 g/dL (5.8-8.3) 12/24/18 06:30 Albumin 4.2 g/dL (3.0-4.8) 12/24/18 06:30 Globulin 3.1 gm/dL 12/24/18 06:30 Albumin/Globulin Ratio 1.4 (1.1-1.8) 12/24/18 06:30 Venous Blood Potassium 4.7 mmol/L (3.6-5.2) 12/20/18 17:40 - Hospital Course Hospital Course: Pt Patient was seen and examined by me. I have reviewed the note of the medical operations supervisor and have gone over the plan of care. I agree with the note. I have reviewed the medications and the last labs. Pt with L foot ulcer due to MRSA. He is on IV ABx and will go to TCU to finish his medications and for rehab. He has COPD that is controlled. He does not require IR intervention. He will continue with Lipitor for dyslipidemia. Eliquis for DVT. No pain
--- NOTE | 2018-12-25 16:52 | CP.PCM.PN ---
Subjective - Date & Time of Evaluation Date of Evaluation: 12/25/18 Time of Evaluation: 10:15 - Subjective Subjective: Comfortable in bed, no fevers. Objective - Vital Signs/Intake and Output Vital Signs (last 24 hours): Temp Pulse Resp BP Pulse Ox 98 F 80 18 120/61 98 12/25/18 08:15 12/25/18 10:45 12/25/18 08:15 12/25/18 10:45 12/25/18 08:15 - Labs Labs: 12/24/18 06:30 12/24/18 06:30 - Constitutional Appears: Chronically Ill - Head Exam Head Exam: NORMAL INSPECTION - Respiratory Exam Respiratory Exam: Decreased Breath Sounds - Cardiovascular Exam Cardiovascular Exam: +S1, +S2 - GI/Abdominal Exam GI & Abdominal Exam: Soft. absent: Tenderness - Extremities Exam Additional comments: left foot with dressings in place Assessment and Plan - Assessment and Plan (Free Text) Plan: Assessment left foot skin and skins structure infection with MRSA with foot ulcer, no evidence of osteomyelitis of MRI history of lower respiratory tract infection / bronchitis R/O pneumonia R/O Influenza history of asymptomatic bacteriuria acute on chronic CHF causing dyspnea earning disability chronic CHF history of pneumonia CVA with left sided residual weakness history of DVT chronic foot ulcers history of lower extremity bypass surgery Plan on Zyvox day 4 of 7-10 days patient needs to follow up with Podiatry as an outpatient
== END 2018-12-25 13:43 | DRG 603 ==
LOC: ED 15:19 → ERH 18:55 → 5RNO 12-21 01:06 → 3RNO 12-24 18:44
PROVIDERS: ADMIT Internal Medicine Nephrology; ATTEND Internal Medicine Nephrology
DX: L03.116 Cellulitis of left lower limb (principal); I69.354 Hemiplegia and hemiparesis following cerebral infarction affecting left non-dominant side; N17.9 Acute kidney failure, unspecified; I50.42 Chronic combined systolic (congestive) and diastolic (congestive) heart failure; I13.0 Hypertensive heart and chronic kidney disease with heart failure and stage 1 through stage 4 chronic kidney disease, or unspecified chronic kidney disease; E11.51 Type 2 diabetes mellitus with diabetic peripheral angiopathy without gangrene; E11.621 Type 2 diabetes mellitus with foot ulcer; I11.0 Hypertensive heart disease with heart failure; Z87.891 Personal history of nicotine dependence; J44.9 Chronic obstructive pulmonary disease, unspecified; L97.529 Non-pressure chronic ulcer of other part of left foot with unspecified severity; B95.62 Methicillin resistant Staphylococcus aureus infection as the cause of diseases classified elsewhere; E11.22 Type 2 diabetes mellitus with diabetic chronic kidney disease; N18.9 Chronic kidney disease, unspecified; E78.5 Hyperlipidemia, unspecified; I25.2 Old myocardial infarction; Z86.718 Personal history of other venous thrombosis and embolism; Z86.711 Personal history of pulmonary embolism; Z79.01 Long term (current) use of anticoagulants; Z87.01 Personal history of pneumonia (recurrent); Z88.0 Allergy status to penicillin; Z88.2 Allergy status to sulfonamides; Z88.8 Allergy status to other drugs, medicaments and biological substances; Z87.892 Personal history of anaphylaxis

== ENCOUNTER 2018-12-25 13:45 | Inpatient (IN) | payer OTHER, MEDICAID ==
[2018-12-25] MEDS: Mupirocin 2% Ointment 15 GM TUBE TOP SCH (17:24)
[2018-12-25] MEDS: Linezolid 600 mg in D5W 300 ml 600 MG/300 ML BAG IVPB SCH (17:25)
[2018-12-26] MEDS: Linezolid 600 mg in D5W 300 ml 600 MG/300 ML BAG IVPB SCH ×2 (05:10→17:31)
[2018-12-26] MEDS: Mupirocin 2% Ointment 15 GM TUBE TOP SCH ×2 (10:06→17:32)
--- NOTE | 2018-12-26 12:59 | CP.PCM.PN ---
<FelipeKimberley padron - Last Filed: 12/26/18 12:57> Subjective - Date & Time of Evaluation Date of Evaluation: 12/26/18 Time of Evaluation: 12:57 - Subjective Subjective: Podiatry progress note for Dr. Verde 63 y/o male patient was seen and evaluated at bedside for bilateral feet wounds, seen in TCU. Patient states he feels much better today, He denies any other pedal complaint at this time. He denies any recent N/V or D. Objective - Vital Signs/Intake and Output Vital Signs (last 24 hours): Temp Pulse Resp BP Pulse Ox 97.3 F L 77 18 117/69 12/25/18 16:31 12/26/18 10:08 12/25/18 16:31 12/26/18 10:08 - Medications Medications: Current Medications Acetaminophen (Tylenol 325mg Tab) 650 mg PO Q4H PRN; Protocol PRN Reason: Headache Apixaban (Eliquis) 5 mg PO BID [place]; Protocol Last Admin: 12/26/18 10:07 Dose: 5 mg Atorvastatin Calcium (Lipitor) 40 mg PO DIN [place]; Protocol Last Admin: 12/25/18 17:24 Dose: 40 mg Furosemide (Lasix) 40 mg PO BID [place]; Protocol Last Admin: 12/26/18 10:07 Dose: 40 mg Linezolid (Zyvox 600mg/300ml D5w) 600 mg in 300 mls @ 200 mls/hr IVPB 0600,1800 [place]; Protocol Stop: 01/01/19 18:01 Last Admin: 12/26/18 05:10 Dose: 200 mls/hr Lisinopril (Zestril) 5 mg PO DAILY [place]; Protocol Last Admin: 12/26/18 10:08 Dose: 5 mg Metoprolol Tartrate (Lopressor) 25 mg PO 0800,1800 [place]; Protocol Last Admin: 12/26/18 08:11 Dose: Not Given Mupirocin (Bactroban Ointment) 0 gm TOP BID [place]; Protocol Last Admin: 12/26/18 10:06 Dose: 1 applic - Constitutional Appears: Well, Non-toxic, No Acute Distress - Head Exam Head Exam: ATRAUMATIC, NORMOCEPHALIC - Extremities Exam Additional comments: Bilateral lower extremity examination: VASC: DP/PT pulses non-palpable bilaterally; capillary refill is almost 4 secs to all digits; Temp gradient warm to cool b/l from proximal to distal. NEURO: Gross and protective sensations are intact DERM: wound noted to the dorso-lateral aspect of the left foot, 100% granular, no malodor, minimal zachary-erythema, minimal drainage, no probe to bone, no tunneling, no tracking; small wound noted to the lateral aspect of the right leg, 100% granular, no malodor, minimal zachary-erythema, minimal drainage, no probe to bone, no tunneling, no tracking MSK: restricted ankle ROM noted bilaterally. Mild pain on palpating the periwound area - Neurological Exam Neurological Exam: Alert, Awake, Oriented x3 - Psychiatric Exam Psychiatric exam: Normal Affect, Normal Mood Assessment and Plan - Assessment and Plan (Free Text) Assessment: 63 y/o male patient seen and evaluated at the bedside for bilateral feet wounds, in TCU for further rehab and IV Abx Plan: Patient was seen and evaluated at bedside Plan discussed in details with attending Chart, labs and vitals reviewed Left foot X-ray: normal radiographs Wound cleansed with saline, and dressed with bactroban, DSD to the left, and bactroban, Optifoam to the right Wound cultur: MRSA Infectious disease consult placed, recommendations appreciated Vascular Consult, Dr. Hess- continue current conservative management with IV Abx for left, repeat bypass not advised at this time No plan for surgical intervention at this time Will continue to follow patient while in house <Sudeep Verde - Last Filed: 12/26/18 17:55> Objective - Vital Signs/Intake and Output Vital Signs (last 24 hours): Temp Pulse Resp BP Pulse Ox 97.3 F L 65 18 117/60 12/25/18 16:31 12/26/18 17:33 12/25/18 16:31 12/26/18 17:33 - Medications Medications: Current Medications Acetaminophen (Tylenol 325mg Tab) 650 mg PO Q4H PRN; Protocol PRN Reason: Headache Apixaban (Eliquis) 5 mg PO BID [place]; Protocol Last Admin: 12/26/18 17:32 Dose: 5 mg Atorvastatin Calcium (Lipitor) 40 mg PO DIN [place]; Protocol Last Admin: 12/26/18 17:33 Dose: 40 mg Furosemide (Lasix) 40 mg PO BID [place]; Protocol Last Admin: 12/26/18 17:32 Dose: 40 mg Linezolid (Zyvox 600mg/300ml D5w) 600 mg in 300 mls @ 200 mls/hr IVPB 0600,1800 [place]; Protocol Stop: 01/01/19 18:01 Last Admin: 12/26/18 17:31 Dose: 200 mls/hr Lisinopril (Zestril) 5 mg PO DAILY [place]; Protocol Last Admin: 12/26/18 10:08 Dose: 5 mg Metoprolol Tartrate (Lopressor) 25 mg PO 0800,1800 [place]; Protocol Last Admin: 12/26/18 17:33 Dose: 25 mg Mupirocin (Bactroban Ointment) 0 gm TOP BID [place]; Protocol Last Admin: 12/26/18 17:32 Dose: 1 applic Attending/Attestation - Attestation I have personally seen and examined this patient.: Yes I have fully participated in the care of the patient.: Yes I have reviewed all pertinent clinical information, including history, physical exam and plan: Yes
--- NOTE | 2018-12-26 13:08 | CP.PCM.CON ---
History of Present Illness - History of Present Illness History of Present Illness: 63 year old male with past medical history of learning disability, PVD, CHF, COPD, HTN, MS, CVA, and DVT/PE [place] [facility] [place] of continue left foot ulcer despite outpatient antibiotics. He was found to have MRSA in the wound, but no evidence of osteomyelitis was noted on MRI of the foot. He has been doing well and is now transferred to [facility] for continued medical therapy and physical therapy. Infectious Diseases consult is requested to continue his antibiotic therapy. He is currently comfortable in bed, no fevers, not in distress, no increased pain in the left foot, no fever or chills, no nausea or vomiting, no headache or dizziness, no chest pain, no SOB, no cough or rhinorrhea, no diarrhea, no dysuria, no abdominal pain. 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" - RENAL Hx Chronic Kidney Disease: No - ENDOCRINE/METABOLIC Hx Diabetes Mellitus Type 2: Yes - HEMATOLOGICAL/ONCOLOGICAL Hx Blood Transfusions: No - INTEGUMENTARY Other/Comment: multiple healed wound scars r ankle and foot left ankle and foot, small wound to top of left foot red and dry, dry toenails both feet, ble light brown skin discolorations, old fading bruises b/l knees from falls, left great toe has 12 toenail surrounded by dry red skin, r great toe has 1/2 nail small dry brown wound, dry skin to toes - MUSCULOSKELETAL/RHEUMATOLOGICAL Hx Falls: No - GASTROINTESTINAL Hx Gastrointestinal Disorders: No - GENITOURINARY/GYNECOLOGICAL Hx Genitourinary Disorders: No Hx Reproductive Disorders: No - PSYCHIATRIC Hx Emotional Abuse: No Hx Physical Abuse: No Hx Substance Use: No - SURGICAL HISTORY Other/Comment: DVT to right leg/BYpass surgery 2015 - ANESTHESIA Hx Anesthesia: Yes Hx Anesthesia Reactions: No Hx Malignant Hyperthermia: No Meds Allergies/Adverse Reactions: Allergies Allergy/AdvReac Type Severity Reaction Status Date / Time benztropine mesylate Allergy Severe ANAPHYLAXIS Verified 02/13/19 05:55 [From Cogentin] esomeprazole magnesium Allergy Severe RASH Verified 12/26/18 05:55 [From Nexium] Penicillins Allergy Severe ANAPHYLAXIS Verified 12/26/18 05:55 Sulfa (Sulfonamide Allergy Severe RASH Verified 12/26/18 05:55 Antibiotics) - Medications Medications: Current Medications Acetaminophen (Tylenol 325mg Tab) 650 mg PO Q4H PRN; Protocol PRN Reason: Headache Apixaban (Eliquis) 5 mg PO BID [place]; Protocol Last Admin: 12/25/18 17:24 Dose: 5 mg Atorvastatin Calcium (Lipitor) 40 mg PO DIN [place]; Protocol Last Admin: 12/25/18 17:24 Dose: 40 mg Furosemide (Lasix) 40 mg PO BID [place]; Protocol Last Admin: 12/25/18 17:25 Dose: 40 mg Linezolid (Zyvox 600mg/300ml D5w) 600 mg in 300 mls @ 200 mls/hr IVPB 0600,1800 [place]; Protocol Stop: 01/01/19 18:01 Last Admin: 12/26/18 05:10 Dose: 200 mls/hr Lisinopril (Zestril) 5 mg PO DAILY [facility]; Protocol Metoprolol Tartrate (Lopressor) 25 mg PO 0800,1800 [place]; Protocol Last Admin: 12/25/18 17:25 Dose: Not Given Mupirocin (Bactroban Ointment) 0 gm TOP BID [place]; Protocol Last Admin: 12/25/18 17:24 Dose: 1 applic Physical Exam - Constitutional Appears: Non-toxic, No Acute Distress, Chronically Ill - Head Exam Head Exam: NORMAL INSPECTION - Respiratory Exam Respiratory Exam: Decreased Breath Sounds - Cardiovascular Exam Cardiovascular Exam: +S1, +S2 - GI/Abdominal Exam GI & Abdominal Exam: Soft. absent: Tenderness - Extremities Exam Additional comments: left foot with dressings in place Results - Vital Signs Recent Vital Signs: Last Vital Signs Temp 97.3 F L 12/25/18 16:31 Pulse 64 12/25/18 17:25 Resp 18 12/25/18 16:31 BP 101/56 L 12/25/18 17:25 Pulse Ox Assessment & Plan - Assessment and Plan (Free Text) Plan: Assessment left foot skin and skins structure infection with MRSA with foot ulcer, no evidence of osteomyelitis of MRI history of lower respiratory tract infection / bronchitis R/O pneumonia R/O Influenza history of asymptomatic bacteriuria acute on chronic CHF causing dyspnea earning disability chronic CHF history of pneumonia CVA with left sided residual weakness history of DVT chronic foot ulcers history of lower extremity bypass surgery Plan on Zyvox day 5 of 7-10 days patient needs to follow up with Podiatry as an outpatient
--- NOTE | 2018-12-26 15:28 | CP.PCM.HP ---
<FlorenceJose L R - Last Filed: 12/26/18 15:25> History of Present Illness - History of Present Illness History of Present Illness: Please note patient is a poor historian 63yo male PMHx MR, PVD, CHF, COPD, HTN, WA, CVA, and DVT/PE presented to the hospital after failure of outpatient antibiotics for LLE foot ulcer. Patient sees podiatry outpatient for chronic wounds. He recently developed a new left foot ulcer, which did not respond to antibiotics and was recommended to come to [facility] for IV antibiotics. Patient admits to pain in b/l feet intermittently. Denies fever, chills, headache, dizziness, chest pain, shortness of breath, cough, abd pain, nausea, vomiting, diarrhea, constipation, numbness, tingling, dysuria, weakness. After medical clearance, patient was transferred to TCU on 12/25/18. PMHx: MR, PVD, CHF, COPD, HTN, WA, CVA, and DVT/PE PSurgHx: PVD bypass surgery Meds: as per chart ALL: Benztropine mesylate, Esomeprazole magnesium, Penicillins, Sulfa SocHx: Former smoker, No alcohol or illicit drug use FamHx: noncontributory Present on Admission - Present on Admission Any Indicators Present on Admission: No Review of Systems - Review of Systems All systems: reviewed and no additional remarkable complaints except (as stated in HPI) Past Patient History - Infectious Disease Hx of Infectious Diseases: None - Past Social History Smoking Status: Former Smoker - CARDIAC Hx Cardiac Disorders: Yes Hx Hypertension: Yes - PULMONARY Hx Chronic Obstructive Pulmonary Disease (COPD): Yes - NEUROLOGICAL HX Cerebrovascular Accident: Yes - HEENT Hx HEENT Problems: Yes Other/Comment: speech impediment, 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" - RENAL Hx Chronic Kidney Disease: No - ENDOCRINE/METABOLIC Hx Diabetes Mellitus Type 2: Yes - HEMATOLOGICAL/ONCOLOGICAL Hx Blood Transfusions: No - INTEGUMENTARY Other/Comment: multiple healed wound scars r ankle and foot left ankle and foot, small wound to top of left foot red and dry, dry toenails both feet, ble light brown skin discolorations, old fading bruises b/l knees from falls, left great toe has 12 toenail surrounded by dry red skin, r great toe has 1/2 nail small dry brown wound, dry skin to toes - MUSCULOSKELETAL/RHEUMATOLOGICAL Hx Falls: No - GASTROINTESTINAL Hx Gastrointestinal Disorders: No - GENITOURINARY/GYNECOLOGICAL Hx Genitourinary Disorders: No Hx Reproductive Disorders: No - PSYCHIATRIC Hx Emotional Abuse: No Hx Physical Abuse: No Hx Substance Use: No - SURGICAL HISTORY Other/Comment: DVT to right leg/BYpass surgery 2015 - ANESTHESIA Hx Anesthesia: Yes Hx Anesthesia Reactions: No Hx Malignant Hyperthermia: No Meds Allergies/Adverse Reactions: Allergies Allergy/AdvReac Type Severity Reaction Status Date / Time benztropine mesylate Allergy Severe ANAPHYLAXIS Verified 12/26/18 05:55 [From Cogentin] esomeprazole magnesium Allergy Severe RASH Verified 12/26/18 05:55 [From Nexium] Penicillins Allergy Severe ANAPHYLAXIS Verified 12/26/18 05:55 Sulfa (Sulfonamide Allergy Severe RASH Verified 12/26/18 05:55 Antibiotics) Physical Exam - Additional Findings Additional findings: - Head Exam Head Exam: ATRAUMATIC, NORMOCEPHALIC - Additional Findings Additional findings: - Constitutional Appears: Non-toxic, No Acute Distress - Head Exam Head Exam: ATRAUMATIC, NORMAL INSPECTION, NORMOCEPHALIC - Eye Exam Eye Exam: EOMI, Normal appearance. absent: Conjunctival injection, Scleral icterus - ENT Exam ENT Exam: Mucous Membranes Moist - Neck Exam Neck exam: Positive for: Full Rom, Normal Inspection - Respiratory Exam Respiratory Exam: Decreased Breath Sounds, NORMAL BREATHING PATTERN. absent: Accessory Muscle Use, Rales, Wheezes, Respiratory Distress - Cardiovascular Exam Cardiovascular Exam: RRR, +S1, +S2 - GI/Abdominal Exam GI & Abdominal Exam: Normal Bowel Sounds, Soft. absent: Firm, Guarding, Rigid, Tenderness - Extremities Exam Extremities exam: Positive for: normal capillary refill. Negative for: pedal edema Additional comments: L foot wrapped by podiatry - Neurological Exam Neurological exam: Alert, CN II-XII Intact, Oriented x3 - Psychiatric Exam Psychiatric exam: Anxious - Skin Skin Exam: Dry, Normal Color, Warm Results - Vital Signs Recent Vital Signs: Last Vital Signs Temp 97.3 F L 12/25/18 16:31 Pulse 77 12/26/18 10:08 Resp 18 12/25/18 16:31 BP 117/69 12/26/18 10:08 Pulse Ox Assessment & Plan - Assessment and Plan (Free Text) Plan: -Left foot ulcer -RITCHIE on CKD -PVD -CHF -COPD -HTN -CVA -DVT/PE -Cognitive impairment Plan: Patient currently in TCU receiving rehab. MRI and DMITRY - MRI does not show any evidence of osteomyelitis. Left Tib/fib x-rays reviewed and LE duplex unremarkable. ID and Podiatry consulted - no surgical intervention planned at this time from podiatry. He was given 4 days of daptomycin then switched over to zyvox iv (started on 12/25) - he will need a total of 6 days of zyvox as per ID. Wound cleansed with saline, and dressed with bactroban, DSD. As per podiatry no plans for surgical intervention at this time. Continue elqiuis for DVT/PE (we have resumed normal dose as kidney function has improved) and Lipitor (dose increased to 40mg po qd). Continue home lasix, lisinopril, and lopressor for hx of CHF and HTN. Continue topical bactroban. If patient becomes agitated/confused recommend redirection. Discussed with Dr. Causey <Jose Causey S - Last Filed: 12/26/18 17:22> Results - Vital Signs Recent Vital Signs: Last Vital Signs Temp 97.3 F L 12/25/18 16:31 Pulse 77 12/26/18 10:08 Resp 18 12/25/18 16:31 BP 117/69 12/26/18 10:08 Pulse Ox Assessment & Plan - Assessment and Plan (Free Text) Plan: Pt seen and examined by me. I have reviewed the note of the medical language specialist and I agree with it. I have discussed the assessment and plan with the resident. I have reviewed the medications and the last labs. Pt with L foot ulcer due to MRSA. He is on IV Zyvox and going to get PT on TCU. He does not have Osteo by MRI. I have reviewed his hospital notes. He is on Lipitor for his Dyslipidemia.
[2018-12-27] MEDS: Linezolid 600 mg in D5W 300 ml 600 MG/300 ML BAG IVPB SCH ×2 (05:03→17:26)
--- NOTE | 2018-12-27 07:19 | CP.PCM.PN ---
<Jose L Henriquez - Last Filed: 12/27/18 10:37> Subjective - Date & Time of Evaluation Date of Evaluation: 12/27/18 Time of Evaluation: 07:17 - Subjective Subjective: PGY-2 medicine progress note for Dr Causey No acute events noted overnight. Patient denied pain or discomfort. Working with PT and tolerating diet. No fevers. Objective - Vital Signs/Intake and Output Vital Signs (last 24 hours): Temp Pulse Resp BP Pulse Ox 97.3 F L 65 18 117/60 12/25/18 16:31 12/26/18 17:33 12/25/18 16:31 12/26/18 17:33 - Medications Medications: Current Medications Acetaminophen (Tylenol 325mg Tab) 650 mg PO Q4H PRN; Protocol PRN Reason: Headache Apixaban (Eliquis) 5 mg PO BID [place]; Protocol Last Admin: 12/26/18 17:32 Dose: 5 mg Atorvastatin Calcium (Lipitor) 40 mg PO DIN [place]; Protocol Last Admin: 12/26/18 17:33 Dose: 40 mg Furosemide (Lasix) 40 mg PO BID [place]; Protocol Last Admin: 12/26/18 17:32 Dose: 40 mg Linezolid (Zyvox 600mg/300ml D5w) 600 mg in 300 mls @ 200 mls/hr IVPB 0600,1800 [place]; Protocol Stop: 01/01/19 18:01 Last Admin: 12/27/18 05:03 Dose: 200 mls/hr Lisinopril (Zestril) 5 mg PO DAILY [place]; Protocol Last Admin: 12/26/18 10:08 Dose: 5 mg Metoprolol Tartrate (Lopressor) 25 mg PO 0800,1800 [place]; Protocol Last Admin: 12/26/18 17:33 Dose: 25 mg Mupirocin (Bactroban Ointment) 0 gm TOP BID [place]; Protocol Last Admin: 12/26/18 17:32 Dose: 1 applic - Additional Findings Additional findings: - Head Exam Head Exam: ATRAUMATIC, NORMOCEPHALIC - Additional Findings Additional findings: - Constitutional Appears: Non-toxic, No Acute Distress - Head Exam Head Exam: ATRAUMATIC, NORMAL INSPECTION, NORMOCEPHALIC - Eye Exam Eye Exam: EOMI, Normal appearance. absent: Conjunctival injection, Scleral icterus - ENT Exam ENT Exam: Mucous Membranes Moist - Neck Exam Neck exam: Positive for: Full Rom, Normal Inspection - Respiratory Exam Respiratory Exam: Decreased Breath Sounds, NORMAL BREATHING PATTERN. absent: Accessory Muscle Use, Rales, Wheezes, Respiratory Distress - Cardiovascular Exam Cardiovascular Exam: RRR, +S1, +S2 - GI/Abdominal Exam GI & Abdominal Exam: Normal Bowel Sounds, Soft. absent: Firm, Guarding, Rigid, Tenderness - Extremities Exam Extremities exam: Positive for: normal capillary refill. Negative for: pedal edema Additional comments: L foot wrapped by podiatry - Neurological Exam Neurological exam: Alert, CN II-XII Intact, Oriented x3 - Psychiatric Exam Psychiatric exam: Anxious - Skin Skin Exam: Dry, Normal Color, Warm Assessment and Plan - Assessment and Plan (Free Text) Plan: -Left foot ulcer -RITCHIE on CKD -PVD -CHF -COPD -HTN -CVA -DVT/PE -Cognitive impairment Plan: Patient currently in TCU receiving rehab. MRI and DMITRY - MRI does not show any evidence of osteomyelitis. Left Tib/fib x-rays reviewed and LE duplex unremarkable. ID and Podiatry consulted - no surgical intervention planned at this time from podiatry. He was given 4 days of daptomycin then switched over to zyvox iv (started on 12/25) - he will need a total of 6 days of zyvox as per ID. Wound cleansed with saline, and dressed with bactroban, DSD. As per podiatry no plans for surgical intervention at this time. He was also seen by IR Dr Hess who recommends wound care and abx (please see his full note). Continue elqiuis for DVT/PE (we have resumed normal dose as kidney function has improved) and Lipitor (dose increased to 40mg po qd). Continue home lasix, lisinopril, and lopressor for hx of CHF and HTN. Continue topical bactroban. If patient becomes agitated/confused recommend redirection. Discussed with Dr. Causey <Jose Causey - Last Filed: 12/30/18 20:23> Objective - Vital Signs/Intake and Output Vital Signs (last 24 hours): Temp Pulse Resp BP Pulse Ox 97.5 F L 59 L 18 112/62 96 12/30/18 16:00 12/30/18 16:00 12/30/18 16:00 12/30/18 17:37 12/30/18 16:00 - Medications Medications: Current Medications Acetaminophen (Tylenol 325mg Tab) 650 mg PO Q4H PRN; Protocol PRN Reason: Headache Apixaban (Eliquis) 5 mg PO BID [place]; Protocol Last Admin: 12/30/18 17:36 Dose: 5 mg Atorvastatin Calcium (Lipitor) 40 mg PO DIN [place]; Protocol Last Admin: 12/30/18 17:36 Dose: 40 mg Furosemide (Lasix) 40 mg PO BID [place]; Protocol Last Admin: 12/28/18 09:40 Dose: 40 mg Hydrocortisone (Cortizone 1% Cream) 0 gm TOP BID [place]; Protocol Last Admin: 12/30/18 17:36 Dose: 1 applic Linezolid (Zyvox 600mg/300ml D5w) 600 mg in 300 mls @ 200 mls/hr IVPB 0600,1800 [place]; Protocol Stop: 01/01/19 18:01 Last Admin: 12/30/18 20:13 Dose: 200 mls/hr Lisinopril (Zestril) 5 mg PO DAILY [place]; Protocol Last Admin: 12/27/18 10:05 Dose: Not Given Metoprolol Tartrate (Lopressor) 25 mg PO 0800,1800 [place]; Protocol Last Admin: 12/30/18 17:37 Dose: 25 mg Mupirocin (Bactroban Ointment) 0 gm TOP BID [place]; Protocol Last Admin: 12/30/18 17:36 Dose: 1 applic - Labs Labs: 12/30/18 07:00 12/28/18 08:50 Assessment and Plan - Assessment and Plan (Free Text) Plan: Pt seen and examined by me. This is a late entry. I have reviewed the note of the medical affairs manager and I agree with it. I have discussed the assessment and plan with the resident. I have reviewed the medications and the last labs. Pt with L foot ulcer and is on IV Zyvox. RITCHIE has improved. He is getting PT. He will continue with Eliquis for his DVT/PE. Pt is on Lisinopril for HT. He will continue with Lipitor.
[2018-12-27] MEDS: Mupirocin 2% Ointment 15 GM TUBE TOP SCH ×2 (09:05→17:25)
--- NOTE | 2018-12-27 11:08 | CP.PCM.PN ---
<FelipeKimberley padron - Last Filed: 12/27/18 11:04> Subjective - Date & Time of Evaluation Date of Evaluation: 12/27/18 Time of Evaluation: 11:05 - Subjective Subjective: Podiatry progress note for Dr. Verde 63 y/o male patient was seen and evaluated at bedside for bilateral feet wounds, seen in TCU. Patient states he feels much better today, He denies any other pedal complaint at this time. He denies any recent N/V or D. Objective - Vital Signs/Intake and Output Vital Signs (last 24 hours): Temp Pulse Resp BP Pulse Ox 97.3 F L 78 18 110/57 L 12/25/18 16:31 12/27/18 09:06 12/25/18 16:31 12/27/18 09:06 - Medications Medications: Current Medications Acetaminophen (Tylenol 325mg Tab) 650 mg PO Q4H PRN; Protocol PRN Reason: Headache Apixaban (Eliquis) 5 mg PO BID [place]; Protocol Last Admin: 12/27/18 09:05 Dose: 5 mg Atorvastatin Calcium (Lipitor) 40 mg PO DIN [place]; Protocol Last Admin: 12/26/18 17:33 Dose: 40 mg Furosemide (Lasix) 40 mg PO BID [place]; Protocol Last Admin: 12/27/18 09:06 Dose: 40 mg Linezolid (Zyvox 600mg/300ml D5w) 600 mg in 300 mls @ 200 mls/hr IVPB 0600,1800 [place]; Protocol Stop: 01/01/19 18:01 Last Admin: 12/27/18 05:03 Dose: 200 mls/hr Lisinopril (Zestril) 5 mg PO DAILY [place]; Protocol Last Admin: 12/27/18 09:06 Dose: 5 mg Metoprolol Tartrate (Lopressor) 25 mg PO 0800,1800 [place]; Protocol Last Admin: 12/27/18 08:37 Dose: Not Given Mupirocin (Bactroban Ointment) 0 gm TOP BID [place]; Protocol Last Admin: 12/27/18 09:05 Dose: 1 applic - Constitutional Appears: Well, Non-toxic, No Acute Distress - Head Exam Head Exam: ATRAUMATIC, NORMOCEPHALIC - Extremities Exam Additional comments: Bilateral lower extremity examination: VASC: DP/PT pulses non-palpable bilaterally; capillary refill is almost 4 secs to all digits; Temp gradient warm to cool b/l from proximal to distal. NEURO: Gross and protective sensations are intact DERM: wound noted to the dorso-lateral aspect of the left foot with scab formation, no malodor, minimal zachary-erythema, minimal drainage, no probe to bone, no tunneling, no tracking; small wound noted to the lateral aspect of the right leg, 100% granular, no malodor, minimal zachary-erythema, minimal drainage, no probe to bone, no tunneling, no tracking MSK: restricted ankle ROM noted bilaterally. Mild pain on palpating the periwound area - Neurological Exam Neurological Exam: Alert, Awake, Oriented x3 - Psychiatric Exam Psychiatric exam: Normal Affect, Normal Mood Assessment and Plan - Assessment and Plan (Free Text) Assessment: 63 y/o male patient seen and evaluated at the bedside for bilateral feet wounds, in TCU for further rehab and IV Abx Plan: Patient was seen and evaluated at bedside Plan discussed in details with attending Chart, labs and vitals reviewed Left foot X-ray: normal radiographs Wound cleansed with saline, and dressed with bactroban, DSD to the left, and bactroban, Optifoam to the right Wound cultur: MRSA Infectious disease consult placed, recommendations appreciated Vascular Consult, Dr. Hess- continue current conservative management with IV Abx for left, repeat bypass not advised at this time No plan for surgical intervention at this time Will continue to follow patient while in house <Sudeep Verde - Last Filed: 12/28/18 11:59> Objective - Vital Signs/Intake and Output Vital Signs (last 24 hours): Temp Pulse Resp BP Pulse Ox 97.3 F L 78 18 110/57 L 12/25/18 16:31 12/27/18 09:06 12/25/18 16:31 12/27/18 09:06 - Medications Medications: Current Medications Acetaminophen (Tylenol 325mg Tab) 650 mg PO Q4H PRN; Protocol PRN Reason: Headache Apixaban (Eliquis) 5 mg PO BID [place]; Protocol Last Admin: 12/27/18 09:05 Dose: 5 mg Atorvastatin Calcium (Lipitor) 40 mg PO DIN [place]; Protocol Last Admin: 12/26/18 17:33 Dose: 40 mg Furosemide (Lasix) 40 mg PO BID [place]; Protocol Last Admin: 12/27/18 09:06 Dose: 40 mg Linezolid (Zyvox 600mg/300ml D5w) 600 mg in 300 mls @ 200 mls/hr IVPB 0600,1800 [place]; Protocol Stop: 01/01/19 18:01 Last Admin: 12/27/18 05:03 Dose: 200 mls/hr Lisinopril (Zestril) 5 mg PO DAILY [place]; Protocol Last Admin: 12/27/18 09:06 Dose: 5 mg Metoprolol Tartrate (Lopressor) 25 mg PO 0800,1800 [place]; Protocol Last Admin: 12/27/18 08:37 Dose: Not Given Mupirocin (Bactroban Ointment) 0 gm TOP BID [place]; Protocol Last Admin: 12/27/18 09:05 Dose: 1 applic Attending/Attestation - Attestation I have personally seen and examined this patient.: Yes I have fully participated in the care of the patient.: Yes I have reviewed all pertinent clinical information, including history, physical exam and plan: Yes
--- NOTE | 2018-12-27 14:30 | CP.PCM.PN ---
Subjective - Date & Time of Evaluation Date of Evaluation: 12/27/18 Time of Evaluation: 11:05 - Subjective Subjective: No new complaints, no fevers. Objective - Vital Signs/Intake and Output Vital Signs (last 24 hours): Temp Pulse Resp BP Pulse Ox 97.3 F L 77 18 117/69 12/25/18 16:31 12/26/18 10:08 12/25/18 16:31 12/26/18 10:08 - Medications Medications: Current Medications Acetaminophen (Tylenol 325mg Tab) 650 mg PO Q4H PRN; Protocol PRN Reason: Headache Apixaban (Eliquis) 5 mg PO BID [place]; Protocol Last Admin: 12/26/18 10:07 Dose: 5 mg Atorvastatin Calcium (Lipitor) 40 mg PO DIN [place]; Protocol Last Admin: 12/25/18 17:24 Dose: 40 mg Furosemide (Lasix) 40 mg PO BID [place]; Protocol Last Admin: 12/26/18 10:07 Dose: 40 mg Linezolid (Zyvox 600mg/300ml D5w) 600 mg in 300 mls @ 200 mls/hr IVPB 0600,1800 [place]; Protocol Stop: 01/01/19 18:01 Last Admin: 12/26/18 05:10 Dose: 200 mls/hr Lisinopril (Zestril) 5 mg PO DAILY [place]; Protocol Last Admin: 12/26/18 10:08 Dose: 5 mg Metoprolol Tartrate (Lopressor) 25 mg PO 0800,1800 [place]; Protocol Last Admin: 12/26/18 08:11 Dose: Not Given Mupirocin (Bactroban Ointment) 0 gm TOP BID [place]; Protocol Last Admin: 12/26/18 10:06 Dose: 1 applic - Constitutional Appears: Chronically Ill - Head Exam Head Exam: NORMAL INSPECTION - Respiratory Exam Respiratory Exam: Decreased Breath Sounds - Cardiovascular Exam Cardiovascular Exam: +S1, +S2 - GI/Abdominal Exam GI & Abdominal Exam: Soft. absent: Tenderness Assessment and Plan - Assessment and Plan (Free Text) Plan: Assessment left foot skin and skins structure infection with MRSA with foot ulcer, no evidence of osteomyelitis of MRI history of lower respiratory tract infection / bronchitis R/O pneumonia R/O Influenza history of asymptomatic bacteriuria acute on chronic CHF causing dyspnea earning disability chronic CHF history of pneumonia CVA with left sided residual weakness history of DVT chronic foot ulcers history of lower extremity bypass surgery Plan on Zyvox day 6 of 7-10 days patient needs to follow up with Podiatry as an outpatient
[2018-12-28] MEDS: Linezolid 600 mg in D5W 300 ml 600 MG/300 ML BAG IVPB SCH ×2 (05:09→17:40)
--- NOTE | 2018-12-28 07:48 | CP.PCM.PN ---
<Jose L Henriquez - Last Filed: 12/28/18 15:06> Subjective - Date & Time of Evaluation Date of Evaluation: 12/28/18 Time of Evaluation: 07:47 - Subjective Subjective: PGY-2 medicine progress note for Dr Causey No acute events noted overnight. Patient denied being in pain or discomfort. Objective - Vital Signs/Intake and Output Vital Signs (last 24 hours): Temp Pulse Resp BP Pulse Ox 98.3 F 75 18 90/54 L 97 12/27/18 16:31 12/27/18 17:26 12/27/18 16:31 12/27/18 17:26 12/27/18 16:31 - Medications Medications: Current Medications Acetaminophen (Tylenol 325mg Tab) 650 mg PO Q4H PRN; Protocol PRN Reason: Headache Apixaban (Eliquis) 5 mg PO BID [place]; Protocol Last Admin: 12/27/18 17:25 Dose: 5 mg Atorvastatin Calcium (Lipitor) 40 mg PO DIN [place]; Protocol Last Admin: 12/27/18 17:26 Dose: 40 mg Furosemide (Lasix) 40 mg PO BID [place]; Protocol Last Admin: 12/27/18 17:26 Dose: Not Given Linezolid (Zyvox 600mg/300ml D5w) 600 mg in 300 mls @ 200 mls/hr IVPB 0600,1800 [place]; Protocol Stop: 01/01/19 18:01 Last Admin: 12/28/18 05:09 Dose: 200 mls/hr Lisinopril (Zestril) 5 mg PO DAILY [place]; Protocol Last Admin: 12/27/18 10:05 Dose: Not Given Metoprolol Tartrate (Lopressor) 25 mg PO 0800,1800 [place]; Protocol Last Admin: 12/27/18 17:26 Dose: Not Given Mupirocin (Bactroban Ointment) 0 gm TOP BID [place]; Protocol Last Admin: 12/27/18 17:25 Dose: 1 applic - Additional Findings Additional findings: - Head Exam Head Exam: ATRAUMATIC, NORMOCEPHALIC - Additional Findings Additional findings: - Constitutional Appears: Non-toxic, No Acute Distress - Head Exam Head Exam: ATRAUMATIC, NORMAL INSPECTION, NORMOCEPHALIC - Eye Exam Eye Exam: EOMI, Normal appearance. absent: Conjunctival injection, Scleral icterus - ENT Exam ENT Exam: Mucous Membranes Moist - Neck Exam Neck exam: Positive for: Full Rom, Normal Inspection - Respiratory Exam Respiratory Exam: Decreased Breath Sounds, NORMAL BREATHING PATTERN. absent: Accessory Muscle Use, Rales, Wheezes, Respiratory Distress - Cardiovascular Exam Cardiovascular Exam: RRR, +S1, +S2 - GI/Abdominal Exam GI & Abdominal Exam: Normal Bowel Sounds, Soft. absent: Firm, Guarding, Rigid, Tenderness - Extremities Exam Extremities exam: Positive for: normal capillary refill. Negative for: pedal edema Additional comments: L foot wrapped by podiatry - Neurological Exam Neurological exam: Alert, CN II-XII Intact, Oriented x3 - Psychiatric Exam Psychiatric exam: Anxious - Skin Skin Exam: Dry, Normal Color, Warm Assessment and Plan - Assessment and Plan (Free Text) Plan: -Left foot ulcer -RITCHIE on CKD -PVD -CHF -COPD -HTN -CVA -DVT/PE -Cognitive impairment Plan: Patient currently in TCU receiving rehab. MRI and DMITRY - MRI does not show any evidence of osteomyelitis. Left Tib/fib x-rays reviewed and LE duplex unremarkable. ID and Podiatry consulted - no surgical intervention planned at this time from podiatry. He was given 4 days of daptomycin then switched over to zyvox iv (started on 12/25) - he will need a total of 6 days of zyvox as per ID. Wound cleansed with saline, and dressed with bactroban, DSD. As per podiatry no plans for surgical intervention at this time. He was also seen by IR Dr Hess who recommends wound care and abx (please see his full note). Continue elqiuis for DVT/PE (we have resumed normal dose as kidney function has improved) and Lipitor (dose increased to 40mg po qd). Continue home lisinopril, and lopressor for hx of CHF and HTN. Labwork done today showed an increase in creatinine - we'll hold his home lasix and re-check bloodwork on Monday. Continue topical bactroban. If patient becomes agitated/confused recommend redirection. Discussed with Dr. Causey <Jose Causey - Last Filed: 12/30/18 10:34> Objective - Vital Signs/Intake and Output Vital Signs (last 24 hours): Temp Pulse Resp BP Pulse Ox 97.2 F L 72 20 148/83 94 L 12/29/18 16:00 12/29/18 17:17 12/29/18 16:00 12/30/18 10:08 12/29/18 16:00 - Medications Medications: Current Medications Acetaminophen (Tylenol 325mg Tab) 650 mg PO Q4H PRN; Protocol PRN Reason: Headache Apixaban (Eliquis) 5 mg PO BID [place]; Protocol Last Admin: 12/30/18 10:09 Dose: 5 mg Atorvastatin Calcium (Lipitor) 40 mg PO DIN [place]; Protocol Last Admin: 12/29/18 17:16 Dose: 40 mg Furosemide (Lasix) 40 mg PO BID [place]; Protocol Last Admin: 12/28/18 09:40 Dose: 40 mg Hydrocortisone (Cortizone 1% Cream) 0 gm TOP BID [place]; Protocol Last Admin: 12/30/18 10:09 Dose: 1 applic Linezolid (Zyvox 600mg/300ml D5w) 600 mg in 300 mls @ 200 mls/hr IVPB 0600,1800 [place]; Protocol Stop: 01/01/19 18:01 Last Admin: 12/30/18 05:15 Dose: 200 mls/hr Lisinopril (Zestril) 5 mg PO DAILY [place]; Protocol Last Admin: 12/27/18 10:05 Dose: Not Given Metoprolol Tartrate (Lopressor) 25 mg PO 0800,1800 [place]; Protocol Last Admin: 12/30/18 10:08 Dose: 25 mg Mupirocin (Bactroban Ointment) 0 gm TOP BID [place]; Protocol Last Admin: 12/29/18 17:16 Dose: 1 applic - Labs Labs: 12/30/18 07:00 12/28/18 08:50 Assessment and Plan - Assessment and Plan (Free Text) Plan: Pt seen and examined by me. This is a late entry. I have reviewed the note of the biomedical equipment technician and I agree with it. I have discussed the assessment and plan with the resident. I have reviewed the medications and the last labs. Pt with L foot ulcer. Pt had RITCHIE and that is improved. He is on Zyvox for his L foot ulcer. Pt is on Lisinopril for HTN. On Lipitor for dyslipidemia.
[2018-12-28 09:01] LABS: BASO # 0.01 K/mm3 (0.0-2.0); BASO % 0.3 % (0.0-3.0); EOS # 0.1 (0.0-0.7); EOS % 3.6 % (1.5-5.0); HEMOGLOBIN 10.3 g/dL (14.0-18.0); LYMPH # 0.8 (1.2-3.4); LYMPH % 23.1 % (22.0-35.0); MEAN CELL VOLUME 92.9 fl (80.0-105.0); MEAN CORPUSCULAR HEMOGLOBIN 28.3 pg (25.0-35.0); MEAN CORPUSCULAR HGB CONC 30.5 g/dl (31.0-37.0); MONO # 0.2 (0.1-0.6); MONO % 5.6 % (1.0-6.0); RBC 3.64 10^6/uL (3.5-6.1); RED CELL DISTRIBUTION WIDTH 14.5 % (11.5-14.5); WHITE BLOOD COUNT 3.6 10^3/uL (4.5-11.0)
[2018-12-28 09:13] LABS: ALB/GLOB RATIO 1.4 (1.1-1.8); ALBUMIN 4.4 g/dL (3.0-4.8); CALCIUM 9.5 mg/dL (8.4-10.5)
[2018-12-28] MEDS: Mupirocin 2% Ointment 15 GM TUBE TOP SCH ×2 (09:39→17:39)
--- NOTE | 2018-12-28 12:30 | CP.PCM.PN ---
Subjective - Date & Time of Evaluation Date of Evaluation: 12/28/18 Time of Evaluation: 09:50 - Subjective Subjective: No new complaints, no fevers. Objective - Vital Signs/Intake and Output Vital Signs (last 24 hours): Temp Pulse Resp BP Pulse Ox 97.3 F L 78 18 110/57 L 12/25/18 16:31 12/27/18 09:06 12/25/18 16:31 12/27/18 09:06 - Medications Medications: Current Medications Acetaminophen (Tylenol 325mg Tab) 650 mg PO Q4H PRN; Protocol PRN Reason: Headache Apixaban (Eliquis) 5 mg PO BID [place]; Protocol Last Admin: 12/27/18 09:05 Dose: 5 mg Atorvastatin Calcium (Lipitor) 40 mg PO DIN [place]; Protocol Last Admin: 12/26/18 17:33 Dose: 40 mg Furosemide (Lasix) 40 mg PO BID [place]; Protocol Last Admin: 12/27/18 09:06 Dose: 40 mg Linezolid (Zyvox 600mg/300ml D5w) 600 mg in 300 mls @ 200 mls/hr IVPB 0600,1800 [place]; Protocol Stop: 01/01/19 18:01 Last Admin: 12/27/18 05:03 Dose: 200 mls/hr Lisinopril (Zestril) 5 mg PO DAILY [facility]; Protocol Last Admin: 12/27/18 09:06 Dose: 5 mg Metoprolol Tartrate (Lopressor) 25 mg PO 0800,1800 [place]; Protocol Last Admin: 12/27/18 08:37 Dose: Not Given Mupirocin (Bactroban Ointment) 0 gm TOP BID [place]; Protocol Last Admin: 12/27/18 09:05 Dose: 1 applic - Constitutional Appears: Chronically Ill - Head Exam Head Exam: NORMAL INSPECTION - Respiratory Exam Respiratory Exam: Decreased Breath Sounds - Cardiovascular Exam Cardiovascular Exam: +S1, +S2 - GI/Abdominal Exam GI & Abdominal Exam: Soft. absent: Tenderness - Extremities Exam Additional comments: left foot with dressings in place Assessment and Plan - Assessment and Plan (Free Text) Plan: Assessment left foot skin and skins structure infection with MRSA with foot ulcer, no evidence of osteomyelitis of MRI history of lower respiratory tract infection / bronchitis R/O pneumonia R/O Influenza history of asymptomatic bacteriuria acute on chronic CHF causing dyspnea earning disability chronic CHF history of pneumonia CVA with left sided residual weakness history of DVT chronic foot ulcers history of lower extremity bypass surgery Plan on Zyvox day 7 of 7-10 days patient needs to follow up with Podiatry as an outpatient discussed with Dr. Verde previously
--- NOTE | 2018-12-28 13:47 | CP.PCM.PN ---
<FelipeKimberley padron - Last Filed: 12/28/18 13:46> Subjective - Date & Time of Evaluation Date of Evaluation: 12/28/18 Time of Evaluation: 13:46 - Subjective Subjective: Podiatry progress note for Dr. Verde 63 y/o male patient was seen and evaluated at bedside for bilateral feet wounds, seen in TCU. Patient states he feels much better today, He denies any other pedal complaint at this time. He denies any recent N/V or D. Objective - Vital Signs/Intake and Output Vital Signs (last 24 hours): Temp Pulse Resp BP Pulse Ox 98.3 F 75 18 100/60 97 12/27/18 16:31 12/28/18 07:59 12/27/18 16:31 12/28/18 09:40 12/27/18 16:31 - Medications Medications: Current Medications Acetaminophen (Tylenol 325mg Tab) 650 mg PO Q4H PRN; Protocol PRN Reason: Headache Apixaban (Eliquis) 5 mg PO BID [place]; Protocol Last Admin: 12/28/18 09:39 Dose: 5 mg Atorvastatin Calcium (Lipitor) 40 mg PO DIN [place]; Protocol Last Admin: 12/27/18 17:26 Dose: 40 mg Furosemide (Lasix) 40 mg PO BID [place]; Protocol Last Admin: 12/28/18 09:40 Dose: 40 mg Linezolid (Zyvox 600mg/300ml D5w) 600 mg in 300 mls @ 200 mls/hr IVPB 0600,1800 [place]; Protocol Stop: 01/01/19 18:01 Last Admin: 12/28/18 05:09 Dose: 200 mls/hr Lisinopril (Zestril) 5 mg PO DAILY [place]; Protocol Last Admin: 12/27/18 10:05 Dose: Not Given Metoprolol Tartrate (Lopressor) 25 mg PO 0800,1800 [place]; Protocol Last Admin: 12/28/18 07:59 Dose: Not Given Mupirocin (Bactroban Ointment) 0 gm TOP BID [place]; Protocol Last Admin: 12/28/18 09:39 Dose: 1 applic - Labs Labs: 12/28/18 08:50 12/28/18 08:50 - Constitutional Appears: Well, Non-toxic, No Acute Distress - Head Exam Head Exam: ATRAUMATIC, NORMOCEPHALIC - Extremities Exam Additional comments: Bilateral lower extremity examination: VASC: DP/PT pulses non-palpable bilaterally; capillary refill is almost 4 secs to all digits; Temp gradient warm to cool b/l from proximal to distal. NEURO: Gross and protective sensations are intact DERM: wound noted to the dorso-lateral aspect of the left foot with scab formation, no malodor, minimal zachary-erythema, minimal drainage, no probe to bone, no tunneling, no tracking; small wound noted to the lateral aspect of the right leg, 100% granular, no malodor, minimal zachary-erythema, minimal drainage, no probe to bone, no tunneling, no tracking MSK: restricted ankle ROM noted bilaterally. Mild pain on palpating the periwound area - Neurological Exam Neurological Exam: Alert, Awake, Oriented x3 - Psychiatric Exam Psychiatric exam: Normal Affect, Normal Mood Assessment and Plan - Assessment and Plan (Free Text) Assessment: 63 y/o male patient seen and evaluated at the bedside for bilateral feet wounds, in TCU for further rehab and IV Abx Plan: Patient was seen and evaluated at bedside Plan discussed in details with attending Chart, labs and vitals reviewed Left foot X-ray: normal radiographs Wound cleansed with saline, and dressed with bactroban, DSD to the left, and bactroban, Optifoam to the right Wound culture: MRSA Infectious disease consult placed, recommendations appreciated Vascular Consult, Dr. Hess- continue current conservative management with IV Abx for left, repeat bypass not advised at this time No plan for surgical intervention at this time Will continue to follow patient while in house <Sudeep Verde - Last Filed: 12/28/18 17:45> Objective - Vital Signs/Intake and Output Vital Signs (last 24 hours): Temp Pulse Resp BP Pulse Ox 98.3 F 75 18 100/60 97 12/27/18 16:31 12/28/18 07:59 12/27/18 16:31 12/28/18 09:40 12/27/18 16:31 - Medications Medications: Current Medications Acetaminophen (Tylenol 325mg Tab) 650 mg PO Q4H PRN; Protocol PRN Reason: Headache Apixaban (Eliquis) 5 mg PO BID [place]; Protocol Last Admin: 12/28/18 09:39 Dose: 5 mg Atorvastatin Calcium (Lipitor) 40 mg PO DIN [place]; Protocol Last Admin: 12/27/18 17:26 Dose: 40 mg Furosemide (Lasix) 40 mg PO BID [place]; Protocol Last Admin: 12/28/18 09:40 Dose: 40 mg Linezolid (Zyvox 600mg/300ml D5w) 600 mg in 300 mls @ 200 mls/hr IVPB 0600,1800 [place]; Protocol Stop: 01/01/19 18:01 Last Admin: 12/28/18 05:09 Dose: 200 mls/hr Lisinopril (Zestril) 5 mg PO DAILY [place]; Protocol Last Admin: 12/27/18 10:05 Dose: Not Given Metoprolol Tartrate (Lopressor) 25 mg PO 0800,1800 [place]; Protocol Last Admin: 12/28/18 07:59 Dose: Not Given Mupirocin (Bactroban Ointment) 0 gm TOP BID [place]; Protocol Last Admin: 12/28/18 09:39 Dose: 1 applic - Labs Labs: 12/28/18 08:50 12/28/18 08:50 Attending/Attestation - Attestation I have personally seen and examined this patient.: Yes I have fully participated in the care of the patient.: Yes I have reviewed all pertinent clinical information, including history, physical exam and plan: Yes
[2018-12-29] MEDS: Linezolid 600 mg in D5W 300 ml 600 MG/300 ML BAG IVPB SCH ×2 (05:23→18:56)
--- NOTE | 2018-12-29 08:49 | CP.PCM.PN ---
<MartinGriselda - Last Filed: 12/29/18 09:00> Subjective - Date & Time of Evaluation Date of Evaluation: 12/29/18 Time of Evaluation: 08:49 - Subjective Subjective: Podiatry progress note: Dr. Verde 63M patient seen and evaluated in TCU at bedside for bilateral ulcerations. Patient resting comfortably and in NAD. No acute events overnight. Denies nausea/vomiting/fever/shortness of breath. Objective - Vital Signs/Intake and Output Vital Signs (last 24 hours): Temp Pulse Resp BP Pulse Ox 98.3 F 85 18 123/58 L 97 12/27/18 16:31 12/29/18 08:08 12/27/18 16:31 12/29/18 08:08 12/27/18 16:31 - Medications Medications: Current Medications Acetaminophen (Tylenol 325mg Tab) 650 mg PO Q4H PRN; Protocol PRN Reason: Headache Apixaban (Eliquis) 5 mg PO BID [place]; Protocol Last Admin: 12/28/18 17:39 Dose: 5 mg Atorvastatin Calcium (Lipitor) 40 mg PO DIN [place]; Protocol Last Admin: 12/28/18 17:40 Dose: 40 mg Furosemide (Lasix) 40 mg PO BID [place]; Protocol Last Admin: 12/28/18 09:40 Dose: 40 mg Linezolid (Zyvox 600mg/300ml D5w) 600 mg in 300 mls @ 200 mls/hr IVPB 0600,1800 [place]; Protocol Stop: 01/01/19 18:01 Last Admin: 12/29/18 05:23 Dose: 200 mls/hr Lisinopril (Zestril) 5 mg PO DAILY [facility]; Protocol Last Admin: 12/27/18 10:05 Dose: Not Given Metoprolol Tartrate (Lopressor) 25 mg PO 0800,1800 [place]; Protocol Last Admin: 12/29/18 08:08 Dose: 25 mg Mupirocin (Bactroban Ointment) 0 gm TOP BID [place]; Protocol Last Admin: 12/28/18 17:39 Dose: 1 applic - Labs Labs: 12/28/18 08:50 12/28/18 08:50 - Constitutional Appears: Non-toxic, No Acute Distress - Head Exam Head Exam: ATRAUMATIC, NORMOCEPHALIC - Extremities Exam Additional comments: Bilateral lower extremity examination: VASC: DP/PT pulses non-palpable bilaterally; capillary refill is almost 4 secs to all digits; Temp gradient warm to cool b/l from proximal to distal. NEURO: Gross and protective sensations are intact DERM: Ulceration noted to the dorso-lateral aspect of the left foot with scab formation, no malodor, minimal zachary-erythema, minimal drainage, no probe to bone, no tunneling, no tracking; small ulceration noted to the lateral aspect of the right leg, 100% granular, no malodor, minimal zachary-erythema, minimal drainage, no probe to bone, no tunneling, no tracking MSK: restricted ankle ROM noted bilaterally. Mild pain on palpating the periwo und area - Neurological Exam Neurological Exam: Alert, Awake, Oriented x3 - Psychiatric Exam Psychiatric exam: Normal Affect, Normal Mood Assessment and Plan - Assessment and Plan (Free Text) Assessment: 63M with b/l foot ulcerations admitted to TCU for continued rehab and IV abx Plan: Patient was seen and evaluated at bedside with Dr. Vedre Left foot X-ray: normal radiographs Wound cleansed with saline, and dressed with bactroban, DSD to the left, and bactroban, Optifoam to the right Wound culture: MRSA ID consult, reccs appreciated; patient on Zyvox day 8 of 7-10 days Vascular Consult, Dr. Hess- continue current conservative management with IV Abx for left, repeat bypass not advised at this time No plan for surgical intervention at this time Will continue to follow patient while in house <Sudeep Verde - Last Filed: 12/31/18 09:05> Objective - Vital Signs/Intake and Output Vital Signs (last 24 hours): Temp Pulse Resp BP Pulse Ox 97.5 F L 58 L 18 100/56 L 96 12/30/18 16:00 12/31/18 08:08 12/30/18 16:00 12/31/18 08:08 12/30/18 16:00 - Medications Medications: Current Medications Acetaminophen (Tylenol 325mg Tab) 650 mg PO Q4H PRN; Protocol PRN Reason: Headache Apixaban (Eliquis) 5 mg PO BID [place]; Protocol Last Admin: 12/30/18 17:36 Dose: 5 mg Atorvastatin Calcium (Lipitor) 40 mg PO DIN [place]; Protocol Last Admin: 12/30/18 17:36 Dose: 40 mg Furosemide (Lasix) 40 mg PO BID [place]; Protocol Last Admin: 12/28/18 09:40 Dose: 40 mg Hydrocortisone (Cortizone 1% Cream) 0 gm TOP BID [place]; Protocol Last Admin: 12/30/18 17:36 Dose: 1 applic Linezolid (Zyvox 600mg/300ml D5w) 600 mg in 300 mls @ 200 mls/hr IVPB 0600,1800 [place]; Protocol Stop: 01/01/19 18:01 Last Admin: 12/31/18 05:26 Dose: 200 mls/hr Lisinopril (Zestril) 5 mg PO DAILY [place]; Protocol Last Admin: 12/27/18 10:05 Dose: Not Given Metoprolol Tartrate (Lopressor) 25 mg PO 0800,1800 [place]; Protocol Last Admin: 12/31/18 08:08 Dose: Not Given Mupirocin (Bactroban Ointment) 0 gm TOP BID [place]; Protocol Last Admin: 12/30/18 17:36 Dose: 1 applic - Labs Labs: 12/31/18 07:00 12/31/18 07:00 Attending/Attestation - Attestation I have personally seen and examined this patient.: Yes I have fully participated in the care of the patient.: Yes I have reviewed all pertinent clinical information, including history, physical exam and plan: Yes
[2018-12-29] MEDS: Mupirocin 2% Ointment 15 GM TUBE TOP SCH ×2 (10:43→17:16)
--- NOTE | 2018-12-29 13:17 | CP.PCM.PN ---
Subjective - Date & Time of Evaluation Date of Evaluation: 12/29/18 Time of Evaluation: 10:20 - Subjective Subjective: No fevers, no increased pain in the left foot, not in distress. Objective - Vital Signs/Intake and Output Vital Signs (last 24 hours): Temp Pulse Resp BP Pulse Ox 98.3 F 75 18 100/60 97 12/27/18 16:31 12/28/18 07:59 12/27/18 16:31 12/28/18 09:40 12/27/18 16:31 - Medications Medications: Current Medications Acetaminophen (Tylenol 325mg Tab) 650 mg PO Q4H PRN; Protocol PRN Reason: Headache Apixaban (Eliquis) 5 mg PO BID [facility]; Protocol Last Admin: 12/28/18 09:39 Dose: 5 mg Atorvastatin Calcium (Lipitor) 40 mg PO DIN [facility]; Protocol Last Admin: 12/27/18 17:26 Dose: 40 mg Furosemide (Lasix) 40 mg PO BID [facility]; Protocol Last Admin: 12/28/18 09:40 Dose: 40 mg Linezolid (Zyvox 600mg/300ml D5w) 600 mg in 300 mls @ 200 mls/hr IVPB 0600,1800 [place]; Protocol Stop: 01/01/19 18:01 Last Admin: 12/28/18 05:09 Dose: 200 mls/hr Lisinopril (Zestril) 5 mg PO DAILY [facility]; Protocol Last Admin: 12/27/18 10:05 Dose: Not Given Metoprolol Tartrate (Lopressor) 25 mg PO 0800,1800 [place]; Protocol Last Admin: 12/28/18 07:59 Dose: Not Given Mupirocin (Bactroban Ointment) 0 gm TOP BID [facility]; Protocol Last Admin: 12/28/18 09:39 Dose: 1 applic - Labs Labs: 12/28/18 08:50 12/28/18 08:50 - Constitutional Appears: Chronically Ill - Head Exam Head Exam: NORMAL INSPECTION - Respiratory Exam Respiratory Exam: Decreased Breath Sounds - Cardiovascular Exam Cardiovascular Exam: +S1, +S2 - GI/Abdominal Exam GI & Abdominal Exam: Soft. absent: Tenderness - Extremities Exam Additional comments: left foot with dressings in place Assessment and Plan - Assessment and Plan (Free Text) Plan: Assessment left foot skin and skins structure infection with MRSA with foot ulcer, no evidence of osteomyelitis of MRI history of lower respiratory tract infection / bronchitis R/O pneumonia R/O Influenza history of asymptomatic bacteriuria acute on chronic CHF causing dyspnea earning disability chronic CHF history of pneumonia CVA with left sided residual weakness history of DVT chronic foot ulcers history of lower extremity bypass surgery Plan on Zyvox day 8 of 7-10 days - will monitor platelet count since it is already low at baseline patient needs to follow up with Podiatry as an outpatient discussed with Dr. Verde previously
[2018-12-29] MEDS: Hydrocortisone 1% Cream (30 GM) TOP SCH (18:56)
[2018-12-30] MEDS: Linezolid 600 mg in D5W 300 ml 600 MG/300 ML BAG IVPB SCH ×2 (05:15→20:13)
[2018-12-30 07:37] LABS: EOS # 0.2 (0.0-0.7); EOS % 5.7 % (1.5-5.0); HEMOGLOBIN 10.7 g/dL (14.0-18.0); LYMPH # 1.2 (1.2-3.4); LYMPH % 46.9 % (22.0-35.0); MEAN CELL VOLUME 91.2 fl (80.0-105.0); MEAN CORPUSCULAR HEMOGLOBIN 28.4 pg (25.0-35.0); MEAN CORPUSCULAR HGB CONC 31.1 g/dl (31.0-37.0); MEAN PLATELET VOLUME 11.7 fl (7.0-11.0); MONO # 0.3 (0.1-0.6); MONO % 9.9 % (1.0-6.0); RBC 3.77 10^6/uL (3.5-6.1); RED CELL DISTRIBUTION WIDTH 14.5 % (11.5-14.5); WHITE BLOOD COUNT 2.6 10^3/uL (4.5-11.0)
--- NOTE | 2018-12-30 09:21 | CP.PCM.PN ---
Subjective - Date & Time of Evaluation Date of Evaluation: 12/30/18 Time of Evaluation: 08:40 - Subjective Subjective: Complaining that he does not like the food in the hospital, no increased pain in the left foot, no fevers. Objective - Vital Signs/Intake and Output Vital Signs (last 24 hours): Temp Pulse Resp BP Pulse Ox 98.3 F 85 18 123/58 L 97 12/27/18 16:31 12/29/18 08:08 12/27/18 16:31 12/29/18 08:08 12/27/18 16:31 - Medications Medications: Current Medications Acetaminophen (Tylenol 325mg Tab) 650 mg PO Q4H PRN; Protocol PRN Reason: Headache Apixaban (Eliquis) 5 mg PO BID [facility]; Protocol Last Admin: 12/29/18 10:43 Dose: 5 mg Atorvastatin Calcium (Lipitor) 40 mg PO DIN [place]; Protocol Last Admin: 12/28/18 17:40 Dose: 40 mg Furosemide (Lasix) 40 mg PO BID [facility]; Protocol Last Admin: 12/28/18 09:40 Dose: 40 mg Linezolid (Zyvox 600mg/300ml D5w) 600 mg in 300 mls @ 200 mls/hr IVPB 0600,1800 [place]; Protocol Stop: 01/01/19 18:01 Last Admin: 12/29/18 05:23 Dose: 200 mls/hr Lisinopril (Zestril) 5 mg PO DAILY [facility]; Protocol Last Admin: 12/27/18 10:05 Dose: Not Given Metoprolol Tartrate (Lopressor) 25 mg PO 0800,1800 [place]; Protocol Last Admin: 12/29/18 08:08 Dose: 25 mg Mupirocin (Bactroban Ointment) 0 gm TOP BID [place]; Protocol Last Admin: 12/29/18 10:43 Dose: 1 applic - Labs Labs: 12/28/18 08:50 12/28/18 08:50 - Constitutional Appears: Non-toxic, Chronically Ill - Head Exam Head Exam: NORMAL INSPECTION - Respiratory Exam Respiratory Exam: Decreased Breath Sounds - Cardiovascular Exam Cardiovascular Exam: +S1, +S2 - GI/Abdominal Exam GI & Abdominal Exam: Soft. absent: Tenderness Assessment and Plan - Assessment and Plan (Free Text) Plan: Assessment left foot skin and skin structure infection with MRSA with foot ulcer, no evidence of osteomyelitis of MRI history of lower respiratory tract infection / bronchitis R/O pneumonia R/O Influenza history of asymptomatic bacteriuria acute on chronic CHF causing dyspnea earning disability chronic CHF history of pneumonia CVA with left sided residual weakness history of DVT chronic foot ulcers history of lower extremity bypass surgery Plan on Zyvox day 9 of 7-10 days - will continue monitor platelet count since it is already low at baseline (has not decreased by more than 50% from baseline) patient needs to follow up with Podiatry as an outpatient discussed with Dr. Verde previously
[2018-12-30] MEDS: Hydrocortisone 1% Cream (30 GM) TOP SCH ×2 (10:09→17:36)
[2018-12-30] MEDS: Mupirocin 2% Ointment 15 GM TUBE TOP SCH ×2 (10:24→17:36)
[2018-12-30 16:27] VITALS: RESP 18
--- NOTE | 2018-12-30 21:27 | PN ---
DATE: 12/30/2018 SUBJECTIVE: The patient is 63-year-old. The patient of Dr. Weber. He was brought for his leg cellulitis. He is awake and alert. Able to communicate. He is somewhat agitated, wants to go home today. It was explained to him at length it is important to have wound care and IV antibiotics given. His brother was at the bedside. PHYSICAL EXAMINATION: VITAL SIGNS: He is afebrile. Pulse 59, respirations 18, blood pressure 112/62. LUNGS: Bilateral fair airflow. No rhonchi or crackle. HEART: S1, S2 audible. ABDOMEN: Soft, nontender. No rebound. No guarding. NEUROLOGICAL: He is awake, alert, oriented. Able to communicate. ASSESSMENT: 1. Bilateral foot ulceration and cellulitis. Under care of Podiatry team and wound care is being done by them. 2. Methicillin-resistant Staphylococcus aureus wound infection. 3. Mentally challenged. 4. Hypertension. 5. Hyperlipidemia. PLAN: Currently, the patient is on Eliquis. He is on Lasix, statins, metoprolol, and lisinopril, and he is on Zyvox. Jorge Reveles MD
--- NOTE | 2018-12-30 22:46 | CP.PCM.PN ---
Subjective - Date & Time of Evaluation Date of Evaluation: 12/30/18 Time of Evaluation: 22:45 - Subjective Subjective: # 24 angiocath was inserted in right hand. Patient has no complaints at this time, vitals are stable and in not in acute distress. Objective - Vital Signs/Intake and Output Vital Signs (last 24 hours): Temp Pulse Resp BP Pulse Ox 97.5 F L 59 L 18 112/62 96 12/30/18 16:00 12/30/18 16:00 12/30/18 16:00 12/30/18 17:37 12/30/18 16:00 - Medications Medications: Current Medications Acetaminophen (Tylenol 325mg Tab) 650 mg PO Q4H PRN; Protocol PRN Reason: Headache Apixaban (Eliquis) 5 mg PO BID [place]; Protocol Last Admin: 12/30/18 17:36 Dose: 5 mg Atorvastatin Calcium (Lipitor) 40 mg PO DIN [place]; Protocol Last Admin: 12/30/18 17:36 Dose: 40 mg Furosemide (Lasix) 40 mg PO BID [place]; Protocol Last Admin: 12/28/18 09:40 Dose: 40 mg Hydrocortisone (Cortizone 1% Cream) 0 gm TOP BID [place]; Protocol Last Admin: 12/30/18 17:36 Dose: 1 applic Linezolid (Zyvox 600mg/300ml D5w) 600 mg in 300 mls @ 200 mls/hr IVPB 0600,1800 [place]; Protocol Stop: 01/01/19 18:01 Last Admin: 12/30/18 20:13 Dose: 200 mls/hr Lisinopril (Zestril) 5 mg PO DAILY [facility]; Protocol Last Admin: 12/27/18 10:05 Dose: Not Given Metoprolol Tartrate (Lopressor) 25 mg PO 0800,1800 [facility]; Protocol Last Admin: 12/30/18 17:37 Dose: 25 mg Mupirocin (Bactroban Ointment) 0 gm TOP BID [place]; Protocol Last Admin: 12/30/18 17:36 Dose: 1 applic - Labs Labs: 12/30/18 07:00 12/28/18 08:50
[2018-12-31] MEDS: Linezolid 600 mg in D5W 300 ml 600 MG/300 ML BAG IVPB SCH ×2 (05:26→17:32)
[2018-12-31 07:19] LABS: BASO # 0.02 K/mm3 (0.0-2.0); BASO % 0.7 % (0.0-3.0); EOS # 0.2 (0.0-0.7); EOS % 5.6 % (1.5-5.0); HEMOGLOBIN 9.8 g/dL (14.0-18.0); LYMPH # 1.3 (1.2-3.4); LYMPH % 45.5 % (22.0-35.0); MEAN CELL VOLUME 90.7 fl (80.0-105.0); MEAN CORPUSCULAR HEMOGLOBIN 28.5 pg (25.0-35.0); MEAN CORPUSCULAR HGB CONC 31.4 g/dl (31.0-37.0); MEAN PLATELET VOLUME 11.3 fl (7.0-11.0); MONO # 0.3 (0.1-0.6); MONO % 8.7 % (1.0-6.0); RBC 3.44 10^6/uL (3.5-6.1); RED CELL DISTRIBUTION WIDTH 14.3 % (11.5-14.5); WHITE BLOOD COUNT 2.9 10^3/uL (4.5-11.0)
[2018-12-31 07:39] LABS: ALB/GLOB RATIO 1.4 (1.1-1.8); ALBUMIN 4.2 g/dL (3.0-4.8); CALCIUM 9.3 mg/dL (8.4-10.5)
[2018-12-31] MEDS: Hydrocortisone 1% Cream (30 GM) TOP SCH ×2 (09:44→17:14)
[2018-12-31] MEDS: Mupirocin 2% Ointment 15 GM TUBE TOP SCH ×2 (09:44→17:13)
--- NOTE | 2018-12-31 09:48 | CP.PCM.PN ---
<Vic Ordoñez - Last Filed: 12/31/18 12:40> Subjective - Date & Time of Evaluation Date of Evaluation: 12/31/18 Time of Evaluation: 09:45 - Subjective Subjective: Podiatry progress note: Dr. Verde 63 y/o M patient seen and evaluated in TCU at bedside for bilateral ulcerations. Patient resting comfortably and in NAD. He denies any acute events overnight. He denies any pain in his feet. He denies any overnight nausea/vomit ing/fever/shortness of breath. Objective - Vital Signs/Intake and Output Vital Signs (last 24 hours): Temp Pulse Resp BP Pulse Ox 97.5 F L 58 L 18 100/56 L 96 12/30/18 16:00 12/31/18 08:08 12/30/18 16:00 12/31/18 08:08 12/30/18 16:00 - Medications Medications: Current Medications Acetaminophen (Tylenol 325mg Tab) 650 mg PO Q4H PRN; Protocol PRN Reason: Headache Apixaban (Eliquis) 5 mg PO BID [place]; Protocol Last Admin: 12/30/18 17:36 Dose: 5 mg Atorvastatin Calcium (Lipitor) 40 mg PO DIN [place]; Protocol Last Admin: 12/30/18 17:36 Dose: 40 mg Furosemide (Lasix) 40 mg PO BID [place]; Protocol Last Admin: 12/28/18 09:40 Dose: 40 mg Hydrocortisone (Cortizone 1% Cream) 0 gm TOP BID [place]; Protocol Last Admin: 12/30/18 17:36 Dose: 1 applic Linezolid (Zyvox 600mg/300ml D5w) 600 mg in 300 mls @ 200 mls/hr IVPB 0600,1800 [place]; Protocol Stop: 01/01/19 18:01 Last Admin: 12/31/18 05:26 Dose: 200 mls/hr Lisinopril (Zestril) 5 mg PO DAILY [place]; Protocol Last Admin: 12/27/18 10:05 Dose: Not Given Metoprolol Tartrate (Lopressor) 25 mg PO 0800,1800 [place]; Protocol Last Admin: 12/31/18 08:08 Dose: Not Given Mupirocin (Bactroban Ointment) 0 gm TOP BID [place]; Protocol Last Admin: 02/17/19 17:36 Dose: 1 applic - Labs Labs: 12/31/18 07:00 12/31/18 07:00 - Constitutional Appears: Well, Non-toxic, No Acute Distress - Head Exam Head Exam: ATRAUMATIC, NORMOCEPHALIC - Extremities Exam Additional comments: Bilateral lower extremity examination: VASC: DP/PT pulses non-palpable bilaterally; capillary refill is almost 4 secs to all digits; Temp gradient warm to cool b/l from proximal to distal. NEURO: Gross and protective sensations are intact DERM: Ulceration noted to the dorso-lateral aspect of the left foot with scab formation, no malodor, minimal zachary-erythema, minimal drainage, no probe to bone, no tunneling, no tracking; small ulceration noted to the lateral aspect of the right leg, 100% granular, no malodor, minimal zachary-wound erythema, No drainage, no probe to bone, no tunneling, no tracking MSK: Restricted ankle ROM noted bilaterally. Mild pain on palpating the zachary- wound area - Neurological Exam Neurological Exam: Alert, Awake Assessment and Plan - Assessment and Plan (Free Text) Assessment: 63 y/o M patient seen and evaluated at the TCU for b/l foot ulcerations Plan: Patient was seen and evaluated at bedside Plan discussed with Dr. Verde Charts, labs and vitals reviewed; Afebrile, WBCs 2.9 Left foot X-ray: normal radiographs Wound cleansed with saline, and dressed with bactroban, DSD to the left, and bactroban, Optifoam to the right Wound culture: MRSA ID consult, reccs appreciated; Continue Zyvox as per ID Vascular Consult, Dr. Hess- continue current conservative management with IV Abx for left, repeat bypass not advised at this time No plan for surgical intervention at this time Podiatry will continue to follow up patient while in house <Sudeep Verde - Last Filed: 12/31/18 17:43> Objective - Vital Signs/Intake and Output Vital Signs (last 24 hours): Temp Pulse Resp BP Pulse Ox 97.6 F 66 18 111/60 94 L 12/31/18 16:00 12/31/18 17:15 12/31/18 16:00 12/31/18 17:15 12/31/18 16:00 - Medications Medications: Current Medications Acetaminophen (Tylenol 325mg Tab) 650 mg PO Q4H PRN; Protocol PRN Reason: Headache Apixaban (Eliquis) 5 mg PO BID [place]; Protocol Last Admin: 12/31/18 17:14 Dose: 5 mg Atorvastatin Calcium (Lipitor) 40 mg PO DIN [place]; Protocol Last Admin: 12/31/18 17:12 Dose: 40 mg Furosemide (Lasix) 40 mg PO BID [place]; Protocol Last Admin: 12/28/18 09:40 Dose: 40 mg Hydrocortisone (Cortizone 1% Cream) 0 gm TOP BID [place]; Protocol Last Admin: 12/31/18 17:14 Dose: 1 applic Linezolid (Zyvox 600mg/300ml D5w) 600 mg in 300 mls @ 200 mls/hr IVPB 0600,1800 [place]; Protocol Stop: 01/01/19 18:01 Last Admin: 12/31/18 17:32 Dose: 200 mls/hr Lisinopril (Zestril) 5 mg PO DAILY [place]; Protocol Last Admin: 12/27/18 10:05 Dose: Not Given Metoprolol Tartrate (Lopressor) 25 mg PO 0800,1800 [place]; Protocol Last Admin: 12/31/18 17:15 Dose: 25 mg Mupirocin (Bactroban Ointment) 0 gm TOP BID [place]; Protocol Last Admin: 12/31/18 17:13 Dose: 1 applic - Labs Labs: 12/31/18 07:00 12/31/18 07:00 Attending/Attestation - Attestation I have personally seen and examined this patient.: Yes I have fully participated in the care of the patient.: Yes I have reviewed all pertinent clinical information, including history, physical exam and plan: Yes
[2018-12-31 10:20] VITALS: O2SAT 94
--- NOTE | 2018-12-31 11:14 | CP.PCM.PN ---
<Jose L Henriquez - Last Filed: 12/31/18 11:12> Subjective - Date & Time of Evaluation Date of Evaluation: 12/31/18 Time of Evaluation: 11:12 - Subjective Subjective: PGY-2 medicine progress note for Dr Causey Patient had a new IV placed by house doctor yesterday evening. Patient denied being in pain or discomfort. Objective - Vital Signs/Intake and Output Vital Signs (last 24 hours): Temp Pulse Resp BP Pulse Ox 98.4 F 63 18 130/64 94 L 12/31/18 10:00 12/31/18 10:00 12/31/18 10:00 12/31/18 10:00 12/31/18 10:00 - Medications Medications: Current Medications Acetaminophen (Tylenol 325mg Tab) 650 mg PO Q4H PRN; Protocol PRN Reason: Headache Apixaban (Eliquis) 5 mg PO BID [place]; Protocol Last Admin: 12/31/18 09:43 Dose: 5 mg Atorvastatin Calcium (Lipitor) 40 mg PO DIN [place]; Protocol Last Admin: 12/30/18 17:36 Dose: 40 mg Furosemide (Lasix) 40 mg PO BID [place]; Protocol Last Admin: 12/28/18 09:40 Dose: 40 mg Hydrocortisone (Cortizone 1% Cream) 0 gm TOP BID [place]; Protocol Last Admin: 12/31/18 09:44 Dose: 1 applic Linezolid (Zyvox 600mg/300ml D5w) 600 mg in 300 mls @ 200 mls/hr IVPB 0600,1800 [place]; Protocol Stop: 01/01/19 18:01 Last Admin: 12/31/18 05:26 Dose: 200 mls/hr Lisinopril (Zestril) 5 mg PO DAILY [place]; Protocol Last Admin: 12/27/18 10:05 Dose: Not Given Metoprolol Tartrate (Lopressor) 25 mg PO 0800,1800 [place]; Protocol Last Admin: 12/31/18 08:08 Dose: Not Given Mupirocin (Bactroban Ointment) 0 gm TOP BID [place]; Protocol Last Admin: 12/31/18 09:44 Dose: 1 applic - Labs Labs: 12/31/18 07:00 12/31/18 07:00 - Additional Findings Additional findings: - Head Exam Head Exam: ATRAUMATIC, NORMOCEPHALIC - Additional Findings Additional findings: - Constitutional Appears: Non-toxic, No Acute Distress - Head Exam Head Exam: ATRAUMATIC, NORMAL INSPECTION, NORMOCEPHALIC - Eye Exam Eye Exam: EOMI, Normal appearance. absent: Conjunctival injection, Scleral icterus - ENT Exam ENT Exam: Mucous Membranes Moist - Neck Exam Neck exam: Positive for: Full Rom, Normal Inspection - Respiratory Exam Respiratory Exam: Decreased Breath Sounds, NORMAL BREATHING PATTERN. absent: Accessory Muscle Use, Rales, Wheezes, Respiratory Distress - Cardiovascular Exam Cardiovascular Exam: RRR, +S1, +S2 - GI/Abdominal Exam GI & Abdominal Exam: Normal Bowel Sounds, Soft. absent: Firm, Guarding, Rigid, Tenderness - Extremities Exam Extremities exam: Positive for: normal capillary refill. Negative for: pedal edema Additional comments: L foot wrapped by podiatry - Neurological Exam Neurological exam: Alert, CN II-XII Intact, Oriented x3 - Psychiatric Exam Psychiatric exam: Anxious - Skin Skin Exam: Dry, Normal Color, Warm Assessment and Plan - Assessment and Plan (Free Text) Plan: -Left foot ulcer -RITCHIE on CKD -PVD -CHF -COPD -HTN -CVA -DVT/PE -Cognitive impairment Plan: Patient currently in TCU receiving rehab. MRI and DMITRY - MRI does not show any evidence of osteomyelitis. Left Tib/fib x-rays reviewed and LE duplex unremarkable. ID and Podiatry consulted - no surgical intervention planned at this time from podiatry. He was given 4 days of daptomycin then switched over to zyvox iv (started on 12/25) - he will need a total of 6 days of zyvox as per ID. Wound cleansed with saline, and dressed with bactroban, DSD. As per podiatry no plans for surgical intervention at this time. He was also seen by IR Dr Hess who recommends wound care and abx (please see his full note). Continue elqiuis for DVT/PE (we have resumed normal dose as kidney function has improved) and Lip itor (dose increased to 40mg po qd). Continue home lopressor for hx of CHF and HTN. Holding home lisinopril for hypotension. Creatinine improved back to baseline after holding lasix - we will continue to hold for now. Continue topical bactroban. If patient becomes agitated/confused recommend redirection. Dispo: Plan for discharge from TCU tomorrow. Patient to go home. Discussed with Dr. Causey <Jose Causey - Last Filed: 12/31/18 15:56> Objective - Vital Signs/Intake and Output Vital Signs (last 24 hours): Temp Pulse Resp BP Pulse Ox 98.4 F 63 18 130/64 94 L 12/31/18 10:00 12/31/18 10:00 12/31/18 10:00 12/31/18 10:00 12/31/18 10:00 - Medications Medications: Current Medications Acetaminophen (Tylenol 325mg Tab) 650 mg PO Q4H PRN; Protocol PRN Reason: Headache Apixaban (Eliquis) 5 mg PO BID [place]; Protocol Last Admin: 12/31/18 09:43 Dose: 5 mg Atorvastatin Calcium (Lipitor) 40 mg PO DIN [place]; Protocol Last Admin: 12/30/18 17:36 Dose: 40 mg Furosemide (Lasix) 40 mg PO BID [place]; Protocol Last Admin: 12/28/18 09:40 Dose: 40 mg Hydrocortisone (Cortizone 1% Cream) 0 gm TOP BID [place]; Protocol Last Admin: 12/31/18 09:44 Dose: 1 applic Linezolid (Zyvox 600mg/300ml D5w) 600 mg in 300 mls @ 200 mls/hr IVPB 0600,1800 [place]; Protocol Stop: 01/01/19 18:01 Last Admin: 12/31/18 05:26 Dose: 200 mls/hr Lisinopril (Zestril) 5 mg PO DAILY [place]; Protocol Last Admin: 12/27/18 10:05 Dose: Not Given Metoprolol Tartrate (Lopressor) 25 mg PO 0800,1800 [place]; Protocol Last Admin: 12/31/18 08:08 Dose: Not Given Mupirocin (Bactroban Ointment) 0 gm TOP BID [place]; Protocol Last Admin: 12/31/18 09:44 Dose: 1 applic - Labs Labs: 12/31/18 07:00 12/31/18 07:00 Assessment and Plan - Assessment and Plan (Free Text) Plan: Pt seen and examined by me. I have reviewed the note of the medical transcriber and I agree with it. I have discussed the assessment and plan with the resident. I have reviewed the medications and the last labs. Pt with Gauri schmidt and will finishing his Abx today. RITCHEI is improved. HTN is controlled with Lisinopril.
--- NOTE | 2018-12-31 14:18 | CP.PCM.PN ---
Subjective - Date & Time of Evaluation Date of Evaluation: 12/31/18 Time of Evaluation: 10:55 - Subjective Subjective: No fevers, not in distress. Objective - Vital Signs/Intake and Output Vital Signs (last 24 hours): Temp Pulse Resp BP Pulse Ox 97.2 F L 72 20 120/67 94 L 12/29/18 16:00 12/29/18 17:17 12/29/18 16:00 12/29/18 17:17 12/29/18 16:00 - Medications Medications: Current Medications Acetaminophen (Tylenol 325mg Tab) 650 mg PO Q4H PRN; Protocol PRN Reason: Headache Apixaban (Eliquis) 5 mg PO BID [place]; Protocol Last Admin: 12/29/18 17:16 Dose: 5 mg Atorvastatin Calcium (Lipitor) 40 mg PO DIN [place]; Protocol Last Admin: 12/29/18 17:16 Dose: 40 mg Furosemide (Lasix) 40 mg PO BID [place]; Protocol Last Admin: 12/28/18 09:40 Dose: 40 mg Hydrocortisone (Cortizone 1% Cream) 0 gm TOP BID [place]; Protocol Last Admin: 12/29/18 18:56 Dose: 1 applic Linezolid (Zyvox 600mg/300ml D5w) 600 mg in 300 mls @ 200 mls/hr IVPB 0600,1800 [place]; Protocol Stop: 01/01/19 18:01 Last Admin: 12/30/18 05:15 Dose: 200 mls/hr Lisinopril (Zestril) 5 mg PO DAILY [place]; Protocol Last Admin: 12/27/18 10:05 Dose: Not Given Metoprolol Tartrate (Lopressor) 25 mg PO 0800,1800 [place]; Protocol Last Admin: 12/29/18 17:17 Dose: 25 mg Mupirocin (Bactroban Ointment) 0 gm TOP BID [place]; Protocol Last Admin: 12/29/18 17:16 Dose: 1 applic - Labs Labs: 12/30/18 07:00 12/28/18 08:50 - Constitutional Appears: Chronically Ill - Head Exam Head Exam: NORMAL INSPECTION - Respiratory Exam Respiratory Exam: Decreased Breath Sounds - Cardiovascular Exam Cardiovascular Exam: +S1, +S2 - GI/Abdominal Exam GI & Abdominal Exam: Soft. absent: Tenderness Assessment and Plan - Assessment and Plan (Free Text) Plan: Assessment left foot skin and skin structure infection with MRSA with foot ulcer, no evidence of osteomyelitis of MRI history of lower respiratory tract infection / bronchitis R/O pneumonia R/O Influenza history of asymptomatic bacteriuria acute on chronic CHF causing dyspnea earning disability chronic CHF history of pneumonia CVA with left sided residual weakness history of DVT chronic foot ulcers history of lower extremity bypass surgery Plan on Zyvox day 10 of 10 days - will continue monitor platelet count since it is already low at baseline (has not decreased by more than 50% from baseline) - will d/c by today patient needs to follow up with Podiatry as an outpatient discussed with Dr. Verde previously
[2018-12-31 16:13] VITALS: TEMP 97.6
[2019-01-01] MEDS: Linezolid 600 mg in D5W 300 ml 600 MG/300 ML BAG IVPB SCH (05:23)
--- NOTE | 2019-01-01 07:40 | CP.PCM.DIS ---
<Jose L Henriquez R - Last Filed: 01/01/19 07:37> Provider - Provider Date of Admission: 12/25/18 13:45 Attending physician: Jose Causey MD Primary care physician: Jose Causey MD Consults: 12/25/18 14:32 Infectious Disease Consult Routine Comment: Consulting Provider: Paras Francis Consulting Physician: Paras Francis Reason for Consult: LEFT FOOT WOUND Physician Consult Routine Comment: Consulting Provider: Suleman Hess Consulting Physician: Suleman Hess Reason for Consult: LEFT FOOT NON-HEALING WOUND Podiatry Consult Routine Comment: Consulting Provider: Sudeep Verde Consulting Physician: Sudeep Verde Reason for Consult: LEFT FOOT WOUND, CELLULITIS Time Spent in preparation of Discharge (in minutes): 35 Diagnosis - Discharge Diagnosis (1) Cellulitis of foot Status: Acute Priority: High (2) Congestive heart failure (CHF) Status: Chronic Priority: High (3) RITCHIE (acute kidney injury) Status: Resolved Priority: High Hospital Course - Lab Results Lab Results: Most Recent Lab Values WBC 2.9 10^3/uL (4.5-11.0) L 12/31/18 07:00 RBC 3.44 10^6/uL (3.5-6.1) L 12/31/18 07:00 Hgb 9.8 g/dL (14.0-18.0) L 12/31/18 07:00 Hct 31.2 % (42.0-52.0) L 12/31/18 07:00 MCV 90.7 fl (80.0-105.0) 12/31/18 07:00 MCH 28.5 pg (25.0-35.0) 12/31/18 07:00 MCHC 31.4 g/dl (31.0-37.0) 12/31/18 07:00 RDW 14.3 % (11.5-14.5) 12/31/18 07:00 Plt Count 71 10^3/uL (120.0-450.0) L 12/31/18 07:00 MPV 11.3 fl (7.0-11.0) H 12/31/18 07:00 Neut % (Auto) 39.5 % (50.0-68.0) L 12/31/18 07:00 Lymph % (Auto) 45.5 % (22.0-35.0) H 12/31/18 07:00 [place] % (Auto) 8.7 % (1.0-6.0) H 12/31/18 07:00 Eos % (Auto) 5.6 % (1.5-5.0) H 12/31/18 07:00 Baso % (Auto) 0.7 % (0.0-3.0) 12/31/18 07:00 Lymph # (Auto) 1.3 (1.2-3.4) 12/31/18 07:00 [place] # (Auto) 0.3 (0.1-0.6) 12/31/18 07:00 Eos # (Auto) 0.2 (0.0-0.7) 12/31/18 07:00 Baso # (Auto) 0.02 K/mm3 (0.0-2.0) 12/31/18 07:00 Absolute Neuts (auto) 1.13 (1.4-6.5) L 12/31/18 07:00 Sodium 137 mmol/L (132-148) 12/31/18 07:00 Potassium 4.3 mmol/L (3.6-5.0) 12/31/18 07:00 Chloride 105 mmol/L (98-107) 12/31/18 07:00 Carbon Dioxide 25 mmol/L (21-33) 12/31/18 07:00 Anion Gap 12 (10-20) 12/31/18 07:00 BUN 28 mg/dL (7-21) H 12/31/18 07:00 Creatinine 1.5 mg/dl (0.8-1.5) 12/31/18 07:00 Est GFR ( Amer) 58 12/31/18 07:00 Est GFR (Non-Af Amer) 48 12/31/18 07:00 Random Glucose 102 mg/dL (70-110) 12/31/18 07:00 Calcium 9.3 mg/dL (8.4-10.5) 12/31/18 07:00 Phosphorus 4.2 mg/dL (2.5-4.5) 12/28/18 08:50 Magnesium 2.4 mg/dL (1.7-2.2) H 12/28/18 08:50 Total Bilirubin 0.4 mg/dL (0.2-1.3) 12/31/18 07:00 AST 25 U/L (17-59) 12/31/18 07:00 ALT 19 U/L (7-56) 12/31/18 07:00 Alkaline Phosphatase 51 U/L (38-126) 12/31/18 07:00 Total Protein 7.3 g/dL (5.8-8.3) 12/31/18 07:00 Albumin 4.2 g/dL (3.0-4.8) 12/31/18 07:00 Globulin 3.1 gm/dL 12/31/18 07:00 Albumin/Globulin Ratio 1.4 (1.1-1.8) 12/31/18 07:00 - Hospital Course Hospital Course: 63yo male PMHx MR, PVD, CHF, COPD, HTN, NM, CVA, and DVT/PE presented to the hospital after failure of outpatient antibiotics for LLE foot ulcer. Patient sees podiatry outpatient for chronic wounds. He recently developed a new left foot ulcer, which did not respond to antibiotics and was [place] [facility] [place] Patient admits to pain in b/l feet intermittently. Denies fever, chills, headache, dizziness, chest pain, shortness of breath, cough, abd pain, nausea, vomiting, diarrhea, constipation, numbness, tingling, dysuria, weakness. PMHx: MR, PVD, CHF, COPD, HTN, NM, CVA, and DVT/PE PSurgHx: PVD bypass surgery Meds: as per chart ALL: Benztropine mesylate, Esomeprazole magnesium, Penicillins, Sulfa SocHx: Former smoker, No alcohol or illicit drug use FamHx: noncontributory HOSPITAL COURSE: Patient discharged from TCU. MRI and DMITRY - MRI does not show any evidence of osteomyelitis. Left Tib/fib x-rays reviewed and LE duplex unremarkable. ID and Podiatry consulted - no surgical intervention planned at this time from podiatry. He was given 4 days of daptomycin then switched over to zyvox iv (started on 12/25) - and given for 8 days as per ID. Wound cleansed with saline, and dressed with bactroban, DSD. As per podiatry no plans for surgical intervention at this time. He was also seen by IR Dr Hess who recommends wound care and abx (please see his full note). Continue elqiuis for DVT/PE (we have resumed normal dose as kidney function has improved) and Lipitor (dose increased to 40mg po qd). Continue home lopressor for hx of CHF and HTN. Holding home lisinopril for hypotension but he will continue this at home with instructions to hold if BP low. Creatinine improved back to baseline after holding lasix - we will continue to hold for now and have him resume at home. Continue topical bactroban as per podiatry. Discharge Exam - Head Exam Head Exam: NORMAL INSPECTION - Additional Findings Additional findings: - Head Exam Head Exam: ATRAUMATIC, NORMOCEPHALIC - Additional Findings Additional findings: - Constitutional Appears: Non-toxic, No Acute Distress - Head Exam Head Exam: ATRAUMATIC, NORMAL INSPECTION, NORMOCEPHALIC - Eye Exam Eye Exam: EOMI, Normal appearance. absent: Conjunctival injection, Scleral icte pablo - ENT Exam ENT Exam: Mucous Membranes Moist - Neck Exam Neck exam: Positive for: Full Rom, Normal Inspection - Respiratory Exam Respiratory Exam: Decreased Breath Sounds, NORMAL BREATHING PATTERN. absent: Accessory Muscle Use, Rales, Wheezes, Respiratory Distress - Cardiovascular Exam Cardiovascular Exam: RRR, +S1, +S2 - GI/Abdominal Exam GI & Abdominal Exam: Normal Bowel Sounds, Soft. absent: Firm, Guarding, Rigid, Tenderness - Extremities Exam Extremities exam: Positive for: normal capillary refill. Negative for: pedal edema Additional comments: L foot wrapped by podiatry - Neurological Exam Neurological exam: Alert, CN II-XII Intact, Oriented x3 - Psychiatric Exam Psychiatric exam: Anxious - Skin Skin Exam: Dry, Normal Color, Warm Discharge Plan - Discharge Medications Prescriptions: RX: Mupirocin 2% Ointment [Bactroban Ointment] 1 applic TOP BID #1 tube RX: Hydrocortisone 1% Cream [Cortizone 1% Cream] 1 applic TOP BID #1 tube RX: Atorvastatin [Lipitor] 40 mg PO HS #30 tab - Follow Up Plan Condition: GOOD Disposition: HOME/ ROUTINE Instructions: Wound Care (DC), Cellulitis (Skin Infection), Adult (DC) Additional Instructions: Please follow-up with your Primary Medical Doctor within 7 days. Please follow-up with your patient care director within 7 days for continued foot care. You will be given a script for the following medications to apply on your wound, please follow-up with podiatry for their continued use: 1. Hydrocortisone 1% Cream (cortizone 1% cream) apply topically morning and night 2. Mupirocin 2% ointment (bactroban) apply topically morning and night 3. Lipitor 40mg at bedtime (this is an increase from your previous dose) Please continue the following home medications: 1. Eliquis 5mg morning and night 2. Metoprolol Tartrate 25mg morning and night 3. Lasix 40mg morning and night 4. Lisinopril 5mg at 10AM Please check your blood pressure at home and if top number is less than 100 OR bottom number is less than 60 then DO NOT take your lisinopril that day If symptoms return please go to your nearest emergency department. Referrals: Jose Causey MD [Primary Care Provider] - <Jose Causey - Last Filed: 01/01/19 19:11> Provider - Provider Date of Admission: 12/25/18 13:45 Attending physician: Jose Causey MD Primary care physician: Jose Causey MD Consults: 12/25/18 14:32 Infectious Disease Consult Routine Comment: Consulting Provider: Paras Francis Consulting Physician: Paras Francis Reason for Consult: LEFT FOOT WOUND Physician Consult Routine Comment: Consulting Provider: Suleman Hess Consulting Physician: Suleman Hess Reason for Consult: LEFT FOOT NON-HEALING WOUND Podiatry Consult Routine Comment: Consulting Provider: Sudeep Verde Consulting Physician: Sudeep Verde Reason for Consult: LEFT FOOT WOUND, CELLULITIS Hospital Course - Lab Results Lab Results: Most Recent Lab Values WBC 2.9 10^3/uL (4.5-11.0) L 12/31/18 07:00 RBC 3.44 10^6/uL (3.5-6.1) L 12/31/18 07:00 Hgb 9.8 g/dL (14.0-18.0) L 12/31/18 07:00 Hct 31.2 % (42.0-52.0) L 12/31/18 07:00 MCV 90.7 fl (80.0-105.0) 12/31/18 07:00 MCH 28.5 pg (25.0-35.0) 12/31/18 07:00 MCHC 31.4 g/dl (31.0-37.0) 12/31/18 07:00 RDW 14.3 % (11.5-14.5) 12/31/18 07:00 Plt Count 71 10^3/uL (120.0-450.0) L 12/31/18 07:00 MPV 11.3 fl (7.0-11.0) H 12/31/18 07:00 Neut % (Auto) 39.5 % (50.0-68.0) L 12/31/18 07:00 Lymph % (Auto) 45.5 % (22.0-35.0) H 12/31/18 07:00 [place] % (Auto) 8.7 % (1.0-6.0) H 12/31/18 07:00 Eos % (Auto) 5.6 % (1.5-5.0) H 12/31/18 07:00 Baso % (Auto) 0.7 % (0.0-3.0) 12/31/18 07:00 Lymph # (Auto) 1.3 (1.2-3.4) 12/31/18 07:00 [place] # (Auto) 0.3 (0.1-0.6) 12/31/18 07:00 Eos # (Auto) 0.2 (0.0-0.7) 12/31/18 07:00 Baso # (Auto) 0.02 K/mm3 (0.0-2.0) 12/31/18 07:00 Absolute Neuts (auto) 1.13 (1.4-6.5) L 12/31/18 07:00 Sodium 137 mmol/L (132-148) 12/31/18 07:00 Potassium 4.3 mmol/L (3.6-5.0) 12/31/18 07:00 Chloride 105 mmol/L (98-107) 12/31/18 07:00 Carbon Dioxide 25 mmol/L (21-33) 12/31/18 07:00 Anion Gap 12 (10-20) 12/31/18 07:00 BUN 28 mg/dL (7-21) H 12/31/18 07:00 Creatinine 1.5 mg/dl (0.8-1.5) 12/31/18 07:00 Est GFR ( Amer) 58 12/31/18 07:00 Est GFR (Non-Af Amer) 48 12/31/18 07:00 Random Glucose 102 mg/dL (70-110) 12/31/18 07:00 Calcium 9.3 mg/dL (8.4-10.5) 12/31/18 07:00 Phosphorus 4.2 mg/dL (2.5-4.5) 12/28/18 08:50 Magnesium 2.4 mg/dL (1.7-2.2) H 12/28/18 08:50 Total Bilirubin 0.4 mg/dL (0.2-1.3) 12/31/18 07:00 AST 25 U/L (17-59) 12/31/18 07:00 ALT 19 U/L (7-56) 12/31/18 07:00 Alkaline Phosphatase 51 U/L (38-126) 12/31/18 07:00 Total Protein 7.3 g/dL (5.8-8.3) 12/31/18 07:00 Albumin 4.2 g/dL (3.0-4.8) 12/31/18 07:00 Globulin 3.1 gm/dL 12/31/18 07:00 Albumin/Globulin Ratio 1.4 (1.1-1.8) 12/31/18 07:00 - Hospital Course Hospital Course: Pt seen and examined by me. I have reviewed the note of the medical i d sales and I agree with it. I have discussed the assessment and plan with the resident. I have reviewed the medications and the last labs.Pt with L foot ulcer and has finished IV Abx. He had RITCHIE that has improved. He has no pain and is eating well. He is on Lopressor for CHF.
[2019-01-01 08:25] VITALS: BP 139/75; PULSE 61
[2019-01-01] MEDS: Hydrocortisone 1% Cream (30 GM) TOP SCH (09:53)
[2019-01-01] MEDS: Mupirocin 2% Ointment 15 GM TUBE TOP SCH (09:54)
--- NOTE | 2019-01-01 12:41 | CP.PCM.PN ---
<SmitaVic malik - Last Filed: 01/01/19 12:38> Subjective - Date & Time of Evaluation Date of Evaluation: 01/01/19 Time of Evaluation: 09:30 - Subjective Subjective: Podiatry progress note: Dr. Verde 63 y/o M patient seen and evaluated in TCU at bedside for bilateral ulcerations. Patient sitting comfortably and in NAD. He denies any acute events overnight. He denies any pain in his feet. He denies any overnight nausea/vomit ing/fever/shortness of breath. Patient states that he is going home today. Objective - Vital Signs/Intake and Output Vital Signs (last 24 hours): Temp Pulse Resp BP Pulse Ox 97.6 F 61 18 139/75 94 L 12/31/18 16:00 01/01/19 08:23 12/31/18 16:00 01/01/19 08:23 12/31/18 16:00 - Labs Labs: 12/31/18 07:00 12/31/18 07:00 - Constitutional Appears: Well, Non-toxic, No Acute Distress - Head Exam Head Exam: ATRAUMATIC, NORMOCEPHALIC - Extremities Exam Additional comments: Bilateral lower extremity examination: VASC: DP/PT pulses non-palpable bilaterally; capillary refill is almost 4 secs to all digits; Temp gradient warm to cool b/l from proximal to distal. NEURO: Gross and protective sensations are intact DERM: Ulceration noted to the dorso-lateral aspect of the left foot with scab formation, no malodor, minimal zachary-erythema, minimal drainage, no probe to bone, no tunneling, no tracking; small ulceration noted to the lateral aspect of the right leg, 100% granular, no malodor, minimal zachary-wound erythema, No drainage, no probe to bone, no tunneling, no tracking MSK: Restricted ankle ROM noted bilaterally. Mild pain on palpating the zachary-wound area - Neurological Exam Neurological Exam: Alert, Awake, Oriented x3 Assessment and Plan - Assessment and Plan (Free Text) Assessment: 63 y/o M patient seen and evaluated at the TCU for b/l foot ulcerations Plan: Patient was seen and evaluated at bedside Plan discussed with Dr. Verde Charts, labs and vitals reviewed; Afebrile, WBCs 2.9 (2/18) Left foot X-ray: normal radiographs Wound cleansed with saline, and dressed with bactroban, DSD to the left, and bactroban, Optifoam to the right Wound culture: MRSA ID consult, reccs appreciated; Continue Zyvox as per ID Vascular Consult, Dr. Hess- continue current conservative management with IV Abx for left, repeat bypass not advised at this time No plan for surgical intervention at this time Patient will be discharged home today. Patient to follow up in the wound care center [facility] Dr. Verde upon discharge <Sudeep Verde - Last Filed: 01/02/19 07:10> Objective - Vital Signs/Intake and Output Vital Signs (last 24 hours): Temp Pulse Resp BP Pulse Ox 97.6 F 61 18 139/75 94 L 12/31/18 16:00 01/01/19 08:23 12/31/18 16:00 01/01/19 08:23 12/31/18 16:00 - Labs Labs: 12/31/18 07:00 12/31/18 07:00 Attending/Attestation - Attestation I have personally seen and examined this patient.: Yes I have fully participated in the care of the patient.: Yes I have reviewed all pertinent clinical information, including history, physical exam and plan: Yes
== END 2019-01-01 10:49 | disposition home or self-care (01) | DRG 603 ==
LOC: TRCU 13:45
PROVIDERS: ADMIT Internal Medicine Nephrology; ATTEND Internal Medicine Nephrology
PROC: 3E03328 Introduction of Oxazolidinones into Peripheral Vein, Percutaneous Approach (ICD-10-PCS; principal; 2018-12-25)
PROC: F08Z4ZZ Home Management Treatment (ICD-10-PCS; 2018-12-26)
PROC: F07Z9FZ Gait Training/Functional Ambulation Treatment using Assistive, Adaptive, Supportive or Protective Equipment (ICD-10-PCS; 2018-12-27)
PROC: F07L6YZ Therapeutic Exercise Treatment of Musculoskeletal System - Lower Back / Lower Extremity using Other Equipment (ICD-10-PCS; 2018-12-27)
PROC: F07Z8ZZ Transfer Training Treatment (ICD-10-PCS; 2018-12-28)
DX: L03.116 Cellulitis of left lower limb (principal); I13.0 Hypertensive heart and chronic kidney disease with heart failure and stage 1 through stage 4 chronic kidney disease, or unspecified chronic kidney disease; I69.354 Hemiplegia and hemiparesis following cerebral infarction affecting left non-dominant side; L03.115 Cellulitis of right lower limb; E11.621 Type 2 diabetes mellitus with foot ulcer; L97.529 Non-pressure chronic ulcer of other part of left foot with unspecified severity; L97.519 Non-pressure chronic ulcer of other part of right foot with unspecified severity; B95.62 Methicillin resistant Staphylococcus aureus infection as the cause of diseases classified elsewhere; I50.9 Heart failure, unspecified; E11.51 Type 2 diabetes mellitus with diabetic peripheral angiopathy without gangrene; J44.9 Chronic obstructive pulmonary disease, unspecified; E11.22 Type 2 diabetes mellitus with diabetic chronic kidney disease; N18.9 Chronic kidney disease, unspecified; F81.9 Developmental disorder of scholastic skills, unspecified; E78.5 Hyperlipidemia, unspecified; I25.2 Old myocardial infarction; Z87.891 Personal history of nicotine dependence; Z86.718 Personal history of other venous thrombosis and embolism; Z87.01 Personal history of pneumonia (recurrent); Z88.0 Allergy status to penicillin; Z88.2 Allergy status to sulfonamides

== ENCOUNTER 2019-02-11 11:17 | Day surgery (SDC) | payer MEDICARE, MEDICAID ==
[2019-02-06 14:25] VITALS: BMI 29.1
[2019-02-11 11:57] LABS: BASO # 0.01 K/mm3 (0.0-2.0); BASO % 0.2 % (0.0-3.0); EOS # 0.1 (0.0-0.7); EOS % 1.7 % (1.5-5.0); HEMOGLOBIN 9.9 g/dL (14.0-18.0); LYMPH # 0.9 (1.2-3.4); LYMPH % 17.3 % (22.0-35.0); MEAN CELL VOLUME 92.8 fl (80.0-105.0); MEAN CORPUSCULAR HEMOGLOBIN 28.7 pg (25.0-35.0); MEAN CORPUSCULAR HGB CONC 30.9 g/dl (31.0-37.0); MEAN PLATELET VOLUME 11.1 fl (7.0-11.0); MONO # 0.4 (0.1-0.6); MONO % 7.5 % (1.0-6.0); RBC 3.45 10^6/uL (3.5-6.1); RED CELL DISTRIBUTION WIDTH 15.7 % (11.5-14.5); WHITE BLOOD COUNT 5.4 10^3/uL (4.5-11.0)
[2019-02-11 12:06] LABS: INR 1.3; PARTIAL THROMBOPLASTIN TIME 37.7 Seconds (26.9-38.3); PROTHROMBIN TIME 14.7 SECONDS (9.4-12.5)
[2019-02-11 12:07] LABS: CALCIUM 10.3 mg/dL (8.4-10.5)
[2019-02-11] MEDS ORDERED: Lidocaine PF 2% (5 ml) Inj (For Cardiac Arrhy) ONE (12:10)
[2019-02-11] MEDS ORDERED: Iodixanol 320 MG/ML 100 ML BOTTLE IV ONE ×2 (12:10→13:57)
[2019-02-11] MEDS ORDERED: Iodixanol 320 MG/ML 200 ML BOTTLE IV ONE (12:10)
[2019-02-11] MEDS ORDERED: Nitroglycerin 50mg in D5W 50 MG/250 ML BOTTLE IV ONE (12:10)
[2019-02-11] MEDS ORDERED: Heparin 2,000 ML IV ONE (12:10)
[2019-02-11] MEDS ORDERED: Midazolam 2 MG/2 ML VIAL ONE (12:45)
[2019-02-11] MEDS: Midazolam 2 MG/2 ML VIAL ONE ×2 (13:04→17:26)
[2019-02-11] MEDS ORDERED: DiphenhydrAMINE 50 mg/ml Inj ONE (13:17)
[2019-02-11] MEDS ORDERED: Oxycodone/Acetaminophen 5/325 mg Tab PO PRN (14:55)
[2019-02-11] MEDS: Sodium Chloride 0.45% 1,000 ML IV SCH (16:34)
--- NOTE | 2019-02-11 18:53 | VASCULAR ---
Date of service: 02/11/2019 PROCEDURE: 1. Abdominal aortogram and right lower extremity runoff 2. Terminal right SFA and popliteal artery angioplasty 3. Right anterior tibial artery angioplasty 4. Right tibioperoneal trunk and posterior tibial artery angioplasty 5. Proximal right posterior tibial artery coil embolization HISTORY: Severe peripheral vascular disease. Failed right femoral-popliteal bypass. Nonhealing painful ischemic ulceration right foot. COMPARISON: TECHNIQUE: The relative risks and indications of the procedure were explained the patient and his sister and consent obtained. Patient placed supine on the arteriogram table and the left groin prepped and draped usual sterile fashion. Conscious sedation monitoring were provided throughout the procedure by a nurse. Hydration was given prior to the procedure. The left common femoral artery is punctured under ultrasound guidance with a micropuncture set. Exchange is made for a 5 [place] sheath. Through the sheath over guidewire a 5 [place] flush catheter was placed the abdominal aorta at the level renal arteries and a PA DSA abdominal pelvic arteriogram performed. The catheter was pulled down bifurcation and bilateral oblique DSA pelvic arteriograms performed. The catheter was advanced over bifurcation placed in the right common femoral artery. An overlapping DSA right lower extremity arteriogram was performed A support wire was placed in the right SFA. A 7 [place] 65 cm destination sheath was placed in the mid right SFA. Heparin and nitroglycerin were given. The long segment occlusion of the terminal right SFA and popliteal arteries were crossed using a blunt technique. A 0.014 support wire was placed in the right anterior tibial artery. The proximal right anterior tibial artery was dilated with 3.5 mm balloon. The right popliteal artery was dilated with a 4.0 and 5.0 balloon. The right SFA distally was dilated with a 6 mm balloon. The right tibioperoneal trunk and proximal right posterior tibial artery was dilated with a 4 point 0 0 mm balloon. Extravasation was noted from a proximal right posterior tibial branch. This was seen on several runs. Subsequently coil embolization of the proximal right posterior tibial artery was performed given the patient's requirement for anticoagulation Sheath was removed hemostasis obtained. The patient tolerated the procedure well P FINDINGS: There is a 60-70 percent stenosis of the proximal right renal artery. There is a severe 80 percent stenosis of the proximal left renal artery. The nephrograms are symmetric. There is mild ectasia of the infrarenal abdominal aorta. The aortic bifurcation is patent. The common and external iliac arteries are patent on two views. The internal iliac arteries are patent bilaterally. The right profunda femoral artery is hypertrophied. There is occlusion of the terminal right SFA. The previous right femoral-popliteal graft is occluded. There is occlusion of the right popliteal artery. The right trifurcation is occluded. There reconstitution of the proximal right anterior tibial and peroneal arteries. Reconstitution of the mid right posterior tibial artery is noted The right anterior tibial artery occludes distally. The right peroneal and posterior tibial arteries are patent 1 stay reconstitute. IMPRESSION: 1. Successful recanalization of the distal right SFA and popliteal artery occlusion 2. Successful proximal right anterior tibial artery angioplasty. 3. Right tibioperoneal trunk and posterior tibial artery angioplasty with iatrogenic injury to right posterior tibial artery branch. 4. Coil embolization of the proximal right posterior tibial artery.
[2019-02-12] MEDS: Sodium Chloride 0.45% 1,000 ML IV SCH (03:30)
[2019-02-12 06:25] VITALS: RESP 18; TEMP 97.4; O2SAT 95
--- NOTE | 2019-02-12 06:51 | CP.PCM.HP ---
History of Present Illness - History of Present Illness History of Present Illness: IM resident H&P for Dr. Causey's service CC: surgery of the left leg Patient is a 63 with PMHx of MR, severe PVD, CHF, COPD, HTN, MS, CVA, and DVT/PE, chronic non healing right foot ulcer who presented for revascularization of the right lower extremity, and is admitted for observation. Patient states he has problem with his extremities for many years. Underwent bypass which failed. Tried conservative managements including cessation of smoking, and exercises with no significant improvement. This am, patient denies pain, no cp, sob, no fever ore chills. States he was bleeding from the groin past procedure, however the bleeding stopped. PMHx: MR, PVD, CHF, COPD, HTN, MS, CVA, and DVT/PE PSurgHx: Right femoral-popliteal bypass FMHx: unknown Meds: as per chart ALL: Benztropine mesylate, Esomeprazole magnesium, Penicillins, Sulfa SocHx: Former smoker, No alcohol or illicit drug use, lives by himself. Present on Admission - Present on Admission Any Indicators Present on Admission: No History of DVT/PE: Yes History of Uncontrolled Diabetes: No Urinary Catheter: No Decubitus Ulcer Present: No Review of Systems - Review of Systems All systems: reviewed and no additional remarkable complaints except Review of Systems: All 10 point ROS reviewed, all negative except as per HPI. 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" - RENAL Hx Chronic Kidney Disease: No - ENDOCRINE/METABOLIC Hx Diabetes Mellitus Type 2: Yes - HEMATOLOGICAL/ONCOLOGICAL Hx Blood Transfusions: No - INTEGUMENTARY Other/Comment: multiple healed wound scars r ankle and foot left ankle and foot, small wound to top of left foot red and dry, dry toenails both feet, ble light brown skin discolorations, old fading bruises b/l knees from falls, left great toe has 12 toenail surrounded by dry red skin, r great toe has 1/2 nail small dry brown wound, dry skin to toes - MUSCULOSKELETAL/RHEUMATOLOGICAL Hx Musculoskeletal Disorders: Yes - GASTROINTESTINAL Hx Gastrointestinal Disorders: No - GENITOURINARY/GYNECOLOGICAL Hx Genitourinary Disorders: No Hx Reproductive Disorders: No - PSYCHIATRIC Hx Emotional Abuse: No Hx Physical Abuse: No Hx Substance Use: No - SURGICAL HISTORY Hx Surgeries: Yes - ANESTHESIA Hx Anesthesia Reactions: No Hx Malignant Hyperthermia: No Meds Allergies/Adverse Reactions: Allergies Allergy/AdvReac Type Severity Reaction Status Date / Time benztropine mesylate Allergy Severe ANAPHYLAXIS Verified 12/26/18 05:55 [From Cogentin] esomeprazole magnesium Allergy Severe RASH Verified 12/26/18 05:55 [From Nexium] Penicillins Allergy Severe ANAPHYLAXIS Verified 12/26/18 05:55 Sulfa (Sulfonamide Allergy Severe RASH Verified 12/26/18 05:55 Antibiotics) Physical Exam - Constitutional Appears: No Acute Distress - Head Exam Head Exam: ATRAUMATIC, NORMAL INSPECTION, NORMOCEPHALIC - Eye Exam Eye Exam: EOMI, Normal appearance, PERRL Pupil Exam: NORMAL ACCOMODATION - ENT Exam ENT Exam: Mucous Membranes Moist - Neck Exam Neck exam: Positive for: Normal Inspection - Respiratory Exam Respiratory Exam: Clear to Auscultation Bilateral, NORMAL BREATHING PATTERN. absent: Rales, Rhonchi, Wheezes, Respiratory Distress, Stridor - Cardiovascular Exam Cardiovascular Exam: REGULAR RHYTHM, RRR, +S1, +S2, Systolic Murmur. absent: Diastolic murmur, Gallop, JVD, Rubs - GI/Abdominal Exam GI & Abdominal Exam: Normal Bowel Sounds, Soft. absent: Distended, Firm, Guarding, Rebound, Rigid, Tenderness - Extremities Exam Extremities exam: Positive for: pedal pulses present. Negative for: pedal edema, tenderness - Back Exam Back exam: NORMAL INSPECTION - Neurological Exam Neurological exam: Alert, Oriented x3 - Psychiatric Exam Psychiatric exam: Normal Affect, Normal Mood - Skin Skin Exam: Normal Color, Rash, Warm Additional comments: + clean ulcers on the kim lower extremities. Results - Vital Signs Recent Vital Signs: Last Vital Signs Temp 97.4 F L 02/12/19 06:00 Pulse 70 02/12/19 06:00 Resp 18 02/12/19 06:00 BP 141/71 02/12/19 06:00 Pulse Ox 95 02/12/19 06:00 - Labs Result Diagrams: 02/12/19 06:45 02/12/19 06:45 Labs: Laboratory Results - last 24 hr 02/11/19 02/11/19 02/11/19 11:40 11:40 11:40 WBC 5.4 D RBC 3.45 L Hgb 9.9 L Hct 32.0 L MCV 92.8 MCH 28.7 MCHC 30.9 L RDW 15.7 H Plt Count 90 L MPV 11.1 H Neut % (Auto) 73.3 H Lymph % (Auto) 17.3 L [place] % (Auto) 7.5 H Eos % (Auto) 1.7 Baso % (Auto) 0.2 Lymph # (Auto) 0.9 L [place] # (Auto) 0.4 Eos # (Auto) 0.1 Baso # (Auto) 0.01 Absolute Neuts (auto) 3.99 PT 14.7 H INR 1.30 APTT 37.7 Sodium 140 Potassium 4.9 Chloride 103 Carbon Dioxide 27 Anion Gap 15 BUN 50 H Creatinine 2.0 H Est GFR ( Amer) 41 Est GFR (Non-Af Amer) 34 Random Glucose 106 Calcium 10.3 Assessment & Plan - Assessment and Plan (Free Text) Assessment: 1) Severe peripheral vascular disease s/p recanalization of the distal right SFA and popliteal artery occlusion S/p successful proximal right anterior tibial artery angioplasty S/p Right tibio-peroneal trunk and posterior tibial artery angioplasty with iatrogenic injury to the right posterior tibial artery branch S/p coil embolization of the proximal right posterior tibial artery 2) COPD, 3) HTN, 4) CAD 5) CVA, 6) H/O DVT/PE, 7) chronic non healing right foot ulcer 8) Moderate aortic stenosis Plan: Patient was admitted for observation post procedure. Patient was hydrated with NS. Was placed on lipitor 40 mg daily, metoprolol 25 mg bid and percocet prn for pain. Patient also had ibuprofen prn for mild pain. Renal function back to baseline. HGB stable. Patient is to be discharged home and to follow up with Dr. Hess as as scheduled. Discharge diet: heart healthy, low fat low cholesterol diet, with 2 gram sodium Activity: resume baseline activity as tolerated. - Date & Time Date: 02/12/19 Time: 10:00
[2019-02-12 07:12] LABS: HEMOGLOBIN 9.5 g/dL (14.0-18.0); MEAN CELL VOLUME 92.6 fl (80.0-105.0); MEAN CORPUSCULAR HEMOGLOBIN 28.3 pg (25.0-35.0); MEAN CORPUSCULAR HGB CONC 30.5 g/dl (31.0-37.0); MEAN PLATELET VOLUME 11.1 fl (7.0-11.0); RBC 3.36 10^6/uL (3.5-6.1); RED CELL DISTRIBUTION WIDTH 15.6 % (11.5-14.5); WHITE BLOOD COUNT 4.7 10^3/uL (4.5-11.0)
[2019-02-12 07:25] LABS: CALCIUM 9.5 mg/dL (8.4-10.5)
[2019-02-12 09:42] VITALS: BP 110/53
[2019-02-12 11:42] VITALS: PULSE 72
== END 2019-02-12 15:15 | disposition home or self-care (01) ==
LOC: SDSVAS 11:17 → 2RSO 16:10 → SDSVAS 02-12 15:15
PROVIDERS: ATTEND Radiology Vascular & Interventional Radiology
DX: I70.235 Atherosclerosis of native arteries of right leg with ulceration of other part of foot (principal); L97.519 Non-pressure chronic ulcer of other part of right foot with unspecified severity; I11.0 Hypertensive heart disease with heart failure; I50.9 Heart failure, unspecified; I35.0 Nonrheumatic aortic (valve) stenosis; I25.10 Atherosclerotic heart disease of native coronary artery without angina pectoris; J44.9 Chronic obstructive pulmonary disease, unspecified; Z86.73 Personal history of transient ischemic attack (TIA), and cerebral infarction without residual deficits; Z86.718 Personal history of other venous thrombosis and embolism; Z86.711 Personal history of pulmonary embolism; Z87.891 Personal history of nicotine dependence; Z88.0 Allergy status to penicillin; Z88.2 Allergy status to sulfonamides
CPT/HCPCS: 36415 ×2; 37224; 37228; 37232; 37242; 75625; 75710; 80048 ×2; 85025; 85027; 85610; 85730; 99152; 99153; C1725 ×8; C1760; C1769 ×6; C1884 ×2; C1887 ×4; C1894; J1200; J1644 ×2; J2250; J2405; J3010; J7030 ×2; Q9966; Q9967

== ENCOUNTER 2019-02-21 13:15 | Outpatient (CLI) | payer MEDICARE, MEDICAID | END 2019-02-21 13:16 | disposition home or self-care (01) | LOC: RAD 13:16 ==